=== PATIENT | female | born 1970 | race Caucasian/White ===

== ENCOUNTER → 2017-08-27 17:47 | Outpatient (CLI) | payer BC, SELFPAY | PROVIDERS: Visit Provider Urology | DX: R31.9 Hematuria, unspecified (principal) | CPT/HCPCS: 87077; 87086; 87088; 87186 ==

== ENCOUNTER 2017-09-18 09:30 | Day surgery (SDC) | payer BC, SELFPAY ==
--- NOTE | 2017-09-18 09:45 | RAD_ITS ---
STUDY: X-RAY - ABDOMEN/PELVIS REASON FOR EXAM: Female, 47 years old. Left-sided kidney stones TECHNIQUE: Single AP view of the abdomen / pelvis. COMPARISON: December 29, 2013 FINDINGS: There again appear to be a left renal calculi with a few calculi measuring up to 5 mm. There is an unremarkable bowel gas pattern. There is no demonstrated free abdominal air. The visualized liver, spleen and kidneys are grossly normal in size and morphology. Normal soft tissue structures. There are diffuse degenerative changes of the visualized lumbar spine. RAD/Abdomen Single View IMPRESSION: There again appear to be a left renal calculi with a few calculi measuring up to 5 mm. Electronically Signed: Anette Pena MD at 13:37 EDT , Service support ,
[2017-09-18 10:07] VITALS: BP 120/81; PULSE 89; RESP 16; TEMP 36.4; O2SAT 100; BMI 31.5
[2017-09-18 10:26] LABS: Bedside Glucose 97 mg/dL (70-110)
[2017-09-18] MEDS: Cefazolin 2 GM in 0.9% Normal Saline 100 ML IV (12:06)
--- NOTE | 2017-09-18 12:12 | PCM.DC.URO ---
Discharge Diet: Light diet - advance as tolerated Discharge Activity: Return to Normal Activity, May not drive while taking narcotic pain medications. Call your doctor if your incision/area has: Continuous Slow Oozing, Sudden Increased Bleeding, Increased Pain/ Swelling, Increased Redness, Foul Smelling Discharge, Swelling at the incision site Call your doctor if you observe: Fever of 101 or Higher, Uncontrolled pain Instructions: Shock Wave Lithotripsy Allergies/Adverse Reactions: Allergies amoxicillin Allergy (Verified 09/14/17 08:11) Unknown Sulfa (Sulfonamide Antibiotics) Allergy (Verified 09/14/17 08:11) Hives Medications to take at Discharge Escitalopram Oxalate [Lexapro] 40 mg PO QHS 12/16/13 Atorvastatin Calcium [Lipitor] 10 mg PO QHS 09/14/17 Losartan Potassium [Cozaar] 50 mg PO DAILY 09/14/17 Metformin HCl 1,000 mg PO BID 09/14/17 Pantoprazole Sodium [Protonix] 40 mg PO DAILY 09/14/17 Hydrocodone/Acetaminophen [[place] 5-325 Tablet] 1 ea PO Q4H PRN PRN 5 Days #20 tab 09/18/17 The following prescriptions were given: Hydrocodone/Acetaminophen [[place] 5-325 Tablet] 1 ea PO Q4H PRN PRN 5 Days #20 tab PRN Reason: Pain Primary Care Physician: Tramaine Ch [Primary Care Provider] - Please Follow Up With: Tulio Orozco MD - call if need to change appt. When: ThursdaySeptember 30, 9:30 am, get xray before appt.
--- NOTE | 2017-09-18 12:17 | DCINST_ITS ---
Discharge Diet: Light diet - advance as tolerated Discharge Activity: Return to Normal Activity, May not drive while taking narcotic pain medications. Call your doctor if your incision/area has: Continuous Slow Oozing, Sudden Increased Bleeding, Increased Pain/ Swelling, Increased Redness, Foul Smelling Discharge, Swelling at the incision site Call your doctor if you observe: Fever of 101 or Higher, Uncontrolled pain Instructions: Shock Wave Lithotripsy Allergies/Adverse Reactions: Allergies amoxicillin Allergy (Verified 09/14/17 08:11) Unknown Sulfa (Sulfonamide Antibiotics) Allergy (Verified 09/14/17 08:11) Hives Medications to take at Discharge Escitalopram Oxalate [Lexapro] 40 mg PO QHS 12/16/13 Atorvastatin Calcium [Lipitor] 10 mg PO QHS 09/14/17 Losartan Potassium [Cozaar] 50 mg PO DAILY 09/14/17 Metformin HCl 1,000 mg PO BID 09/14/17 Pantoprazole Sodium [Protonix] 40 mg PO DAILY 09/14/17 Hydrocodone/Acetaminophen [[place] 5-325 Tablet] 1 ea PO Q4H PRN PRN 5 Days #20 tab 09/18/17 The following prescriptions were given: Hydrocodone/Acetaminophen [[place] 5-325 Tablet] 1 ea PO Q4H PRN PRN 5 Days #20 tab PRN Reason: Pain Primary Care Physician: Tramaine Ch [Primary Care Provider] - Please Follow Up With: Tulio Orozco MD - call if need to change appt. When: ThursdaySeptember 30, 9:30 am, get xray before appt.
--- NOTE | 2017-09-18 12:49 | PCM.OPRPT ---
Problem List (1) Calculus of left kidney Status: Acute Report of Operation Date of Procedure: 09/18/17 Pre-Operative Diagnosis: Left renal calculi Post-Operative Diagnosis: Same Surgery/Procedure Performed:: Left extracorporeal shockwave lithotripsy Description of Surgical Findings:: 47-year-old female taken back to the operating room at the smooth induction of general anesthesia she was placed supine on the lithotripter table we then localize the stones at the F2 focal point of the lithotripter machine she had 3 stones to him next to each other and one of them the lower pole. We started with shockwave lithotripsy applied a total of 3000 shockwaves to the stones at a rate of 90 initially up to 120. The stones were effectively treated with shockwave treatment after a few 100 shocks the stones are broken up and we decreased the power and increasing frequency of the shockwave machine and at the end of the treatment cycle the stone the broken up really well decided not to leave a stent patient's anesthetic was reversed plan to see her back in a few weeks with a KUB. Type of Anesthesia:: General Drains: none - Admit VTE Documentation VTE Present on Admission: No VTE Mechan Device Prophylaxis: SCD's VTE Pharm Prophylaxis ordered?: No Reason prophylaxis not ordered:: Treatment Not Indicated
[2017-09-18 12:58] VITALS: BP 120/81; BP 125/79; PULSE 87; RESP 16; TEMP 36.4; O2SAT 95
[2017-09-18 13:00] VITALS: BP 120/81; BP 121/77; PULSE 89; RESP 16; O2SAT 96
[2017-09-18 13:15] VITALS: BP 120/81; BP 121/81; PULSE 79; RESP 16; O2SAT 95
[2017-09-18 13:15] LABS: Bedside Glucose 96 mg/dL (70-110)
[2017-09-18 13:32] VITALS: BP 114/80; BP 120/81; PULSE 72; RESP 16; TEMP 36.5; O2SAT 96
[2017-09-18 14:09] VITALS: BP 120/81
== END 2017-09-18 14:13 | disposition home or self-care (01) ==
LOC: SDC 09:31 → AC 09:33
PROVIDERS: Family Provider Family Medicine; PCP Family Medicine; Visit Provider Urology
PROC: (CPT 50590; principal; 2017-09-18 11:30)
DX: N20.0 Calculus of kidney (principal); N30.00 Acute cystitis without hematuria; R35.0 Frequency of micturition; R35.1 Nocturia; I10 Essential (primary) hypertension; E78.4 Other hyperlipidemia; R73.03 Prediabetes; K21.9 Gastro-esophageal reflux disease without esophagitis; F32.9 Major depressive disorder, single episode, unspecified; F41.9 Anxiety disorder, unspecified; E66.9 Obesity, unspecified; Z68.31 Body mass index [BMI] 31.0-31.9, adult; Z79.84 Long term (current) use of oral hypoglycemic drugs; Z79.899 Other long term (current) drug therapy; F17.200 Nicotine dependence, unspecified, uncomplicated; Z87.442 Personal history of urinary calculi; Z87.440 Personal history of urinary (tract) infections; Z86.32 Personal history of gestational diabetes; Z98.51 Tubal ligation status
CPT/HCPCS: 00873; 50590; 74018; 82962; J7120; J2405

== ENCOUNTER → 2017-09-30 08:48 | Outpatient (CLI) | payer BC, SELFPAY ==
--- NOTE | 2017-09-30 09:00 | RAD_ITS ---
STUDY: X-RAY - ABDOMEN/PELVIS REASON FOR EXAM: Female, 47 years old. History of kidney stone. TECHNIQUE: Single AP view of the abdomen / pelvis. COMPARISON: 09/18/2017. FINDINGS: Again are few calcifications overlying the left kidney faintly visualized this exam. There is an unremarkable bowel gas pattern. The visualized liver, spleen and kidneys are grossly normal in size. There are calcified phleboliths in the pelvis. Stones in the distal ureters are difficult to exclude. Surgical clips are seen in the pelvic region. There are degenerative changes of the visualized lumbar spine. RAD/Abdomen Single View IMPRESSION: Small calcifications overlying the left kidney faintly visualized at this time. Electronically Signed: Tres Chen MD at 2:37 EDT Tel , Service support ,
== END ==
PROVIDERS: Family Provider Family Medicine; PCP Family Medicine; Visit Provider Urology
DX: R94.2 Abnormal results of pulmonary function studies (principal)
CPT/HCPCS: 74018

== ENCOUNTER → 2017-09-30 11:28 | Outpatient (CLI) | payer BC, SELFPAY | PROVIDERS: Family Provider Family Medicine; PCP Family Medicine; Visit Provider Nurse Practitioner Adult Health | DX: R31.9 Hematuria, unspecified (principal); R82.99 Other abnormal findings in urine | CPT/HCPCS: 74018; 87077; 87086; 87088; 87186 ==

== ENCOUNTER → 2019-05-03 15:35 | Outpatient (CLI) | payer OTHER, SELFPAY ==
--- NOTE | 2019-05-03 15:39 | RAD_ITS ---
STUDY: X-RAY - ABDOMEN/PELVIS REASON FOR EXAM: Female, 48 years old. History of kidney stones. TECHNIQUE: Two AP supine views of the abdomen and pelvis. COMPARISON: Prior study of 09/30/2017 FINDINGS: The lung bases are not in the field of view of the study. There is an unremarkable bowel gas pattern. There is no demonstrated free abdominal air. There are 2 small calcifications overlying the left renal silhouette in the 2 to 3 mm range, similar to the previous study. Bilateral tubal ligation clips are seen in the pelvis. There are mild arthritic changes of the left and right hips. RAD/Abdomen Single View IMPRESSION: Several small calcifications again noted overlying the lower pole of left kidney consistent with nephrolithiasis, similar to the previous study. Bilateral tubal ligation clips are noted. There are mild degenerative changes of the left and right hips. Electronically Signed: Prince Killian MD at 23:01 EST , Service support ,
== END ==
PROVIDERS: Family Provider Family Medicine; PCP Family Medicine; Referring Provider Nurse Practitioner Adult Health; Visit Provider Nurse Practitioner Adult Health
DX: N20.0 Calculus of kidney (principal); N39.0 Urinary tract infection, site not specified
CPT/HCPCS: 74018; 87077; 87086; 87088; 87186

== ENCOUNTER → 2019-05-16 16:37 | Outpatient (CLI) | payer OTHER, SELFPAY | PROVIDERS: Family Provider Family Medicine; PCP Family Medicine; Referring Provider Urology; Visit Provider Urology | DX: R31.9 Hematuria, unspecified (principal) | CPT/HCPCS: 87077; 87086; 87088; 87186 ==

== ENCOUNTER 2019-06-18 14:01 | Emergency (ER) | payer OTHER, SELFPAY ==
[2019-06-18 14:04] VITALS: BP 118/81; PULSE 99; RESP 17; TEMP 36.9; O2SAT 99; BMI 31.6
--- NOTE | 2019-06-18 14:40 | CT_ITS ---
STUDY: CT ABDOMEN AND PELVIS WITHOUT CONTRAST REASON FOR EXAM: Female, 49 years old. Left flank pain for 2 days and hematuria. RADIATION DOSAGE (If Supplied By Facility): CTDIvol = ( 13.94 ) mGy, DLP = ( 706.91 ) mGycm TECHNIQUE: Transaxial images were obtained from the dome of the diaphragm to the symphysis pubis without oral contrast, and without intravenous contrast. Sagittal and coronal images were reconstructed. Individualized dose optimization techniques were used for this CT. COMPARISON: None. FINDINGS: The visualized portions of lung bases demonstrate hypoventilatory changes. The visualized portions of the heart are within normal limits. There is hepatomegaly. There is mild diffuse fatty infiltration of the liver. No focal lesion is seen. There is non-visualization of the gallbladder, which may be secondary to either contraction or a prior cholecystectomy. Normal spleen. Normal pancreas. Normal bilateral adrenal glands. There is a 2 mm nonobstructing stone in the right kidney. There is no evidence of right hydronephrosis. There are multiple small stones in the left kidney, the largest measures about 3 mm in its mid pole. There is mild left hydronephrosis there is no evidence of ureteral stone. Multiple calcifications are seen in pelvic lesion consistent with phleboliths. There are vascular calcifications. Normal visualized stomach. There are nonspecific fluid-filled small bowel loops. There is no evidence of small bowel obstruction. There is fecal retention. The appendix is visualized and appears normal. There is mild atherosclerotic calcification of the abdominal aorta, without a demonstrated aneurysm. Normal inferior vena cava. Normal retroperitoneum. Normal urinary bladder. There are surgical clips in the pelvis consistent with a history of previous tubal ligation. Normal abdominal wall. The osseous structures demonstrate Schmorl''s nodes at multiple levels in the lower thoracic and upper lumbar spine. CT/Abdomen/Pelvis without Cont IMPRESSION: 1. Mild left hydronephrosis. No definite ureteral stone is seen. 2. Bilateral nonobstructing renal stones more on the left side. 3. Hepatomegaly. 4. Nonvisualization of the gallbladder. 5. No evidence of acute appendicitis. Electronically Signed: Tres Chen MD at 15:33 EST Tel , Service support ,
[2019-06-18 14:54] LABS: Bacteria 0 SEEN /hpf (None Seen); Mucous, Urine 0 SEEN /hpf (<or=2+)
[2019-06-18 14:57] VITALS: BP 124/89; PULSE 82; RESP 16; O2SAT 98
[2019-06-18] MEDS: 0.9% Normal Saline 1,000 ML 1000 ML IV (14:58)
[2019-06-18 15:17] LABS: Color, Urine Amber (Yellow); Glucose, Dipstick Normal (Normal); Ketone-Dipstick 5 mg/dl (Negative); Leukocyte Esterase-Dipstick 500 /ul (Negative); Nitrite-Dipstick Positive (Negative); Occult Blood-Urine 250 /ul (Negative); Protein-Dipstick 100 mg/dl (Negative); Urine Bilirubin Dipstick Negative (Negative); Urine Clarity Cloudy (Clear); Urine Urobilinogen Normal (Normal); Urine pH 6.5 (5.0 - 8.0)
[2019-06-18] MEDS: Ceftriaxone 1 GM/50 ML BAG IV (15:18)
[2019-06-18 15:22] LABS: Absolute Lymphocyte Count 1.88 X10^3/uL (0.83-4.51); Absolute Neutrophil Count 4.9 X10^3/uL (2.0-7.7); Basophil# 0.05 X10^3/uL; Basophil% 0.6 % (0-1); Eosinophil# 0.23 X10^3/uL; Eosinophils% 2.9 % (0-5); Hematocrit 41.8 % (37-47); Hemoglobin 13.7 g/dL (12.0-15.0); Lymphocyte # 1.88 X10^3/ul (4.0); Lymphocyte % 23.7 % (19-41); Mean Corp Hgb Conc 32.8 g/dL (32-36); Mean Corpuscular Hgb 30.9 pg (27.0-32.0); Mean Corpuscular Volume 94.4 fL (81-99); Mean Platelet Vol. 9.9 fl (6.2-12.0); Monocyte# 0.89 X10^3/uL; Monocyte% 11.2 % (0-10); NRBC Flagged by Analyzer 0 % (0-5); Neutrophil # 4.86 X10^3/uL (2.7-7.7); Neutrophil % 61.2 % (47-70); Platelet Count 275 K/mm3 (150-450); RBC Distribution Width CV 13.4 % (11.6-14.6); RBC Distribution Width SD 46.5 fl (35.1-43.9); Red Blood Count 4.43 M/mm3 (4.2-5.4); White Blood Count 7.9 K/mm3 (4.4-11.0)
[2019-06-18 15:28] LABS: ALB/GLOB Ratio 1.3 RATIO (0.9-2.4); AST(SGOT) 22 U/L (15-37); Alanine Aminotransfer ALT/SGPT 37 U/L (13-56); Albumin, Serum 3.9 g/dL (3.2-5.0); Alkaline Phosphatase 74 U/L (45-117); Anion Gap 6 (5-15); BUN 11 mg/dL (7-18); BUN/Creat Ratio 15.3 RATIO (10-20); Calcium,Total 8.3 mg/dL (8.5-10.1); Chloride 109 mmol/L (98-107); Creatinine, Serum 0.72 mg/dL (0.55-1.02); EST Glomerular Filtration Rate 91 mL/min (>60); Est Glom Filt Rate - Afr Amer 110 mL/min (>60); Estimated Creatinine Clearance 86.54 ml/min; Glucose 103 mg/dL (74-106); Potassium 3.8 mmol/L (3.5-5.1); Protein, Total 6.9 g/dL (6.4-8.2); Sodium Level 141 mmol/L (136-145)
[2019-06-18 15:29] LABS: Red Blood Cells-Urine 10-25 SEEN /hpf (0-5); Squamous Epithelial Cells - UA 0-5 SEEN /hpf (5-10); White Blood Cells 10-25 SEEN /hpf (0-5)
[2019-06-18 15:42] LABS: Lactic Acid 2.1 mmol/L (0.4-1.9)
--- NOTE | 2019-06-18 15:43 | ED.RN ---
lactic 2.[address] coelho aware
--- NOTE | 2019-06-18 16:49 | ED.DCSUM_ITS ---
- ER Visit Summary Date of Service: 06/18/19 Chief Complaint: Flank pain History of Present Illness: The patient is a [address] Orozco, the [facility], and Dr. Ch. She reports that last month she had a urine culture that showed she had a infection. She was placed on Cipro. States that she did not have any symptoms preceding this and seemed to be doing fine. However, she reports that following this her urine has been brown intermittently since that time. She was placed on Macrobid a few weeks ago. She states that this did not improve. She saw the [facility] on June 06 and had a urine culture obtained which showed Klebsiella. Today they called in cefadroxil and she is taken 1 dose. Patient reports that she has left flank pain that began today. Is a cramping pain that was 9 at 10 worsened 4-10 currently. Is worsened by movement. Is relieved by Aleve. She denies any associated nausea, vomiting, diarrhea, dysuria, frequency, or other complaints. She does have a history of kidney stones, but she reports that this is not similar to that. Physical Examination: Vitals: Stable. Afebrile. General: Well-nourished and well-developed. Head: Normocephalic atraumatic. Neck: Supple, no lymphadenopathy. No JVD. Nontender. Cardiovascular: Regular rate and rhythm. No murmurs. Respiratory: No respiratory distress. Clear to auscultation bilaterally. Abdominal: Soft, nontender, nondistended, normal bowel sounds. No guarding, rebound, or peritoneal signs. Back: Mild tenderness palpation just inferior to the left costovertebral angle. Extremities: Nontender, no edema. Skin: Normal color, no rash. Neurologic: Alert and oriented ?3. Cranial nerves II through XII are intact. Normal strength and sensation. Psych: Normal affect. Test Results: CBC shows monocytes of 11. Chem-7 shows a chloride of 109, calc ium 8.3. LFTs are normal. UA does show an infection with nitrites, 10-25 white and red blood cells. Lactic acid is 2.1. Clinical Impression(s) from Imaging Studies Abdomen/Pelvis CT 06/18/19 14:40 IMPRESSION: 1. Mild left hydronephrosis. No definite ureteral stone is seen. 2. Bilateral nonobstructing renal stones more on the left side. 3. Hepatomegaly. 4. Nonvisualization of the gallbladder. 5. No evidence of acute appendicitis. Electronically Signed: Tres Chen MD at 15:33 EST Tel , Service support , Emergency Department Course and Treatment: Patient had an IV placed. She was given a dose of Rocephin IV. She refused pain or nausea medications. I did review her the computer. Her urine cultures of showed Klebsiella that is resistant to Macrobid and ampicillin. Treatment Plan: Patient was instructed to take the cefadroxil as prescribed. Follow-up with her primary care physician in 5 days for a repeat urinalysis. If she continues to have blood in her urine she understands that she needs to see Dr. Orozco for further evaluation. Return to the emergency department for any worsening symptoms. Disposition: To home in improved and stable condition. Impression: 1. UTI. 2. Left flank pain. This note was generated with [employer] dictation software. It may contain incorrect words, spelling, and punctuation that were not noted in review of the chart prior to signing ED Disposition - Plan for ED Patient: Instructions: Understanding Urinary Tract Infections (UTIs) Referrals: Tramaine Ch MD [Primary Care Provider] - 5-7 Days
[2019-06-18 16:54] VITALS: BP 120/89; PULSE 84; RESP 16; O2SAT 100
[2019-06-18 19:06] LABS: Reflex Lactate? Y
== END 2019-06-18 16:55 | disposition home or self-care (01) ==
PROVIDERS: Emergency Provider Emergency Medicine; Family Provider Family Medicine; PCP Family Medicine
DX: N39.0 Urinary tract infection, site not specified (principal); N13.2 Hydronephrosis with renal and ureteral calculous obstruction; R16.0 Hepatomegaly, not elsewhere classified; K21.9 Gastro-esophageal reflux disease without esophagitis; E11.9 Type 2 diabetes mellitus without complications; I10 Essential (primary) hypertension; E78.00 Pure hypercholesterolemia, unspecified; F32.9 Major depressive disorder, single episode, unspecified; Z87.442 Personal history of urinary calculi; Z79.84 Long term (current) use of oral hypoglycemic drugs; Z79.899 Other long term (current) drug therapy; F17.200 Nicotine dependence, unspecified, uncomplicated
CPT/HCPCS: 74176; 80053; 81001; 83605; 85025; 96365; 99285; J7030; A4216

== ENCOUNTER → 2024-10-18 | Outpatient (CLI) | payer BC, SELFPAY ==
--- NOTE | 2024-10-18 10:47 | RAD_ITS ---
EXAM: XR Abdomen, 1 View CLINICAL INDICATION: KUB- KIDNEY STONES TECHNIQUE: Frontal supine view of the abdomen/pelvis. COMPARISON: No relevant prior studies available. FINDINGS: GASTROINTESTINAL TRACT: See below. ORGANS: Multiple nodular calculi projects over the left renal region measuring up to 8 mm. This could be a renal calculus or in the colon. BONES/JOINTS: Unremarkable. No acute fracture. RAD/Abdomen Single View IMPRESSION: Multiple nodular calculi projects over the left renal region measuring up to 8 mm. This could be a renal calculus or in the colon. Reading [facility]
== END | disposition home or self-care (01) ==
LOC: MTRAD 10:46
PROVIDERS: PCP Family Medicine; Referring Provider Urology; Visit Provider Urology
DX: N20.0 Calculus of kidney (principal)
CPT/HCPCS: 74018

== ENCOUNTER 2025-05-05 18:30 | Outpatient (CLI) | payer BC, SELFPAY ==
--- NOTE | 2025-05-05 18:36 | CT_ITS ---
PROCEDURE: CT/Abdomen/Pelvis without Cont
== END 2025-05-05 23:59 | disposition home or self-care (01) ==
PROVIDERS: PCP Family Medicine; Referring Provider Urology; Visit Provider Urology
DX: N39.0 Urinary tract infection, site not specified (principal); Z87.442 Personal history of urinary calculi
CPT/HCPCS: 74176

== ENCOUNTER 2025-06-15 05:58 | Day surgery (SDC) | payer BC, SELFPAY ==
[2025-06-08 10:52] LABS: Hematocrit 43.8 % (37-47); Hemoglobin 14.3 g/dL (12.0-15.0); Mean Corp Hgb Conc 32.6 g/dL (32-36); Mean Corpuscular Volume 92.2 fL (81-99); Mean Platelet Vol. 10.4 fl (6.2-12.0); Platelet Count 360 K/mm3 (150-450); RBC Distribution Width CV 14.0 % (11.6-14.6); RBC Distribution Width SD 47.7 fl (35.1-43.9); Red Blood Count 4.75 M/mm3 (4.2-5.4); White Blood Count 9.0 K/mm3 (4.4-11.0)
[2025-06-08 11:21] LABS: Anion Gap 15 (5-15); BUN 12 mg/dL (4-19); BUN/Creat Ratio 15.3 RATIO (10-20); Calcium,Total 9.8 mg/dL (7.6-11.0); Carbon Dioxide 23.0 mmol/L (21.0-32.0); Chloride 101 mmol/L (98-108); Glucose 183 mg/dL (70-99); Potassium 4.3 mmol/L (3.3-5.1)
[2025-06-15] VITALS (9 sets, daily range): BP systolic 134–148; BP diastolic 88–93; PULSE 72–89; RESP 16; TEMP 36.2–37.6; O2SAT 92–98; BMI 31.1
--- OUTSIDE RECORDS SUMMARY | 2025-06-15 06:02 | XMS RPT_ITS | CCD ---
Author Organization [facility] Care Team Providers Care Commercial Roofer Name Role Phone Tatyana Doll Unavailable Unavailable Tatyana Doll Unavailable Unavailable Delarosa II, Lo Unavailable Unavailable Tatyana Doll Unavailable Unavailable Angelica White Unavailable Unavailable Tatyana Doll Unavailable Unavailable Unavailable Tatyana Doll Unavailable Sruthi Rangel Unavailable Lo Delarosa Unavailable Lisa Oscar Meek Unavailable Unavailable Unavailable Unavailable Sruthi Shelley Primary Care Provider Trudy Santana Unavailable Unavailable Dima, Dr. Tatyana Marquez Primary Care Unav ailable Delarosa II, Dr. Lo Sahni Attending Unavai lable Delarosa II, Dr. Lo Sahni Attending Unavai lable Doll, Dr. Tatyana Marquez Primary Care Unav ailable Dima, Dr. Tatyana Maruqez Primary Care Unav ailable Doll, Dr. Tatyana Marquez Referring Unav ailable Christopher, Dr. Angelica Davis Admitting Unavai lable Christopher, Dr. Angelica Davis Attending Unavai lable Doll, Dr. Tatyana Marquez Attending Unav ailable Doll, Dr. Tatyana Marquez Primary Care Unav ailable Doll, Dr. Tatyana Marquez Attending Unav ailable Doll, Dr. Tatyana Marquez Primary Care Unav ailable Dima, Dr. Tatyana Marquez Primary Care Unav ailable Hardik, Ms. Yates Attending Unavail able Delarosa II, Dr. Lo Sahni Attending Unavai lable Delarosa II, Dr. Lo Sahni Referring Unavai labreyna Doll, Dr. Tatyana Marquez Primary Care Unav ailable Doll, Dr. Tatyana Marquez Attending Unav ailable Doll, Dr. Tatyana Marquez Referring Unav ailable Doll, Dr. Tatyana Marquez Primary Care Unav ailTatyana Gutierrez MD Primary Care Provider Sruthi Shelley MD Primary Care Provider Tatyana Doll MD Unavailable Tatyana Doll MD Primary Care Provider Lo Delarosa MD Unavailable TATYANA DOLL Primary Care Unavailable TATYANA DOLL Primary Care Unavailable Tatyana Doll MD Primary Care Provider FAZAL MALIK JR. Attending Unavailable TATYANA DOLL Primary Care Unavaila ble Sruthi Shelley MD Primary Care Provider [phone] Tatyana Doll MD Unavailable [phone] Tatyana Doll MD Primary Care Provider [phone] Lo Delarosa MD Unavailable SHERRELL RICKS Attending Unavailable SHERRELL RICKS Referring Unavailable STENCEL, SRUTHI D Primary Care Unavailable SHERRELL RICKS Referring Unavailable STENCEL, SRUTHI Mahesh Primary Care Unavailable SHERRELL RICKS Attending Unavailable STENCEL, SRUTHI D Primary Care Unavailable HASHERRELL CUELLAR Referring Unavailable STENCEL, SRUTHI D Primary Care Unavailable HASHERRELL CUELLAR Referring Unavailable STENCEL, SRUTHI Aragon Primary Care Unavailable Tatyana Doll MD Unavailable ANGELICA WHITE Attending Unavailable ANGELICA WHITE Referring Unavailable TATYANA DOLL Primary Care Unavailable TATYANA DOLL Attending Unavailable TATYANA DOLL Referring Unavailable TATYANA DOLL Primary Care Unavailable TATYANA DOLL Attending Unavailable TATYANA DOLL Referring Unavailable TATYANA DOLL Primary Care Unavailable TATYANA DOLL Attending Unavailable TATYANA DOLL Primary Care Unavailable Tramaine Doll Primary Care Unavailable Tramaine Doll Referring Unavailable Nithya Saucedo Attending Unavailable Tramaine Doll Primary Care Unavailable Nithya Saucedo Attending Unavailable Nithya Saucedo Referring Unavailable Nithya Saucedo Attending Unavailable Nithya Saucedo Referring Unavailable Tramaine Doll Primary Care Unavailable Dima BOUDREAUX, Dr. Redd Primary Care Physician Dima BOUDREAUX, Dr. Redd Referring Provider [phone] Sheryl BOUDREAUX, Dr. Barriga Attending Physician Sheryl BOUDREAUX, Dr. Barriga Referring Provider Allergies Allergy Classification Reported Allergen(s) Allergy Type Date of Onset Reaction(s) Facility Penicillins (antibiotic) (1 source) Amoxicillin; Translations: [Amoxicillin TABS] Drug Allergy [facility] Work Phone: Sulfonamides (antibiotic) (1 source) Sulfonamides (Antibiotic); Translations: [Sulfa Drugs] Drug Allergy [facility] Work Phone: (20 sources) Amoxicillin; Translations: [Amoxicillin TABS] Drug Allergy 4 [facility], [facility]: (20 sources) Sulfonamides (Antibiotic); Translations: [Sulfa Drugs] drug allergy Hives/Urticaria , Hives [facility] Work Phone: (20 sources) Sulfonamides (Antibiotic); Translations: [SULFA (SULFONAMIDE ANTIBIOTICS)] Drug Allergy 6 [facility] (6 sources) Amoxicillin; Translations: [AMOXICILLIN] Drug Allergy 4 [facility] Rep[facility] (1 source) Sulfonamides (Antibiotic) Drug allergy (disorder) 9 [facility] Repository (1 source) Sulfonamides (Antibiotic) Allergy to substance 9 [facility] Medications Current Medications Medication Drug Class(es) Dates Sig (Normalized) Sig (Original) acetaminophen 325 mg / HYDROcodone bitartrate 5 mg oral tablet (2 sources) Opioid Agonist Start: 10-06-2023 End: 02-12-2024 take 1 tablet by mouth every six hours for pain HYDROcodone-acetami nophen (Holden) 5-325 mg tablet Indications: Kidney stone Take 1 tablet by mouth every 6 hours if needed for severe pain (7 - 10). 20 tablet 10/06/2023 02/12/2024 Discontinued (Therapy completed) ALPRAZolam 0.5 mg oral tablet (20 sources) Benzodiazepine Start: 07-08-2019 End: 02-17-2023 take 1 tablet by mouth every four hours ALPRAZolam (Xanax) 0.5 mg tablet Indications: Recurrent major depressive disorder, in partial remission Take 1 tablet (0.5 mg) by mouth every 4 hours for 7 days. 30 tablet 02/10/2023 Active Start: 04-08-2017 take 1 tablet by cristobal th once daily as needed for anxiety ALPRAZolam (XANAX) 0.5 mg tablet TAKE ONE TABLET BY MOUTH DAILY NEEDED FOR ANXIETY 5 04/08/2017 Active Comment on above: TAKE ONE TABLET BY M OUTH DAILY NEEDED FOR ANXIETY atorvastatin 10 mg oral tablet (20 sources) HMG-CoA Reductase Inhibitor Start: 05-15-20 17 End: 08-17-19 26 take 1 tablet by mouth at bedtime Comment on above: Take 10 mg by mouth once daily. blood-glucose meter, drum-type(ACCU-CHEK COMPACT PLUS CARE KIT) (15 sources) Start: 10-20-19 09 blood-glucose meter, drum-type(ACCU-CHEK COMPACT PLUS CARE KIT) use as directed 1 0 10/19/2008 Active Comment on above: use as directed ciprofloxacin 500 mg oral tablet (20 sources) Quinolone Antimicrobial Start: 08-05-19 24 End: 08-13-19 24 take 1 tablet by mouth twice daily ciprofloxacin (Cipro) 500 mg tablet Indications: Recurrent UTI Take 1 tablet (500 mg) by mouth 2 times a day for 5 days. 10 tablet 0 08/05/2023 08/13/2023 Discontinued (Therapy completed) Start: 08-01-2022 take 1 tablet by cristobal th once daily Ciprofloxacin HCl - 500 MG Oral Tablet TAKE 1 TABLET EVERY 12 HOURS DAILY. Quantity: 10 Refills: 0 Ordered: 01-Aug-2022 Tatyana Doll MD Start : 01-Aug-2022 Active Start: 07-08-2021 take 1 tablet by cristobal th twice daily Ciprofloxacin HCl - 250 MG Oral Tablet Take 1 tablet twice daily Quantity: 6 Refills: 0 Ordered: 08-Jul-2021 Lo Delarosa II, MD Start : 08-Jul-2021 Active Start: 04-24-2021 End: 04-30-2021 take 1 tablet by mouth every twelve hours Cipro 500 mg oral tablet ; 1 tab(s) orally every 12 hours Quantity: 14 Refills: 0 Ordered: 24-Apr-2021 Sruthi Rangel Start: 24-Apr-2021 End: 30-Apr-2021 Generic Substitution Allowed Comments: Avoid prolonged or excessive exposure to direct and/or artificial sunlight while taking this medication.Check with your doctor before becoming .Do not take dairy products, antacids, or iron preparations within one hour of this medication.Finish all this medication unless otherwise directed by prescriber.Medication should be taken with plenty of water. Start: 08-13-2020 End: 02-10-2023 take 1 tablet by mouth twice daily ciprofloxacin (Cipro) 500 mg tablet Take 1 tablet (500 mg) by mouth 2 times a day. 0 08/13/2020 02/10/2023 Discontinued (Med List Cleanup) Start: 09-05-2019 take 1 tablet by cristobal th twice daily Ciprofloxacin HCl - 250 MG Oral Tablet Take 1 tablet twice daily Quantity: 6 Refills: 0 Lo Delarosa II, MD Start : 05-Sep-2019 Active Comment on above: Avoid prolonged or e xcessive exposure to direct and/or artificial sunlight while taking this medication.Check with your doctor before becoming .Do not take dairy products, antacids, or iron preparations within one hour of this medication.Finish all this medication unless otherwise directed by prescriber.Medication should be taken with plenty of water. doxycycline hyclate 100 mg oral tablet (1 source) Tetracycline-class Drug Start: End: take 1 tablet by mouth twice daily doxycycline hyclate (VIBRA-TABS) 100 MG tablet Take 1 (one) tablet (100 mg total) by mouth 2 (two) times a day for 10 days . 20 tablet 07/06/2024 07/16/2024 Active escitalopram 20 mg oral tablet (20 sources) Serotonin Reuptake Inhibitor Start: 024 End: 026 take 1 tablet by mouth once daily escitalopram (Lexapro) 20 mg tablet Indications: Depression, unspecified depression type Take 1 tablet (20 mg) by mouth once daily. 90 tablet 3 08/17/2024 08/17/2025 Active Start: 07-08-2019 End: 10-31-2023 take 1 tablet by mouth once daily escitalopram (Lexapro) 10 mg tablet Indications: Depression, unspecified depression type Take 1 tablet (10 mg) by mouth once daily. 90 tablet 3 10/31/2022 08/13/2023 Discontinued (Reorder) Start: 12-16-2013 take 4 tablets by mo [facility] at bedtime Comment on above: Take 10 mg by mouth once daily. levoFLOXacin 500 mg oral tablet (1 source) Quinolone Antimicrobial Start: 04-20-20 End: 04-25-20 take 1 tablet by mouth once daily Levofloxacin 500 mg tablet Discontinued 500 mg PO daily 5 5 0 April 19, 2025 11:00pm April 23, 2025 11:00pm April 24, 2025 11:10pm losartan potassium 100 mg oral tablet (20 sources) Angiotensin 2 Receptor Henry Start: 07-08-19 End: 08-17-19 take 1 tablet by mouth once daily losartan (Cozaar) 100 mg tablet Indications: Benign hypertension Take 1 tablet (100 mg) by mouth once daily. 90 tablet 3 08/17/2024 08/17/2025 Active Start: 09-14-2017 take 1 tablet by cristobal once daily losartan (COZAAR) 50 mg tablet Take 50 mg by mouth once daily. 3 05/16/2018 Active Comment on above: Take 50 mg by mouth once daily. 24 hr metFORMIN hydrochloride 750 mg extended release oral tablet (20 sources) Biguanide Start: 08-31-2023 End: 08-17-2025 take 1 tablet by mouth twice daily metFORMIN XR (Glucophage-XR) 750 mg 24 hr tablet Indications: Type 2 diabetes mellitus without complication, without long-term current use of insulin (Multi) Take 1 tablet (750 mg) by mouth 2 times a day. 180 tablet 3 08/17/2024 08/17/2025 Active Start: 05-23-2019 take 1 tablet by cristobal twice daily metFORMIN XR (Glucophage-XR) 750 mg 24 hr tablet Take 1 tablet (750 mg) by mouth 2 times a day. 0 05/23/2019 Active Start: 05-24-2018 take 1 tablet by cristobal th once daily metFORMIN ER (GLUCOPHAGE XR) 750 mg 24 hr tablet Take 1,500 mg by mouth once daily. 3 05/24/2018 Active Start: 05-24-2018 take 2 tablets by mo [place] once daily metFORMIN (GLUCOPHAGE-XR) 750 MG 24 hr tablet Take 2 (two) tablets (1,500 mg total) by mouth daily . 05/24/2018 Active Start: 09-14-2017 take 1 tablet by cristobal twice daily take 1 tablet by cristobal once daily metFORMIN 750 mg oral tablet, extended release ; 1 tab(s) orally once a day Quantity: 0 Refills: 0 Ordered: 13-Dec-2019 Marta Carballo Generic Substitution Allowed Comment on above: Take 1,500 mg by cristobal once daily. pantoprazole 40 mg delayed release oral tablet (20 sources) Proton Pump Inhibitor Start: 05-15-2017 End: 08-17-2025 take 1 tablet by mouth once daily Comment on above: Take 40 mg by mouth once daily. Completed/Discontinued Medications Medication Drug Class(es) Dates Sig (Normalized) Sig (Original) calcium chloride 0.0014 meq/ml / potassium chloride 0.004 meq/ml / sodium chloride 0.103 meq/ml / sodium lactate 0.028 meq/ml injectable solution (3 sources) Start: 01-23-2025 End: 01-24-2025 take 50 mL intravenously every hour 50 mL/hr, intravenous, Continuous, Starting on Thu01/23/25 at 1145, For 1 day, Preprocedure Start: 10-06-2023 lactated Ringe r's infusion 1 ml fentaNYL 0.05 mg/ml injection (6 sources) Opioid Agonist Start: 01-23-2025 End: 01-23-2025 intravenous, As needed, Starting on Thu01/23/25 at 1222, Intraprocedure glucagon (rdna) 1 mg injection (2 sources) Antihypoglycemic Agent Start: 01-23-2025 End: 01-23-2025 intravenous, As needed, Starting on Thu01/23/25 at 1219, Intraprocedure 2 ml midazolam 5 mg/ml injection (9 sources) Benzodiazepine Start: 01-23-2025 End: 01-23-2025 intravenous, Administer over 5 Minutes, As needed, Starting on Thu01/23/25 at 1222, Intraprocedure Start: 10-06-2023 End: 10-06-2023 midazolam (Versed) injection 2 mg 2 ml ondansetron 2 mg/ml injection (1 source) Serotonin-3 Receptor Antagonist Start: 10-06-2023 End: 10-06-2023 ondansetron (Zofran) injection 4 mg Start: 10-06-2023 End: 10-06-2023 ondansetron (Zofran) injecti on 4 mg Problems Active Problems Problem Classification Problem Date Documented Date Episodic/Chronic Allergic reactions (2 sources) Allergy status to penicillin; Translations: [Allergy status to sulfonamides status] Onset: 10-18-2022 Episodic Anxiety disorders (15 sources) Anxiety disorder; Translations: [Anxiety disorder, unspecified] Onset: 02-06-2012 02-06-2012 Chronic Calculus of urinary tract (20 sources) History of calculus of kidney; Translations: [Calcium renal calculus ] Onset: 02-06-2012 02-06-2012 Episodic Diabetes mellitus without complication (20 sources) Type 2 diabetes mellitus; Translations: [Diabetes mellitus] Onset: 10-18-2022 02-10-2023 Chronic Diabetes or abnormal glucose tolerance complicating ; childbirth; or the puerperium (20 sources) Personal history of gestational diabetes; Translations: [History of gestational diabetes mellitus] Episodic Disorders of lipid metabolism (20 sources) Hyperlipidemia; Translations: [Other and unspecified hyperlipidemia] Onset: 10-30-2022 02-10-2023 Chronic Esophageal disorders (20 sources) Gastroesophageal reflux disease; Translations: [Esophageal reflux] Onset: 10-18-2022 02-10-2023 Chronic Essential hypertension (20 sources) Benign hypertension; Translations: [Benign essential hypertension] Onset: 04-05-2014 04-05-2014 Chronic Genitourinary symptoms and ill-defined conditions (1 source) Mixed urinary incontinence; Translations: [Mixed incontinence] 04-19-2025 Chronic Genitourinary symptoms and ill-defined conditions (20 sources) Nocturia; Translations: [Nocturia] Onset: 10-30-2022 Resolved: 02-12-2024 04-24-2021 Episodic Comment on above: BLOOD IN URINE HEMATURIA Headache; including migraine (2 sources) Headache; Translations: [Headache] 10-18-2022 Episodic Headache; including migraine (1 source) Headache; including migraine; Translations: [Headache, unspecified] Onset: 10-18-2022 Mood disorders (20 sources) Depressive disorder; Translations: [Depressive disorder, not elsewhere classified] Onset: 10-30-2022 02-10-2023 Chronic Mood disorders (3 sources) Mood disorders; Translations: [Depression, unspecified] Onset: 10-18-2022 Nonmalignant breast conditions (1 source) Breast finding ; Translations: [Dense breast tissue] 08-03-2024 Episodic Nonspecific chest pain (5 sources) Chest pain; Translations: [Chest pain, unspecified] Onset: 11-10-2022 Episodic Nutritional deficiencies (11 sources) Cobalamin deficiency; Translations: [Deficiency of other specified B group vitamins] Onset: 08-05-2023 02-10-2023 Episodic Other aftercare (1 source) parts counterman (current) use of oral hypoglycemic drugs; Translations: [parts counterman (current) use of oral hypoglycemic drugs] Onset: 10-18-2022 Episodic Other aftercare (1 source) Other mcc (current) drug therapy; Translations: [Other mcc (current) drug therapy] Onset: 10-18-2022 Episodic Other and unspecified benign neoplasm (20 sources) History of polyp of colon; Translations: [Personal history of colonic polyps] Onset: 12-16-2021 Episodic Other connective tissue disease (1 source) Foot pain Onset: 07-06-2024 Episodic Other nervous system disorders (2 sources) Paresthesia of skin; Translations: [Paresthesia of skin] Onset: 10-18-2022 Episodic Other nutritional; endocrine; and metabolic disorders (20 sources) Body mass index 30+ - obesity; Translations: [Obesity, unspecified] Onset: 10-30-2022 10-30-2022 Chronic Other screening for suspected conditions (not mental disorders or infectious disease) (8 sources) Endometrium thickened; Translations: [Abnormal findings on diagnostic imaging of other specified body structures] Onset: 08-21-2024 08-21-2024 Chronic Other screening for suspected conditions (not mental disorders or infectious disease) (20 sources) Cancer cervix - screening done; Translations: [Patient encounter status] Onset: 12-16-2021 Episodic Other skin disorders (2 sources) Disorder of skin of upper limb; Translations: [Disorder of the skin and subcutaneous tissue, unspecified] 12-01-2024 Episodic Other skin disorders (2 sources) Disorder of the skin and subcutaneous tissue, unspecified; Translations: [Disorder of the skin and subcutaneous tissue, unspecified] Onset: 12-01-2024 Episodic Residual codes; unclassified (20 sources) Past history of procedure; Translations: [Other specified personal history presenting hazards to health] Episodic Comment on above: [facility] 2016; Residual codes; unclassified (7 sources) History of hematuria; Translations: [Personal history of other specified urinary system disorders] Episodic Residual codes; unclassified (2 sources) Early satiety; Translations: [Early satiety] 08-03-2024 Episodic Skin and subcutaneous tissue infections (1 source) Cellulitis of right foot; Translations: [Cellulitis of right lower limb] 07-06-2024 Episodic Spondylosis; intervertebral disc disorders; other back problems (4 sources) Dorsalgia, unspecified; Translations: [Backache] Onset: 04-19-2025 04-19-2025 Episodic Substance-related disorders (20 sources) Smoker; Translations: [Tobacco use disorder] Onset: 10-30-2022 10-30-2022 Chronic Thyroid disorders (20 sources) Multinodular goiter; Translations: [Nontoxic multinodular goiter] Onset: 02-06-2012 02-06-2012 Chronic Unclassified (5 sources) Patient encounter status; Translations: [Colon cancer screening] 01-23-2025 Unclassified (1 source) 1 YR FU DM HTN 07-19-2020 Comment on above: 1 YR FU DM HTN Unclassified (1 source) CT RESULTS 04-23-2021 Comment on above: CT RESULTS Unclassified (2 sources) TINGLING IN ARM 10-18-2022 Comment on above: TINGLING IN ARM Unclassified (1 source) Contact with and (suspected) exposure to COVID-19; Translations: [Contact with and (suspected) exposure to COVID-19] Onset: 10-18-2022 Unclassified (1 source) Dense breast tissue; Translations: [Dense breast tissue] Onset: 08-03-2024 Unclassified (1 source) Personal history of colon polyps, unspecified; Translations: [Personal history of colon polyps, unspecified] Onset: 01-23-2025 Urinary tract infections (20 sources) Recurrent urinary tract infection; Translations: [Acute urinary tract infection] Onset: 10-30-2022 Resolved: 10-30-2022 10-30-2022 Episodic Past or Other Problems Problem Classification Problem Date Documented Da te Episodic/Chronic Abdominal pain (20 sources) Flank pain; Translations: [Abdominal pain, other specified site] Onset: 10-30-2022 04-24-2021 Episodic Nausea and vomiting (8 sources) Postoperative nausea and vomiting; Translations: [Nausea with vomiting, unspecified] Onset: 10-06-2023 Resolved: 02-12-2024 10-06-2023 Episodic Other and unspecified benign neoplasm (2 sources) Personal history of colonic polyps; Translations: [Personal history of colonic polyps] Onset: 12-16-2021 Episodic Other and unspecified benign neoplasm (1 source) Polyp of colon; Translations: [Polyp of colon] Onset: 12-16-2021 Episodic Other gastrointestinal disorders (20 sources) Occult blood in stools; Translations: [Nonspecific abnormal findings in stool contents] Onset: 10-30-2022 Resolved: 08-13-2023 10-30-2022 Episodic Other nervous system disorders (18 sources) Tingling of skin; Translations: [Disturbance of skin sensation] Onset: 10-30-2022 Resolved: 08-13-2023 10-18-2022 Episodic Ovarian cyst (17 sources) Cyst of left ovary; Translations: [Unspecified ovarian cyst, left side] Onset: 08-21-2024 08-21-2024 Episodic Residual codes; unclassified (20 sources) Insomnia; Translations: [Insomnia, unspecified] Onset: 10-30-2022 Resolved: 08-13-2023 10-30-2022 Episodic Residual codes; unclassified (1 source) Procedure and treatment not carried out for other reasons; Translations: [Procedure and treatment not carried out for other reasons] Onset: 12-16-2021 Episodic Residual codes; unclassified (1 source) Early satiety; Translations: [Early satiety] Onset: 08-18-2024 Episodic Unclassified (5 sources) Onset: 08-17-2024 08-17-2024 Unclassified (1 source) Personal history of colon polyps, unspecified; Translations: [Personal history of colon polyps, unspecified] Onset: 01-23-2025 NEGATED: Highlighted row has not occurred!Residual codes; unclassified (7 sources) Disease Episodic Results Test Name Value Interpretation Reference Range Facility Abdomen/Pelvis without Conto n 05-05-2025 Abdomen/Pelvis without Cont [facility] Imaging Services [address] [place] [address] Abdomen/Pelvis without Cont MR#: [id number] Acct: [id number] Name: BETSY EDWARDS Rep #: [id number] : [id number] F [id number] From: Olegario hudson MD PCP: Dr. Tramaine Doll MD Status: REG CLI Study: Abdomen/Pelvis without Cont Date of Exam: 01/20 Exam# [id number] Ordering Dr: Nithya Saucedo MD PROCEDURE: ABDOMEN/PELVIS WITHOUT CONT 05/05/2025 REASON FOR EXAM: BACK PAIN, HEMATURIA, HISTORY STONES TECHNIQUE: Procedure Code: CTABDPEL Modality: CT Procedure: ABDOMEN/PELVIS WITHOUT CONT Noncontrast technique limits evaluation of the abdominal and pelvic viscera. Coronal and Sagittal reconstruction series were provided. One or more dose reduction techniques were used (e.g., Automated exposure control, adjustment of the mA and/or kV according to patient size, use of iterative reconstruction technique). RADIATION DOSE SUMMARY: CTDlvol: 14.7 mGy DLP: 752.68 mGycm COMPARISON: June 18, 2019. FINDINGS: Lung bases: The lung bases are clear. Liver: Hepatomegaly. Fatty infiltration of the liver. Gallbladder: Small layering gallstones are seen along the dependent portion of the gallbladder lumen. Spleen: Normal size. Pancreas: Normal size. No surrounding inflammation. Adrenals: Unremarkable Kidneys: There are 2, adjacent nonobstructive left intrarenal calculi in the lower pole of the left kidney. The larger measures 7 mm. The right kidney is unremarkable. Minimal fullness of the left renal pelvis. No hannah hydronephrosis is seen. Bladder: Unremarkable Reproductive Organs: Normal uterine size and contour. Ovaries are unremarkable. There is evidence of bilateral tubal ligation clips. Calcified pelvic phleboliths. Bowel: Scattered sigmoid diverticula. Appendix: Unremarkable Lymph nodes: No suspicious lymph node enlargement. Vasculature: Mild diffuse atherosclerotic calcifications are noted. Peritoneum / Retroperitoneum: Unremarkable Bones: Degenerative changes of the spine. CT/Abdomen/Pelvis without Cont IMPRESSION: Nonobstructive left intrarenal calculi. No ureteral obstruction is seen at this time. Small layering gallstones. Hepatomegaly and fatty infiltration of the liver. Reading Location: [place] [id number] CC: Dr. Tramaine Doll MD; Dr. Nithya Saucedo MD Wagon Winder: Signed Normal [facility] - Chemistry and C hemistry - challengeOrdered By: Nithya Saucedo on 04-19-2025 Bilirubin Ql (U) Negative [facility] Glucose Ql (U) Negative [facility] Ketones Ql (U) Negative [facility] pH (U) 6 [pH] [facility] Specific gravity (U) [Rel density] 1.010 [facility] - Hematology and Cell countsOrdered By: Nithya Saucedo on 04-19-2025 Hemoglobin Ql (U) Moderate [facility] Comment on above: 200 Celso/uL Laboratory - Specimen inform ationOrdered By: Nithya Saucedo on 04-19-2025 Color (U) [place] [facility] - UrinalysisOrder ed By: Nithya Saucedo on 04-19-2025 Nitrite Ql (U) Positive [facility] Protein Ql (U) Negative [facility] MR/BMS.BUSon 04-19-2025 MR/BMS.BUS [facility] [address], [address] [place] [address] OFFICE VISIT Date of Service: 04/19/25 MR#: [id number] Acct: [id number] Name: BETSY EDWARDS Rep #: [id number] : 1970 Provider: Dr. Nithya Senior i, MD Age/Sex: 54/F Location: [facility] Status: Signed Intake Vital Signs 06/18/19 14:04 04/19/25 12:05 Height 5 ft 6 in 5 ft 6 in Weight: 185 lb BMI 29.8 BP 130/78 H Temp 98 F Intake Visit Reasons: Poss. UTI dark blood in urine Chief Complaint: poss. kidney stone/possible uti Jewel Sawyer Required: No Is patient in pain?: No Allergies amoxicillin Allergy (Verified 06/18/19 14:58) Unknown Sulfa (Sulfonamide Antibiotics) Allergy (Verified 06/18/19 14:58) Hives Medications ???Medication ???Instructions ???Recorded ???Confirmed ???Type escitalopram oxalate 10 mg tablet 40 mg PO QHS 12/16/13 04/19/25 Hi story atorvastatin 10 mg tablet 10 mg PO QHS 09/14/17 04/19/25 His tory losartan 50 mg tablet (Cozaar) 50 mg PO DAILY 09/14/17 04/19/25 H istory metformin 1,000 mg tablet 1,000 mg PO BID 09/14/17 04/19/25 History pantoprazole 40 mg tablet,delayed 40 mg PO DAILY 09/14/17 04/19/25 History release levofloxacin 500 mg tablet 500 mg PO QDAY 5 days #5 tabs 03/30 09/20 Rx Have you fallen in the past year?: No PFSH Medical History (Updated 04/19/25 @ 12:[address] Nithya Saucedo MD) Depression GERD (gastroesophageal reflux disease) Insomnia Type 2 diabetes mellitus Mixed hyperlipidemia Recurrent UTI (urinary tract infection) Surgical History (Updated 04/19/25 @ 12:32 by Bea Renee) History of extracorporeal shockwave lithotripsy (ESWL) History of tubal ligation H/O lithotripsy H/O esophagogastroduodenoscopy History of colonoscopy Family History (Updated 04/19/25 @ 12:35 by Bea Renee) Father Diabetes Alcoholism Pancreatic cancer Liver cancer FH: prostate cancer Mother Diabetes Mitral valve anterior leaflet prolapse Sister Infertility Social History (Updated 04/19/25 @ 12:37 by Bea Renee) adopted: No household members: spouse leisure activities: exercise Smoking Status: Current every day smoker alcohol intake: never substance use type: does not use seatbelt use: always do you feel safe at home: Yes HPI HPI Urology Chief Complaint: poss. kidney stone/possible uti Details: BETSY EDWARDS, is a 54 F. She is here for a possible acute urinary tract infection. Symptoms of an infection started about 2 days ago. Her symptoms include hematuria, urgency, frequency, and left flank pain. There is enough pain she feels like it is a stone. It is only on the left side. There is no fever, chills, nausea, or vomiting. There is urgency, frequency and cloudy urine with blood. No fever, chills, nausea or vomiting. There is a horrible odor in the urine. ROS Const Constitutional: No chills, fatigue, fever(s), headache(s), night sweats, weakness, weight change, abnormal sleep pattern or change in appetite Eyes Eyes: No change in vision ENT ENT: No headache(s) or dry mouth Resp Respiratory: No cough, chest congestion, shortness of breath or wheezing Cardio Cardiology: Positive for other (No chest pain.); No shortness of breath, irregular heart rhythm or lightheadedness Gastro GI: No abdominal pain, change in bowel habits, constipation, diarrhea or vomiting Musc Musculoskeletal: Positive for back pain; No abnormal gait Skin Skin: No yellowing of the eye, lesions, itchy eyes, rash or skin ulcer Neuro Neurology: No abnormal gait, confusion, dizziness, weakness, headache(s) or memory loss Psych Psychiatric: No abnormal sleep pattern, No change in appetite, No confusion and No memory loss Endo Endocrine: No fatigue, increased thirst/drinking or weight change Aller/Imm Allergy/Immunologic: No itchy eyes or wheezing Ze/Lymp Hematologic/Lymphatic: No easy bleeding, easy bruising or enlarged lymph nodes Exam Const General: cooperative, healthy appearing, comfortable and no acute distress [facility] Head: normocephalic and atraumatic Ears: hearing grossly normal bilaterally and external ears normal Nose: external nose normal Eyes General: appearance normal, both eyes and all related structures Neck Neck: normal visual inspection and trachea midline Chest Chest palpation inspection: normal inspection of the chest Resp Effort Inspection: normal respiratory effort, able to speak in complete sentences and symmetric chest movement Cardio Rate: regular rate GI Inspection: normal to inspection Palpation: soft and nontender General: CVA tenderness (mild) on the left Skin General: no rashes or lesions noted Neuro General: patient alert, patient awake, patient oriented x3 and CN's II-XI intact bilaterally Extrem General: normal t (more content not included)... Normal [facility] No Panel InformationOrdered By: Nithya Saucedo on 04-19-2025 Urine Leukocytes Positive [facility] COMPREHENSIVE METABOLIC PANE L W/ANION GAPon 02-08-2025 Albumin [Mass/Vol] 4.5 g/dL Normal 3.6-5.1 [facility] Comment on above: Performed By: #### 1 6802, 87915, 8293 #### [facility] of [address], [address] [place] [address] [employer] Saw Operator: Donal Sanderson MD ALP [Catalytic activity/Vol] 55 U/L Normal 37-153 [facility] Comment on above: Performed By: #### 1 6802, 30344, 8293 #### [facility] [place] [address] [employer] Operator: Donal Sanderson MD ALT [Catalytic activity/Vol] 18 U/L Normal 6-29 [facility] Comment on above: Performed By: #### 1 680, 44976, 8293 #### [facility] of [place] [address] [employer] Operator: Donal Sanderson MD AST [Catalytic activity/Vol] 15 U/L Normal 10-35 [facility] Comment on above: Performed By: #### 1 680, 81118, 8293 #### [facility] of [place] [address] [employer] Operator: Donal Sanderson MD Bilirubin [Mass/Vol] 0.6 mg/dL Normal 0.2-1.2 [facility] Comment on above: Performed By: #### 1 6802, 44125, 8293 #### [facility] of [place] [address] [employer] Operator: Donal Sanderson MD Calcium [Mass/Vol] 9.5 mg/dL Normal 8.6-10.4 [facility] Comment on above: Performed By: #### 1 6802, 41495, 8293 #### [facility] [address], [address] [place] [address] [employer] Operator: Donal Sanderson MD Chloride [Moles/Vol] 105 mmol/L Normal 98-110 [facility] Comment on above: Performed By: #### 1 6802, 88558, 8293 #### [facility] [place] [address] [employer] Operator: Donal Sanderson MD CO2 [Moles/Vol] 24 mmol/L Normal 20-32 [facility] Comment on above: Performed By: #### 1 6801, 75500, 8293 #### [facility] [place] [address] [employer] Operator: Donal Sanderson MD Creatinine [Mass/Vol] 0.82 mg/dL Normal 0.50-1.03 [facility] Comment on above: Performed By: #### 1 6801, 96745, 8293 #### [facility] [place] [address] [employer] Operator: Donal Sanderson MD ELECTROLYTE BALANCE 12 mmol/L (calc) Normal 7-17 [facility] Comment on above: Performed By: #### 1 6801, 59097, 8293 #### [facility] [place] [address] [employer] Operator: Donal Sanderson MD GFR/1.73 sq M.predicted among non-blacks MDRD (S/P/Bld) [Vol rate/Area] 84 mL/min/{1.73_m2} Normal > OR = 60 [facility] Comment on above: Performed By: #### 1 6801, 20341, 8293 #### [facility] [place] [address] [employer] Saw Operator: Donal Sanderson MD Glucose [Mass/Vol] 113 mg/dL High 65-99 [facility] Comment on above: Result Comment: Fasting reference interval For someone without known diabetes, a glucose value between 100 and 125 mg/dL is consistent with prediabetes and should be confirmed with a follow-up test. Performed By: #### 1 6801, 64223, 8293 #### [facility] [place] [address] [employer] Operator: Donal Sanderson MD Potassium [Moles/Vol] 4.7 mmol/L Normal 3.5-5.3 [facility] Comment on above: Performed By: #### 1 6801, 23082, 8293 #### [facility] [place] [address] [employer] Cut [employer] Saw Operator: Donal Sanderson MD Protein [Mass/Vol] 7.0 g/dL Normal 6.1-8.1 [facility] Comment on above: Performed By: #### 1 6801, 55208, 8293 #### [facility] [place] [address] [employer] Saw Operator: Donal Sanderson MD Sodium [Moles/Vol] 141 mmol/L Normal 135-146 [facility] Comment on above: Performed By: #### 1 6801, 80564, 8293 #### [facility] [place] [address] [employer] Saw Operator: Donal Sanderson MD Urea nitrogen [Mass/Vol] 12 mg/dL Normal 7-25 [facility] Comment on above: Performed By: #### 1 6801, 93364, 8293 #### [facility] [place] [address] [employer] Operator: Donal Sanderson MD DIRECT LDLon 02-08-2025 Cholesterol in LDL [Mass/Vol] 123 mg/dL High <100 [facility] Comment on above: Order Comment: FASTI NG:YES FASTING: YES Result Comment: Eleazar camacho elevated Triglycerides values (>1200 mg/dL) interfere with the dLDL assay. Desirable range <100 mg/dL for primary prevention; <70 mg/dL for patients with CHD or diabetic patients with > or = 2 CHD risk factors. Performed By: #### 1 680, 06819, 8293 #### [facility] [address], [address] [place] [address] Metal Cut [employer] Saw Operator: Donal Sanderson MD HEMOGLOBIN A1c WITH [facility] eAG (mmol/L) 8.5 mmol/L Normal [facility] Comment on above: Performed By: #### 1 6802, 75790, 8293 #### [facility] [address], [address] [place] [address] [employer] Cut [employer] Saw Operator: Donal Sanderson MD HbA1c (Bld) [Mass fraction] 7.0 % High <5.7 [facility] Comment on above: Result Comment: For someone without known diabetes, a hemoglobin A1c value of 6.5% or greater indicates that they may have diabetes and this should be confirmed with a follow-up test. For someone with known diabetes, a value <7% indicates that their diabetes is well controlled and a value greater than or equal to 7% indicates suboptimal control. A1c targets should be individualized based on duration of diabetes, age, comorbid conditions, and other considerations. Currently, no consensus exists regarding use of hemoglobin A1c for diagnosis of diabetes for children. Performed By: #### 1 6802, 36203, 8293 #### [facility] [address], [address] [place] [address] [employer] Cut [employer] Saw Operator: Donal Sanderson MD Magnesium [Mass/Vol] 154 mg/dL Normal [facility] Comment on above: Performed By: #### 1 6802, 57177, 8293 #### [facility] [place] [address] [employer] Cut [employer] Saw Operator: Donal Sanderson MD LIPID PANEL, [facility] 01-27 Cholesterol [Mass/Vol] 173 mg/dL Normal <200 [facility] Comment on above: Order Comment: FASTI NG:YES FASTING: YES Performed By: #### 7 600 #### [facility] [place] [address] [employer] Cut [employer] Saw Operator: Donal Sanderson MD Cholesterol in HDL [Mass/Vol] 50 mg/dL Normal > OR = 50 [facility] Comment on above: Order Comment: FASTI NG:YES FASTING: YES Performed By: #### 7 600 #### [facility] [address], [address] [place] [address] [employer] Cut [employer] Saw Operator: Donal Sanderson MD Cholesterol in LDL [Mass/Vol] 99 mg/dL Normal [facility] Comment on above: Order Comment: FASTI NG:YES FASTING: YES Result Comment: Refe rence range: <100 Desirable range <100 mg/dL for primary prevention; <70 mg/dL for patients with CHD or diabetic patients with > or = 2 CHD risk factors. LDL-C is now calculated using the Jolie calculation, which is a validated novel method providing better accuracy than the Friedewald equation in the estimation of LDL-C. Simone SS et al. DEVORAH. 2013;310(19): 9793-8733 (http://education.[employer]/faq/AAY290) Performed By: #### 7 600 #### [facility] [address], [address] [place] [address] [employer] Cut Off Saw Operator: Donal Sanderson MD Cholesterol.total/C holesterol in HDL [Mass ratio] 3.5 {ratio} Normal <5.0 [facility] Comment on above: Order Comment: FASTI NG:YES FASTING: YES Performed By: #### 7 600 #### [facility] [address], [address] [place] [address] [employer] Cut [employer] Saw Operator: Donal Sanderson MD NON HDL CHOLESTEROL 123 mg/dL (calc) Normal <130 [facility] Comment on above: Order Comment: FASTI NG:YES FASTING: YES Result Comment: For patients with diabetes plus 1 major ASCVD risk factor, treating to a non-HDL-C goal of <100 mg/dL (LDL-C of <70 mg/dL) is considered a therapeutic option. Performed By: #### 7 600 #### [facility] [address], [address] [place] [address] [employer] Operator: Donal Sanderson MD Triglyceride [Mass/Vol] 147 mg/dL Normal <150 [facility] Comment on above: Order Comment: FASTI NG:YES FASTING: YES Performed By: #### 7 600 #### [facility] [address] [place] [address] [employer] Saw Operator: Donal Sanderson MD Surgical pathology studyOrde red By: Yaw Mckeon on 01-30-2025 Laboratory comment Joo (Report) d1wftOKoXEWus3qxPEIiwXQcXeN wMzNcZnRuYmpcdWMxIHtccnRmMV tlb9ElG6ShCvEcVWpikwHzRIXnU wzviilxIEOrFYL4fzFcOYYjYMgm OTQdZLxuZx3yoEAwqCsjPdFlGVH tl9lwxqWZMUguFUCSIUg3v8lvWD XoTjI0wKUgZDbzE2jfcuLjaVStU 8Npd5NvRWm1iR40TKHlyA9aiZDe SNahwdGgJwA8DWpqHPFzRzX0BRO ppCImRXMyA4kdMJJlXRalTHBnXL ivoFUdKFE9sWzqt4C1dFPcwJKyy VvoLpNaBzAxEiVGn9OiVAe8tMja G4KbAPJfSmZ7hIByEUTxNDakXVN sYRDhefY4kW70AQpizyA2jRKim3 Rwl87xf843jX7xgHAbNUI6DFMsY NFimOEiFNPrPPH1VEBbbNKgN2fa FtOhkKIdI2VjHxRbeIMyH7PsEbZ olPCbV4KiRcCcfRRbXMGcwEK1CV wfv501IFA3DnSeCF9fL6Akk5B7i P4ftONfAGIjkCLpZnEaFELipt2i dHKyGYmla8NtZBA4nrI4sGVxbMU mYUEtNV97Ywrwu6MlGmppPFF1UA LfucWby0Ihf4paUxOqgcYbB8rkQ 2MfEORcMHByLDSkVjCnacDjf6Ir p0FnnAKdyUw4z1yoZUDgDPMiaHd vr4gvUXD9VDXzF4C9tXUzp1htHZ tgSGUibKU7nlQ1HWdeJBJixcB6j zA7HJbpYNFyoNT3ssJ2YUekUSCf OpZ0vrW5FArdGRAqKUB1MfItIGA gk1GxooanOsLzz9RsdNStYZfmU7 2dc144HYWptzUwY3bhoVCoelnec QQghocwLOurclT3WIGnFOMoEPsy XGYxXGZzMjBcbGFuZzEwMzNcaGl bdTpsUEgtUtGrWNLvBVmmM2wwEd TvUqSmKGTRoJI9sIApa1rippQ5l RErTM7fXEDhqQMovrCvq9A3OOZ1 aBXheZ3odKWkWJZblCCaweGrey5 4hXOryPF1CDBrQBZjqSWfvG4pXU KtWVPAwW8ykRNKzgYsupQuFFGwi Kavxm7KzZGzsa3szYVuW7VlhTes aWVzIHRoYXQgdGhleSBoYXZlIHJ wjjscd3ItHPOwmWKzJ3JwYD1vBO Bhcn19 [facility] Work Phone: Pathology report Cancer Narrative Surgical Pathology Case: [id number] Authorizing Provider: Angelica White MD Collected: 01/23/2025 1257 Ordering Location: [facility] Received: 01/23/2025 1644 Center OR Pathologist: Yaw Mckeon MD Specimens: A) - COLON - DESCENDING POLYP, descending colon polyp 90cm B) - COLON - SIGMOID POLYP, sigmoid colon polyp 70cm C) - RECTUM POLYPECTOMY, recto-sigmoid colon polyp 25cm D) - RECTUM POLYPECTOMY, rectum polyp x2 15cm [facility] Work Phone: Pathology report final diagnosis Narrative d5nszGOsWMGpfXFnSMIvCptcpqI pOTNlhTIzI2IwgoioSRcxDG0zMA 0sgUrwwOHnqVKaXSKbInDqy8nbt 927uMNwv8opAFDXgvlxmBt3jQpy H53sp3W2XapbC9lqZDKvDZnuMJY oGLwhcFToZDd0VNLdkRXgpdVlSk NsDAFuoUHphQN4UHYcGP7wdhgjT VtzDDnnRVJhnkG4GHKsgVQmK7Dl LMEpVT6nayncADL3HBbhLDMcIKO 8FnLdUJOof0Muvvw2ObImaIe3o1 tiEZKgBYPcrRuyc0kfCBF5AGFyz BBnG7rifR4vGVMaGX1pcspwf0zz DAjjWLakNCJevHJ2pdM6MRVujVU jP0QlxN9xPTLsXRPnjeSgtWuehQ 3bTfxgudXuKWBqPNNKYR7OIS1yV WWAW8IMXBkOIwPKK6pISNrmJnCp HPjvMQMEUzUWOSDvTQSFKk4PDI5 qbQEpGZSoebNSAqLHH2mNMmFrHQ CPY17YTLCcSRANGJFHEEAASXjCX iKZDVWtWPPbTmPUTJrFEmkwKQ7X RTmUMlXhO5NhN21SE44GCoZDHFC XF1VlE3iDLADCO80LEACYQVRXSf MGOJDIEWvFRZGLXMKIJ0ZCJO0UI VQPKfgvYPHgfREzABUoENGCR0IO JAHKI6kMAYERLK9QMIlzP52ZY37 UOyDMVSCMB8PzF9wWCSOJUlIEJB bMWPMPU2EXQAEVWPKQY3sAM8kGQ EZJTkRJTkdTLlxwYXJccGFyIEQu TRAIV2VJQDYEP4hTSGVZTU4BPZq lEX5SRGdRYwIVSkNWW1nMYqrASN 0LA69MGECPSXGOGPNLYDMOUsQVU RRUO2gXD9BNTnHtX4RdSUDNZXMF X5NdUPCZYIOUWdDuE2MoAZQrDQb wYXJ9 [facility] Work Phone: Pathology report gross observation Narrative h4syvGPkSDFulSIDCHJaHOBxTZ6 gvEbsaCf6jFcwBMXibeX8dUZtNO aqj1afWKY2p3dtwgSILjdbEXUmW XnsUOOownurTcX9UZewXASjpkaz VWe9JBwlPKSrgIB3NRAqwTOuT6G xPAIeWB4gddh0YPL9SYyiZBDuCg F7WEWrHYx7JYFjahJ4FflkELf8O JYwPWJzqBSzr2J6SBzrb8pel2Od M6Sle6UgBBh5sL9Lg1wpAhuuU4c cztVqvJAkJaZ8nWHePBGsrNUeT6 71LDeso8SyqYTiJHm9JOgaOLZhV 6ZgT3EjDXxwHlLuCAkdLRRpGPXp RGrpAMDcW1OVHJFsAaNrRDF5KSt sOEl2IEm1NJNQKNP8VQAsVQm5HS u8DPu8IFqawmrjSPh6CHGvQPdpy HHrGX7cwRpoPurinJmqe6HzvYIv XHNnIFxcaWQgNTEwMDIgXFxkYiB ACrZjKlLnLAQ6OfAxEYUdRYj9YA viO3RROWHlOBUkTNM9SYInMtR2I Cc7MNNXZv7iEXvmZGrvKCl1KTE2 HSSiGLXaXN9yKQdjxGCiVWbfw0E oGsLeKMJiUUmhtrB9SABlxtKqPQ qesJawvU8fjVJfNmBkSYXgQ11rs 9KOy2GsLH2ESQe3maQbogASGrtv xZDufFfpDaeteuUtUFV5TRCnN7Z nijPuCTqsBCZcgl4vuOlkWUGuYQ SbeNlhXXD8gWZgJQVxSIRxKCAoQ P93J2PmpyVpHXXgheJtnA9ecSt3 YWwgbnVtYmVyIGFuZCAiMSwgZGV oU6LvRAsnKbRbn8duqdfgxJ4tiI XnPVKySVCgE97cHHGcqlZrmRAfr EnxcUDfXyKpI44ktgSyXD6qURSl oyjvv51lbIM7tQCvvMGyPAooxtR iYZMdpubolO1hIR42ZEhaAS94SD fzAF10WIVdQjBFvSIyn8XmQ8rvP A4hsCQqy4TiqWz6eHTdQSygWNNd vM2cuP5gnQvsGJUqr9PbbHRgqm3 omNRnZK1TSDMdEcOnDPEvF6kiFW IcGL3QNBKOY6BABg8TZUJvoZYKL MU1BD1rVZzsZZGoS2IqJ1PluqI4 ESFtomOCGlniJgvxkXgay8YteRJ cXHNnIFxcaWQgNTEwMDIgXFxkYi PORrWhFsLnVYE4QhImBUEuPJu7D IseZ1HZGYNoLJXkJKJ8AMMiSrJ3 HUj7CSFVMm5tUJdnVThgPDquHGQ 5WVPbXDSfIE6bDZythUJrXMhwc9 VdZtHtAYKlCUompiO3JDQxupEzQ JnseNxajR2xfRZyOkLcMJDhG40r x4ZTx0DrKL3JOUx9cnKzodkwUiA oZHfbaPnrIONwXHN5CT5DBWr0pw WpFYEnEDGaFcKrQejnIiOeRWj4P SIyoD7bGj8vtOWjvH8bUPvhNlBe bGVkIHdpdGggdGhlIHBhdGllbnQ qtyPzJJ8yEGZkGLHqr7TsmNJawX HcbH9oMIUvWC3wEARuKMVlrPhsd 3xkBXVjsS6yTSWcw1f6oSMvbRO2 TWHtnHWkRBMzYVLtbFp1zMJxFBZ thgUsuVFlwHElo7QfuBSkFCZym1 O3WXPrn7N4WSVmJ8zpGVxxlJnoM jU6rxMgVfdzwVLxPaIssXLiGkAy O27rUEGsCUEpqMNioI3oiePhliG qnASkcRZ1JIKikF9dyK25nlWspf NeuwBaY5Jfa3W3dKTcQBRbvgXOI cexXWWyUXb4fpFtapotOMAgEUDu xQKYk3TrAFVNYikIOE3BEYvHQxi qtYbhKfEkbGTgXpT9HBTkcQReLL A0BJ5ueIvmLVFfORk9QWytEBTkN 4XiX2UmVXqsQaVmYRxwSFVvCAAj DWmaNFDuK3ZHCCWoMjLoLPU0IPw fVAv0CHf4HR1ACtMiQNPoRZmzXM GmLgNxJIk4CDuaEF0GSBN5KEZ8D jAxNzEgNTQxMTUgXFxuaCBcXHQg NtZjDYMfFGQdYOqkbMEtQQ4bkVm uNOXkHF3JOOZdMFjxBForllycFV EixDKBFCQ3XJ1cMUGYYstecBYuO PBur9DfUaByYMQvH9qsSsFuKNGP VpzxwOBzkHkdZzgdymSrJSS2LAL aJ8WnjtHvZTfrBTOmjy0krUypDR XzEWOfnNpqQNH6wRQpXXUtNNQjW DMeON03W1KgcyPnXDFueiAmoP2r bFq7XFsodhYnMaRaHQXjIBBkFgj lxgMllYAxKJDmF80bqOExH63ge3 2pQPXijCihIZI9SDB3IZLgAtpoa JScBIBhudHfcPTckDEdQtW2GQ9t PGXhWoTrdLlmh5TtOY7rAZR1vmr uZyAwLjQgeCAwLjMgeCAwLjIgY2 7aBVJHlUNtf0QcF0oiUA5dkCAls 9SvmWd2nJJcHLtcUKOdfM7erW7y p57vLATzu4ImwBCxPvygAKVdVGh jnZGdUQktfQGiURWue9NcMMidjH weSDRnUkCkDHkAXCRmXh3CDWhrY DBnN62rt1BDr6Tmk8wduYklu9Jz zQAuDW5ipJCnLS8Ee0mdBKFkgPP bIGG9SExgu6ppAJyaRMD6GZQwLh JtUAXjJN9OCvDoMJXkEWN1LYN9F qI2DVq5TFEVHlOjAiFvTsN1OFmt GHHlZPq5IXl2GIkQFqRsRgLfTTA dACukQMS2YGP3TWabkeojIDq5XN NdYKacmqLmITlxDpbpZUywL41fb ITcXDRBMovgbROdztawSL0pFWse cGljTmVzdERvYzEgDQpcbHRycGF mNFZcNDR6OMPeeGDKs7XeDmAwHG cnrGAaU7ieLiRtBbQnQTEHXlKCV VKweWOmSXPezqQcr7IiPXaxijth kZSdXVkxPZNbu9f3jJA6tXKuhAS 7kLNsyKbrWK2kgCEpZF6tQWzhx6 OvqMWgBH71vNAhbzGfnpAvWhRdC YZiA0Z4rPGuh0f6cQZbbXBtDZIu pADcSREfBYNxMGDgIHsbWQ92dyT fJtL8AJ1eJPOnXfClrNivw8BdPO BbN4XgD5M5vJ3fEIGdKQMqGeE0X ZLgDbH7DRJpUvZvbP6wHGqxESGy IGJcaXBeYGkcTPG7Hr0swXGjGCN qovW7u9HoSJfqZV0cAOQyZJDkBV X5NW8gxAJkPR4KTZOyviFtqFUac GStPKDpLtZdBHTyL3bwIFDvDP7O GHRZC6YQAh0GILFykKFIQPR4OK9 rIGqdJPXaR2JfA5WjijR1u1fukU xnt5HuqYRzAA5cpQBfKI0SBYWsw mOsTTxatWlktL3omYYmAaUnGGi3 [facility] Work Phone: Pathology report relevant history Narrative f5ifdWGvDUUcdZWhWMGjIltsgoU fMLDfqFQsB2VzbkinCOubIF4wLA 0snRtpwWKajPGmYSHdCuGim6kzc 045uLFxx8paXFQVbdrnsNh9mIxr T02qm9N4JkrbM58huPHsARK8XMK mIHRkkUCmSLSlYRC1EGBuaWVcC3 ruYXGaXV5pdfveIWxgLSohMREyb EK8ZTUdoRAdG8PuZSYqQNznBONr olr7IoQlEv5vlLYqoHmuCOruODG xGTJxSAirSTQvHxZaDuw7MiUkHP UgHEHBoQUxYeZce1egniqvCNZrh HlwcyBbSUNELTEwLUNNXSBaMTIu PMGsRVFDY3NeWU9hPu6tCUTecN4 uIGNhbmNlciBbSUNELTEwLUNNXV xwYXJ9 [facility] Work Phone: [facility] Work Phone: COLONOSCOPYon 01-23-2025 Colonoscopy Table formatting fro m the original result was not included. Impression 5 polyps were removed with hot snare Normal. Findings One sessile and benign-appearing polyp measuring 5-9 mm in the descending colon 90 cm from the anal verge; no bleeding was observed; performed hot snare with complete en bloc removal and retrieved specimen One sessile and benign-appearing polyp measuring 5-9 mm in the sigmoid colon; no bleeding was observed; performed hot snare with complete en bloc removal and retrieved specimen One sessile polyp measuring 5-9 mm in the rectosigmoid; performed hot snare with complete en bloc removal and retrieved specimen Two sessile and benign-appearing polyps measuring smaller than 5 mm in the rectum; performed hot snare with complete en bloc removal and retrieved specimen All observed locations appeared normal. Recommendation Await pathology results Repeat colonoscopy in 3 years, due: 01/23/2028 Indication Hx of colonic polyps Screen for colon cancer Post-Op Diagnosis None Staff Staff Role Angelica White MD Proceduralist Medications fentaNYL PF (Sublimaze) injection 100 mcg midazolam PF (Versed) injection 10 mg glucagon (Glucagen) injection 1 mg (Totals for administrations occurring from 1213 to 1309 on 01/23/25) Preprocedure A history and physical has been performed, and patient medication allergies have been reviewed. The patient's tolerance of previous anesthesia has been reviewed. The risks and benefits of the procedure and the sedation options and risks were discussed with the patient. All questions were answered and informed consent obtained. Details of the Procedure The patient underwent moderate sedation, which was administered by the procedural nurse. The patient's blood pressure, ECG, ETCO2, heart rate, level of consciousness, oxygen and respirations were monitored throughout the procedure. A digital rectal exam was not performed. A perianal exam was performed. The scope was introduced through the anus and advanced to the cecum. The quality of bowel preparation was evaluated using the [place] Bowel Preparation Scale with scores of: right colon = 3, transverse colon = 3, left colon = 3. The total BBPS score was 9. Bowel prep was adequate. The patient's estimated blood loss was minimal. The procedure was moderately difficult due to loops in the digestive tract and tortuosity. In response to procedure difficulty, counter pressure was applied and the patient was repositioned. The patient tolerated the procedure well. There were no apparent adverse events. Events Procedure Events Event Event Time ENDO SCOPE IN TIME 01/23/2025 12:24 PM ENDO CECUM REACHED 01/23/2025 12:47 PM ENDO SCOPE OUT TIME 01/23/2025 1:05 PM Specimens ID Type Source Tests Collected by Time 1 : descending colon polyp 90cm Tissue COLON - DESCENDING POLYP SURGICAL PATHOLOGY EXAM Betsy Perez RN 01/23/2025 1257 2 : sigmoid colon polyp 70cm Tissue COLON - SIGMOID POLYP SURGICAL PATHOLOGY EXAM Betsy Perez RN 01/23/2025 1257 3 : recto-sigmoid colon polyp 25cm Tissue RECTUM POLYPECTOMY SURGICAL PATHOLOGY EXAM Betsy Perez RN 01/23/2025 1259 4 : rectum polyp x2 15cm Tissue RECTUM POLYPECTOMY SURGICAL PATHOLOGY EXAM Betsy Perez RN 01/23/2025 1301 Procedure Location [facility] [place] [address] [place] [id number] Referring Provider Angelica White MD Procedure Provider Angelica White MD [facility] Comment on above: Order Comment: 5 Colonoscopy studyon 01-24-20 Table formatting fro m the original result was not included. Impression 5 polyps were removed with hot snare Normal. Findings One sessile and benign-appearing polyp measuring 5-9 mm in the descending colon 90 cm from the anal verge; no bleeding was observed; performed hot snare with complete en bloc removal and retrieved specimen One sessile and benign-appearing polyp measuring 5-9 mm in the sigmoid colon; no bleeding was observed; performed hot snare with complete en bloc removal and retrieved specimen One sessile polyp measuring 5-9 mm in the rectosigmoid; performed hot snare with complete en bloc removal and retrieved specimen Two sessile and benign-appearing polyps measuring smaller than 5 mm in the rectum; performed hot snare with complete en bloc removal and retrieved specimen All observed locations appeared normal. Recommendation Await pathology results Repeat colonoscopy in 3 years, due: 01/23/2028 Indication Hx of colonic polyps Screen for colon cancer Post-Op Diagnosis None Staff Staff Role Angelica White MD Proceduralist Medications fentaNYL PF (Sublimaze) injection 100 mcg midazolam PF (Versed) injection 10 mg glucagon (Glucagen) injection 1 mg (Totals for administrations occurring from 1213 to 1309 on 01/23/25) Preprocedure A history and physical has been performed, and patient medication allergies have been reviewed. The patient's tolerance of previous anesthesia has been reviewed. The risks and benefits of the procedure and the sedation options and risks were discussed with the patient. All questions were answered and informed consent obtained. Details of the Procedure The patient underwent moderate sedation, which was administered by the procedural nurse. The patient's blood pressure, ECG, ETCO2, heart rate, level of consciousness, oxygen and respirations were monitored throughout the procedure. A digital rectal exam was not performed. A perianal exam was performed. The scope was introduced through the anus and advanced to the cecum. The quality of bowel preparation was evaluated using the Garrison Bowel Preparation Scale with scores of: right colon = 3, transverse colon = 3, left colon = 3. The total BBPS score was 9. Bowel prep was adequate. The patient's estimated blood loss was minimal. The procedure was moderately difficult due to loops in the digestive tract and tortuosity. In response to procedure difficulty, counter pressure was applied and the patient was repositioned. The patient tolerated the procedure well. There were no apparent adverse events. Events Procedure Events Event Event Time ENDO SCOPE IN TIME 01/23/2025 12:24 PM ENDO CECUM REACHED 01/23/2025 12:47 PM ENDO SCOPE OUT TIME 01/23/2025 1:05 PM Specimens ID Type Source Tests Collected by Time 1 : descending colon polyp 90cm Tissue COLON - DESCENDING POLYP SURGICAL PATHOLOGY EXAM Betsy Perez RN 01/23/2025 1257 2 : sigmoid colon polyp 70cm Tissue COLON - SIGMOID POLYP SURGICAL PATHOLOGY EXAM Betsy Perez RN 01/23/2025 1257 3 : recto-sigmoid colon polyp 25cm Tissue RECTUM POLYPECTOMY SURGICAL PATHOLOGY EXAM Betsy Perez RN 01/23/2025 1259 4 : rectum polyp x2 15cm Tissue RECTUM POLYPECTOMY SURGICAL PATHOLOGY EXAM Betsy Perez RN 01/23/2025 1301 Procedure Location [facility] OR [address] [place] [id number] Referring Provider Angelica White MD Procedure Provider Angelica White MD IMAGING [facility] Work Phone: Radiology Study observation (narrative) [facility] Work Phone: Glucose Test strip manual (B ld) [Mass/Vol]on 01-23-2025 Glucose [Mass/Vol] 135 mg/dL High 74 - 99 mg/dL [facility] Interpretation and review of laboratory results Abnormal [facility] Glucose [Mass/Vol] 135 mg/dL High 74-99 [facility] Comment on above: Performed By: #### 2 [id number] #### BUTCHER LORRI ([id number]) [facility] ([facility]) [address] [place] [address] Surgical pathology studyon 0 01-23-2025 Surgical pathology study Pathology report.total SEE COMMENT Surgical Pathology Case: [id number] Authorizing Provider: Angelica White MD Collected: 01/23/2025 1257 Ordering Location: [facility] Received: 01/23/2025 1644 Center OR Pathologist: Yaw Mckeon MD Specimens: A) - COLON - DESCENDING POLYP, descending colon polyp 90cm B) - COLON - SIGMOID POLYP, sigmoid colon polyp 70cm C) - RECTUM POLYPECTOMY, recto-sigmoid colon polyp 25cm D) - RECTUM POLYPECTOMY, rectum polyp x2 15cm Path report.final diagnosis SEE COMMENT A. COLON - DESCENDING POLYP: TUBULAR ADENOMA. B. COLON - SIGMOID, SPECIMEN LABELED POLYP: PORTIONS OF COLONIC MUCOSA WITH NONSPECIFIC REACTIVE CHANGES NOTED. C. RECTUM POLYPECTOMY: COLONIC MUCOSA WITH NO SIGNIFICANT PATHOLOGIC FINDINGS. D. RECTUM POLYPECTOMY: PORTION OF COLONIC MUCOSA WITH FEATURES SUGGESTIVE OF PROLAPSE EFFECT. at 1725 EDT Laboratory comment By the signature on this report, the individual or group listed as making the Final Interpretation/Diagnosis certifies that they have reviewed this case. Path report.relevant Hx Z86.0100 - Hx of colonic polyps [ICD-10-CM] Z12.11 - Screen for colon cancer [ICD-10-CM] Path report.gross observation SEE COMMENT A: Received in formalin, labelled with the patient's name and hospital number and 1, descending colon, polyp at 90 cm, are multiple fragments of small, soft tissue aggregating to 0.9 x 0.8 x 0.4 cm. The specimen is submitted in toto in two cassettes. LDT/BMG B: Received in formalin, labelled with the patient's name and hospital number and 2, sigmoid colon, polyp at 70 cm, are multiple fragments of small, soft tissue aggregating to 0.7 x 0.5 x 0.3 cm. The specimen is submitted in toto in one cassette. LDT/BMG C: Received in formalin, labelled with the patient's name and hospital number and 3, rectum-sigmoid colon, polyp at 25 cm, is a fragment of small, soft tissue measuring 0.4 x 0.3 x 0.2 cm. The specimen is submitted in toto in one cassette. LDT/BMG D: Received in formalin, labelled with the patient's name and hospital number and 4, rectum polyp at 15 cm, are 2 fragments of small, soft tissue aggregating to 0.7 x 0.3 x 0.3 cm. The specimen is submitted in toto in one cassette. LDT/BMG [facility] US [place] 11-29-2024 Indication follow up ovarian cyst, thickened endometrium Impression The uterus is anteverted and measures 68 mm x 33 mm x 53 mm. The endometrial thickness is 6.9 mm. The right ovary measures 17 mm x 19 mm x 16 mm. The left ovary measures 32 mm x 22 mm x 15 mm and contains two cysts. 1. Size 8 mm x 10 mm x 10 mm. Unilocular simple cyst with thickened wall O-RADS 2 2. Size 5 mm x 7 mm x 8 mm. Unilocular simple cyst with thickened wall. Previously this cyst had some debris inside of it. O-RADS 2 There is no free fluid visualized. Recommendations O-RADS 2 ovarian lesion, non-simple cyst, almost certainly benign. No follow up imaging is needed. Recommend SiS. Consider endometrial sampling. History ORTHOPEDIC CODER History Postmenopausal: Postmenopausal Menopause 44 yrs Menstrual History Contraception: menopausal. HRT: No Method Transvaginal, 3D ultrasound examination, Color Doppler examination. View: Adequate visualization Uterus Uterus: Visualized Uterus position: anteverted Description of uterine malformations: none Myometrium: heterogeneous Endometrium: thickened Cervix details: normal Uterus length 68 mm Uterus width 53 mm Uterus height 33 mm Uterus Vol 61.6 cm Endometrial thickness, total 6.9 mm Fibroids: No fibroids identified Polyps: No polyps identified Right Ovary Rt ovary: Visualized Rt ovary morphology: postmenopausal atrophic Rt ovary D1 17 mm Rt ovary D2 19 mm Rt ovary D3 16 mm Rt ovary Vol 2.6 cm Rt ovarian cyst(s): No cysts identified Left Ovary Lt ovary: Visualized Lt ovary D1 32 mm Lt ovary D2 22 mm Lt ovary D3 15 mm Lt ovary Vol 5.5 cm Lt ovarian cyst(s): Cysts identified Lt ovarian cyst D1 8 mm Lt ovarian cyst D2 10 mm Lt ovarian cyst D3 10 mm Lt ovarian cyst mean 9.3 mm Lt ovarian cyst vol 0.419 cm Lt ovarian cyst findings: Unilocular simple cyst with thickened wall Lt ovarian cyst D1 5 mm Lt ovarian cyst D2 7 mm Lt ovarian cyst D3 8 mm Lt ovarian cyst mean 6.7 mm Lt ovarian cyst vol 0.147 cm Lt ovarian cyst findings: Unilocular simple cyst with thickened wall Cul de Sac Visualized. no free fluid visualized Performed By: Jemma De RDMS Read By: Дмитрий Guy M.D. MATERNAL MEDICINE [facility] Radiology Study observation (narrative) [facility] Abdomen Single Viewon 2024 Abdomen Single View [facility] Imaging Services [address] [place], [place] [id number] Abdomen Single View MR#: [id number] Acct: [id number] Name: BETSY EDWARDS Rep #: [id number] : 1970 F 54 From: Star Lobo MD PCP: Dr. Tramaine Doll MD Status: REG CLI Study: Abdomen Single View Date of Exam: 10/18/24 Exam# [id number] Ordering Dr: Nithya Saucedo MD EXAM: XR Abdomen, 1 View CLINICAL INDICATION: KUB- KIDNEY STONES TECHNIQUE: Frontal supine view of the abdomen/pelvis. COMPARISON: No relevant prior studies available. FINDINGS: GASTROINTESTINAL TRACT: See below. ORGANS: Multiple nodular calculi projects over the left renal region measuring up to 8 mm. This could be a renal calculus or in the colon. BONES/JOINTS: Unremarkable. No acute fracture. RAD/Abdomen Single View IMPRESSION: Multiple nodular calculi projects over the left renal region measuring up to 8 mm. This could be a renal calculus or in the colon. Reading Location: [facility]- CC: Dr. Tramaine Doll MD; Dr. Nithya Saucedo MD Wagon Winder: Signed Normal [facility] CNOVon 08-31-2024 CNOV Office Visit (OBGYWM ) BETSY EDWARDS ([id number]) 1970 F Date Time Provider Department 08/31/24 10:45 AM SHERRELL RICKS During your visit today, we recorded the following information about you: Blood pressure Weight 120/72 87.5 kg Sherrell Ricks, [place].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 08/31/2024 11:05 AM Signed Betsy Edwards is a 54 year old female who presents for follow up to discuss pelvic ultrasound. HPI: Betsy reported early fullness at her annual on 08/03/24. Pelvic ultrasound was ordered. Ultrasound on 08/18/24 showed: The uterus is anteverted and measures 76 mm x 36 mm x 55 mm. The avascular endometrium is inhomogeneous and thickened measuring 7 mm. Endometrial pathology cannot be excluded. The right ovary measures 17 mm x 16 mm x 23 mm. The left ovary measures 15 mm x 24 mm x 30 mm and contains two ovarian cysts. 1. There is a 9 mm x 11 mm x 11 mm unilocular simple cyst with thickened wall. O-RADS 2 2. There is a 6 mm x 7 mm x 8 mm unilocular non-simple cyst (internal debris and/or incomplete septation) with smooth inner wall. O-RADS 2 There is no free fluid visualized. Repeat ultrasound in 2 months to ensure non simple cyst resolves has been ordered. 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 Specialist History Comments: Sexual Activity: Yes; Male Contraception: Tubal Ligation, None PAST MEDICAL HISTORY Diagnosis Date Calculus of kidney Diabetes, gestational HTN (hypertension) Hyperlipidemia Infertility, female Ovarian cyst Uterine polyp PAST SURGICAL HISTORY Procedure Laterality Date COLONOSCOPY SCREENING 2021 [facility], polyp - 3 yr interval KIDNEY STONE SURGERY HX LIG/TRNSXJ FLP TUBE ABDL/VAG APPR UNI/BI Tubal ligation FAMILY HISTORY Problem Relation Age of Onset other (covid related lung illness) Mother Cancer Father prostate Breast Cancer Sister unknown hx - 40's Social History Tobacco Use Smoking status: Every Day Current packs/day: 0.50 Average packs/day: 0.5 packs/day for 10.0 years (5.0 ttl pk-yrs) Types: Cigarettes Passive exposure: Never Smokeless tobacco: Never Tobacco comments: trying to quit Vaping Use Vaping status: Never Used Substance Use Topics Alcohol use: No Drug use: No Current Outpatient Medications Medication Sig losartan (COZAAR) 50 mg tablet Take 50 mg by mouth once daily. metFORMIN ER (GLUCOPHAGE XR) 750 mg 24 hr tablet Take 1,500 mg by mouth once daily. atorvastatin (LIPITOR) 10 mg tablet Take 10 mg by mouth once daily. pantoprazole DR (PROTONIX) 40 mg tablet Take 40 mg by mouth once daily. ALPRAZolam (XANAX) 0.5 mg tablet TAKE ONE TABLET BY MOUTH DAILY NEEDED FOR ANXIETY escitalopram oxalate (LEXAPRO) 10 mg tablet Take 10 mg by mouth once daily. blood-glucose meter, drum-type(ACCU-CHEK COMPACT PLUS CARE KIT) use as directed No current facility-administered medications for this visit. Allergies As of Date: 08/31/2024 Allergen Noted Reaction AMOXICILLIN 04/05/2014 Hives SULFA (SULFONAMIDE ANTIBIOTICS) 09/17/2005 Hives Fully Assessed 08/03/2024 REVIEW OF SYSTEMS Expanded ROS: ORTHOPEDIC CODER: + ovarian cyst, thickened endometrial lining Allergies and current medication updated:Yes SENSITIVE EXAM: Sensitive exam not performed. EXAM: BP 120/72 Wt 193 lb (87.5kg) LMP 05/04/2015 GENERAL: pleasant, female in no apparent distress HEENT: Normocephalic, atraumatic, mucus membranes moist, and no lesions CHEST: Normal inspiratory effort NEURO: alert and oriented x3,exam grossly non-focal EXTREMITIES: normal ASSESSMENT AND PLAN: 1. Ovarian cyst, left - ICD9: 620.2, ICD10: N83.202 (primary diagnosis) - Repeat ultrasound in 3-4 months to ensure resolution, likely benign 2. Thickened endometrium - ICD9: 793.5, ICD10: R93.89 - No bleeding - Discussed lining is thickened and that endometrial malignancy cannot be ruled out - I recommend an endometrial biopsy. Explained rationale. At this time, Anel declines and would like to re evaluate with the ultrasound in 3-4 months. If lining remains the same or is thickened, will likely accept biopsy. Understands potential risks. Knows to notify provider with bleeding occurs or other new symptoms Sherrell Ricks APRN.LINDA I spent a total of 20 minutes on the date of the service which included preparing to see the patient, [id number] patient care, completing clinical documentation, obtaining and/or reviewing separately obtained history, and counseling and educating the patient/family/caregiver. Allergies As of Date: 08/31/2024 Noted Allergy Reaction AMOXICILLIN 04/05/2014 4 - Hives SULFA (SULFONAMIDE ANTIBIOTICS) 09/17/2005 4 - Hives Date Reviewed: 08/31/2024 Reviewed by: (more content not included)... Normal [facility] US Pelvison 08-21-2024 Indication early satiety, hx of ovarian cysts Impression The uterus is anteverted and measures 76 mm x 36 mm x 55 mm. The avascular endometrium is inhomogeneous and thickened measuring 7 mm. Endometrial pathology cannot be excluded. The right ovary measures 17 mm x 16 mm x 23 mm. The left ovary measures 15 mm x 24 mm x 30 mm and contains two ovarian cysts. 1. There is a 9 mm x 11 mm x 11 mm unilocular simple cyst with thickened wall. O-RADS 2 2. There is a 6 mm x 7 mm x 8 mm unilocular non-simple cyst (internal debris and/or incomplete septation) with smooth inner wall. O-RADS 2 There is no free fluid visualized. Recommendations Consider SIS for further evaluation of endometrial cavity if clinically indicated. Consider endometrial sampling. O-RADS 2 ovarian lesion, non-simple cyst, almost certainly benign. Follow up ultrasound is recommended in 6 months. History ORTHOPEDIC CODER History Postmenopausal: Postmenopausal Menopause 44 yrs Menstrual History HRT: No Method Transabdominal, transvaginal, 3D ultrasound examination, Color Doppler examination. View: Adequate visualization Uterus Uterus: Visualized Uterus position: anteverted Description of uterine malformations: none Myometrium: heterogeneous Endometrium: thickened, inhomogeneous Cervix details: cystic lesions identified suggesting superficial Nabothian cysts Uterus length 76 mm Uterus width 55 mm Uterus height 36 mm Uterus Vol 79.4 cm Endometrial thickness, total 7.0 mm Fibroids: No fibroids identified Polyps: No polyps identified Right Ovary Rt ovary: Visualized Rt ovary morphology: postmenopausal atrophic Rt ovary D1 17 mm Rt ovary D2 16 mm Rt ovary D3 23 mm Rt ovary Vol 3.2 cm Rt ovarian cyst(s): No cysts identified Left Ovary Lt ovary: Visualized Lt ovary D1 15 mm Lt ovary D2 24 mm Lt ovary D3 30 mm Lt ovary Vol 5.6 cm Lt ovarian cyst(s): Cysts identified Lt ovarian cyst D1 9 mm Lt ovarian cyst D2 11 mm Lt ovarian cyst D3 11 mm Lt ovarian cyst mean 10.3 mm Lt ovarian cyst vol 0.570 cm Lt ovarian cyst findings: Unilocular simple cyst with thickened wall Lt ovarian cyst D1 6 mm Lt ovarian cyst D2 7 mm Lt ovarian cyst D3 8 mm Lt ovarian cyst mean 7.0 mm Lt ovarian cyst vol 0.176 cm Lt ovarian cyst findings: Unilocular non-simple cyst (internal debris and/or incomplete septation) with smooth inner wall Cul de Sac Visualized. no free fluid visualized Performed By: Jemma De RDMS Read By: Дмитрий Guy M.D. MATERNAL MEDICINE [facility] US [place]vison 08-18-2024 Radiology Study observation (narrative) [facility] ALBUMIN, RANDOM URINE W/CREA TININEon 08-11-2024 ALBUMIN, URINE 5.5 mg/dL Normal See Note: [facility] Comment on above: Result Comment: Refe rence Range: Reference Range Not established Performed By: #### 1 6802, 80177, 899, 7600, 6517 #### [facility] [address], [address] [place], [place] [id number] Metal Cut Off Saw Operator: Donal Sanderson MD ALBUMIN/CREATININE RATIO, RANDOM URINE 35 mg/g creat High <30 [facility] Comment on above: Result Comment: The ADA defines abnormalities in albumin excretion as follows: Albuminuria Category Result (mg/g creatinine) Normal to Mildly increased <30 Moderately increased 30-299 Severely increased > OR = 300 The ADA recommends that at least two of three specimens collected within a 3-6 month period be abnormal before considering a patient to be within a diagnostic category. Performed By: #### 1 6802, 81143, 899, 7600, 6517 #### [facility] [address], [address] [place] [id number] Metal Cut Off Saw Operator: Donal Sanderson MD Creatinine (U) [Mass/Vol] 155 mg/dL Normal 20-275 [facility] Comment on above: Performed By: #### 1 6952, 86679, 899, 7600, 6517 #### [facility] [place] [address] [employer] Cut Off Saw Operator: Donal Sanderson MD COMPREHENSIVE METABOLIC PANE L W/ANION GAPon 08-11-2024 Albumin [Mass/Vol] 4.4 g/dL Normal 3.6-5.1 [facility] Comment on above: Performed By: #### 1 6802, 55883, 899, 7600, 6517 #### [facility] of [address], [address] [place] [address] Metal Cut Off Saw Operator: Donal Sanderson MD ALP [Catalytic activity/Vol] 60 U/L Normal 37-153 [facility] Comment on above: Performed By: #### 1 6802, 25427, 899, 7600, 6517 #### [facility] [place] [address] Metal Cut Off Saw Operator: Donal Sanderson MD ALT [Catalytic activity/Vol] 23 U/L Normal 6-29 [facility] Comment on above: Performed By: #### 1 6802, 54356, 899, 7600, 6517 #### [facility] [place] [address] Metal Cut Off Saw Operator: Donal Sanderson MD AST [Catalytic activity/Vol] 19 U/L Normal 10-35 [facility] Comment on above: Performed By: #### 1 6802, 38034, 899, 7600, 6517 #### [facility] [place] [address] Metal Cut Off Saw Operator: Donal Sanderson MD Bilirubin [Mass/Vol] 0.5 mg/dL Normal 0.2-1.2 [facility] Comment on above: Performed By: #### 1 6802, 36405, 899, 7600, 6517 #### [facility] of [address], [address] [place] [address] Metal Cut Off Saw Operator: Donal Sanderson MD Calcium [Mass/Vol] 9.3 mg/dL Normal 8.6-10.4 [facility] Comment on above: Performed By: #### 1 6802, 71657, 899, 7600, 6517 #### [facility] [place] [address] Metal Cut Off Saw Operator: Donal Sanderson MD Chloride [Moles/Vol] 104 mmol/L Normal 98-110 [facility] Comment on above: Performed By: #### 1 6802, 75763, 899, 7600, 6517 #### [facility] [place] [address] Metal Cut Off Saw Operator: Donal Sanderson MD CO2 [Moles/Vol] 24 mmol/L Normal 20-32 [facility] Comment on above: Performed By: #### 1 6802, 90120, 899, 7600, 6517 #### [facility] [place] [address] Metal Cut Off Saw Operator: Donal Sanderson MD Creatinine [Mass/Vol] 0.68 mg/dL Normal 0.50-1.03 [facility] Comment on above: Performed By: #### 1 6802, 59133, 899, 7600, 6517 #### [facility] [place] [address] Metal Cut Off Saw Operator: Donal Sanderson MD ELECTROLYTE BALANCE 13 mmol/L (calc) Normal 7-17 [facility] Comment on above: Performed By: #### 1 6802, 68344, 899, 7600, 6517 #### [facility] [place] [address] [employer] Off Saw Operator: Donal Sanderson MD GFR/1.73 sq M.predicted among non-blacks MDRD (S/P/Bld) [Vol rate/Area] 102 mL/min/{1.73_m2} Normal > OR = 60 [facility] Comment on above: Performed By: #### 1 6802, 25167, 899, 7600, 6517 #### [facility] of [place] [address] [place] [address] Metal Cut Off Saw Operator: Donal Sanderson MD Glucose [Mass/Vol] 106 mg/dL High 65-99 [facility] Comment on above: Result Comment: Fasting reference interval For someone without known diabetes, a glucose value between 100 and 125 mg/dL is consistent with prediabetes and should be confirmed with a follow-up test. Performed By: #### 1 6802, 81115, 899, 7600, 6517 #### [facility] [place] [address] Metal Cut Off Saw Operator: Donal Sanderson MD Potassium [Moles/Vol] 4.4 mmol/L Normal 3.5-5.3 [facility] Comment on above: Performed By: #### 1 6802, 02977, 899, 7600, 6517 #### [facility] [place] [address] Metal Cut Off Saw Operator: Donal Sanderson MD Protein [Mass/Vol] 7.1 g/dL Normal 6.1-8.1 [facility] Comment on above: Performed By: #### 1 6802, 64093, 899, 7600, 6517 #### [facility] [place] [address] Metal Cut Off Saw Operator: Donal Sanderson MD Sodium [Moles/Vol] 141 mmol/L Normal 135-146 [facility] Comment on above: Performed By: #### 1 6802, 23581, 899, 7600, 6517 #### [facility] [place] [address] Metal Cut Off Saw Operator: Donal Sanderson MD Urea nitrogen [Mass/Vol] 11 mg/dL Normal 7-25 [facility] Comment on above: Performed By: #### 1 6802, 20511, 899, 7600, 6517 #### [facility] [place] [address] Metal Cut Off Saw Operator: Donal Sanderson MD HEMOGLOBIN A1c WITH eAGon eAG (mmol/L) 8.1 mmol/L Normal [facility] Comment on above: Performed By: #### 1 6802, 45906, 899, 7600, 6517 #### [facility] [place] [address] Metal Cut Off Saw Operator: Donal Sanderson MD HEMOGLOBIN A1c 6.7 % of total Hgb High <5.7 [facility] Comment on above: Result Comment: For someone without known diabetes, a hemoglobin A1c value of 6.5% or greater indicates that they may have diabetes and this should be confirmed with a follow-up test. For someone with known diabetes, a value <7% indicates that their diabetes is well controlled and a value greater than or equal to 7% indicates suboptimal control. A1c targets should be individualized based on duration of diabetes, age, comorbid conditions, and other considerations. Currently, no consensus exists regarding use of hemoglobin A1c for diagnosis of diabetes for children. Performed By: #### 1 6802, 29265, 899, 7600, 6517 #### [facility] [place] [address] Metal Cut Off Saw Operator: Donal Sanderson MD Magnesium [Mass/Vol] 146 mg/dL Normal [facility] Comment on above: Performed By: #### 1 6802, 47998, 899, 7600, 6517 #### [facility] [place] [address] Metal Cut Off Saw Operator: Donal Sanderson MD LIPID PANEL, [facility] 07-30 Cholesterol [Mass/Vol] 159 mg/dL Normal <200 [facility] Comment on above: Order Comment: FASTI NG:YES FASTING: YES Performed By: #### 1 6802, 16594, 899, 7600, 6517 #### [facility] [place] [address] Metal Cut Off Saw Operator: Donal Sanderson MD Cholesterol in HDL [Mass/Vol] 49 mg/dL Low > OR = 50 [facility] Comment on above: Order Comment: FASTI NG:YES FASTING: YES Performed By: #### 1 6802, 89890, 899, 7600, 6517 #### [facility] [address], [address] [place] [address] Metal Cut Off Saw Operator: Donal Sanderson MD Cholesterol in LDL [Mass/Vol] 84 mg/dL Normal [facility] Comment on above: Order Comment: FASTI NG:YES FASTING: YES Result Comment: Refe rence range: <100 Desirable range <100 mg/dL for primary prevention; <70 mg/dL for patients with CHD or diabetic patients with > or = 2 CHD risk factors. LDL-C is now calculated using the Jolie calculation, which is a validated novel method providing better accuracy than the Friedewald equation in the estimation of LDL-C. Simone SS et al. DEVORAH. 2013;310(19): 1106-8333 (http://education.[employer]/faq/SNL044) Performed By: #### 1 6802, 14905, 899, 7600, 6517 #### [facility] [address], [address] [place] [address] Metal Cut Off Saw Operator: Donal Sanderson MD Cholesterol.total/C holesterol in HDL [Mass ratio] 3.2 {ratio} Normal <5.0 [facility] Comment on above: Order Comment: FASTI NG:YES FASTING: YES Performed By: #### 1 6802, 37960, 899, 7600, 6517 #### [facility] [address], [address] [place] [address] Metal Cut Off Saw Operator: Donal Sanderson MD NON HDL CHOLESTEROL 110 mg/dL (calc) Normal <130 [facility] Comment on above: Order Comment: FASTI NG:YES FASTING: YES Result Comment: For patients with diabetes plus 1 major ASCVD risk factor, treating to a non-HDL-C goal of <100 mg/dL (LDL-C of <70 mg/dL) is considered a therapeutic option. Performed By: #### 1 6802, 65724, 899, 7600, 6517 #### [facility] [address], [address] [place] [address] Metal Cut Off Saw Operator: Donla Sanderson MD Triglyceride [Mass/Vol] 161 mg/dL High <150 [facility] Comment on above: Order Comment: FASTI NG:YES FASTING: YES Performed By: #### 1 6802, 28601, 899, 7600, 6517 #### [facility] [address], [address] [place] [address] Metal Cut Off Saw Operator: Donal Sanderson MD TSHon 08-11-2024 TSH Qn 2.36 m[IU]/L Normal 0.40-4.50 [facility] Comment on above: Performed By: #### 1 6802, 82403, 899, 7600, 6517 #### [facility] [address], [address] [place] [address] Metal Cut Off Saw Operator: Donal Sanderson MD CNOVon 08-03-2024 CNOV Office Visit (OBGYWM ) RAMILABETSY REDDY ([id number]) 1970 F Date Time Provider Department 08/03/24 8:15 AM SHERRELL RICKS During your visit today, we recorded the following information about you: Blood pressure Weight Height 120/68 86.6 kg 1.68 m Sherrell Ricks APRN.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 08/03/2024 8:26 AM Signed Tack Cutter offered: Patient declines. Meyer is a 54 year old who presents for an annual gynecologic exam without complaints. She has noticed some early fullness. recovering from shoulder infection. Postmenopausal: Yes HRT use: No. 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 Comments: Sexual Activity: Yes; Male Contraception: Tubal Ligation, None PAST MEDICAL HISTORY Diagnosis Date Calculus of kidney Diabetes, gestational HTN (hypertension) Hyperlipidemia Infertility, female Ovarian cyst Uterine polyp PAST SURGICAL HISTORY Procedure Laterality Date COLONOSCOPY SCREENING 2021 [facility], polyp - 3 yr interval KIDNEY STONE SURGERY HX LIG/TRNSXJ FLP TUBE ABDL/VAG APPR UNI/BI Tubal ligation FAMILY HISTORY Problem Relation Age of Onset other (covid related lung illness) Mother Cancer Father prostate Breast Cancer Sister unknown hx - 40's SOCIAL HISTORY Social History Tobacco Use Smoking status: Every Day Current packs/day: 0.50 Average packs/day: 0.5 packs/day for 10.0 years (5.0 ttl pk-yrs) Types: Cigarettes Passive exposure: Never Smokeless tobacco: Never Tobacco comments: trying to quit Vaping Use Vaping status: Never Used Substance Use Topics Alcohol use: No Drug use: No REVIEW OF SYSTEMS Abdomen: No abdominal pain, nausea, vomiting, diarrhea, or constipation. No bloating, early satiety, indigestion, or increased flatulence. Bladder: No dysuria, gross hematuria, urinary frequency, urinary urgency, or incontinence Breast: No breast lumps, nipple d/c, overlying skin changes, redness or skin retraction Allergies and current medication updated:Yes SENSITIVE EXAM: The sensitive examination was discussed with the Patient or Patient's Authorized Bologna Lacer. As applicable, any other physician, advance practice provider, medical student, or other health professional student that will be observing or involved in the sensitive examination for educational or training purposes was discussed with the Patient or Authorized Bologna Lacer. The Patient or Authorized Bologna Lacer has agreed to proceed with the sensitive examination. (Sensitive examination includes inspection and/or palpation of the breasts, pelvis, prostate and anorectal regions). EXAM: BP 120/68 Ht 5' 6.142 (1.68m) Wt 191 lb (86.6kg) LMP 05/04/2015 BMI 30.70 kg/(m2). GENERAL: pleasant, female in no apparent distress HEENT: Normocephalic, atraumatic, mucus membranes moist, and no lesions NECK: Supple, full range of motion, no adenopathy, and thyroid normal DERMATOLOGY: Normal, without lesions, non-icteric, and non-hirsute BREAST: soft, non-tender, symmetric, no dominant mass, normal nipple-areolar complex, no lymphadenopathy, and no nipple discharge CHEST: Normal inspiratory effort ABDOMEN: soft, non-tender, and no masses PELVIC: external genitalia normal, normal Bartholin's glands, urethra, Arnold Line's glands, no vulvar lesions, no cervical lesions, atrophic, good vaginal support, physiologic discharge present, normal appearing perineal body and perianal region BIMANUAL: uterus normal size, shape and consistency, no adnexal masses, and non-tender RECTOVAGINAL: deferred. NEURO: alert and oriented x3,exam grossly non-focal EXTREMITIES: normal ASSESSMENT/PLAN: 1) Health maintenance: Pap/HPV up to date 2021. Deferred until 2026. Mammogram ordered Nutrition, exercise and routine health maintenance exams reviewed. Smoking cessation: Patient encouraged to avoid smoking. Colon cancer screening: plans to discuss with PCP this summer TSH/lipids/glucose: followed by PCP BMD: followed by PCP 2) Follow up one year or sooner as needed Early satiety - ICD9: 780.94, ICD10: R68.81 - PELVIC US WHI LYLE Myrick Emily, APRN.CNP 08/03/2024 8:25 AM Addendum Lubricants and moisturizers list The rztf-jka-pasqddb vaginal moisturizer and lubricant products can be confusing to sort through, especially since there are no FDA requirements (more content not included)... Normal [facility] LUIZ SCREENING W TOMOon 08-03 LUIZ SCREENING W CITLALI * * *Final Report* * * DATE OF EXAM: Aug 03 2024 8:04AM [facility] 0582 - LUIZ SCREENING W CITLALI / PROCEDURE REASON: multiple diagnoses * * * * Physician Interpretation * * * * RESULT: [place] [address] [place] [id number] #[id number] - LUIZ SCREENING W CITLALI HISTORY: 54 year-old patient seen for screening and is asymptomatic in both breasts. Patient states no personal history of breast cancer. Patient states no personal history of other cancers. COMPARISON STUDIES: The present examination has been compared to prior imaging studies dated 07/15/2021 (mammogram), 07/17/2022 (mammogram), 08/20/2022 (mammogram) and 07/31/2023 (mammogram). MAMMOGRAM TECHNIQUE: The study was acquired using full field digital technology and interpreted from soft copy. Digital Breast Tomosynthesis (DBT) images were obtained and used to assist in the interpretation of this examination. Computer-aided detection was utilized by the radiologist in the interpretation of this examination. MAMMOGRAM FINDINGS: There are scattered areas of fibroglandular density. No suspicious masses, calcifications or other abnormalities are seen in either breast. There are no significant interval changes. IMPRESSION: There is no mammographic evidence of malignancy in either breast. Routine screening mammogram is recommended. Annual mammogram will be due in 1 year. BI-RADS Category 1: Negative RISK: Based on the Tyrer-Cuzick (TC) risk assessment model, this patient has a 3.6% lifetime risk of developing breast cancer, meaning they are at average risk for developing breast cancer. However, this is only an estimate based on available history provided on the patient's questionnaire. We encourage all patients to talk with their providers about these results, further recommendations for managing breast health, and appropriate supplemental screening options if the patient has dense breast tissue. Interpreting Radiologist: January Valentin M.D. Resident/Fellow: Param Pruitt D.O. Electronically signed on: 08/04/2024 Wagon Winder: BLUE Transcribe Date/Time: Aug 03 2024 7:38A Dictated by: PARAM PRUITT DO This examination was interpreted and the report reviewed and electronically signed by: JANUARY VALENTIN MD on Aug 04 2024 1:18PM EST [id number] Normal [facility] CBC W Auto Differential pane l (Bld)on 02-09-2024 Basophils (Bld) [#/Vol] 0.10 x10*3/uL Normal 0.00-0.10 [facility] Comment on above: Performed By: #### 5 7021-8 #### BUTCHER LORRI ([id number]) [facility] ([facility]) [address] [place] [address] Basophils/100 WBC (Bld) 1.1 % Normal 0.0-2.0 [facility] Comment on above: Performed By: #### 5 7021-8 #### GUADALUPE BLACKMON ([id number]) [facility] ([facility]) [address] [place] [address] 23255 Eosinophils (Bld) [#/Vol] 0.31 x10*3/uL Normal 0.00-0.70 [facility] Comment on above: Performed By: #### 5 7021-8 #### GUADALUPE BLACKMON ([id number]) [facility] ([facility]) [address] [place] [address] 39891 Eosinophils/100 WBC (Bld) 3.5 % Normal 0.0-6.0 [facility] Comment on above: Performed By: #### 5 7021-8 #### GUADALUPE BLACKMON ([id number]) [facility] ([facility]) [address] [place] [address] 95807 Erythrocyte distribution width (RBC) [Ratio] 13.9 % Normal 11.5-14.5 [facility] Comment on above: Performed By: #### 5 7021-8 #### GUADALUPE BLACKMON ([id number]) [facility] ([facility]) [address] [place] [address] 59515 Hematocrit (Bld) [Volume fraction] 42.9 % Normal 36.0-46.0 [facility] Comment on above: Performed By: #### 5 7021-8 #### GUADALUPE BLACKMON ([id number]) [facility] ([facility]) [address] [place] [address] 06819 Hemoglobin (Bld) [Mass/Vol] 14.0 g/dL Normal 12.0-16.0 [facility] Comment on above: Performed By: #### 5 7021-8 #### GUADALUPE BLACKMON ([id number]) [facility] ([facility]) [address] [place] [address] 96379 Immature granulocytes (Bld) [#/Vol] 0.03 x10*3/uL Normal 0.00-0.70 [facility] Comment on above: Performed By: #### 5 7021-8 #### GUADALUPE BLACKMON ([id number]) [facility] ([facility]) [address] [place] [address] 68338 Immature granulocytes/100 WBC (Bld) 0.3 % Normal 0.0-0.9 [facility] Comment on above: Result Comment: Yamilka ture Granulocyte Count (IG) includes promyelocytes, myelocytes and metamyelocytes but does not include bands. Percent differential counts (%) should be interpreted in the context of the absolute cell counts (cells/UL). Performed By: #### 5 7021-8 #### GUADALUPE BLACKMON ([id number]) [facility] ([facility]) [address] [place] [address] 43361 Lymphocytes (Bld) [#/Vol] 2.82 x10*3/uL Normal 1.20-4.80 [facility] Comment on above: Performed By: #### 5 7021-8 #### GUADALUPE BLACKMON ([id number]) [facility] ([facility]) [address] [place] [address] 59822 Lymphocytes/100 WBC (Bld) 32.2 % Normal 13.0-44.0 [facility] Comment on above: Performed By: #### 5 7021-8 #### GUADALUPE BLACKMON ([id number]) [facility] ([facility]) [address] [place] [address] 19604 MCH (RBC) [Entitic mass] 30.8 pg Normal 26.0-34.0 [facility] Comment on above: Performed By: #### 5 7021-8 #### GUADALUPE BLACKMON ([id number]) [facility] ([facility]) [address] [place] [address] 67844 MCHC (RBC) [Mass/Vol] 32.6 g/dL Normal 32.0-36.0 [facility] Comment on above: Performed By: #### 5 7021-8 #### GUADALUPE BLACKMON ([id number]) [facility] ([facility]) [address] [place] [address] 92939 MCV (RBC) [Entitic vol] 94 fL Normal 80-100 [facility] Comment on above: Performed By: #### 5 7021-8 #### GUADALUPE BLACKMON ([id number]) [facility] ([facility]) [address] [place] [address] 96124 Monocytes (Bld) [#/Vol] 0.79 x10*3/uL Normal 0.10-1.00 [facility] Comment on above: Performed By: #### 5 7021-8 #### GUADALUPE BLACKMON ([id number]) [facility] ([facility]) [address] [place] [address] 44407 Monocytes/100 WBC (Bld) 9.0 % Normal 2.0-10.0 [facility] Comment on above: Performed By: #### 5 7021-8 #### GUADALUPE BLACKMON ([id number]) [facility] ([facility]) [address] [place] [address] 55001 Neutrophils (Bld) [#/Vol] 4.71 x10*3/uL Normal 1.20-7.70 [facility] Comment on above: Result Comment: Perc ent differential counts (%) should be interpreted in the context of the absolute cell counts (cells/uL). Performed By: #### 5 7021-8 #### GUADALUPE BLACKMON ([id number]) [facility] ([facility]) [address] [place] [address] 50546 Neutrophils/100 WBC (Bld) 53.9 % Normal 40.0-80.0 [facility] Comment on above: Performed By: #### 5 7021-8 #### GUADALUPE BLACKMON ([id number]) [facility] ([facility]) [address] [place] [address] 43660 Nucleated RBC/100 WBC (Bld) [Ratio] 0.0 /100 WBCs Normal 0.0-0.0 [facility] Comment on above: Performed By: #### 5 7021-8 #### GUADALUPE BLACKMON ([id number]) [facility] ([facility]) [address] [place] [address] 42284 Platelets (Bld) [#/Vol] 355 x10*3/uL Normal 150-450 [facility] Comment on above: Performed By: #### 5 7021-8 #### GUADALUPE BLACKMON ([id number]) [facility] ([facility]) [address] [place] [address] 02808 RBC (Bld) [#/Vol] 4.55 x10*6/uL Normal 4.00-5.20 [facility] Comment on above: Performed By: #### 5 7021-8 #### GUADALUPE BLACKMON ([id number]) [facility] ([facility]) [address] [place], [place] [address] WBC (Bld) [#/Vol] 8.8 x10*3/uL Normal 4.4-11.3 [facility] Comment on above: Performed By: #### 5 7021-8 #### GUADALUPE BLACKMON ([id number]) [facility] ([facility]) [address] [place] [address] Cholesterol in LDL Direct as say [Mass/Vol]on 02-09-2024 Cholesterol in LDL [Mass/Vol] 96 mg/dL Normal 0-129 [facility] Comment on above: Order Comment: [place] levels of LDL cholesterol are recognized as a fry factor in the development of atherosclerosis and CHD. The direct LDL cholesterol test can be used to assess cardiovascular risk and monitor therapy as a follow up toa lipid profile when triglycerides are significantly elevated. Performed By: #### 2 4323-8 #### GUADALUPE BLACKMON ([id number]) [facility] ([facility]) [address] [place] [address] Cobalaminson 02-09-2024 Cobalamin (Vitamin B12) [Mass/Vol] 781 pg/mL Normal 211-911 [facility] Comment on above: Performed By: #### 2 132-9 #### GUADALUPE BLACKMON ([id number]) [facility] ([facility]) [address] [place], [place] [address] Comprehensive metabolic 2000 panelon 02-09-2024 Albumin BCP dye [Mass/Vol] 4.4 g/dL Normal 3.4-5.0 [facility] Comment on above: Performed By: #### 2 4323-8 #### GUADALUPE BLACKMON ([id number]) [facility] ([facility]) [address] [place] [address] ALP [Catalytic activity/Vol] 62 U/L Normal 33-110 [facility] Comment on above: Performed By: #### 2 4323-8 #### GUADALUPE BLACKMON ([id number]) [facility] ([facility]) [address] [place] [address] ALT With P-5'-P [Catalytic activity/Vol] 21 U/L Normal 7-45 [facility] Comment on above: Result Comment: April ents treated with Sulfasalazine may generate falsely decreased results for ALT. Performed By: #### 2 432-8 #### GUADALUPE BLACKMON ([id number]) [facility] ([facility]) [address] [place] [address] 84385 Anion gap [Moles/Vol] 13 mmol/L Normal 10-20 [facility] Comment on above: Performed By: #### 2 4322-8 #### GUADALUPE BLACKMON ([id number]) [facility] ([facility]) [address] [place] [address] AST With P-5'-P [Catalytic activity/Vol] 16 U/L Normal 9-39 [facility] Comment on above: Performed By: #### 2 432-8 #### GUADALUPE BLACKMON ([id number]) [facility] ([facility]) [address] [place] [address] Bilirubin [Mass/Vol] 0.8 mg/dL Normal 0.0-1.2 [facility] Comment on above: Performed By: #### 2 4323-8 #### GUADALUPE BLACKMON ([id number]) [facility] ([facility]) [address] [place] [address] Calcium [Mass/Vol] 9.5 mg/dL Normal 8.6-10.3 [facility] Comment on above: Performed By: #### 2 4323-8 #### GUADALUPE BLACKMON ([id number]) [facility] ([facility]) [address] [place] [address] Chloride [Moles/Vol] 105 mmol/L Normal 98-107 [facility] Comment on above: Performed By: #### 2 4323-8 #### GUADALUPE BLACKMON ([id number]) [facility] ([facility]) [address] [place] [address] 51192 CO2 [Moles/Vol] 26 mmol/L Normal 21-32 [facility] Comment on above: Performed By: #### 2 4323-8 #### GUADALUPE BLACKMON ([id number]) [facility] ([facility]) [address] [place] [address] 96303 Creatinine [Mass/Vol] 0.69 mg/dL Normal 0.50-1.05 [facility] Comment on above: Performed By: #### 2 4323-8 #### GUADALUPE BLACKMON ([id number]) [facility] ([facility]) [address] [place] [address] 32808 GFR/1.73 sq M.predicted MDRD (S/P/Bld) [Vol rate/Area] mL/min/{1.73_m2} Normal >60 [facility] Comment on above: Result Comment: Calc ulations of estimated GFR are performed using the 2020 CKD-EPI Study Refit equation without the race variable for the IDMS-Traceable creatinine methods. https://jasn.asnjournals.org/content/early/ASN.54208625 88 Performed By: #### 2 4323-8 #### GUADALUPE BLACKMON ([id number]) [facility] ([facility]) [address] [place] [address] 06378 Glucose [Mass/Vol] 111 mg/dL High 74-99 [facility] Comment on above: Performed By: #### 2 4323-8 #### GUADALUPE BLACKMON ([id number]) [facility] ([facility]) [address] [place] [address] 42752 Potassium [Moles/Vol] 4.4 mmol/L Normal 3.5-5.3 [facility] Comment on above: Performed By: #### 2 4323-8 #### GUADALUPE BLACKMON ([id number]) [facility] ([facility]) [address] [place] [address] 71641 Protein [Mass/Vol] 6.8 g/dL Normal 6.4-8.2 [facility] Comment on above: Performed By: #### 2 4323-8 #### GUADALUPE BLACKMON ([id number]) [facility] ([facility]) [address] [place] [address] Sodium [Moles/Vol] 140 mmol/L Normal 136-145 [facility] Comment on above: Performed By: #### 2 4323-8 #### GUADALUPE BLACKMON ([id number]) [facility] ([facility]) [address] [place] [address] 58604 Urea nitrogen [Mass/Vol] 11 mg/dL Normal 6-23 [facility] Comment on above: Performed By: #### 2 4323-8 #### GUADALUPE BLACKMON ([id number]) [facility] ([facility]) [address] [place] [address] 18168 HbA1c (Bld) [Mass fraction]o n 02-09-2024 Average glucose Estimated from glycated hemoglobin (Bld) [Mass/Vol] 143 mg/dL Normal Not Established [facility] Comment on above: Order Comment: Diagn osis of Tghydgkf-HqglmrXvo-Ohsdoayv: < or = 5.6%Increased risk for developing diabetes: 5.7-6.4%Diagnostic of diabetes: > or = 6.5% Performed By: #### 2 4323-8 #### GUADALUPE BLACKMON ([id number]) [facility] ([facility]) [address] [place] [address] 87713 Hemoglobin A1c/Hemoglobin.to maite 02-09-2024 HbA1c (Bld) [Mass fraction] 6.6 % High see below [facility] Comment on above: Order Comment: Diagn osis of Pdhdnahk-HuvpeaXnn-Ylskbgaa: < or = 5.6%Increased risk for developing diabetes: 5.7-6.4%Diagnostic of diabetes: > or = 6.5% Performed By: #### 2 4323-8 #### GUADALUPE BLACKMON ([id number]) [facility] ([facility]) [address] [place] [address] 11108 Glucose Test strip manual (B ld) [Mass/Vol]on 10-06-2023 Glucose [Mass/Vol] 101 mg/dL High 74 - 99 mg/dL [facility] Interpretation and review of laboratory results Abnormal [facility] XR Abdomen Single viewon 1. Multitude of phleboliths lower pelvis. A distal ureteral calculus can not entirely be excluded. Otherwise, no stones projected along the expected course of the ureters. Left nephrolithiasis unchanged. Previously identified right nephrolithiasis not readily apparent on this plain film examination MACRO: None Signed by: Taylor Malik 09/04/2023 10:14 AM Dictation workstation: [id number] [facility]AL Interpreted By: Taylor Harrison, STUDY: XR ABDOMEN 1 VIEW; 09/03/2023 8:32 am INDICATION: Signs/Symptoms:KIDNEY STONES. COMPARISON: 07/11/2022, CT scan 08/24/2023 ACCESSION NUMBER(S): [id number] ORDERING CLINICIAN: LO DELAROSA FINDINGS: 14 mm oval-shaped stone projected in the lower pole of the left renal silhouette unchanged from prior CT scan. Miniscule punctate calcifications of the right kidney are not readily apparent on this plain film examination. There are multitude of phleboliths in the lower pelvis. A small distal ureteral calcification can not be excluded on this examination. Bowel gas pattern is normal. Copious stool identified within the left splenic flexure. Heterotopic bone formation of both hip joints appearing similar. [facility] Taylor Malik MD - 09/04/2023 Interpreted By: Taylor Malik, STUDY: XR ABDOMEN 1 VIEW; 09/03/2023 8:32 am INDICATION: Signs/Symptoms:KIDNEY STONES. COMPARISON: 07/11/2022, CT scan 08/24/2023 ACCESSION NUMBER(S): [id number] ORDERING CLINICIAN: LO DELAROSA FINDINGS: 14 mm oval-shaped stone projected in the lower pole of the left renal silhouette unchanged from prior CT scan. Miniscule punctate calcifications of the right kidney are not readily apparent on this plain film examination. There are multitude of phleboliths in the lower pelvis. A small distal ureteral calcification can not be excluded on this examination. Bowel gas pattern is normal. Copious stool identified within the left splenic flexure. Heterotopic bone formation of both hip joints appearing similar. IMPRESSION: 1. Multitude of phleboliths lower pelvis. A distal ureteral calculus can not entirely be excluded. Otherwise, no stones projected along the expected course of the ureters. Left nephrolithiasis unchanged. Previously identified right nephrolithiasis not readily apparent on this plain film examination MACRO: None Signed by: Taylor Malik 09/04/2023 10:14 AM Dictation workstation: [id number] [facility] Work Phone: XR Abdomen Single viewOrdere d By: Taylor Malik on 09-04-2023 [facility] Work Phone: POCT UA Automated manually r esultedon 09-03-2023 Appearance (U) Clear Clear [facility] Work Phone: [phone] Glucose Test strip (U) [Mass/Vol] Negative NEGATIVE mg/dl [facility] Work Phone: [phone] Hemoglobin Ql (U) TRACE-Intact [facility]normal NE[facility]: [phone] Interpretation and review of laboratory results Abnormal [facility] Work Phone: [phone] Leukocyte esterase Test strip Ql (U) MODERATE (2+) Abnormal NEGATIVE [facility] Work Phone: [phone] Nitrite Ql (U) Negative NEGATIVE [facility] Work Phone: [phone] pH (U) 6.0 [pH] No Reference Range Established [facility] Work Phone: [phone] POC Bilirubin, Urine Negative NEGATIVE [facility] Work Phone: [phone] POC Color, Urine Yellow Straw, Yellow, Light-Yellow [facility] Work Phone: [phone] POC Ketones, Urine Negative NEGATIVE mg/dl [facility] Work Phone: [phone] POC Protein, Urine Negative NEGATIVE, 30 (1+) mg/dl [facility] Work Phone: [phone] POC Specific [place], Urine 1.025 1.005 - 1.035 [facility] Work Phone: POC Urobilinogen, Urine 0.2 0.2, 1.0 EU/DL [facility] Work Phone: [facility] Work Phone: XR Abdomen Single viewon Radiology Study observation (narrative) [facility] Work Phone: CT Abdomen WO contraston 1. A new 1 cm stone is noted in the lower pole of the left kidney. Previously seen 6 mm stone in the lower pole of the left kidney is no longer visualized. Additional punctate renal stones redemonstrated elsewhere bilaterally. Suggestion of minimal prominence proximal renal collecting systems and calices bilaterally but less pronounced compared to prior. Nonspecific bilateral perinephric stranding. 2. Mild nonspecific urinary bladder wall thickening. 3. Wall thickening versus incomplete distension involving portions of colon, particularly descending as well as sigmoid and distal colon and rectum. Component mild underlying colitis cannot be entirely excluded. Correlation with colonoscopy may be considered as a means of further assessment. Mild nonspecific thickened appearance distal esophagus and also wall thickening versus incomplete distention of the stomach although with prominent ingested contents within the stomach which otherwise limits evaluation. 4. Contracted gallbladder with cholelithiasis. 5. Additional findings as above. I personally reviewed the images/study and I agree with the findings as stated. This study was interpreted at [place], [place]. MACRO: None Signed by: Bruce Gaspar 08/24/2023 6:08 PM Dictation workstation: [id number] [facility] Interpreted By: Bruce Newsome, and Tammy Mendoza STUDY: CT ABDOMEN PELVIS WO IV CONTRAST; 08/24/2023 5:15 pm INDICATION: Signs/Symptoms:renal stone. COMPARISON: CT abdomen pelvis 07/17/2021 ACCESSION NUMBER(S): [id number] ORDERING CLINICIAN: LO DELAROSA TECHNIQUE: Contiguous axial images of the abdomen and pelvis were obtained without intravenous contrast. Coronal and sagittal reformatted images were reconstructed from the axial data. FINDINGS: LOWER CHEST:Focal bandlike opacity probably focal scarring/atelectasis noted in the inferior lingular segment. The visualized lung bases are otherwise clear. Note: The absence of intravenous contrast limits evaluation of the solid organs and vasculature. ABDOMEN/PELVIS: ABDOMINAL WALL: Small fat containing periumbilical hernia. LIVER: The liver measures 18.5 cm in CC dimension. No focal lesions identified. Suspected fatty liver. BILE DUCTS: No significant intrahepatic or extrahepatic dilatation. GALLBLADDER: The gallbladder is contracted and contains small stones, similar to CT dated 07/17/2021. No evidence of acute cholecystitis. SPLEEN: Normal in size. Probable small adjacent splenule inferiorly measuring 1 cm unchanged. PANCREAS: No focal lesions identified within the pancreas on this noncontrast enhanced examination. No evidence of main pancreatic ductal dilatation. ADRENALS: No significant abnormality. KIDNEYS, URETERS, BLADDER: Previously seen 6 mm stone in the lower pole of the left kidney on CT dated 07/17/2021 is no longer visualized. A new 1 cm stone is noted within the lower pole of the left kidney. A punctate stone is noted in the superior pole of the right kidney, unchanged from previous. A few additional punctate renal stones bilaterally redemonstrated for example up to 2-3 mm upper pole on the left image 45. Suggestion of minimal fullness proximal renal collecting system/calices bilaterally but less pronounced compared to prior. Nonspecific perinephric stranding bilaterally. Lobulated renal contour bilaterally suboptimally evaluated without IV contrast. No significant hydroureteronephrosis otherwise seen. No evidence of ureteral stones. No evidence of bladder stones. Mild nonspecific urinary bladder wall thickening. REPRODUCTIVE ORGANS: Suboptimally evaluated by CT. The uterus is present. Changes of bilateral tubal ligation. No suspicious adnexal lesions. Small foci of gas within the vagina of uncertain significance. VESSELS: Mild to moderate vascular calcifications. No aneurysm. The IVC is normal in caliber. RETROPERITONEUM/LYMPH NODES: Mildly prominent nonspecific retroperitoneal nodes similar to prior. No definite new suspicious adenopathy by size criteria. BOWEL/MESENTERY/PERITONEUM: Mild nonspecific thickened appearance distal esophagus. Small hiatal hernia. Wall thickening versus incomplete distention of the stomach. Prominent ingested contents within the stomach otherwise limits evaluation. Mildly prominent fluid-filled small bowel loops scattered throughout overall nonspecific. Mild wall thickening versus incomplete distention involving portions of colon, particularly descending as well as sigmoid and distal colon and rectum. Component of mild underlying colitis cannot be excluded. The appendix is normal. No ascites, free air, or fluid collection. MUSCULOSKELETAL: No acute osseous abnormality. Mild degenerative changes of bilateral hip joints noted. Mild multilevel degenerative changes of the lumbar spine with facet hypertrophic changes. Arthritic changes of the SI joints redemonstrated. [facility] Bruce Gaspar DO - 08/24/2023 Interpreted By: Bruce Gaspar and Tavana Shahrzad STUDY: CT ABDOMEN PELVIS WO IV CONTRAST; 08/24/2023 5:15 pm INDICATION: Signs/Symptoms:renal stone. COMPARISON: CT abdomen pelvis 07/17/2021 ACCESSION NUMBER(S): [id number] ORDERING CLINICIAN: LO DELAROSA TECHNIQUE: Contiguous axial images of the abdomen and pelvis were obtained without intravenous contrast. Coronal and sagittal reformatted images were reconstructed from the axial data. FINDINGS: LOWER CHEST:Focal bandlike opacity probably focal scarring/atelectasis noted in the inferior lingular segment. The visualized lung bases are otherwise clear. Note: The absence of intravenous contrast limits evaluation of the solid organs and vasculature. ABDOMEN/PELVIS: ABDOMINAL WALL: Small fat containing periumbilical hernia. LIVER: The liver measures 18.5 cm in CC dimension. No focal lesions identified. Suspected fatty liver. BILE DUCTS: No significant intrahepatic or extrahepatic dilatation. GALLBLADDER: The gallbladder is contracted and contains small stones, similar to CT dated 07/17/2021. No evidence of acute cholecystitis. SPLEEN: Normal in size. Probable small adjacent splenule inferiorly measuring 1 cm unchanged. PANCREAS: No focal lesions identified within the pancreas on this noncontrast enhanced examination. No evidence of main pancreatic ductal dilatation. ADRENALS: No significant abnormality. KIDNEYS, URETERS, BLADDER: Previously seen 6 mm stone in the lower pole of the left kidney on CT dated 07/17/2021 is no longer visualized. A new 1 cm stone is noted within the lower pole of the left kidney. A punctate stone is noted in the superior pole of the right kidney, unchanged from previous. A few additional punctate renal stones bilaterally redemonstrated for example up to 2-3 mm upper pole on the left image 45. Suggestion of minimal fullness proximal renal collecting system/calices bilaterally but less pronounced compared to prior. Nonspecific perinephric stranding bilaterally. Lobulated renal contour bilaterally suboptimally evaluated without IV contrast. No significant hydroureteronephrosis otherwise seen. No evidence of ureteral stones. No evidence of bladder stones. Mild nonspecific urinary bladder wall thickening. REPRODUCTIVE ORGANS: Suboptimally evaluated by CT. The uterus is present. Changes of bilateral tubal ligation. No suspicious adnexal lesions. Small foci of gas within the vagina of uncertain significance. VESSELS: Mild to moderate vascular calcifications. No aneurysm. The IVC is normal in caliber. RETROPERITONEUM/LYMPH NODES: Mildly prominent nonspecific retroperitoneal nodes similar to prior. No definite new suspicious adenopathy by size criteria. BOWEL/MESENTERY/PERITONEUM: Mild nonspecific thickened appearance distal esophagus. Small hiatal hernia. Wall thickening versus incomplete distention of the stomach. Prominent ingested contents within the stomach otherwise limits evaluation. Mildly prominent fluid-filled small bowel loops scattered throughout overall nonspecific. Mild wall thickening versus incomplete distention involving portions of colon, particularly descending as well as sigmoid and distal colon and rectum. Component of mild underlying colitis cannot be excluded. The appendix is normal. No ascites, free air, or fluid collection. MUSCULOSKELETAL: No acute osseous abnormality. Mild degenerative changes of bilateral hip joints noted. Mild multilevel degenerative changes of the lumbar spine with facet hypertrophic changes. Arthritic changes of the SI joints redemonstrated. IMPRESSION: 1. A new 1 cm stone is noted in the lower pole of the left kidney. Previously seen 6 mm stone in the lower pole of the left kidney is no longer visualized. Additional punctate renal stones redemonstrated elsewhere bilaterally. Suggestion of minimal prominence proximal renal collecting systems and calices bilaterally but less pronounced compared to prior. Nonspecific bilateral perinephric stranding. 2. Mild nonspecific urinary bladder wall thickening. 3. Wall thickening versus incomplete distension involving portions of colon, particularly descending as well as sigmoid and distal colon and rectum. Component mild underlying colitis cannot be entirely excluded. Correlation with colonoscopy may be considered as a means of further assessment. Mild nonspecific thickened appearance distal esophagus and also wall thickening versus incomplete distention of the stomach although with prominent ingested contents within the stomach which otherwise limits evaluation. 4. Contracted gallbladder with cholelithiasis. 5. Additional findings as above. I personally reviewed the images/study and I agree with the findings as stated. This study was interp (more content not included)... [facility] Work Phone: Radiology Study observation (narrative) [facility] Work Phone: CT Abdomen WO contrastOrdere d By: Bruce Gaspar on 08-24-2023 [facility] Work Phone: Albumin/Creatinineon 024 Albumin/Creatinine DL <= 20 mg/L (U) [Mass ratio] 59.0 ug/mg Creat High <30.0 [facility] Comment on above: Performed By: #### 1 4959-1 #### MAGUI Gilmore ([id number]) [facility] ([facility]) [address] [place] [address] 60465 Albumin/Creatinine DL <= 20 mg/L (U) [Mass ratio]on 08-05-2023 Albumin DL <= 20 mg/L (U) [Mass/Vol] 65.2 mg/L Normal Not established [facility] Comment on above: Performed By: #### 1 4959-1 #### MAGUI Gilmore ([id number]) [facility] ([facility]) [address] [place] [address] 51432 Creatinine (U) [Mass/Vol] 110.5 mg/dL Normal 20.0-320.0 [facility] Comment on above: Performed By: #### 1 4959-1 #### MAGUI Gilmore ([id number]) [facility] ([facility]) [address] [place] [address] 30317 CBC panel Auto (Bld)on 08-05 Erythrocyte distribution width (RBC) [Ratio] 13.7 % Normal 11.5-14.5 [facility] Comment on above: Performed By: #### 5 8410-2 #### GUADALUPE BLACKMON ([id number]) [facility] ([facility]) [address] [place] [address] 48577 Hematocrit (Bld) [Volume fraction] 42.9 % Normal 36.0-46.0 [facility] Comment on above: Performed By: #### 5 8410-2 #### GUADALUPE BLACKMON ([id number]) [facility] ([facility]) [address] [place] [address] 95366 Hemoglobin (Bld) [Mass/Vol] 14.1 g/dL Normal 12.0-16.0 [facility] Comment on above: Performed By: #### 5 8410-2 #### GUADALUPE BLACKMON ([id number]) [facility] ([facility]) [address] [place] [address] 89729 MCH (RBC) [Entitic mass] 30.7 pg Normal 26.0-34.0 [facility] Comment on above: Performed By: #### 5 8410-2 #### GUADALUPE BLACKMON ([id number]) [facility] ([facility]) [address] [place], [place] [id number] MCHC (RBC) [Mass/Vol] 32.9 g/dL Normal 32.0-36.0 [facility] Comment on above: Performed By: #### 5 8410-2 #### GUADALUPE BLACKMON ([id number]) [facility] ([facility]) [address] [place] [address] MCV (RBC) [Entitic vol] 93 fL Normal 80-100 [facility] Comment on above: Performed By: #### 5 8410-2 #### GUADALUPE BLACKMON ([id number]) [facility] ([facility]) [address] [place] [address] 76576 Nucleated RBC/100 WBC (Bld) [Ratio] 0.0 /100 WBCs Normal 0.0-0.0 [facility] Comment on above: Performed By: #### 5 8410-2 #### GUADALUPE BLACKMON ([id number]) [facility] ([facility]) [address] [place] [address] 54634 Platelets (Bld) [#/Vol] 327 x10*3/uL Normal 150-450 [facility] Comment on above: Performed By: #### 5 8410-2 #### GUADALUPE BLACKMON ([id number]) [facility] ([facility]) [address] [place] [address] 05306 RBC (Bld) [#/Vol] 4.60 x10*6/uL Normal 4.00-5.20 [facility] Comment on above: Performed By: #### 5 8410-2 #### GUADALUPE BLACKMON ([id number]) [facility] ([facility]) [address] [place] [address] WBC (Bld) [#/Vol] 9.2 x10*3/uL Normal 4.4-11.3 [facility] Comment on above: Performed By: #### 5 8410-2 #### GUADALUPE BLACKMON ([id number]) [facility] ([facility]) [address] [place] [address] Cobalaminson 08-05-2023 Cobalamin (Vitamin B12) [Mass/Vol] 809 pg/mL Normal 211-911 [facility] Comment on above: Performed By: #### 2 132-9 #### GUADALUPE BLACKMON ([id number]) [facility] ([facility]) [address] [place] [address] Comprehensive metabolic 2000 panelon 08-05-2023 Albumin BCP dye [Mass/Vol] 4.5 g/dL Normal 3.4-5.0 [facility] Comment on above: Performed By: #### 2 4323-8 #### GUADALUPE BLACKMON ([id number]) [facility] ([facility]) [address] [place] [address] ALP [Catalytic activity/Vol] 66 U/L Normal 33-110 [facility] Comment on above: Performed By: #### 2 4323-8 #### GUADALUPE BLACKMON ([id number]) [facility] ([facility]) [address] [place] [address] 29954 ALT With P-5'-P [Catalytic activity/Vol] 19 U/L Normal 7-45 [facility] Comment on above: Result Comment: April ents treated with Sulfasalazine may generate falsely decreased results for ALT. Performed By: #### 2 4323-8 #### GUADALUPE BLACKMON ([id number]) [facility] ([facility]) [address] [place] [address] 78503 Anion gap [Moles/Vol] 13 mmol/L Normal 10-20 [facility] Comment on above: Performed By: #### 2 4323-8 #### GUADALUPE BLACKMON ([id number]) [facility] ([facility]) [address] [place] [address] 32899 AST With P-5'-P [Catalytic activity/Vol] 16 U/L Normal 9-39 [facility] Comment on above: Performed By: #### 2 4323-8 #### GUADALUPE BLACKMON ([id number]) [facility] ([facility]) [address] [place] [address] Bilirubin [Mass/Vol] 0.8 mg/dL Normal 0.0-1.2 [facility] Comment on above: Performed By: #### 2 4323-8 #### GUADALUPE BLACKMON ([id number]) [facility] ([facility]) [address] [place] [address] 26225 Calcium [Mass/Vol] 9.6 mg/dL Normal 8.6-10.3 [facility] Comment on above: Performed By: #### 2 4323-8 #### GUADALUPE BLACKMON ([id number]) [facility] ([facility]) [address] [place] [address] 78772 Chloride [Moles/Vol] 105 mmol/L Normal 98-107 [facility] Comment on above: Performed By: #### 2 4323-8 #### GUADALUPE BLACKMON ([id number]) [facility] ([facility]) [address] [place] [address] 23905 CO2 [Moles/Vol] 26 mmol/L Normal 21-32 [facility] Comment on above: Performed By: #### 2 4323-8 #### GUADALUPE BLACKMON ([id number]) [facility] ([facility]) [address] [place] [address] 99737 Creatinine [Mass/Vol] 0.70 mg/dL Normal 0.50-1.05 [facility] Comment on above: Performed By: #### 2 4323-8 #### GUADALUPE BLACKMON ([id number]) [facility] ([facility]) [address] [place] [address] 74115 GFR/1.73 sq M.predicted MDRD (S/P/Bld) [Vol rate/Area] mL/min/{1.73_m2} Normal >60 [facility] Comment on above: Result Comment: Calc ulations of estimated GFR are performed using the 2020 CKD-EPI Study Refit equation without the race variable for the IDMS-Traceable creatinine methods. https://jasn.asnjournals.org/content//ASN.32862757 88 Performed By: #### 2 4323-8 #### GUADALUPE BLACKMON ([id number]) [facility] ([facility]) [address] [place] [address] 91325 Glucose [Mass/Vol] 115 mg/dL High 74-99 [facility] Comment on above: Performed By: #### 2 4323-8 #### GUADALUPE BLACKMON ([id number]) [facility] ([facility]) [address] [place] [address] 00702 Potassium [Moles/Vol] 4.3 mmol/L Normal 3.5-5.3 [facility] Comment on above: Performed By: #### 2 4323-8 #### GUADALUPE BLACKMON ([id number]) [facility] ([facility]) [address] [place] [address] 80866 Protein [Mass/Vol] 6.7 g/dL Normal 6.4-8.2 [facility] Comment on above: Performed By: #### 2 4323-8 #### GUADALUPE BLACKMON ([id number]) [facility] ([facility]) [address] [place] [address] 54082 Sodium [Moles/Vol] 140 mmol/L Normal 136-145 [facility] Comment on above: Performed By: #### 2 4323-8 #### GUADALUPE BLACKMON ([id number]) [facility] ([facility]) [address] [place] [address] 64922 Urea nitrogen [Mass/Vol] 12 mg/dL Normal 6-23 [facility] Comment on above: Performed By: #### 2 4323-8 #### GUADALUPE BLACKMON ([id number]) [facility] ([facility]) [address] [place] [address] 61806 HbA1c (Bld) [Mass fraction]o n 08-05-2023 Average glucose Estimated from glycated hemoglobin (Bld) [Mass/Vol] 140 mg/dL Normal Not Established [facility] Comment on above: Order Comment: Diagn osis of Diabetes-Adults Non-Diabetic: < or = 5.6% Increased risk for developing diabetes: 5.7-6.4% Diagnostic of diabetes: > or = 6.5% Monitoring of Diabetes Age (y)....................... Therapeutic Goal (%) Adults: >18.........................<7.0 Pediatrics: 13-18...................<7.5 Pediatrics: 7-12....................<8.0 Pediatrics: 0-6..................... 7.5-8.5 [place] [employer]. Diabetes Care 33(S1), Jun 2009 Performed By: #### 4 548-4 #### BUTCHER LORRI ([id number]) [facility] ([facility]) [address] [place] [address] Hemoglobin A1c/Hemoglobin.to maite 08-05-2023 HbA1c (Bld) [Mass fraction] 6.5 % High see below [facility] Comment on above: Order Comment: Diagn osis of Diabetes-Adults Non-Diabetic: < or = 5.6% Increased risk for developing diabetes: 5.7-6.4% Diagnostic of diabetes: > or = 6.5% Monitoring of Diabetes Age (y)....................... Therapeutic Goal (%) Adults: >18.........................<7.0 Pediatrics: 13-18...................<7.5 Pediatrics: 7-12....................<8.0 Pediatrics: 0-6..................... 7.5-8.5 [employer] [place] [employer]. Diabetes Care 33(S1)Jun 2009 Performed By: #### 4 548-4 #### GUADALUPE BLACKMON ([id number]) [facility] ([facility]) [facility] [place] [address] Lipid 1996 panelon 4 Cholesterol [Mass/Vol] 167 mg/dL Normal 0-199 [facility] Comment on above: Result Comment: Age Desirable Borderline High High 0-19 Y 0 - 169 170 - 199 >/= 200 20-24 Y 0 - 189 190 - 224 >/= 225 >24 Y 0 - 199 200 - 239 >/= 240 All ranges are based on fasting samples. Specific therapeutic targets will vary based on patient-specific cardiac risk. Pediatric guidelines reference:Pediatrics 2011, 128(S5).Adult guidelines reference: NCEP ATPIII Guidelines,DEVORAH 2001, 258:2486-97 Venipuncture immediately after or during the administration of Metamizole may lead to falsely low results. Testing should be performed immediately prior to Metamizole dosing. Performed By: #### 2 4331-1 #### GUADALUPE BLACKMON ([id number]) [facility] ([facility]) [facility] [place] [address] Cholesterol in HDL [Mass/Vol] 49.0 mg/dL Normal [facility] Comment on above: Result Comment: Age Very Low Low Normal High 0-19 Y < 35 < 40 40-45 ---- 20-24 Y ---- < 40 >45 ---- >24 Y ---- < 40 40-60 >60 Performed By: #### 2 4331-1 #### GUADALUPE BLACKMON ([id number]) [facility] ([facility]) [facility] [place] [address] Cholesterol in LDL [Mass/Vol] 89 mg/dL Normal <=99 [facility] Comment on above: Result Comment: Near Borderline AGE Desirable Optimal High High Very High 0-19 Y 0 - 109 --- 110-129 >/= 130 ---- 20-24 Y 0 - 119 --- 120-159 >/= 160 ---- >24 Y 0 - 99 100-129 130-159 160-189 >/=190 Performed By: #### 2 4331-1 #### GUADALUPE BLACKMON ([id number]) [facility] ([facility]) [address] [place] [address] 28787 Cholesterol in VLDL [Mass/Vol] 29 mg/dL Normal 0-40 [facility] Comment on above: Performed By: #### 2 4331-1 #### GUADALUPE BLACKMON ([id number]) [facility] ([facility]) [address] [place] [address] 75097 CHOLESTEROL/HDL RATIO 3.4 Normal [facility] Comment on above: Result Comment: Ref Values Desirable < 3.4 High Risk > 5.0 Performed By: #### 2 4331-1 #### GUADALUPE BLACKMON ([id number]) [facility] ([facility]) [address] [place] [address] 79865 NON HDL CHOLESTEROL 118 mg/dL Normal 0-149 [facility] Comment on above: Result Comment: Age Desirable Borderline High High Very High 0-19 Y 0 - 119 120 - 144 >/= 145 >/= 160 20-24 Y 0 - 149 150 - 189 >/= 190 ---- >24 Y 30 mg/dL above LDL Cholesterol goal Performed By: #### 2 4331-1 #### GUADALUPE BLACKMON ([id number]) [facility] ([facility]) [address] [place] [address] Triglyceride [Mass/Vol] 144 mg/dL Normal 0-149 [facility] Comment on above: Result Comment: Age Desirable Borderline High High Very High 0 D-90 D 19 - 174 ---- ---- ---- 91 D- 9 Y 0 - 74 75 - 99 >/= 100 ---- 10-19 Y 0 - 89 90 - 129 >/= 130 ---- 20-24 Y 0 - 114 115 - 149 >/= 150 ---- >24 Y 0 - 149 150 - 199 200- 499 >/= 500 Venipuncture immediately after or during the administration of Metamizole may lead to falsely low results. Testing should be performed immediately prior to Metamizole dosing. Performed By: #### 2 4331-1 #### GUADALUPE BLACKMON ([id number]) [facility] ([facility]) [address] [place] [address] POCT UA Automated manually r esultedon 08-05-2023 Appearance (U) Clear Clear [facility] Work Phone: Glucose Test strip (U) [Mass/Vol] Negative NEGATIVE mg/dl [facility] Work Phone: Hemoglobin Ql (U) TRACE-Intact [facility]normal [facility]: Interpretation and review of laboratory results Abnormal [facility] Work Phone: Leukocyte esterase Test strip Ql (U) MODERATE (2+) Abnormal NEGATIVE [facility] Work Phone: Nitrite Ql (U) Positive Abnormal NEGATIVE [facility] Work Phone: pH (U) 6.0 [pH] No Reference Range Established [facility] Work Phone: POC Bilirubin, Urine Negative NEGATIVE [facility] Work Phone: POC Color, Urine Yellow Straw, Yellow, Light-Yellow [facility] Work Phone: )[phone] POC Ketones, Urine Negative NEGATIVE mg/dl [facility] Work Phone: POC Protein, Urine Negative NEGATIVE, 30 (1+) mg/dl [facility] Work Phone: )[phone] POC Specific [place], Urine 1.025 1.005 - 1.035 [facility] Work Phone: POC Urobilinogen, Urine 0.2 0.2, 1.0 EU/DL [facility] Work Phone: [phone] [facility] Work Phone: [phone] Thyrotropinon 08-05-2023 TSH Qn 1.93 m[IU]/L Normal 0.44-3.98 [facility] Comment on above: Order Comment: TSH t esting is performed using different testing methodology at [facility] than at other [facility]. Direct result comparisons should only be made within the same method. Performed By: #### 3 016-3 #### BUTCHER LORRI ([id number]) [facility] ([facility]) [address] [place] [address] COMPREHENSIVE PANELon 2022 Albumin [Mass/Vol] 4.2 g/dL Normal 3.4 - 5.0 [facility] Comment on above: Performed By: #### C MP #### [address] [address] ALP [Catalytic activity/Vol] 61 U/L Normal 33 - 110 [facility] Comment on above: Performed By: #### C MP #### [address] [address] ALT [Catalytic activity/Vol] 21 U/L Normal 7 - 45 [facility] Comment on above: Result Comment: April ents treated with Sulfasalazine may generate falsely decreased results for ALT. Performed By: #### C MP #### [address] [address] Anion gap [Moles/Vol] 12 mmol/L Normal 10 - 20 [facility] Comment on above: Performed By: #### C MP #### [address] [address] AST [Catalytic activity/Vol] 16 U/L Normal 9 - 39 [facility] Comment on above: Performed By: #### C MP #### [address] [address] Bilirubin [Mass/Vol] 0.6 mg/dL Normal 0.0 - 1.2 [facility] Comment on above: Performed By: #### C MP #### [address] [address] Calcium [Mass/Vol] 9.4 mg/dL Normal 8.6 - 10.3 [facility] Comment on above: Performed By: #### C MP #### [address] [address] Chloride [Moles/Vol] 106 mmol/L Normal 98 - 107 [facility] Comment on above: Performed By: #### C MP #### [address] [address] Creatinine [Mass/Vol] 0.72 mg/dL Normal 0.50 - 1.05 [facility] Comment on above: Performed By: #### C MP #### [address] [address] eGFR FEMALE >90 Normal >90 [facility] Comment on above: Result Comment: CALC ULATIONS OF ESTIMATED GFR ARE PERFORMED USING THE 2020 CKD-EPI STUDY REFIT EQUATION WITHOUT THE RACE VARIABLE FOR THE IDMS-TRACEABLE CREATININE METHODS. https://jasn.asnjournals.org/content//ASN.56529905 88 Performed By: #### C MP #### [address] [address] Glucose [Mass/Vol] 106 mg/dL High 74 - 99 [facility] Comment on above: Performed By: #### C MP #### [address] [address] HCO3 (Bld) [Moles/Vol] 26 mmol/L Normal 21 - 32 [facility] Comment on above: Performed By: #### C MP #### [address] [address] Potassium [Moles/Vol] 4.2 mmol/L Normal 3.5 - 5.3 [facility] Comment on above: Performed By: #### C MP #### [address] [address] Protein [Mass/Vol] 6.8 g/dL Normal 6.4 - 8.2 [facility] Comment on above: Performed By: #### C MP #### [address] [address] Sodium [Moles/Vol] 140 mmol/L Normal 136 - 145 [facility] Comment on above: Performed By: #### C MP #### [address] [address] Urea nitrogen [Mass/Vol] 12 mg/dL Normal 6 - 23 [facility] Comment on above: Performed By: #### C MP #### [address] [address] HEMOGLOBIN A1Con 01-14-2023 Glucose [Mass/Vol] 146 mg/dL Normal [facility] Comment on above: Performed By: #### H BA1E #### [address] [address] HbA1c (Bld) [Mass fraction] 6.7 % Abnormal [facility] Comment on above: Result Comment: Diag nosis of Diabetes-Adults Non-Diabetic: < or = 5.6% Increased risk for developing diabetes: 5.7-6.4% Diagnostic of diabetes: > or = 6.5% . Monitoring of Diabetes Age (y) Therapeutic Goal (%) Adults: >18 <7.0 Pediatrics: 13-18 <7.5 7-12 <8.0 0- 6 7.5-8.5 [place] [employer]. Diabetes Care 33(S1), Jun 2009. Performed By: #### H BA1E #### [address] [address] LDL, DIRECTon 01-14-2023 Cholesterol in LDL [Mass/Vol] 92 mg/dL Normal 0 - 129 [facility] Comment on above: Result Comment: Elev ated levels of LDL cholesterol are recognized as a fry factor in the development of atherosclerosis and CHD. The direct LDL cholesterol test can be used to assess cardiovascular risk and monitor therapy as a follow up to a lipid profile when triglycerides are significantly elevated. Performed By: #### L DLDI #### [facility] [address] [place] [address] CARDIAC STRESS/REST INJECTIO Non 11-10-2022 CARDIAC STRESS/REST INJECTION Patient Name: BETSY EDWARDS STUDY: CARDIAC STRESS/REST INJECTION; CARDIAC STRESS/REST (MYOCARDIAL PERFUSION/MIBI); PART 2 STRESS OR REST (NO CHARGE); 11/10/2022 10:16 am; 11/10/2022 10:17 am INDICATION: chest pain. COMPARISON: None. ACCESSION NUMBER(S): [id number]; [id number]; [id number] ORDERING CLINICIAN: TATYANA DOLL TECHNIQUE: DIVISION OF NUCLEAR MEDICINE STRESS MYOCARDIAL PERFUSION SCAN, ONE DAY PROTOCOL The patient received an intravenous injection of 10.12 mCi of Tc-99m Myoview and resting emission tomographic (SPECT) images of the myocardium were acquired. The patient then underwent treadmill stress exercising to 92.7 % of MPHR and achieving 7.1 METS. At peak stress an additional injection of 33 mCi of Tc-99m Myoview was administered and stress phase SPECT images of the myocardium were then acquired. This acquisition included ECG-gated images to assess and quantify ventricular function. Low dose CT was acquired for attenuation correction. FINDINGS: Both stress and rest studies demonstrate grossly normal perfusion throughout the left ventricle. The left ventricle is normal in size with an end-diastolic volume of 53 mL. Gated images demonstrate normal LV wall motion with a post-stress LV EF estimated greater than 65%. Attenuation correction CT images demonstrate no gross anatomic abnormalities. IMPRESSION: 1. Negative myocardial perfusion study without evidence of inducible myocardial ischemia or prior infarction. 2. The left ventricle is normal in size. 3. Normal LV wall motion with a post-stress LV EF estimated greater than 65%. I personally reviewed the images/study and I agree with the findings as stated. This study was interpreted at [place], [place]. Electronically signed by: MARNIE WHITLEY MD [facility] Dada Room Nuclear [facility] [address] [place] [address] [phone], Nuclear Treadmill Stress Test Patient Name: BETSY Castrejon Ordering Physician: [id number] Tatyana EDWARDS MD Study Date: 11/10/2022 Reading Physician: [id number] Dempsey MD MRN/PID: [id number] Supervising [id number] Dempsey Physician: Accession/Order#: [id number] Referring Physician: [id number] Doll MD Date of : 1970 PCP: Gender: F Fellow: Admit Date: 11/10/2022 Fellow: Admission Status: Outpatient Collar Stay Fuser Tender: Marla Cooper RRT Height: 168.00 cm Nurse: N/A Weight: 90.00 kg Pension Consultant: N/A BSA: 2.00 m2 Technologist: BMI: 31.89 kg/m2 Additional Staff: Age: 52 years cc report to: Patient Location: [facility] Stress Lab cc report to: [id number] Tatyana Doll MD Study Type: Syngo Nuclear Order Diagnosis/ICD: R07.89-Other chest pain Indication: Chest Pain, Hypertension and HLD Procedure/CPT: Stress Test Interpretation-[id number]; Stress Test Supervision-[id number] Falls Risk: Low: Patient has low risk for sustaining a fall; environmental safety interventions in place. Study Details: Correct procedure and correct patient verified verbally and with ID Band checked. Patient History: Chest pain, hypertension and hyperlipidemia. Allergies: AMOXICILLIN, SULFA. Smoker: Current. Diabetes: Yes, managed with Oral medicine. BMI: Obese >30. Medications: ALPRAZOLAM, ATORVASTATIN CIPROFLOXACIN, ESCITALOPRAM, LOSARTAN, METFORMIN, PANTOPRAZOLE. The patient did not take medications as prescribed. Patient Performance: The patient exercised to stage II on a Chris protocol for 6 minutes and 30 seconds, achieving 7.1 METS. The peak heart rate achieved was 154 bpm, which was 93 % of the age predicted target heart rate of 166 bpm. The resting blood pressure was 128/91 mmHg with a heart rate of 85 bpm. The standing blood pressure was 136/90 mmHg with a heart rate of 92 bpm. The patient developed shortness of breath during the stress exam. The symptoms resolved with rest 4 minutes into recovery. The blood pressure response was hypertensive. The test was terminated due to: dyspnea. Baseline ECG: Resting ECG showed normal sinus rhythm with normal tracing. Stress ECG: Stress ECG showed normal sinus rhythm. Stress Stage Data: + +---+---- --+-------+ HR Sys BP Oates BP + +---+---- --+-------+ Baseline Resting 85 128 91 + +---+---- --+-------+ Baseline Standing 92 136 90 + +---+---- --+-------+ Stage I 139 166 86 + +---+---- --+-------+ Stage II 151 186 85 + +---+---- --+-------+ Recovery ECG: Recovery ECG showed normal sinus rhythm. The heart rate recovery was normal. + +---+------+-- -----+ HR Sys BP Oates BP + +---+------+-- -----+ Recovery I 128 + +---+------+-- -----+ Recovery II 108 156 82 + +---+------+-- -----+ Recovery III 105 + +---+------+-- -----+ Recovery IV 99 145 85 + +---+------+-- -----+ Summary: 1. Baseline ekg shows normal sinus rhythm with non specific ST-T changes. 2. Patient exercised for 6 minutes 30 seconds achieving 7.1 METs. 3. Exercise capacity is below average for age. 4. Heart rate response to exercise is normal; blood pressure response to exercise is normal. 5. With exercise no ST-T segment changes suggestive of ischemia or sustained ventricular arrhythmias are seen. 6. Exercise stress EKG is negative for ischemia. 7. Aquino treadmill score is 6.5 (low risk). 8. Nuclear image results are reported separately. [id number] Rodney Dempsey MD Electronically signed on 11/10/2022 at 10:28:13 AM Final Normal [facility] SEDIMENTATION RATE, ERYTHROC YTEon 10-31-2022 SEDIMENTATION RATE, ERYTHROCYTE 6 mm/h Normal 0 - 30 [facility] Comment on above: Performed By: #### E SRWS #### [address] [address] Lab Specimen Source Normal [facility] Comment on above: Performed By: #### E SRWS #### [address] [address] Performed By: #### V TB12 #### [address] [address] Sedimentation Rate, Erythroc yteon 10-31-2022 ESR (Bld) [Velocity] 6 mm/h 0 - 30 -[facility] [address] Work Phone: Comment on above: SOURCE: VITAMIN B12on 10-31-2022 Cobalamin (Vitamin B12) [Mass/Vol] 207 pg/mL Low 211 - 911 [facility] Comment on above: Performed By: #### V TB12 #### [address] [address] Vitamin B12, Serumon 023 Cobalamin (Vitamin B12) [Mass/Vol] 207 pg/mL below low threshold 211 - 911 -[facility] [address] Work Phone: Comment on above: SOURCE: APTTon 10-18-2022 aPTT Coag (Bld) [Time] 35 s Normal 26 - 39 [facility] Comment on above: Result Comment: THE APTT IS NO LONGER USED FOR MONITORING UNFRACTIONATED HEPARIN THERAPY. FOR MONITORING HEPARIN THERAPY, USE THE HEPARIN ASSAY. Performed By: #### A PTT #### [address] [address] Activated Partial Thrombopla stin Timeon 10-18-2022 aPTT Coag (PPP) [Time] 35 s 26 - 39 [facility] [address] Work Phone: Comment on above: THE APTT IS NO LONGE R USED FOR MONITORING UNFRACTIONATED HEPARIN THERAPY. FOR MONITORING HEPARIN THERAPY, USE THE HEPARIN ASSAY. BASIC METABOLIC PANELon 09-28 Anion gap [Moles/Vol] 12 mmol/L Normal 10 - 20 [facility] Comment on above: Performed By: #### B MP #### [address] [address] Calcium [Mass/Vol] 9.5 mg/dL Normal 8.6 - 10.3 [facility] Comment on above: Performed By: #### B MP #### [address] [address] Chloride [Moles/Vol] 106 mmol/L Normal 98 - 107 [facility] Comment on above: Performed By: #### B MP #### [address] [address] Creatinine [Mass/Vol] 0.70 mg/dL Normal 0.50 - 1.05 [facility] Comment on above: Performed By: #### B MP #### [address] [address] eGFR FEMALE >90 Normal >90 [facility] Comment on above: Result Comment: CALC ULATIONS OF ESTIMATED GFR ARE PERFORMED USING THE 2020 CKD-EPI STUDY REFIT EQUATION WITHOUT THE RACE VARIABLE FOR THE IDMS-TRACEABLE CREATININE METHODS. https://jasn.asnjournals.org/content//ASN.67904857 88 Performed By: #### B MP #### [address] [address] Glucose [Mass/Vol] 100 mg/dL High 74 - 99 [facility] Comment on above: Performed By: #### B MP #### [address] [address] HCO3 (Bld) [Moles/Vol] 26 mmol/L Normal 21 - 32 [facility] Comment on above: Performed By: #### B MP #### [address] [address] Potassium [Moles/Vol] 4.0 mmol/L Normal 3.5 - 5.3 [facility] Comment on above: Performed By: #### B MP #### [address] [address] Sodium [Moles/Vol] 140 mmol/L Normal 136 - 145 [facility] Comment on above: Performed By: #### B MP #### [address] [address] Urea nitrogen [Mass/Vol] 14 mg/dL Normal 6 - 23 [facility] Comment on above: Performed By: #### B MP #### [address] [address] CBC AND DIFFERENTIALon 10-18 % AUTOMATED IMMATURE GRAN 0.6 % Normal 0.0 - 0.9 [facility] Comment on above: Result Comment: [place]ilka ture Granulocyte Count (IG) includes promyelocytes, myelocytes and metamyelocytes but does not include bands. Percent differential counts (%) should be interpreted in the context of the absolute cell counts (cells/L). Performed By: #### G HALLEY #### [address] [address] Basophils (Bld) [#/Vol] 0.08 10*3/uL Normal 0.00 - 0.10 [facility] Comment on above: Performed By: #### G HALLEY #### [address] [address] Basophils/100 WBC (Bld) 0.9 % Normal 0.0 - 2.0 [facility] Comment on above: Performed By: #### G HALLEY #### [address] [address] Eosinophils (Bld) [#/Vol] 0.17 10*3/uL Normal 0.00 - 0.70 [facility] Comment on above: Performed By: #### G HALLEY #### [address] [address] Eosinophils/100 WBC (Bld) 1.9 % Normal 0.0 - 6.0 [facility] Comment on above: Performed By: #### G HALLEY #### [address] [address] Erythrocyte distribution width (RBC) [Ratio] 13.3 % Normal 11.5 - 14.5 [facility] Comment on above: Performed By: #### G HALLEY #### [address] [address] Hematocrit (Bld) [Volume fraction] 40.9 % Normal 36.0 - 46.0 [facility] Comment on above: Performed By: #### Lynette HALLEY #### [address] [address] Hemoglobin (Bld) [Mass/Vol] 13.5 g/dL Normal 12.0 - 16.0 [facility] Comment on above: Performed By: #### Lynette HALLEY #### [address] [address] Lymphocytes (Bld) [#/Vol] 2.22 10*3/uL Normal 1.20 - 4.80 [facility] Comment on above: Performed By: #### Lynette HALLEY #### [address] [address] Lymphocytes/100 WBC (Bld) 24.4 % Normal 13.0 - 44.0 [facility] Comment on above: Performed By: #### Lynette HALLEY #### [address] [address] MCHC (RBC) [Mass/Vol] 33.0 g/dL Normal 32.0 - 36.0 [facility] Comment on above: Performed By: #### Lynette HALLEY #### [address] [address] MCV (RBC) [Entitic vol] 93 fL Normal 80 - 100 [facility] Comment on above: Performed By: #### Lynette HALLEY #### [address] [address] Monocytes (Bld) [#/Vol] 0.82 10*3/uL Normal 0.10 - 1.00 [facility] Comment on above: Performed By: #### G HALLEY #### [address] [address] Monocytes/100 WBC (Bld) 9.0 % Normal 2.0 - 10.0 [facility] Comment on above: Performed By: #### Lynette HALLEY #### [address] [address] Neutrophils (Bld) [#/Vol] 5.74 10*3/uL Normal 1.20 - 7.70 [facility] Comment on above: Result Comment: Perc ent differential counts (%) should be interpreted in the context of the absolute cell counts (cells/L). Performed By: #### G HALLEY #### [address] [address] Neutrophils/100 WBC (Bld) 63.2 % Normal 40.0 - 80.0 [facility] Comment on above: Performed By: #### G HALLEY #### [address] [address] Platelets (Bld) [#/Vol] 324 10*3/uL Normal 150 - 450 [facility] Comment on above: Performed By: #### G HALLEY #### [address] [address] RBC 4.42 x10E12/L Normal 4.00 - 5.20 [facility] Comment on above: Performed By: #### G HALLEY #### [address] [address] WBC (Bld) [#/Vol] 9.1 10*3/uL Normal 4.4 - 11.3 [facility] Comment on above: Performed By: #### G HALLEY #### [address] [address] CHEST 1 VIEWon 10-18-2022 CHEST 1 VIEW Patient Name: BETSY EDWARDS STUDY: CHEST 1 VIEW; ; 10/18/2022 1:36 pm INDICATION: Chest Pain . COMPARISON: 12/11/2013 ACCESSION NUMBER(S): [id number] ORDERING CLINICIAN: TRUDY SANTANA FINDINGS: Portable AP view of the chest obtained in the upright position at 1331 hours. Cardiomediastinal silhouette is normal size. No pulmonary consolidation or pneumothorax. No acute bony abnormality. IMPRESSION: Nothing suspicious for acute cardiopulmonary disease. Electronically signed by: TAYLOR HATCH MD Normal [facility] CORONAVIRUS 2019 BY PCRon Lab Specimen Source Nasal, Nasopharyngeal Normal [facility] Comment on above: Performed By: #### M G #### [place] [address] SARS-CoV-2 (COVID-19) RNA ARTHUR+probe Ql (Unsp spec) Not detected Normal Not Detected [facility] Comment on above: Result Comment: . This test has received FDA Emergency Use Authorization (EUA) and has been verified by [facility]. This test is only authorized for the duration of time that circumstances exist to justify the authorization of the emergency use of in vitro diagnostic tests for the detection of SARS-CoV-2 virus and/or diagnosis of COVID-19 infection under section 564(b)(1) of the Act, 21 U.S.C. 360bbb-3(b)(1), unless the authorization is terminated or revoked sooner. [facility] is certified under CLIA-88 as qualified to perform high complexity testing. Testing is performed in the [facility] laboratory located at [address] [place] [address]. SARS-CoV-2/Flu/RSV Multiplex Test: Fact sheet for providers: https://www.fda.gov/media/025783/download Fact sheet for patients: https://www.fda.gov/media/905719/download Performed By: #### M G #### [place] [address] CT HEAD WO CONTRASTon 2022 CT HEAD WO CONTRAST Patient Name: BETSY EDWARDS STUDY: CT HEAD WO CONTRAST; 10/18/2022 2:08 pm INDICATION: headache . COMPARISON: None ACCESSION NUMBER(S): [id number] ORDERING CLINICIAN: TRUDY SANTANA TECHNIQUE: Examination was performed in the axial plane with sagittal and coronal reconstructions. Bone and soft tissue algorithms were performed. FINDINGS: INTRACRANIAL: The ventricular system is symmetrical and nondilated. No mass or mass effect is identified. There is no hemorrhage or subdural fluid collection. There is no acute infarct. EXTRACRANIAL: Visualized paranasal sinuses and mastoids are clear. IMPRESSION: No acute intracranial pathology. Electronically signed by: AGUSTO SALGADO MD [facility] CT Head without Contraston 0 10-18-2022 CT Head limited WO contrast Normal [facility] [address] Work Phone: Complete Blood Count + Diffe rentialon 10-18-2022 Basophils/100 WBC (Bld) 0.9 % 0.0 - 2.0 [facility] [address] Work Phone: [phone] Erythrocyte distribution width (RBC) [Ratio] 13.3 % See Below [address] Work Phone: [phone] Comment on above: Reference Range: 11. 5 - 14.5 Hematocrit (Bld) [Volume fraction] 40.9 % See Below [address] Work Phone: Comment on above: Reference Range: 36. 0 - 46.0 Hemoglobin (Bld) [Mass/Vol] 13.5 g/dL See Below [address] Work Phone: Comment on above: Reference Range: 12. 0 - 16.0 Lymphocytes/100 WBC (Bld) 24.4 % See Below [address] Work Phone: Comment on above: Reference Range: 13. 0 - 44.0 MCHC (RBC) [Mass/Vol] 33.0 g/dL See Below [address] Work Phone: Comment on above: Reference Range: 32. 0 - 36.0 MCV (RBC) [Entitic vol] 93 fL 80 - 100 [facility] Work Phone: [phone] Monocytes/100 WBC (Bld) 9.0 % 2.0 - 10.0 [facility] [address] Work Phone: [phone] Neutrophils/100 WBC (Bld) 63.2 % See Below [facility] Work Phone: [phone] Comment on above: Reference Range: 40. 0 - 80.0 Platelets (Bld) [#/Vol] 324 10*3/uL 150 - 450 [facility] [address] Work Phone: RBC (Bld) [#/Vol] 4.42 {x10E12/L} See Below [facility] [address] Work Phone: Comment on above: Reference Range: 4.0 0 - 5.20 WBC (Bld) [#/Vol] 9.1 10*3/uL 4.4 - 11.3 [facility] [place] [address] [address] Work Phone: [phone] Complete Blood Count + Differential 0.08 {x10E9/L} See Below [facility] [address] Work Phone: [phone] Comment on above: Reference Range: 0.0 0 - 0.10 Complete Blood Count + Differential 0.17 {x10E9/L} See Below [address] Work Phone: [phone] Comment on above: Reference Range: 0.0 0 - 0.70 Complete Blood Count + Differential 0.82 {x10E9/L} See Below [address] Work Phone: [phone] Comment on above: Reference Range: 0.1 0 - 1.00 Complete Blood Count + Differential 2.22 {x10E9/L} See Below [address] Work Phone: [phone] Comment on above: Reference Range: 1.2 0 - 4.80 Complete Blood Count + Differential 5.74 {x10E9/L} See Below [facility] [address] Work Phone: [phone] Comment on above: Reference Range: 1.2 0 - 7.70 Percent differential counts (%) should be interpreted in the context of the absolute cell counts (cells/L). Complete Blood Count + Differential 1.9 % 0.0 - 6.0 [facility] [address] Work Phone: [phone] Complete Blood Count + Differential 0.6 % 0.0 - 0.9 -[facility]iolog [address] Work Phone: Comment on above: Immature Granulocyte Count (IG) includes promyelocytes, myelocytes and metamyelocytes but does not include bands. Percent differential counts (%) should be interpreted in the context of the absolute cell counts (cells/L). Coronavirus 2019 RNA by PCR, Symptomaticon 10-18-2022 Coronavirus 2019 RNA by PCR, Symptomatic Not detected Normal See Below -Cardiolog y-[address] Work Phone: Comment on above: SOURCE: Nasal, Nasop haryngealReference Range: Not Detected.This test has received [facility] Emergency Use Authorization (EUA) and has been verified by [facility]. This test is only authorized for the duration of time that circumstances exist to justify the authorization of the emergency use of in vitro diagnostic tests for the detection of SARS-CoV-2 virus and/or diagnosis of COVID-19 infection under section 564(b)(1) of the Act, 21 U.S.C. 360bbb-3(b)(1), unless the authorization is terminated or revoked sooner. [facility] is certified under CLIA-88 as qualified to perform high complexity testing. Testing is performed in the [facility] laboratory located at [address] [place] [address].SARS-CoV-2/Flu/RSV Multiplex Test: Fact sheet for providers: https://www.fda.gov/media/126503/downloadFact sheet for patients: https://www.fda.gov/media/233256/download Covid 19 Resultson 3 SARS-CoV-2 (COVID-19) RNA ARTHUR+probe Ql (Unsp spec) NEGATIVE COVID-19 Test Coronaviruses are common world-wide and are the cause of many common colds. SARS-COV2 is a new coronavirus that began circulating worldwide in 2019 so we are calling it COVID-19. It has been estimated that four out of five patients with COVID-19 will recover at home without the need for medical attention. Symptoms of COVID-19 may include cough, fever, shortness of breath, loss of taste or smell and other flu-like symptoms including chills, sore muscles, sore throat, and headache. Severe illness is more common in older people and people with other health problems such as high blood pressure, obesity, and immune system problems. If the test is positive, you have COVID-19. You will be contacted by the ordering physicians office and instructed to remain on home isolation, in accordance with CDC guidelines. You may also be contacted by the [facility] to see if any of your close contacts may have been exposed to the virus and need to quarantine. If the test is negative, you likely do not have COVID-19 at this time, but you still may have a different illness that can spread to other people (like Influenza, or the Flu) and could still be at risk for getting COVID-19. We recommend that you stay away from other people to limit the spread of illness until your symptoms are improving and you are fever-free for 24 hours without the use of fever lowering medications such as acetaminophen or ibuprofen. No test is 100% accurate so if you are still concerned you may have COVID-19, talk to your doctor about the need to continue to stay away from others. Medicines Unless your provider told you not to use the following: Acetaminophen (Tylenol and others) is generally safe. Anti-inflammatory medications, such as Ibuprofen (Advil or Motrin) or Naproxen (Aleve) can also be used. Slao-cox-jipsfsa cough and cold medicines can be used according to the instructions on the package. Some ecqt-vmp-wzpaclm medicines also contain acetaminophen. Make sure you are not taking more than your recommended dose. For those not hospitalized, there is no specific treatment available for this illness. Antibiotics do not treat Coronaviruses. Follow-Up Follow up with your doctor by scheduling a virtual visit or consider follow-up at one of our urgent care fever clinics. If you are having difficulty breathing, or are very weak and having difficulty standing, this is a medical emergency. Call 911 or have someone take you to the nearest emergency room immediately. If possible, wear a facemask. Additional guidance from the CDC for patients who tested POSITIVE for COVID-19 How to isolate: Isolate yourself in a specific room at home and limit your contact with others. Use a separate bathroom from other members of the household, when possible. Leave home only to get essential medical care. Do not go to work, school or public areas. Avoid using public transportation, ride-sharing, or taxis. Restrict contact with pets and other animals. If you must care for your pet or be around animals while you are sick, wash your hands before and after your interaction and wear a facemask. Make sure that shared spaces in the home have good airflow, such as by an air conditioner or an opened window, weather permitting. Personal Hygiene Procedures: Wear a face mask when in the same room as other people or pets. If a face mask interferes with your breathing, others should wear a mask when sharing space with you. Frequent hand-washing: wash your hands with soap and water for at least 20 seconds. If soap and water are not available, use alcohol-based hand die finisher. Avoid touching your eyes, nose, and mouth with unwashed hands. Household Hygiene Procedures: Avoid sharing personal household items such as dishes, glassware, cups, eating utensils, towels or bedding with other people or pets in your home. After use, these items should be washed with soap and hot water. Disinfect all high-touch surfaces every day with antibacterial cleaning solutions such as Lysol wipes, bleach, cleansers, etc. High-touch surfaces include tabletops, doorknobs, bathroom fixtures, toilets, phones, keyboards, tablets and bedside tables. Immediately clean any surfaces that may have blood, poop or body fluids on them, using antibacterial cleaning solutions such as Lysol wipes, bleach, cleansers, etc. If clothing or bedding come into contact with blood, poop or body fluids, they should be washed immediately. Follow the directions on the laundry detergent and clothing labels but hot water is recommended when possible. Stopping home isolation precautions: If possible, consult your doctor before stopping home isolation precautions. According to the CDC, you can discontinue home isolation precautions when you have met both of these criteria: Your fever and respiratory symptoms have been gone for 24 hernan (more content not included)... Normal [facility] Laboratory - Chemistry and C hemistry - challengeon 10-18-2022 Anion gap [Moles/Vol] 12 mmol/L 10 - 20 MP-Cardiolog y-[address] Work Phone: Calcium [Mass/Vol] 9.5 mg/dL 8.6 - 10.3 -Car diolog [address] Work Phone: Chloride [Moles/Vol] 106 mmol/L 98 - 107 -Cardiolog y[address] Work Phone: CO2 [Moles/Vol] 26 mmol/L 21 - 32 -Cardio log [address] Work Phone: Creatinine [Mass/Vol] 0.70 mg/dL See Below [facility] [address] Work Phone: Comment on above: Reference Range: 0.5 0 - 1.05 Glucose [Mass/Vol] 100 mg/dL above high threshold 74 - 99 [facility] [address] Work Phone: Potassium [Moles/Vol] 4.0 mmol/L 3.5 - 5.3 [facility] [address] Work Phone: Sodium [Moles/Vol] 140 mmol/L 136 - 145 -Car diolog [address] Work Phone: Urea nitrogen [Mass/Vol] 14 mg/dL 6 - 23 [facility] [address] Work Phone: Laboratory - Coagulationon 0 10-18-2022 INR Coag (PPP) [Relative time] 1.2 {INR} above high threshold 0.9 - 1.1 [facility] [address] Work Phone: PT Coag (PPP) [Time] 14.1 s above high threshold 9.8 - 13.4 [facility] [address] Work Phone: MAGNESIUMon 10-18-2022 Magnesium [Mass/Vol] 1.88 mg/dL Normal 1.60 - 2.40 [facility] Comment on above: Performed By: #### M G #### [facility] [address] [place] [address] Magnesium, Serumon 3 Magnesium [Mass/Vol] 1.88 mg/dL See Below MP-Cardiolog y-[place] [address] Work Phone: Comment on above: Reference Range: 1.6 0 - 2.40 No Panel Informationon 10-18 >90 >90 MP-Cardiolog y-[place] [address] Work Phone: Comment on above: CALCULATIONS OF ODIN MATED GFR ARE PERFORMED USING THE 2020 CKD-EPI STUDY REFIT EQUATION WITHOUT THE RACE VARIABLE FOR THE IDMS-TRACEABLE CREATININE METHODS.https://jasn.asnjournals.org/content/early//ASN. 2613901049 PT/INRon 10-18-2022 PT Coag (PPP) [Time] 14.1 s High 9.8 - 13.4 [facility] Comment on above: Performed By: #### P TINR #### [address] [address] PT, INR 1.2 High 0.9 - 1.1 [facility] Comment on above: Performed By: #### P TINR #### [address] [address] Provider Note - ED v3on 09-28 Provider Note - ED v3 Provider Note: Chart Review: ED NOTES ED NOTES: ====HPI==== Patient is a 52-year-old female who presents to the emergency department with a chief complaint of a headache that started yesterday evening that has actually resolved. She states that she is concerned as her blood pressure was elevated yesterday. She states that yesterday when her headache started she noticed it on the right side and it progressively worsened. It was not a thunderclap headache or the worst headache of her life. She states that she does get headaches occasionally and this is how they typically present, but it was slightly worse. She states that she also became concerned as she had a warm tingly sensation all throughout her body. She denies the tingling being isolated to one side. She denies any numbness or weakness. She states that she had fallen asleep and woke up this morning and was feeling fine until prior to arrival when she once again got this warm, tingling sensation throughout her body. Once again she denies any numbness or weakness. She denies any chest pain or shortness of breath. No fever or chills. No nausea or vomiting. She states that she contacted her family physician who recommended she be evaluated in the emergency department. PMHX: Diabetes Mellitus, depression, GERD, HTN, history of kidney stone Social HX: Never smoker TOBACCO Denies ETOH Denies DRUGS ====Review of Systems==== 10 point system review is negative except for those specifically mentioned in history of present illness ====Physical Exam==== Constitutional/General: Alert and oriented x3, well appearing, nontoxic, and in NAD. Head: Normocephalic and atraumatic. Eyes: PERRL, EOMI, conjunctive normal, sclera nonicteric, subconjunctival layer is pink. Mouth: Oropharynx clear, handling secretions, no trismus, no asymmetry of the posterior oropharynx or uvular edema Neck: Supple, full ROM, non tender to palpation in the midline, no stridor, no crepitus, no meningeal signs. Trachea at midline. Respiratory: Lungs clear to auscultation bilaterally, no wheezes, rales, or rhonchi, not in respiratory distress. Cardiovascular: Regular rate, regular rhythm, no murmurs, gallops, or rubs, 2+ distal pulses. Chest: normal chest wall movement GI: Abdomen soft, nontender, nondistended, no organomegaly, no palpable masses, no rebound, guarding, or rigidity. Musculoskeletal: Moves all extremities x4, warm and well perfused, no clubbing, cyanosis, or edema, cap refill <3 seconds Integument: Skin warm and dry, no rashes. Neurologic: GCS 15, no focal deficits, symmetric strength 5/5 in the upper and lower extremities bilaterally. Normal finger to nose and heel to quinonez Psychiatric: Normal affect. ====ED Course and Medical Decision Making==== See MDM section for review of findings & plan of care. Portions of this note were dictated by speech recognition. An attempt at proof reading was made to minimize errors. Minor errors in actuarial assistant may be present. Please call if questions.. HISTORY OF PRESENTING ILLNESS BETSY is a 52 year old Female and was seen by me at 22-Apr-2023 12:53 for a chief complaint of headache (Patient to ED reference headache with warm/tingling feeling thru-out her whole body. Patient started with a headache last night at 2300 hours and took ibuprofen and aleve and then she started feeling warm/tingly and it went away but started again this morning.) . Triage Information: Most recent Vital Sign Value Date Temp (F): 97.7 10-18-2022 12:52 Temp (C): 36.5 10-18-2022 12:52 Heart Rate (beats/min): 95 10-18-2022 12:52 Respirations (breaths/min): 17 10-18-2022 12:52 SpO2 (%): 98 10-18-2022 12:52 BP Systolic (mm Hg): 170 10-18-2022 12:52 BP Diastolic (mm Hg): 104 10-18-2022 12:52 PAST MEDICAL HISTORY ALLERGIES/INTOLERANCES: Allergy Allergen: amoxicillin Type: Drug Reaction: Hives/Urticaria Allergen: sulfa drugs Type: Drug Category Reaction: Hives/Urticaria HEALTH HISTORY: Medical History Name:Diabetes mellitus Code:E11.9 Name:Depression Code:F32.9 Name:GERD (gastroesophageal reflux disease) Code:K21.9 Name:Hypertension Code:I10 Name:History of kidney stones Code:Z87.442 Name:History of colonoscopy Code:Z98.890 OUTPATIENT MEDICATIONS: Home Medications Review Status for Reconciliation: N/A Med Status: Patient Currently Takes Medications Drug Name: atorvastatin 10 mg oral tablet Instructions: 1 tab(s) orally once a day Drug Name: losartan 50 mg oral tablet Instructions: 1 tab(s) orally once a day Drug Name: escitalopram 10 mg oral tablet Instructions: 1 tab(s) orally once a day Drug Name: pantoprazole 40 mg oral delayed release tablet Instructions: 1 tab(s) orally once a day Drug Name: metFORMIN 750 mg oral tablet, extended release Instructions: 1 tab(s) orally 2 times a day SIGNIFICANT EVENTS: Past (more content not included)... Normal [facility] Radiologyon 10-18-2022 XR Chest Single view Normal MP-Cardiolog y-[address] Work Phone: Risk Screen - Adult Emergenc yon 10-18-2022 Risk Screen - Adult Emergency Preferred Language: Preferred Language: Preferred Language for Discussing Health Care (patient/designee)Kazakh Patient Preferred Pharmacy: Patient Preferred Pharmacy Statement: I have reviewed and updated the patient's preferred pharmacy selection for today's visit. Advanced Directives: Advance Directive/DNRno Family Violence Adult: Abuse Screen: Are you or have you been threatened or abused physically, emotionally, or sexually by anyoneno Learning Assessment (Patient): Learning Assessment (Patient): Patient is Able to be Assessed for Learningyes Factors Influencing Readiness to Learnacuteness of illness Factors that Impact Ability to Learnnone Devices/Methods Used to Communicatenone Learning Preferencesverbal instruction; written material Cultural Considerationsnone Developmental Considerationsnone Tenriism Considerationsnone Learning Assessment (Other Learner): Learning Assessment (Other Learner): Other learner availableno Pressure Injury/TB/Substance: Pressure Injury: Do you have a coughno Smoking Statusnever smoker Alcohol Usedenies Admission Risk Screen: Significant IndicatorsComplete CAGE: CAGE: Is this an injured patient at a Trauma Center ([facility]/[place]): no Electronic Signatures: Maria Luisa Reyes (TAL) (Signed 18-Oct-2022 14:28) Authored: Preferred Language, Patient Preferred Pharmacy, Advanced Directives, Family Violence Adult, Learning Assessment (Patient), Learning Assessment (Other Learner), Pressure Injury/TB/Substance, Pressure Injury, CAGE Last Updated: 18-Oct-2022 14:28 by Maria Luisa Reyes (TAL) Normal [facility] TROPONIN I, HIGH SENSITIVITY on 10-18-2022 TROPONIN I, HIGH SENSITIVITY 3 ng/L Normal 0 - 13 [facility] Comment on above: Result Comment: . Less than 99th percentile of normal range cutoff- Female and children under 18 years old <14 ng/L; Male <21 ng/L: Negative Repeat testing should be performed if clinically indicated. . Female and children under 18 years old 14-50 ng/L; Male 21-50 ng/L: Consistent with possible cardiac damage and possible increased clinical risk. Serial measurements may help to assess extent of myocardial damage. . >50 ng/L: Consistent with cardiac damage, increased clinical risk and myocardial infarction. Serial measurements may help assess extent of myocardial damage. . NOTE: Children less than 1 year old may have higher baseline troponin levels and results should be interpreted in conjunction with the overall clinical context. . NOTE: Troponin I testing is performed using a different testing methodology at [facility] than at other [facility]. Direct result comparisons should only be made within the same method. Performed By: #### T [facility] #### [address] [address] TROPONIN I, HIGH SENSITIVITY 3 ng/L Normal 0 - 13 [facility] Comment on above: Result Comment: . Less than 99th percentile of normal range cutoff- Female and children under 18 years old <14 ng/L; Male <21 ng/L: Negative Repeat testing should be performed if clinically indicated. . Female and children under 18 years old 14-50 ng/L; Male 21-50 ng/L: Consistent with possible cardiac damage and possible increased clinical risk. Serial measurements may help to assess extent of myocardial damage. . >50 ng/L: Consistent with cardiac damage, increased clinical risk and myocardial infarction. Serial measurements may help assess extent of myocardial damage. . NOTE: Children less than 1 year old may have higher baseline troponin levels and results should be interpreted in conjunction with the overall clinical context. . NOTE: Troponin I testing is performed using a different testing methodology at [facility] than at other [facility]. Direct result comparisons should only be made within the same method. Performed By: #### M G #### [address] [address] Tropinin I.cardiac panel High sensitivity method 3 ng/L 0 - 13 -Cardiolog y-[address] Work Phone: Comment on above: .Less than 99th perc entile of normal range cutoff-Female and children under 18 years old <14 ng/L; Male <21 ng/L: NegativeRepeat testing should be performed if clinically indicated. .Female and children under 18 years old 14-50 ng/L; Male 21-50 ng/L:Consistent with possible cardiac damage and possible increased clinical risk. Serial measurements may help to assess extent of myocardial damage. .>50 ng/L: Consistent with cardiac damage, increased clinical risk andmyocardial infarction. Serial measurements may help assess extent of myocardial damage. . NOTE: Children less than 1 year old may have higher baseline troponin levels and results should be interpreted in conjunction with the overall clinical context. .NOTE: Troponin I testing is performed using a different testing methodology at [facility] than at other [facility]. Direct result comparisons should only be made within the same method. Tropinin I.cardiac panel High sensitivity method 3 ng/L 0 - 13 MP-Cardiolog y-Alicia [address]ay[address] Work Phone: Comment on above: .Less than 99th perc entile of normal range cutoff-Female and children under 18 years old <14 ng/L; Male <21 ng/L: NegativeRepeat testing should be performed if clinically indicated. .Female and children under 18 years old 14-50 ng/L; Male 21-50 ng/L:Consistent with possible cardiac damage and possible increased clinical risk. Serial measurements may help to assess extent of myocardial damage. .>50 ng/L: Consistent with cardiac damage, increased clinical risk andmyocardial infarction. Serial measurements may help assess extent of myocardial damage. . NOTE: Children less than 1 year old may have higher baseline troponin levels and results should be interpreted in conjunction with the overall clinical context. .NOTE: Troponin I testing is performed using a different testing methodology at [facility] than at other [facility]. Direct result comparisons should only be made within the same method. LUIZ Fish CITLALI BILATon 07-31 [facility] THYROIDon 07-31-2022 THYROID Patient Name: BETSY EDWARDS STUDY: US THYROID; 07/31/2022 6:25 pm INDICATION: thyroid nodules E04.9: Thyroid goiter. COMPARISON: 04/17/2017 ACCESSION NUMBER(S): [id number] ORDERING CLINICIAN: TATYANA DOLL TECHNIQUE: Grayscale and color Doppler ultrasound of the thyroid. FINDINGS: Heterogenous hypoechoic thyroid gland. Isoechoic solid nodule lower pole right lobe measuring 6 mm today versus 5 mm previously. Rim calcified solid nodule junction of the left lobe and isthmus measuring 9 mm today versus 9 mm previously. RIGHT LOBE: 5.5 x 1.6 x 1.8 cm LEFT LOBE: 4.9 x 1.6 x 1.3 cm ISTHMUS: 0.3 cm IMPRESSION: Stable appearance of multinodular thyroid gland dating back to March 2017. Electronically signed by: TAYLOR HATCH MD Normal [facility] Cult, Urineon 07-29-2022 Bacteria identified Cx Nom (U) Abnormal -Medical [employer] [facility] Work Phone: IO UA (automated w/o microsc opy)on 07-29-2022 Protein (U) [Mass/Vol] Negative [facility] Work Phone: IO UA (automated w/o microscopy) (+)small - 15 -[employer] [facility] Work Phone: IO UA (automated w/o microscopy) Positive [employer] [facility] Work Phone: IO UA (automated w/o microscopy) Normal (0.2-1.0 mg/dl) [facility] [employer] [facility] Work Phone: IO UA (automated w/o microscopy) 5.5 1 [employer] [facility] Work Phone: IO UA (automated w/o microscopy) 1.025 1 [employer] [facility] Work Phone: IO UA (automated w/o microscopy) Negative [employer] [facility] Work Phone: IO UA (automated w/o microscopy) Cloudy [employer] [facility] Work Phone: IO UA (automated w/o microscopy) Yellow [employer] [facility] Work Phone: Office Visit (Primary Care T xt/Forms)on 07-29-2022 Follow-up visit Diagnoses/Problems Assessed Diabetes mellitus (250.00) (E11.9) Depression (311) (F32.A) Benign hypertension (401.1) (I10) Hyperlipidemia (272.4) (E78.5) GERD (gastroesophageal reflux disease) (530.81) (K21.9) Wellness examination (V70.0) (Z00.00) Thyroid goiter (240.9) (E04.9) Current smoker (305.1) (F17.200) Acute UTI (599.0) (N39.0) Orders Acute UTI Cult, Urine; Status:Active; Requested for:29Jul2022; IO UA (automated w/o microscopy); Status:Active - Perform Order; Requested for:29Jul2022; Benign hypertension Changed: From Losartan Potassium 50 MG Oral Tablet TAKE 1 TABLET DAILY To Losartan Potassium 100 MG Oral Tablet TAKE 1 TABLET DAILY Depression Renew: Escitalopram Oxalate 10 MG Oral Tablet; TAKE 1 TABLET DAILY Diabetes mellitus Renew: metFORMIN HCl ER 750 MG Oral Tablet Extended Release 24 Hour; Take 1 tablet twice daily Comprehensive Metabolic Panel; Status:Active; Requested for:26Jan2023; Hemoglobin A1C; Status:Active; Requested for:26Jan2023; LDL, Direct, Serum; Status:Active; Requested for:26Jan2023; GERD (gastroesophageal reflux disease) Renew: Pantoprazole Sodium 40 MG Oral Tablet Delayed Release; TAKE 1 TABLET DAILY Health Maintenance Renew: ALPRAZolam 0.5 MG Oral Tablet; Take 1 tablet every 4 hours Hyperlipidemia Renew: Atorvastatin Calcium 10 MG Oral Tablet; TAKE 1 TABLET DAILY SocHx: Current smoker Tobacco Use Screening; Status:Complete; Done: 29Jul2022 Thyroid goiter Ultrasound Thyroid; Status:Hold For - Scheduling; Requested for:29Jul2022; Radiologist to Determine Optimal Study : Y What are the patient's signs and symptoms? : thyroid nodules Patient Discussion/Summary Follow-up in 6 months with blood testing prior for diabetes, increase losartan to 100 mg a day Provider Impressions Provider Impressions Free Text Note Form: Patient arrives for annual check on chronic medical problems. Laboratory testing reveals some increase in A1c to 6.9, microalbumin also elevated, blood pressure is marginal, increase losartan to 100 mg once a day, advised again about diet exercise and weight loss, advised about smoking cessation, lipid profile is good, thyroid testing is normal, patient does have a history of thyroid goiter, check ultrasound, was questioning echocardiogram, normal cardiac evaluation today, had stress test in 2017 that was normal. Patient gets Pap smears and mammograms done by director new product in [place], recheck again in 6 months. Patient with recurrent UTIs, check urinalysis today send urine for culture follow-up with urologist. Chief Complaint WELLNESS LABS History of Present Illness No low blood sugars since last OV, seen opthalmology in the past year, and no numbness or tingling in feet, skin normal. No headache, chest pain, shortness of breath, dizziness, lightheadedness, or edema Taking PPI daily without breakthrough symptoms. Reviewed dietary, caffeine, tobacco, alcohol, and NSAID use. No dyspepsia, dysphagia, reflux, melena, or abdominal pain. I have personally reviewed OARRS report electronically for this patient. I have considered the risk of abuse, dependence, addiction, and diversion. I believe that it is clinically appropriate for this patient to be prescribed the controlled substance. Gets MMG and pap with ORTHOPEDIC CODER in [place] still smoking despite trauma counsellor (1/2ppd) limited exercise emotionally doing OK, rare Xanax use Review of Systems Constitutional: NAD, no fevers, chills, sweats or fatigue Rep: no cough or shortness of breath Cardio: no chest pain, edema, or palpitations GI: no nausea, vomiting, diarrhea, constipation, or heartburn : normal urine flow and stream, no nocturia or dysuria MS: no joint pain or significant limits of function Skin: no visible rashes or suspicious lesions Neuro: alert and oriented X4, no numbness, tingling or issues with balance Psych: no anxiety or depression 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.0) (N20.0) Colon cancer screening (V76.51) (Z12.11) Current smoker (305.1) (F17.200) Depression (311) (F32.A) Diabetes mellitus (250.00) (E11.9) Flank pain (789.09) (R10.9) GERD (gastroesophageal reflux disease) (530.81) (K21.9) Hematuria (599.70) (R31.9) History of gross hematuria (V13.09) (Z87.898) Hyperlipidemia (272.4) (E78.5) Insomnia (780.52) (G47.00) Nocturia (788.43) (R35.1) Obesity (BMI 30-39.9) (278.00) (E66.9) Personal history of colonic polyps (V12.72) (Z86.010) Positive fecal occult blood test (792.1) (R19.5) Recurrent UTI (599.0) (N39.0) Screening for diabetes mellitus (V77.1) (Z13.1) Screening for lipid disorders (V77.91) (Z13.220) UTI (urinary tract infection) (599.0) (N39.0) Wellness examination (V70.0) (Z00.00) Past Medical History Problems H/O mammogram (V15.89) (Z92.89) History of gestational diabetes mellitus (GDM) (V12.21) (Z86.32) (more content not included)... Normal [facility] Tobacco Screening.on 023 Adult depression screening assessment No Node Management-Medical [employer] [facility] Work Phone: Fall risk assessment a) No falls within the last year [employer] [facility] Work Phone: Tobacco use status CPHS a) Yes [employer] [facility] Work Phone: Tobacco Screening. Yes [employer] [facility] Work Phone: URINE CULTURE,BACTERIALon URINE CULTURE,BACTERIAL PATIENT: BETSY EDWARDS LOCATION: [facility] [place] BILL#: [id number] : 66 AGE: SEX: F ORDERED BY: TATYANA DOLL SOURCE: URINE COLLECTED: 07/29/22 09:50 ANTIBIOTICS AT [facility].: RECEIVED : 07/30/22 00:42 SITE: Clean Catch/Voided R E S U L T S URINE CULTURE,BACTERIAL FINAL 08/01/22 08:14 ISOLATE1 : Klebsiella pneumoniae >100,000 CFU/ML Organism Kl pneum Antibiotic BP INTRP Ampicillin R Cefazolin S Ciprofloxacin S Nitrofurantoin R Gentamicin S Levofloxacin S Piperc/Tazobact S Trimeth/Sulfa S S=SUSCEPTIBLE I=INTERMEDIATE R=RESISTANT SDD=SUSCEPTIBLE DOSE DEPENDENT NS=NONSUSCEPTIBLE X=REPORTED IN ERROR Normal [facility] Comment on above: Performed By: #### U RINC #### [facility] [address] [place] [address] LUIZ SCREENINGon 07-17-2022 [facility] ALBUMIN, URINE SPOTon 2022 ALBUMIN,URINE 62.3 mg/L Normal Not Established [facility] Comment on above: Performed By: #### A LBSP #### [facility] [address] [place] [address] ALBUMIN/CREAT RATIO 42.7 ug/mg consulting solution manager High 0.0 - 30.0 [facility] Comment on above: Performed By: #### A LBSP #### [facility] [address] [place] [address] CREATININE,URINE 146.0 mg/dL Normal 20.0 - 320.0 [facility] Comment on above: Performed By: #### A LBSP #### [facility] [address] [place] [address] COMPREHENSIVE PANELon 2022 Albumin [Mass/Vol] 4.3 g/dL Normal 3.4 - 5.0 [facility] Comment on above: Performed By: #### C MP #### [facility] [address] [address] ALP [Catalytic activity/Vol] 59 U/L Normal 33 - 110 [facility] Comment on above: Performed By: #### C MP #### [address] [address] ALT [Catalytic activity/Vol] 23 U/L Normal 7 - 45 [facility] Comment on above: Result Comment: April ents treated with Sulfasalazine may generate falsely decreased results for ALT. Performed By: #### C MP #### [address] [address] Anion gap [Moles/Vol] 13 mmol/L Normal 10 - 20 [facility] Comment on above: Performed By: #### C MP #### [address] [address] AST [Catalytic activity/Vol] 18 U/L Normal 9 - 39 [facility] Comment on above: Performed By: #### C MP #### [address] [address] Bilirubin [Mass/Vol] 0.8 mg/dL Normal 0.0 - 1.2 [facility] Comment on above: Performed By: #### C MP #### [address] [address] Calcium [Mass/Vol] 9.4 mg/dL Normal 8.6 - 10.3 [facility] Comment on above: Performed By: #### C MP #### [address] [address] Chloride [Moles/Vol] 103 mmol/L Normal 98 - 107 [facility] Comment on above: Performed By: #### C MP #### [address] [address] Creatinine [Mass/Vol] 0.75 mg/dL Normal 0.50 - 1.05 [facility] Comment on above: Performed By: #### C MP #### [address] [address] eGFR FEMALE >90 Normal >90 [facility] Comment on above: Result Comment: CALC ULATIONS OF ESTIMATED GFR ARE PERFORMED USING THE 2020 CKD-EPI STUDY REFIT EQUATION WITHOUT THE RACE VARIABLE FOR THE IDMS-TRACEABLE CREATININE METHODS. https://jasn.asnjournals.org/content//ASN.91035190 88 Performed By: #### C MP #### [address] [address] Glucose [Mass/Vol] 116 mg/dL High 74 - 99 [facility] Comment on above: Performed By: #### C MP #### [address] [address] HCO3 (Bld) [Moles/Vol] 27 mmol/L Normal 21 - 32 [facility] Comment on above: Performed By: #### C MP #### [address] [address] Potassium [Moles/Vol] 3.9 mmol/L Normal 3.5 - 5.3 [facility] Comment on above: Performed By: #### C MP #### [address] [address] Protein [Mass/Vol] 6.8 g/dL Normal 6.4 - 8.2 [facility] Comment on above: Performed By: #### C MP #### [address] [address] Sodium [Moles/Vol] 139 mmol/L Normal 136 - 145 [facility] Comment on above: Performed By: #### C MP #### [address] [address] Urea nitrogen [Mass/Vol] 14 mg/dL Normal 6 - 23 [facility] Comment on above: Performed By: #### C MP #### [address] [address] HEMOGLOBIN A1Con 07-15-2022 Glucose [Mass/Vol] 151 mg/dL Normal [facility] Comment on above: Performed By: #### H BA1E #### [address] [address] HbA1c (Bld) [Mass fraction] 6.9 % Abnormal [facility] Comment on above: Result Comment: Diag nosis of Diabetes-Adults Non-Diabetic: < or = 5.6% Increased risk for developing diabetes: 5.7-6.4% Diagnostic of diabetes: > or = 6.5% . Monitoring of Diabetes Age (y) Therapeutic Goal (%) Adults: >18 <7.0 Pediatrics: 13-18 <7.5 7-12 <8.0 0- 6 7.5-8.5 [place] [employer]. Diabetes Care 33(S1), Jun 2009. Performed By: #### H BA1E #### [place] [address] [place] [address] Hemoglobin A1Con 07-15-2022 Glucose [Mass/Vol] 151 mg/dL [employer] [facility] Work Phone: HbA1c (Bld) [Mass fraction] 6.9 % Abnormal [facility] Work Phone: [phone] Comment on above: Diagnosis of Diabete s-Adults Non-Diabetic: < or = 5.6% Increased risk for developing diabetes: 5.7-6.4% Diagnostic of diabetes: > or = 6.5%. Monitoring of Diabetes Age (y) Therapeutic Goal (%) Adults: >18 <7.0 Pediatrics: 13-18 <7.5 7-12 <8.0 0- 6 7.5-8.5 [employer] [place] [employer]. Diabetes Care 33(S1), Jun 2009. LIPID PANEL (CORONARY RISK 2 )on 07-15-2022 Cholesterol [Mass/Vol] 152 mg/dL Normal 0 - 199 [facility] Comment on above: Result Comment: . AGE DESIRABLE BORDERLINE HIGH HIGH 0-19 Y 0 - 169 170 - 199 >/= 200 20-24 Y 0 - 189 190 - 224 >/= 225 >24 Y 0 - 199 200 - 239 >/= 240 All ranges are based on fasting samples. Specific therapeutic targets will vary based on patient-specific cardiac risk. . Pediatric guidelines reference:Pediatrics 2011, 128(S5). Adult guidelines reference: NCEP ATPIII Guidelines, DEVORAH 2001, 258:2486-97 . Venipuncture immediately after or during the administration of Metamizole may lead to falsely low results. Testing should be performed immediately prior to Metamizole dosing. Performed By: #### L IPID #### [address] [address] Cholesterol in HDL [Mass/Vol] 48.0 mg/dL Normal [facility] Comment on above: Result Comment: . AGE VERY LOW LOW NORMAL HIGH 0-19 Y < 35 < 40 40-45 ---- 20-24 Y ---- < 40 >45 ---- >24 Y ---- < 40 40-60 >60 . Performed By: #### L IPID #### [address] [address] Cholesterol in LDL [Mass/Vol] 66 mg/dL Normal 0 - 99 [facility] Comment on above: Result Comment: . NEAR BORD AGE DESIRABLE OPTIMAL HIGH HIGH VERY HIGH 0-19 Y 0 - 109 --- 110-129 >/= 130 ---- 20-24 Y 0 - 119 --- 120-159 >/= 160 ---- >24 Y 0 - 99 100-129 130-159 160-189 >/=190 . Performed By: #### L IPID #### [address] [address] Cholesterol in VLDL [Mass/Vol] 38 mg/dL Normal 0 - 40 [facility] Comment on above: Performed By: #### L IPID #### [address] [address] Cholesterol.total/C holesterol in HDL [Mass ratio] 3.2 {ratio} Normal [facility] Comment on above: Result Comment: REF VALUES DESIRABLE < 3.4 HIGH RISK > 5.0 Performed By: #### L IPID #### [address] [address] Triglyceride [Mass/Vol] 191 mg/dL High 0 - 149 [facility] Comment on above: Result Comment: . AGE DESIRABLE BORDERLINE HIGH HIGH VERY HIGH 0 D-90 D 19 - 174 ---- ---- ---- 91 D- 9 Y 0 - 74 75 - 99 >/= 100 ---- 10-19 Y 0 - 89 90 - 129 >/= 130 ---- 20-24 Y 0 - 114 115 - 149 >/= 150 ---- >24 Y 0 - 149 150 - 199 200- 499 >/= 500 . Venipuncture immediately after or during the administration of Metamizole may lead to falsely low results. Testing should be performed immediately prior to Metamizole dosing. Performed By: #### L IPID #### [facility] [address] [place] [address] Laboratory - Chemistry and C hemistry - challengeon 07-15-2022 Albumin BCP dye [Mass/Vol] 4.3 g/dL 3.4 - 5.0 [employer] [facility] Work Phone: [phone] Albumin Ql (U) 62.3 mg/L See Below [employer] [facility] Work Phone: [phone] Comment on above: Reference Range: Not Established Albumin/Creatinine DL <= 20 mg/L (U) [Mass ratio] 42.7 {ug/mg_crt} above high threshold 0.0 - 30.0 [employer] [facility] Work Phone: [phone] ALP [Catalytic activity/Vol] 59 U/L 33 - 110 [employer] [facility] Work Phone: [phone] ALT With P-5'-P [Catalytic activity/Vol] 23 U/L 7 - 45 [employer] [facility] Work Phone: [phone] Comment on above: Patients treated wit h Sulfasalazine may generate falsely decreased results for ALT. Anion gap [Moles/Vol] 13 mmol/L 10 - 20 [employer] [facility] Work Phone: [phone] AST With P-5'-P [Catalytic activity/Vol] 18 U/L 9 - 39 [employer] [facility] Work Phone: [phone] Bilirubin [Mass/Vol] 0.8 mg/dL 0.0 - 1.2 [employer] [facility] Work Phone: [phone] Calcium [Mass/Vol] 9.4 mg/dL 8.6 - 10.3 [facility] [employer] [facility] Work Phone: [phone] Chloride [Moles/Vol] 103 mmol/L 98 - 107 [employer] [facility] Work Phone: CO2 [Moles/Vol] 27 mmol/L 21 - 32 [employer] [facility] Work Phone: Creatinine (U) [Mass/Vol] 146.0 mg/dL See Below [facility] [employer] [facility] Work Phone: Comment on above: Reference Range: 20. 0 - 320.0 Creatinine [Mass/Vol] 0.75 mg/dL See Below [facility] Work Phone: Comment on above: Reference Range: 0.5 0 - 1.05 Glucose [Mass/Vol] 116 mg/dL above high threshold 74 - 99 [facility] Work Phone: Potassium [Moles/Vol] 3.9 mmol/L 3.5 - 5.3 [facility] Work Phone: Protein [Mass/Vol] 6.8 g/dL 6.4 - 8.2 [employer] [facility] [employer] [facility] Work Phone: Sodium [Moles/Vol] 139 mmol/L 136 - 145 [employer] [facility] [employer] [facility] Work Phone: Urea nitrogen [Mass/Vol] 14 mg/dL 6 - 23 [employer] [facility] Work Phone: Lipid Panelon 07-15-2022 Cholesterol [Mass/Vol] 152 mg/dL 0 - 199 [facility] Work Phone: Comment on above: . AGE DESIRABLE BORD J LUIS HIGH HIGH 0-19 Y 0 - 169 170 - 199 >/= 200 20-24 Y 0 - 189 190 - 224 >/= 225 >24 Y 0 - 199 200 - 239 >/= 240 All ranges are based on fasting samples. Specific therapeutic targets will vary based on patient-specific cardiac risk.. Pediatric guidelines reference:Pediatrics 2011, 128(S5). Adult guidelines reference: NCEP ATPIII Guidelines, DEVORAH 2001, 258:2486-97. Venipuncture immediately after or during the administration of Metamizole may lead to falsely low results. Testing should be performed immediately prior to Metamizole dosing. Cholesterol in HDL [Mass/Vol] 48.0 mg/dL [facility] Work Phone: Comment on above: . AGE VERY LOW LOW N ORMAL HIGH 0-19 Y < 35 < 40 40-45 ---- 20- 24 Y ---- < 40 >45 ---- >24 Y ---- < 40 40-60 >60. Cholesterol in LDL [Mass/Vol] 66 mg/dL 0 - 99 [facility] Work Phone: [phone] Comment on above: . NEAR BORD AGE RADHA RABLE OPTIMAL HIGH HIGH VERY HIGH 0-19 Y 0 - 109 --- 110-129 >/= 130 ---- 20-24 Y 0 - 119 --- 120-159 >/= 160 ---- >24 Y 0 - 99 100-129 130-159 160-189 >/=190. Cholesterol.total/C holesterol in HDL [Mass ratio] 3.2 {ratio} [facility] Work Phone: [phone] Comment on above: REF VALUESDESIRABLE < 3.4HIGH RISK > 5.0 Triglyceride [Mass/Vol] 191 mg/dL above high threshold 0 - 149 [facility] Work Phone: Comment on above: . AGE DESIRABLE BORD J LUIS HIGH HIGH VERY HIGH 0 D-90 D 19 - 174 ---- ---- ----91 D- 9 Y 0 - 74 75 - 99 >/= 100 ---- 10-19 Y 0 - 89 90 - 129 >/= 130 ---- 20-24 Y 0 - 114 115 - 149 >/= 150 ---- >24 Y 0 - 149 150 - 199 200- 499 >/= 500. Venipuncture immediately after or during the administration of Metamizole may lead to falsely low results. Testing should be performed immediately prior to Metamizole dosing. Lipid Panel 38 mg/dL 0 - 40 [facility] Work Phone: No Panel Informationon 07-15 >90 >90 [facility] Work Phone: Comment on above: CALCULATIONS OF ODIN MATED GFR ARE PERFORMED USING THE 2020 CKD-EPI STUDY REFIT EQUATION WITHOUT THE RACE VARIABLE FOR THE IDMS-TRACEABLE CREATININE METHODS.https://jasn.asnjournals.org/content/early/ASN. 1645436746 TSHon 07-15-2022 TSH Qn 3.13 m[IU]/L Normal 0.44 - 3.98 [facility] Comment on above: Result Comment: TSH testing is performed using different testing methodology at [facility] than at other [facility]. Direct result comparisons should only be made within the same method. Performed By: #### T SH2 #### [place] [id number] TSH - Thyroid Stimulating Ho rmfrida, Serumon 07-15-2022 TSH Qn 3.13 m[IU]/L See Below [facility] Work Phone: Comment on above: Reference Range: 0.4 4 - 3.98 TSH testing is performed using different testing methodology at [facility] than at other [facility]. Direct result comparisons should only be made within the same method. ABDOMEN AP VIEWon 07-11-2022 ABDOMEN AP VIEW Patient Name: BETSY EDWARDS STUDY: ABDOMEN AP VIEW INDICATION: kidney stones N20.0: Bilateral renal stones. COMPARISON: December 13, 2021 ACCESSION NUMBER(S): [id number] ORDERING CLINICIAN: LO DELAROSA FINDINGS: Previous left-sided renal calculus no longer visualized. Previous tubal ligation. Bowel gas pattern unremarkable. IMPRESSION: No definite renal calculus seen. Electronically signed by: TAYLOR BUENO MD [facility] IO UA (automated w/o microsc opy)on 07-11-2022 Protein (U) [Mass/Vol] Trace MS-Utydgdj-S [facility] Work Phone: IO UA (automated w/o microscopy) (++)moderate - 40 FL-Giqwqjp-T [facility] Work Phone: IO UA (automated w/o microscopy) Positive WT-Vzqkodd-E [facility] Work Phone: IO UA (automated w/o microscopy) Normal (0.2-1.0 mg/dl) -Urolog y-A [employer] Work Phone: IO UA (automated w/o microscopy) 5.5 1 PN-Qvgzlde-V [employer] Work Phone: IO UA (automated w/o microscopy) (+)small - 15 JM-Smxwycy-[employer] Work Phone: IO UA (automated w/o microscopy) 1.020 1 HT-Arnyvoi-G [employer] Work Phone: IO UA (automated w/o microscopy) Negative GO-Dxxruaa-R [facility] Work Phone: IO UA (automated w/o microscopy) Clear NS-Zslwjqs-[employer] Work Phone: IO UA (automated w/o microscopy) Yellow AJ-Glyfrmj-HMar[facility] Work Phone: Office Visit (Urology)on Follow-up visit Diagnoses/Problems Assessed Calcium kidney stone (592.0) (N20.0) Nocturia (788.43) (R35.1) Recurrent UTI (599.0) (N39.0) Current smoker (305.1) (F17.200) Patient Discussion/Summary Past CT reviewed F/U 1 year with renal U/S Treatment options for LUTS reviewed Discussed timed voiding. Discussed fluid and caffeine intake Lifestyle change to help prevent UTIs discussed. Encouraged fluid intake. Cx sent F/U 1 year with renal U/S Chief Complaint 6 mo w/ kub History of Present IllnessPatient is here for 6 month f/u w/kub for hx of kidney stones. No recent sx. Denies flank pain. Denies N/V and F/C. Chronic LUT'S sx are mild and stable. Denies urgency and frequency. Denies dysuria. Denies hematuria. Nocturia x1.No medication for LUT'S. Hx of gross hematuria. No recent sx. Hx of UTI'S. No recent sx Review of Systems Constitutional: No fever, No chills. Eye: Negative. Ear/Nose/Mouth/Throat: Negative. Respiratory: No shortness of breath, No cough. Cardiovascular: No chest pain, No peripheral edema. Gastrointestinal: No nausea, Genitourinary: Negative except as documented in history of present illness. Hematology/Lymphatics: Patient denies being on blood thinners.. Endocrine: Negative. Immunologic: Not immunocompromised. Musculoskeletal: Negative Integumentary: Negative. Neurologic: Alert and oriented X4. Psychiatric: Negative. 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.0) (N20.0) Colon cancer screening (V76.51) (Z12.11) Current smoker (305.1) (F17.200) Depression (311) (F32.A) Diabetes mellitus (250.00) (E11.9) Flank pain (789.09) (R10.9) GERD (gastroesophageal reflux disease) (530.81) (K21.9) Hematuria (599.70) (R31.9) History of gross hematuria (V13.09) (Z87.898) Hyperlipidemia (272.4) (E78.5) Insomnia (780.52) (G47.00) Nocturia (788.43) (R35.1) Obesity (BMI 30-39.9) (278.00) (E66.9) Personal history of colonic polyps (V12.72) (Z86.010) Positive fecal occult blood test (792.1) (R19.5) Recurrent UTI (599.0) (N39.0) Screening for diabetes mellitus (V77.1) (Z13.1) Screening for lipid disorders (V77.91) (Z13.220) UTI (urinary tract infection) (599.0) (N39.0) Wellness examination (V70.0) (Z00.00) Past Medical History Problems H/O mammogram (V15.89) (Z92.89) [facility] 2016 History of gestational diabetes mellitus (GDM) (V12.21) (Z86.32) History of kidney stones (V13.01) (Z87.442) History of Pap test, as part of routine gynecological examination (V76.2) (Z01.419) PER [facility] Surgical History Problems History of Colonoscopy Managed By: Angelica White (General Surgery) repeat 11/13/21 History of Colonoscopy Christopher, multiple polyps, re-check in 3 year History of Esophagogastroduodenoscopy History of Lithotripsy 2018 History of Tubal ligation History of Ureteral stent placement Family History Mother Family history of diabetes mellitus (V18.0) (Z83.3) Father Family history of alcoholism (V17.0) (Z81.1) Family history of diabetes mellitus (V18.0) (Z83.3) Family history of metastatic neoplastic disease (V16.9) (Z80.9) UNKNOWN ORIGIN Family history of pancreatic cancer (V16.0) (Z80.0) Sister Family history of mitral valve disorder (V17.49) (Z82.49) Social History Problems Active advance directive (V49.89) (Z78.9) Current smoker (305.1) (F17.200) Denies alcohol consumption (V49.89) (Z78.9) Does not use caffeine (V49.89) (Z78.9) Feels safe at home No illicit drug use Allergies Medication Amoxicillin TABS Recorded By: Dary López; 06/15/2019 11:43:05 AM Sulfa Drugs Recorded By: Dary López; 06/15/2019 11:43:05 AM Current Meds Medication NameInstruction ALPRAZolam 0.5 MG Oral TabletTake 1 tablet every 4 hours Atorvastatin Calcium 10 MG Oral TabletTAKE 1 TABLET DAILY. Escitalopram Oxalate 10 MG Oral TabletTAKE 1 TABLET DAILY. Losartan Potassium 50 MG Oral TabletTAKE 1 TABLET DAILY. metFORMIN HCl ER 750 MG Oral Tablet Extended Release 24 HourTake 1 tablet twice daily Pantoprazole Sodium 40 MG Oral Tablet Delayed ReleaseTAKE 1 TABLET DAILY. Vitals Vital Signs Recorded: 11Jul2022 07:48AM Heart Rate93 Ccckdpoo860 Mkbegmmvi29 Height5 ft 6 in Ffmfyy939 lb 6 oz BMI Vtlreshjfg27.86 kg/m2 BSA Calculated1.99 Tobacco Usea) Yes Patient encouraged to stop using tobacco productsYes PHQ-2 #1. Over the last 2 weeks have you felt down, depressed or hopeless? (If yes, answer PHQ-9 below)No PHQ-2 #2. Over the last 2 weeks have you felt little interest or pleasure in doing things? (If yes, answer PHQ-9 below)No Falls Screening (Age 18+)a) No falls within the last year Physical Exam A/O x 3 in No apparent distress Constitutional: General appearance normal Respiratory: Respiratory effort is normal Gastrointestinal:Abdomen is not tender Genitourin (more content not included)... Normal [facility] Radiologyon 07-11-2022 XR Abdomen AP Please click on the link to view the study images Normal BR-Qsaedcm-O [employer] Work Phone: XR Abdomen AP Normal Node Management-Urology- A [employer] Phone: Tobacco Screening.on 023 Adult depression screening assessment No JY-Ystinps-R [employer] Phone: Fall risk assessment a) No falls within the last year GO-Iiyrieb-L [employer] Phone: Tobacco use status CPHS a) Yes JN-Yfvmkwp-G [employer] Phone: Tobacco Screening. Yes MP-Uro logy-A [employer] Phone: GLUCOSE-POCTon 12-16-2021 Glucose [Mass/Vol] 142 mg/dL High 74 - 99 [facility] Comment on above: Performed By: #### G HALLEY #### [place] [address] No Panel Informationon 12-16 [email or web address] GI-Tojztsq-G [employer] Work Phone: ABDOMEN AP VIEWon 12-13-2021 ABDOMEN AP VIEW Patient Name: BETSY EDWARDS STUDY: ABDOMEN AP VIEW INDICATION: Kidney stone N20.0: Calcium kidney stone COMPARISON: Abdomen radiograph 07/24/[address] urogram 07/17/2021 ACCESSION NUMBER(S): [id number] ORDERING CLINICIAN: LO DELAROSA FINDINGS: Evaluation for nephroliths is limited due to bowel gas overlying the shadows of the bilateral kidneys. A 7 mm linear calcific density is visualized projecting over the inferior pole of the left kidney which may represent a nephrolith. Small pelvic phleboliths noted. No radiopaque densities projecting over the expected shadows of the right kidney or expected courses of the bilateral ureters. Bowel gas pattern is nonspecific and nonobstructive. Calcific densities are visualized projecting surrounding the bilateral hip joints which may represent calcific tendinosis. IMPRESSION: As above Electronically signed by: MALENA MOORE MD [facility] IO UA (automated w/o microsc opy)on 12-13-2021 Protein (U) [Mass/Vol] Negative OJ-Zoiewkw-A [employer] Work Phone: IO UA (automated w/o microscopy) Trace CH-Zxwkaxh-T [employer] Work Phone: IO UA (automated w/o microscopy) Negative UD-Pfesmtr-J [employer] Work Phone: IO UA (automated w/o microscopy) Normal (0.2-1.0 mg/dl) MP-Urolog y-A [employer] Work Phone: IO UA (automated w/o microscopy) 5.5 1 CW-Ryhijyu-N [employer] Work Phone: IO UA (automated w/o microscopy) (++)moderate - 40 EC-Obrtreu-B [employer] Work Phone: IO UA (automated w/o microscopy) 1.020 1 BB-Obdggru-L [employer] Work Phone: IO UA (automated w/o microscopy) Clear SQ-Cznsobc-N [employer] Work Phone: IO UA (automated w/o microscopy) Yellow OI-Vjqqqol-G [employer] Work Phone: Office Visit (Urology)on Follow-up visit Diagnoses/Problems Assessed Nocturia (788.43) (R35.1) Recurrent UTI (599.0) (N39.0) Bilateral renal stones (592.0) (N20.0) Patient Discussion/Summary KUB reviewed WIll observe Stone prevention discussed. Diet reviewed. Discussed fluid intake Treatment options for LUTS reviewed Discussed timed voiding. Discussed fluid and caffeine intake Lifestyle change to help prevent UTIs discussed. Encouraged fluid intake. F/U 6 months with KUB Chief Complaint 5 mo w/ kub History of Present IllnessPatient is here for 5 month f/u w/kub for hx of kidney stones. No recent sx. Denies flank pain. Denies N/V and F/C. Chronic LUT'S sx are mild and stable. Denies urgency and frequency. Denies dysuria. Denies hematuria. Nocturia x1.No medication for LUT'S. Hx of gross hematuria. No recent sx. Hx of UTI'S. No recent sx Review of Systems Constitutional: No fever, No chills. Eye: Negative. Ear/Nose/Mouth/Throat: Negative. Respiratory: No shortness of breath, No cough. Cardiovascular: No chest pain, No peripheral edema. Gastrointestinal: No nausea, Genitourinary: Negative except as documented in history of present illness. Hematology/Lymphatics: Patient denies being on blood thinners.. Endocrine: Negative. Immunologic: Not immunocompromised. Musculoskeletal: Negative Integumentary: Negative. Neurologic: Alert and oriented X4. Psychiatric: Negative. 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.0) (N20.0) Colon cancer screening (V76.51) (Z12.11) Current smoker (305.1) (F17.200) Depression (311) (F32.A) Diabetes mellitus (250.00) (E11.9) Flank pain (789.09) (R10.9) GERD (gastroesophageal reflux disease) (530.81) (K21.9) Hematuria (599.70) (R31.9) History of gross hematuria (V13.09) (Z87.448) Hyperlipidemia (272.4) (E78.5) Insomnia (780.52) (G47.00) Nocturia (788.43) (R35.1) Obesity (BMI 30-39.9) (278.00) (E66.9) Personal history of colonic polyps (V12.72) (Z86.010) Positive fecal occult blood test (792.1) (R19.5) Recurrent UTI (599.0) (N39.0) Screening for diabetes mellitus (V77.1) (Z13.1) Screening for lipid disorders (V77.91) (Z13.220) UTI (urinary tract infection) (599.0) (N39.0) Wellness examination (V70.0) (Z00.00) Past Medical History Problems H/O mammogram (V15.89) (Z92.89) [facility] History of gestational diabetes mellitus (GDM) (V12.21) (Z86.32) History of kidney stones (V13.01) (Z87.442) History of Pap test, as part of routine gynecological examination (V76.2) (Z01.419) PER GABI DICKEY CNP [facility] Surgical History Problems History of Colonoscopy Thomae, multiple polyps, re-check in 1 year History of Colonoscopy Managed By: Angelica White (General Surgery) repeat 11/13/21 History of Esophagogastroduodenoscopy History of Lithotripsy 2018 History of Tubal ligation History of Ureteral stent placement Family History Mother Family history of diabetes mellitus (V18.0) (Z83.3) Father Family history of alcoholism (V17.0) (Z81.1) Family history of diabetes mellitus (V18.0) (Z83.3) Family history of metastatic neoplastic disease (V16.9) (Z80.9) UNKNOWN ORIGIN Family history of pancreatic cancer (V16.0) (Z80.0) Sister Family history of mitral valve disorder (V17.49) (Z82.49) Social History Problems Active advance directive (V49.89) (Z78.9) Current smoker (305.1) (F17.200) Denies alcohol consumption (V49.89) (Z78.9) Does not use caffeine (V49.89) (Z78.9) Feels safe at home No illicit drug use Allergies Medication Amoxicillin TABS Recorded By: Dary López; 06/15/2019 11:43:05 AM Sulfa Drugs Recorded By: Dary López; 06/15/2019 11:43:05 AM Current Meds Medication NameInstruction ALPRAZolam 0.5 MG Oral TabletTake 1 tablet every 4 hours Atorvastatin Calcium 10 MG Oral TabletTAKE 1 TABLET DAILY. Ciprofloxacin HCl - 250 MG Oral TabletTake 1 tablet twice daily Ciprofloxacin HCl - 500 MG Oral TabletTake 1 tablet twice daily Ciprofloxacin HCl - 500 MG Oral TabletTake 1 tablet twice daily Escitalopram Oxalate 10 MG Oral TabletTAKE 1 TABLET DAILY. Losartan Potassium 50 MG Oral TabletTAKE 1 TABLET DAILY. metFORMIN HCl ER 750 MG Oral Tablet Extended Release 24 HourTake 1 tablet twice daily Pantoprazole Sodium 40 MG Oral Tablet Delayed ReleaseTAKE 1 TABLET DAILY. Vitals Vital Signs Recorded: 13Dec2021 08:06AM Height5 ft 6 in Lvvzum901 lb BMI Ugfeyaxjvo47.31 kg/m2 BSA Calculated1.97 Tobacco Usea) Yes Patient encouraged to stop using tobacco productsYes Fall Screeninga) No falls within the last year Physical Exam A/O x 3 in No apparent distress Constitutional: General appearance normal Respiratory: Respiratory effort is normal Gastrointestinal:Abdomen is not tender Genitourinary: Kidneys: Not palpable Bilaterally Bladder: Not palpable or tender Signatures (more content not included)... Normal [facility] Radiologyon 12-13-2021 XR Abdomen AP Please click on the link to view the study images Normal YO-Bbbaltg-W [facility] Work Phone: XR Abdomen AP Normal MP-Urology- A land Work Phone: Tobacco Cessationon 12-14-19 22 Fall risk assessment a) No falls within the last year KW-Dzhkkdf-M [facility] Work Phone: Tobacco use status CPHS a) Yes IX-Yufrqkm-Z [facility] Work Phone: Tobacco Cessation Yes MP-Urol ogy-A [facility] Work Phone: Radiologyon 07-24-2021 XR Abdomen AP Normal MP-Urology- R [facility] 232 DO Work Phone: XR Abdomen AP Please click on the link to view the study images Normal YT-Mgnzurl-V [facility] Work Phone: Tobacco Screening.on 022 Fall risk assessment a) No falls within the last year IL-Zzrieyk-V [facility] Work Phone: Tobacco use status [facility] a) Yes GJ-Vwfxbkw-R [facility] Work Phone: Tobacco Screening. Yes MP-Uro logy-A [facility] Work Phone: Tobacco Screening.on 022 Fall risk assessment a) No falls within the last year [facility] Work Phone: Tobacco use status CP a) Yes [facility] Work Phone: [phone] Tobacco Screening. Yes [facility] Work Phone: CT Urography with 3D Volume Rendered Imagingon 07-17-2021 CT Urography with 3D Volume Rendered Imaging Normal [facility] Work Phone: [phone] Hemoglobin A1Con 07-15-2021 Glucose [Mass/Vol] 146 mg/dL [facility] Work Phone: [phone] HbA1c (Bld) [Mass fraction] 6.7 % Abnormal [facility] Work Phone: Comment on above: Diagnosis of Diabete s-Adults Non-Diabetic: < or = 5.6% Increased risk for developing diabetes: 5.7-6.4% Diagnostic of diabetes: > or = 6.5%. Monitoring of Diabetes Age (y) Therapeutic Goal (%) Adults: >18 <7.0 Pediatrics: 13-18 <7.5 7-12 <8.0 0- 6 7.5-8.5 [place] [employer]. Diabetes Care 33(S1), Jun 2009. Laboratory - Chemistry and C hemistry - challengeon 07-15-2021 Albumin BCP dye [Mass/Vol] 4.0 g/dL 3.4 - 5.0 [facility] Work Phone: [phone] Albumin Ql (U) 13.2 mg/L See Below [facility] Work Phone: [phone] Comment on above: Reference Range: Not Established Albumin/Creatinine DL <= 20 mg/L (U) [Mass ratio] 7.5 {ug/mg_crt} 0.0 - 30.0 [facility] Work Phone: ALP [Catalytic activity/Vol] 60 U/L 33 - 110 [facility] Work Phone: [phone] ALT With P-5'-P [Catalytic activity/Vol] 18 U/L 7 - 45 [facility] Work Phone: [phone] Comment on above: Patients treated wit h Sulfasalazine may generate falsely decreased results for ALT. Anion gap [Moles/Vol] 11 mmol/L 10 - 20 [facility] Work Phone: AST With P-5'-P [Catalytic activity/Vol] 15 U/L 9 - 39 [facility] Work Phone: Bilirubin [Mass/Vol] 0.5 mg/dL 0.0 - 1.2 [facility] Work Phone: Calcium [Mass/Vol] 9.7 mg/dL 8.6 - 10.3 -[facility] Work Phone: Chloride [Moles/Vol] 107 mmol/L 98 - 107 [facility] Work Phone: CO2 [Moles/Vol] 27 mmol/L 21 - 32 -[facility] Work Phone: Creatinine (U) [Mass/Vol] 175.0 mg/dL See Below [facility] Work Phone: [phone] Comment on above: Reference Range: 20. 0 - 320.0 Creatinine [Mass/Vol] 0.69 mg/dL See Below [facility] Work Phone: Comment on above: Reference Range: 0.5 0 - 1.05 Glucose [Mass/Vol] 118 mg/dL above high threshold 74 - 99 [facility] Work Phone: Potassium [Moles/Vol] 4.3 mmol/L 3.5 - 5.3 [facility] Work Phone: [phone] Protein [Mass/Vol] 6.7 g/dL 6.4 - 8.2 [facility] Work Phone: [phone] Sodium [Moles/Vol] 141 mmol/L 136 - 145 [employer] [facility] [employer] [facility] Work Phone: [phone] Urea nitrogen [Mass/Vol] 16 mg/dL 6 - 23 [employer] [facility] Work Phone: [phone] Lipid Panelon 07-15-2021 Cholesterol [Mass/Vol] 145 mg/dL 0 - 199 [employer] [facility] Work Phone: [phone] Comment on above: . AGE DESIRABLE BORD J LUIS HIGH HIGH 0-19 Y 0 - 169 170 - 199 >/= 200 20-24 Y 0 - 189 190 - 224 >/= 225 >24 Y 0 - 199 200 - 239 >/= 240 All ranges are based on fasting samples. Specific therapeutic targets will vary based on patient-specific cardiac risk.. Pediatric guidelines reference:Pediatrics 2011, 128(S5). Adult guidelines reference: NCEP ATPIII Guidelines, DEVORAH 2001, 258:2486-97. Venipuncture immediately after or during the administration of Metamizole may lead to falsely low results. Testing should be performed immediately prior to Metamizole dosing. Cholesterol in HDL [Mass/Vol] 43.0 mg/dL [employer] [facility] Work Phone: [phone] Comment on above: . AGE VERY LOW LOW N ORMAL HIGH 0-19 Y < 35 < 40 40-45 ---- 20- 24 Y ---- < 40 >45 ---- >24 Y ---- < 40 40-60 >60. Cholesterol in LDL [Mass/Vol] 77 mg/dL 0 - 99 [employer] [facility] Work Phone: [phone] Comment on above: . NEAR BORD AGE RADHA RABLE OPTIMAL HIGH HIGH VERY HIGH 0-19 Y 0 - 109 --- 110-129 >/= 130 ---- 20-24 Y 0 - 119 --- 120-159 >/= 160 ---- >24 Y 0 - 99 100-129 130-159 160-189 >/=190. Cholesterol.total/C holesterol in HDL [Mass ratio] 3.4 {ratio} [facility] Work Phone: Comment on above: REF VALUESDESIRABLE < 3.4HIGH RISK > 5.0 Triglyceride [Mass/Vol] 124 mg/dL 0 - 149 [facility] Work Phone: Comment on above: . AGE DESIRABLE BORD J LUIS HIGH HIGH VERY HIGH 0 D-90 D 19 - 174 ---- ---- ----91 D- 9 Y 0 - 74 75 - 99 >/= 100 ---- 10-19 Y 0 - 89 90 - 129 >/= 130 ---- 20-24 Y 0 - 114 115 - 149 >/= 150 ---- >24 Y 0 - 149 150 - 199 200- 499 >/= 500. Venipuncture immediately after or during the administration of Metamizole may lead to falsely low results. Testing should be performed immediately prior to Metamizole dosing. Lipid Panel 25 mg/dL 0 - 40 [facility] Work Phone: No Panel Informationon 07-15 >90 >90 [facility] Work Phone: Comment on above: CALCULATIONS OF ODIN MATED GFR ARE PERFORMED USING THE 2020 CKD-EPI STUDY REFIT EQUATION WITHOUT THE RACE VARIABLE FOR THE IDMS-TRACEABLE CREATININE METHODS.https://jasn.asnjournals.org/content/early/ASN. 5783634739 TSH - Thyroid Stimulating Ho rmone, Serumon 07-15-2021 TSH Qn 2.01 m[IU]/L See Below [facility] Work Phone: Comment on above: Reference Range: 0.4 4 - 3.98 TSH testing is performed using different testing methodology at [facility] than at other [facility]. Direct result comparisons should only be made within the same method. Cult, Urineon 07-10-2021 Bacteria identified Cx Nom (U) Abnormal IL-Utzbxex-P [facility] Work Phone: Laboratory - Chemistry and C hemistry - challengeon 07-10-2021 Albumin Ql (U) Canceled -Urology -A [facility] Work Phone: Albumin/Creatinine DL <= 20 mg/L (U) [Mass ratio] Canceled TV-Zadmdxu-P [facility] Work Phone: Creatinine (U) [Mass/Vol] Canceled AY-Lsilvqj-F [facility] Work Phone: Tobacco Screening.on 022 Fall risk assessment a) No falls within the last year TV-Niwvuij-P [facility] Work Phone: Tobacco use status CPHS a) Yes PN-Cpdzcch-R [facility] Work Phone: Tobacco Screening. Yes -Uro logy-A [facility] Work Phone: CT Abdomen and Pelvis withou t Contraston 04-24-2021 CT Abdomen and Pelvis WO contrast Normal NO-Pmrkpdp-B [facility] Work Phone: Complete Blood Count + Diffe rentialon 04-24-2021 Basophils/100 WBC (Bld) 0.7 % 0.0 - 2.0 WH-Crjxcjs-W [facility] Work Phone: Erythrocyte distribution width (RBC) [Ratio] 14.1 % See Below QK-Luysrpy-D [facility] Work Phone: Comment on above: Reference Range: 11. 5 - 14.5 Hematocrit (Bld) [Volume fraction] 42.6 % See Below UY-Ijqgzvz-Z [facility] Work Phone: Comment on above: Reference Range: 36. 0 - 46.0 Hemoglobin (Bld) [Mass/Vol] 14.0 g/dL See Below EH-Gblmksq-U [facility] Work Phone: Comment on above: Reference Range: 12. 0 - 16.0 Lymphocytes/100 WBC (Bld) 9.2 % See Below PJ-Anvqnkb-P [facility] Work Phone: Comment on above: Reference Range: 13. 0 - 44.0 MCHC (RBC) [Mass/Vol] 32.9 g/dL See Below CL-Cfcvvqi-AM[facility] Work Phone: Comment on above: Reference Range: 32. 0 - 36.0 MCV (RBC) [Entitic vol] 94 fL 80 - 100 RH-Virchwi-V[facility] Work Phone: Monocytes/100 WBC (Bld) 8.2 % 2.0 - 10.0 VE-Lrotvuu-W[facility] Work Phone: Neutrophils/100 WBC (Bld) 81.2 % See Below OQ-Mmxfajz-[facility] Work Phone: Comment on above: Reference Range: 40. 0 - 80.0 Platelets (Bld) [#/Vol] 304 10*3/uL 150 - 450 WR-Loiqhox-Q [facility] Work Phone: RBC (Bld) [#/Vol] 4.55 {x10E12/L} See Below [employer] Work Phone: [phone] Comment on above: Reference Range: 4.0 0 - 5.20 WBC (Bld) [#/Vol] 15.3 10*3/uL above high threshold 4.4 - 11.3 VI-Cvfplsl-SM[facility] Work Phone: [phone] Complete Blood Count + Differential 0.10 {x10E9/L} See Below FH-Mmwczhk-U[facility] Phone: [phone] Comment on above: Reference Range: 0.0 0 - 0.10 Reference Range: 0.0 0 - 0.70 Complete Blood Count + Differential 1.30 {x10E9/L} above high threshold See Below YV-Wfrzlxa-DM[facility] Work Phone: Comment on above: Reference Range: 0.1 0 - 1.00 Complete Blood Count + Differential 1.40 {x10E9/L} See Below OP-Rkczehj-SO[facility]ality Phone: Comment on above: Reference Range: 1.2 0 - 4.80 Complete Blood Count + Differential 12.40 {x10E9/L} above high threshold See Below JF-Lgtrmsj-B [facility] Work Phone: Comment on above: Reference Range: 1.2 0 - 7.70 Percent differential counts (%) should be interpreted in the context of the absolute cell counts (cells/L). Complete Blood Count + Differential 0.7 % 0.0 - 6.0 DD-Zxjdizt-C [facility] Work Phone: Laboratory - Chemistry and C hemistry - challengeon 04-24-2021 Albumin BCP dye [Mass/Vol] 4.2 g/dL 3.4 - 5.0 TI-Gpvvazc-G [facility] Work Phone: ALP [Catalytic activity/Vol] 59 U/L 33 - 110 CF-Rjiwtjz-I [employer] [employer] Work Phone: ALT With P-5'-P [Catalytic activity/Vol] 19 U/L 7 - 45 JN-Tkwyuls-W [employer] [employer] Work Phone: Comment on above: Patients treated wit h Sulfasalazine may generate falsely decreased results for ALT. Anion gap [Moles/Vol] 13 mmol/L 10 - 20 CP-Fimvtvt-I [employer] [employer] Work Phone: AST With P-5'-P [Catalytic activity/Vol] 15 U/L 9 - 39 ME-Dyhgfkb-O [employer] [employer] Work Phone: Bilirubin [Mass/Vol] 1.1 mg/dL 0.0 - 1.2 GD-Inqyalg-D [facility] Work Phone: Calcium [Mass/Vol] 9.5 mg/dL 8.6 - 10.3 MP-Uro logy-A [facility] Work Phone: Chloride [Moles/Vol] 103 mmol/L 98 - 107 AN-Xhjxkfs-V [employer] [employer] Work Phone: CO2 [Moles/Vol] 27 mmol/L 21 - 32 MP-Urolog y-A [employer] [employer] Work Phone: Creatinine [Mass/Vol] 0.71 mg/dL See Below JM-Zydmvxb-E [employer] [employer] Work Phone: Comment on above: Reference Range: 0.5 0 - 1.05 Glucose [Mass/Vol] 106 mg/dL above high threshold 74 - 99 KY-Tsmicjd-X [facility] Work Phone: [phone] Potassium [Moles/Vol] 4.0 mmol/L 3.5 - 5.3 CP-Fxjuifc-H [facility] [employer] Work Phone: Protein [Mass/Vol] 7.0 g/dL 6.4 - 8.2 -Uro logy-A [employer] [employer] Work Phone: [phone] Sodium [Moles/Vol] 139 mmol/L 136 - 145 MP-Uro logy-A [employer] [employer] Work Phone: [phone] Urea nitrogen [Mass/Vol] 12 mg/dL 6 - 23 IP-Jqskurj-X [facility] [employer] Work Phone: [phone] Lipase, Serumon 04-24-2021 Lipase [Catalytic activity/Vol] 26 U/L 9 - 82 NB-Adzcdbv-H [facility] Work Phone: Comment on above: Venipuncture immedia tely after or during the administration of Metamizole may lead to falsely low results. Testing should be performed immediately prior to Metamizole dosing. R-eeugep-e-benzoquinone imine (metabolite of Acetaminophen) will generate erroneously low results in samples for patients that have taken toxic doses of acetaminophen. No Panel Informationon 04-24 >60 >60 IY-Yjdlzbz-G [facility] Work Phone: Comment on above: CALCULATIONS OF ODIN MATED GFR ARE PERFORMED USING THE MDRD STUDY EQUATION FOR THE IDMS-TRACEABLE CREATININE METHODS. CLIN CHEM 2007;53:766-72 Urinalysison 04-24-2021 Color (U) Red See Below UH-Xibiodp-F [facility] Work Phone: Comment on above: Reference Range: STR AW,YELLOW Glucose Ql (U) Negative NEGATIVE -Urology -A [facility] Work Phone: [phone] Ketones Ql (U) Negative NEGATIVE [facility] Work Phone: [phone] Leukocyte esterase Test strip Ql (U) TRACE Abnormal NEGATIVE IZ-Upkuqhs-Z [facility] Work Phone: pH (U) 6.0 [pH] 5.0 - 8.0 [employer] Work Phone: [phone] Protein (U) [Mass/Vol] 100(2+) Abnormal NEGATIVE QB-Lwxfvba-K [employer] Phone: [phone] RBC (U) [#/Vol] LARGE(3+) Abnormal NEGATIVE [place] [facility] Work Phone: [phone] Specific gravity (U) [Rel density] 1.009 1 See Below UH-Xvepmpn-W [facility] Work Phone: Comment on above: Reference Range: 1.0 05 - 1.035 Urinalysis Negative NEGATIVE KJ-Yhowjng-H [facility] Work Phone: [phone] Urinalysis <2.0 0.0 - 1.9 [employer] Phone: [phone] Urinalysis HAZY CLEAR [employer] Work Phone: [phone] Urinalysis, Microscopicon Urinalysis, Microscopic >100 Abnormal 0-5 [employer] Work Phone: [phone] Urinalysis, Microscopic 5-20 Abnormal 0-5 [employer] Work Phone: [phone] Cult, Urineon 04-23-2021 Bacteria identified Cx Nom (U) Abnormal [employer] Work Phone: [phone] IO UA (automated w/o microsc opy)on 04-23-2021 Protein (U) [Mass/Vol] 100 mg/dL QS-Vbmtfpj-H [facility] Work Phone: [phone] IO UA (automated w/o microscopy) (+)small - 15 OZ-Pdduxfz-A [employer] [employer] Work Phone: [phone] IO UA (automated w/o microscopy) Positive ZL-Jjsmenp-O [employer] Work Phone: [phone] IO UA (automated w/o microscopy) 1 mg/dl KO-Zmtphoq-B [employer] Work Phone: IO UA (automated w/o microscopy) 7.0 1 WL-Iwbzjas-N [facility] Work Phone: IO UA (automated w/o microscopy) (+++)large - 80 LU-Ycbhiab-B [facility] Work Phone: IO UA (automated w/o microscopy) 1.020 1 FY-Gjkcpmg-M [facility] Work Phone: IO UA (automated w/o microscopy) Negative BA-Xmdewvd-H [facility] Work Phone: IO UA (automated w/o microscopy) Clear FA-Psjxnyg-R [facility] Work Phone: IO UA (automated w/o microscopy) Yellow SD-Pqvapui-C [facility] Work Phone: No Panel Informationon 04-23 QG-Qauwoip-I [facility] Work Phone: [phone] Tobacco Screening.on 021 Fall risk assessment a) No falls within the last year VP-Ieqsndw-W [facility] Work Phone: [phone] Tobacco use status CPHS a) Yes RX-Hpegqei-U [facility] Work Phone: [phone] Tobacco Screening. Yes MP-Uro logy-A [facility] Work Phone: [phone] Radiologyon 04-22-2021 XR Abdomen AP Normal MP-Urology- B [facility] Work Phone: Laboratory - Chemistry and C hemistry - challengeon 11-12-2020 Glucose [Mass/Vol] 117 mg/dL above high threshold 74 - 99 -[facility] Work Phone: No Panel Informationon 11-12 -[facility] Work Phone: [email or web address] } [facility] Work Phone: Coronavirus 2019 RNA by PCR, Screening Asymptomticon 11-10-2020 Coronavirus 2019 RNA by PCR, Screening Asymptomtic Not detected Normal See Below MP-[facility] Work Phone: Comment on above: SOURCE: Nasal, Nasop haryngealReference Range: Not Detected.This assay is designed to detect the N, ORF1ab and/or S genes of SARS-CoV-2 via nucleic acid amplification. A Negative (NOT DETECTED) result does not preclude 2019-nCoV infection since the adequacy of sample collection and/or low viral burden may result in presence of viral nucleic acids below the clinical sensitivity of this test method. Negative (NOT DETECTED) result should not be used as the sole basis for treatment or other patient management decisions. Rather negative results should be combined with clinical observations, patient history, and epidemiological information to make patient management decisions.Fact sheet for providers: https://www.fda.gov/media/284184/downloadFact sheet for patients: https://www.fda.gov/media/288296/downloadThis test has received FDA Emergency Use Authorization (EUA) and has been verified by [facility] ([facility]). This test is only authorized for the duration of time that circumstances exist to justify the authorization of the emergency use of in vitro diagnostic tests for the detection of SARS-CoV-2 virus and/or diagnosis of COVID-19 infection under section 564(b)(1) of the Act, 21 U.S.C. 360bbb-3(b)(1), unless the authorization is terminated or revoked sooner. [facility] is certified under CLIA-88 as qualified to perform high complexity testing. Testing is performed in the [facility] laboratories located at [address] [place] [address]. Metabolic Panelon 12-14-2019 Glucose [Mass/Vol] 115 mg/dL above high threshold 74 - 99 [facility] Work Phone: Otheron 12-14-2019 RF Colon Views W contrast MT Please click on the link to view the study images Normal [facility] Work Phone: RF Colon Views W contrast MT Interpreted by: OMA CURRAN12/15/19 09:43MRN: [id number] Name: BETSY EDWARDS STUDY:GI COLON; CONTRAST ENEMA; 12/14/2019 11:13 am INDICATION:positive cologuard test. COMPARISON:None. ORDERING CLINICIAN:ANGELICA WHITE TECHNIQUE:Pre-procedure underground foreman KUB was obtained and evaluated. The rectal tubewas inserted, followed by balloon inflation under fluoroscopy.Rectal barium was then administered under fluoroscopic observation;multiple spot images were obtained. Total fluoroscopic time was 2.7minutes. FINDINGS:Initial underground foreman KUB demonstrates a large amount of air seen throughoutthe colon.. There was free flow of the contrast material from the rectum to thececum. The colon is redundant and tortuous, limiting evaluationsecondary to overlapping segments. Within this limitation, nointrinsic or extrinsic abnormalities are seen in the large bowel. Thececum occupies a normal position in the right lower quadrant.. IMPRESSION:1. No evidence of focal stenosis, concentric mass or large polyp. Electronically signed by: OMA CURRAN 12/15/19 09:43 Normal [facility] Work Phone: [email or web address] } [facility] Work Phone: Otheron 12-12-2019 NOT DETECTED See Below [facility] Work Phone: Comment on above: SOURCE: Nasal, Nasop haryngealReference Range: Not Detected.This assay is designed to detect SARS-CoV-2 based on replication of specific regions of the RNA from the SARS-CoV-2 virus. A Not Detected result does not preclude 2019-nCoV infection since the adequacy of sample collection and/or low viral burden may result in presence of viral nucleic acids below the clinical sensitivity of this test method. Fact sheet for providers: https://www.fda.gov/media/601131/downloadFact sheet for patients: https://www.fda.gov/media/166300/downloadThis test has been validated by the green building design specialist but FDAs independent review of this validation is pending. This test has been verified by [facility] ([facility]). This test is only authorized for the duration of time that circumstances exist to justify the authorization of the emergency use of in vitro diagnostic tests for the detection of SARS-CoV-2 virus and/or diagnosis of COVID-19 infection under section 564(b)(1) of the Act, 21 U.S.C. 360bbb-3(b)(1), unless the authorization is terminated or revoked sooner. [facility] is certified under CLIA-88 as qualified to perform high complexity testing. Testing is performed in the [facility] laboratories located at [address] [place] [address]. Hemoglobin A1Con 07-04-2019 HbA1c (Bld) [Mass fraction] 6.5 % [facility] [facility] Work Phone: Comment on above: Diagnosis of Diabete s-Adults Non-Diabetic: < or = 5.6% Increased risk for developing diabetes: 5.7-6.4% Diagnostic of diabetes: > or = 6.5%. Monitoring of Diabetes Age (y) Therapeutic Goal (%) Adults: >18 <7.0 Pediatrics: 13-18 <7.5 7-12 <8.0 0- 6 7.5-8.5 [place] [employer]. Diabetes Care 33(S1), Jun 2009. HbA1c (Bld) [Mass fraction] 140 {MG/DL} [facility] Work Phone: LDL, Direct, Serumon 020 Cholesterol in LDL [Mass/Vol] 94 mg/dL 0 - 129 -[facility] Work Phone: [phone] Comment on above: Elevated levels of L DL cholesterol are recognized as a fry factor in the development of atherosclerosis and CHD. The direct LDL cholesterol test can be used to assess cardiovascular risk and monitor therapy as a follow up to a lipid profile when triglycerides are significantly elevated. Metabolic Panelon 07-04-2019 ALP [Catalytic activity/Vol] 66 U/L 33 - 110 [facility] Work Phone: Anion gap [Moles/Vol] 14 mmol/L 10 - 20 [facility] Work [facility]: Bilirubin [Mass/Vol] 1.1 mg/dL 0.0 - 1.2 [facility] Work Phone: [phone] Calcium [Mass/Vol] 9.5 mg/dL 8.6 - 10.3 -[employer] [facility] Work Phone: Chloride [Moles/Vol] 103 mmol/L 98 - 107 [facility] Work Phone: CO2 [Moles/Vol] 26 mmol/L 21 - 32 [facility] Work Phone: Creatinine [Mass/Vol] 0.76 mg/dL See Below [facility] Work Phone: [phone] Comment on above: Reference Range: 0.5 0 - 1.05 Glucose [Mass/Vol] 129 mg/dL above high threshold 74 - 99 [facility] Work Phone: [phone] Potassium [Moles/Vol] 4.0 mmol/L 3.5 - 5.3 [facility] Work Phone: [phone] Protein [Mass/Vol] 7.3 g/dL 6.4 - 8.2 -[facility] Work Phone: [phone] Sodium [Moles/Vol] 139 mmol/L 136 - 145 [facility] Work Phone: Urea nitrogen [Mass/Vol] 14 mg/dL 6 - 23 [facility] Work Phone: Otheron 07-04-2019 Albumin BCP dye [Mass/Vol] 4.6 g/dL 3.4 - 5.0 [facility] Work Phone: ALT With P-5'-P [Catalytic activity/Vol] 29 U/L 7 - 45 [facility] Work Phone: Comment on above: Patients treated wit h Sulfasalazine may generate falsely decreased results for ALT. AST With P-5'-P [Catalytic activity/Vol] 21 U/L 9 - 39 [facility] Work Phone: >60 >60 [facility] Work Phone: Comment on above: CALCULATIONS OF ODIN MATED GFR ARE PERFORMED USING THE MDRD STUDY EQUATION FOR THE IDMS-TRACEABLE CREATININE METHODS. CLIN CHEM 2007;53:766-72 Lab Miscellaneouson 11-12-19 19 Status See Ref Lab Report Normal [facility] Comment on above: Performed By: #### [id number] #### AARON Send Outs Subsection [address] [id number] [facility] Test Name LC TEST [id number] Normal [facility] Comment on above: Performed By: #### [id number] #### AARON Send Outs [address] [place] [address] Vital Signs Date Time Vital Sign Value Performing Clinician Facility 04-19-2025 12:05-0400 Body height 167.[address] Tramaine Doll MD Work Phone: [facility] 04-19-2025 12:05-0400 Body mass index (BMI) [Ratio] 29.8 kg/m2 Dr. Tramaine Doll MD Work Phone: [facility] 04-19-2025 12:05-0400 Body temperature 98 [degF] Dr. Tramaine Doll MD Work Phone: [facility] 04-19-2025 12:05-0400 Body weight 83.[address] Tramaine Doll MD Work Phone: [facility] 04-19-2025 12:05-0400 Diastolic blood pressure 78 mm[Hg] Dr. Tramaine Doll MD Work Phone: [facility] 04-19-2025 12:05-0400 Systolic blood pressure 130 mm[Hg] Dr. Tramaine Doll MD Work Phone: [facility] 02-14-2025 16:08-0400 Body height 170.2 cm Tatyana Doll MD Work Phone: [facility] 02-14-2025 16:08-0400 Body mass index (BMI) [Ratio] 30.57 kg/m2 Tatyana Doll MD Work Phone: [facility] 02-14-2025 16:08-0400 Body weight 88.54 kg Tatyana Doll MD Work Phone: [facility] 02-14-2025 16:08-0400 Diastolic blood pressure 80 mm[Hg] Tatyana Doll MD Work Phone: [facility] 02-14-2025 16:08-0400 Heart rate 91 /min Tatyana Doll MD Work Phone: [facility] 02-14-2025 16:08-0400 SaO2% (BldA) [Mass fraction] 96 % Tatyana Doll MD Work Phone: [facility] 02-14-2025 16:08-0400 Systolic blood pressure 110 mm[Hg] Tatyana Doll MD Work Phone: [facility] 01-23-2025 13:53-0400 Diastolic blood pressure 90 mm[Hg] [address] 01-23-2025 13:53-0400 Heart rate 101 /min [address] 01-23-2025 13:53-0400 Respiratory rate 17 /min [address] 01-23-2025 13:53-0400 SaO2% (BldA) [Mass fraction] 94 % [address] 01-23-2025 13:53-0400 Systolic blood pressure 129 mm[Hg] [address] 01-23-2025 13:08-0400 Body temperature 98.2 [degF] [address] 01-23-2025 11:21-0400 Body height [address] 01-23-2025 11:21-0400 Body mass index (BMI) [Ratio] 30.05 kg/m2 [address] 01-23-2025 11:21-0400 Body weight 84.[address] 12-01-2024 15:33-0400 Body height 167.6 cm Tatyana Doll MD Work Phone: [facility] 12-01-2024 15:33-0400 Body mass index (BMI) [Ratio] 31.47 kg/m2 Tatyana Doll MD Work Phone: [facility] 12-01-2024 15:33-0400 Body weight 88.45 kg Tatyana Doll MD Work Phone: [facility] 12-01-2024 15:33-0400 Diastolic blood pressure 70 mm[Hg] Tatyana Doll MD Work Phone: [facility] 12-01-2024 15:33-0400 Heart rate 96 /min Tatyana Doll MD Work Phone: [facility] 12-01-2024 15:33-0400 SaO2% (BldA) [Mass fraction] 96 % Tatyana Doll MD Work Phone: [facility] 12-01-2024 15:33-0400 Systolic blood pressure 120 mm[Hg] Tatyana Doll MD Work Phone: [facility] 08-31-2024 10:35-0500 Body mass index (BMI) [Ratio] 31.02 kg/m2 Sherrell Ricks APRN.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 Work Phone: [facility] 08-31-2024 10:35-0500 Body weight 87.54 kg Sherrell Ricks APRN.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 Work Phone: [facility] 08-31-2024 10:35-0500 Diastolic blood pressure 72 mm[Hg] Sherrell Haury AIR DISPATCHER.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 Work Phone: [facility] 08-31-2024 10:35-0500 Systolic blood pressure 120 mm[Hg] Sherrell Schmittury AIR DISPATCHER.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 Work Phone: [facility] 08-17-2024 08:13-0500 Body height 167.6 cm Tatyana Doll MD Work Phone: [facility] 08-17-2024 08:13-0500 Body mass index (BMI) [Ratio] 30.96 kg/m2 Tatyana Doll MD Work Phone: [facility] 08-17-2024 08:13-0500 Body weight 87 kg Tatyana Doll MD Work Phone: [facility] 08-17-2024 08:13-0500 Diastolic blood pressure 90 mm[Hg] Tatyana Doll MD Work Phone: [facility] 08-17-2024 08:13-0500 Heart rate 99 /min Tatyana Doll MD Work Phone: [facility] 08-17-2024 08:13-0500 SaO2% (BldA) [Mass fraction] 98 % Tatyana Doll MD Work Phone: [facility] 08-17-2024 08:13-0500 Systolic blood pressure 120 mm[Hg] Tatyana Doll MD Work Phone: [facility] 08-03-2024 08:04-0500 Body height 168 cm Sherrell Ricks APRN.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 Work Phone: [facility] 08-03-2024 08:04-0500 Body mass index (BMI) [Ratio] 30.7 kg/m2 Sherrell Ricks APRN.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 Work Phone: [facility] 08-03-2024 08:04-0500 Body weight 86.64 kg Sherrell Ricks AIR DISPATCHER.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 Work Phone: [facility] 08-03-2024 08:04-0500 Diastolic blood pressure 68 mm[Hg] Sherrell Haury AIR DISPATCHER.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 Work Phone: [facility] 08-03-2024 08:04-0500 Systolic blood pressure 120 mm[Hg] Sherrell Haerica AIR DISPATCHER.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 Work Phone: [facility] 07-06-2024 14:48-0500 Body temperature 97.5 [degF] Fazal Duquedonna Huston., DPM Work Phone: [facility] 07-06-2024 14:48-0500 Diastolic blood pressure 91 mm[Hg] Fazal Duquedonna Huston., DPM Work Phone: [facility] 07-06-2024 14:48-0500 Heart rate 74 /min Fazal Lyndon Patel, DPM Work Phone: [facility] 07-06-2024 14:48-0500 Systolic blood pressure 131 mm[Hg] Fazal Duquedonna Huston., DPM Work Phone: [facility] 02-12-2024 08:45-0400 Body height 167.6 cm Tatyana Doll MD Work Phone: [facility] 02-12-2024 08:45-0400 Body mass index (BMI) [Ratio] 31.64 kg/m2 Tatyana Doll MD Work Phone: [facility] 02-12-2024 08:45-0400 Body weight 88.91 kg Tatyana Doll MD Work Phone: [facility] 02-12-2024 08:45-0400 Diastolic blood pressure 90 mm[Hg] Tatyana Doll MD Work Phone: [facility] 02-12-2024 08:45-0400 Heart rate 94 /min Tatyana Doll MD Work Phone: [facility] 02-12-2024 08:45-0400 SaO2% (BldA) [Mass fraction] 98 % Tatyana Doll MD Work Phone: [facility] 02-12-2024 08:45-0400 Systolic blood pressure 140 mm[Hg] Tatyana Doll MD Work Phone: [facility] 10-06-2023 09:05-0400 Diastolic blood pressure 86 mm[Hg] Lo Delarosa MD Work Phone: [facility] 10-06-2023 09:05-0400 Heart rate 80 /min Lo Delarosa MD Work Phone: 7(093)581-255202 [place] [address] 10-06-2023 09:05-0400 Respiratory rate 161 /min Lo Delarosa MD Work Phone: 1(254)358-482102 [place] [address] 10-06-2023 09:05-0400 SaO2% (BldA) [Mass fraction] 96 % Lo Delarosa MD Work Phone: 8(346)230-590402 [place] [address] 10-06-2023 09:05-0400 Systolic blood pressure 131 mm[Hg] Lo Delarosa MD Work Phone: 5(986)935-559502 [place] [address] 10-06-2023 08:35-0400 Body temperature 97.3 [degF] Lo Delarosa MD Work Phone: 0(358)356-881802 [place] [address] 10-06-2023 06:23-0400 Body height 168 cm Lo Delarosa MD Work Phone: 2(606)093-981802 [place] [address] 10-06-2023 06:23-0400 Body mass index (BMI) [Ratio] 30.65 kg/m2 Lo Delarosa MD Work Phone: 4(191)249-355602 [place] [address] 10-06-2023 06:23-0400 Body weight 86.5 kg Lo Delarosa MD Work Phone: 4(096)871-335902 [place] [address] 09-14-2023 07:33-0400 Body mass index (BMI) [Ratio] 30.83 kg/m2 Lo Delarosa MD Work Phone: 9(443)243-234102 [place] [address] 09-14-2023 07:33-0400 Body weight 86.64 kg Lo Delarosa MD Work Phone: 1(937)513-446802 [place] [address] 09-14-2023 07:33-0400 Respiratory rate 16 /min Lo Delarosa MD Work Phone: 9(161)532-872602 [place] [address] 09-03-2023 07:32-0500 Body mass index (BMI) [Ratio] 31.15 kg/m2 Lo Delarosa MD Work Phone: 2(510)208-417502 [place] [address] 09-03-2023 07:32-0500 Body weight 87.54 kg Lo Delarosa MD Work Phone: [facility] 09-03-2023 07:32-0500 Respiratory rate 16 /min Lo Delarosa MD Work Phone: [facility] 08-13-2023 09:28-0500 Body height 167.6 cm Tatyana Doll MD Work Phone: [facility] 08-13-2023 09:28-0500 Body mass index (BMI) [Ratio] 31.28 kg/m2 Tatyana Doll MD Work Phone: [facility] 08-13-2023 09:28-0500 Body weight 87.91 kg Tatyana Doll MD Work Phone: [facility] 08-13-2023 09:28-0500 Diastolic blood pressure 84 mm[Hg] Tatyana Doll MD Work Phone: [facility] 08-13-2023 09:28-0500 Heart rate 98 /min Tatyana Doll MD Work Phone: [facility] 08-13-2023 09:28-0500 SaO2% (BldA) [Mass fraction] 97 % Tatyana Doll MD Work Phone: [facility] 08-13-2023 09:28-0500 Systolic blood pressure 130 mm[Hg] Tatyana Doll MD Work Phone: [facility] 08-05-2023 15:10-0500 Body mass index (BMI) [Ratio] 30.83 kg/m2 Lo Delarosa MD Work Phone: [facility] 08-05-2023 15:10-0500 Body weight 86.64 kg Lo Delarosa MD Work Phone: [facility] 08-05-2023 15:10-0500 Respiratory rate 16 /min Lo Delarosa MD Work Phone: [facility] 02-10-2023 08:47-0400 Body height 167.6 cm Tatyana Doll MD Work Phone: [facility] 02-10-2023 08:47-0400 Body mass index (BMI) [Ratio] 30.63 kg/m2 Tatyana Doll MD Work Phone: [facility] 02-10-2023 08:47-0400 Body weight 86.09 kg Tatyana Doll MD Work Phone: [facility] 02-10-2023 08:47-0400 Diastolic blood pressure 78 mm[Hg] Tatyana Doll MD Work Phone: [facility] 02-10-2023 08:47-0400 Heart rate 108 /min Tatyana Doll MD Work Phone: [facility] 02-10-2023 08:47-0400 SaO2% (BldA) [Mass fraction] 96 % Tatyana Doll MD Work Phone: [facility] 02-10-2023 08:47-0400 Systolic blood pressure 120 mm[Hg] aTtyana Doll MD Work Phone: [facility] 10-18-2022 18:07-0400 Diastolic blood pressure 65 mm[Hg] Tatyana Doll Other Phone: [facility] 10-18-2022 18:07-0400 Heart rate 52 /min Tatyana Doll Other Phone: [facility] 10-18-2022 18:07-0400 Respiratory rate 16 /min Tatyana Doll Other Phone: [facility] 10-18-2022 18:07-0400 SaO2% (BldA) [Mass fraction] 96 % Tatyana Doll Other Phone: [facility] 10-18-2022 18:07-0400 Systolic blood pressure 115 mm[Hg] Tatyana Doll Other Phone: [facility] 10-18-2022 14:52-0400 Body height 167.6 cm Tatyana Doll Other Phone: [facility] 10-18-2022 14:52-0400 Body temperature 97.7 [degF] Tatyana Doll Other Phone: [facility] 10-18-2022 14:52-0400 Body weight 86.4 kg Tatyana Doll Other Phone: [facility] 07-29-2022 09:29-0500 Body height 167.64 cm Tatyana Doll Work Phone: [facility] Work Phone: 07-29-2022 09:29-0500 Body mass index (BMI) [Ratio] 31.82 kg/m2 Tatyana Doll Work Phone: [facility] Work Phone: 07-29-2022 09:29-0500 Body surface area Derived from formula 1.99 m2 Tatyana Doll Work Phone: [facility] [employer] [facility] Work Phone: 07-29-2022 09:29-0500 Body weight 89.42 kg Tatynaa Doll Work Phone: [facility] [facility] Work Phone: 07-29-2022 09:29-0500 Diastolic blood pressure 80 mm[Hg] Tatyana Doll Work Phone: [facility] Work Phone: 07-29-2022 09:29-0500 Heart rate 97 /min Tatyana Doll Work Phone: [facility] [facility] Work Phone: 07-29-2022 09:29-0500 SaO2% (BldA) [Mass fraction] 98 % Tatyana Doll Work Phone: [facility] Work Phone: 07-29-2022 09:29-0500 Systolic blood pressure 130 mm[Hg] Tatyana Doll Work Phone: [facility] Work Phone: 07-17-2022 08:49-0500 Body weight 89.09 kg Leeann Blandon APRN.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 Work Phone: [facility] 07-17-2022 08:49-0500 Diastolic blood pressure 72 mm[Hg] Leeann Blandon APRN.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 Work Phone: [facility] 07-17-2022 08:49-0500 Systolic blood pressure 142 mm[Hg] Leeann Blandon APRN.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 Work Phone: [facility] 07-11-2022 07:48-0500 Body height 167.64 cm Tatyana Doll Work Phone: ZF-Ahpalon-Zwsdqba Work Phone: 07-11-2022 07:48-0500 Body mass index (BMI) [Ratio] 31.86 kg/m2 Tatyana Doll Work Phone: SQ-Ciuhfjl-Ljsqczu Work Phone: 07-11-2022 07:48-0500 Body surface area Derived from formula 1.99 m2 Tatyana Doll Work Phone: SG-Zxlezrb-Lwppaeo Work Phone: 07-11-2022 07:48-0500 Body weight 89.53 kg Tatyana Doll Work Phone: YV-Ddnvoqn-Jqzpwcv Work Phone: 07-11-2022 07:48-0500 Diastolic blood pressure 92 mm[Hg] Tatyana Doll Work Phone: LR-Vokyjhn-Abnvkqu Work Phone: 07-11-2022 07:48-0500 Heart rate 93 /min Tatyana Doll Work Phone: FG-Enbpkmc-Yoiydtg Work Phone: 07-11-2022 07:48-0500 Systolic blood pressure 142 mm[Hg] Tatyana Armentad Work Phone: LH-Bewgegm-Zggtmep Work Phone: 12-13-2021 08:06-0400 Body height 167.64 cm Benjier Mahesh Armentad Work Phone: OD-Dkttexg-Rxqrcso Work Phone: 12-13-2021 08:06-0400 Body mass index (BMI) [Ratio] 31.31 kg/m2 Christnormaer Mahesh Armentad Work Phone: KA-Llvlhmo-Ehgcvuv Work Phone: 12-13-2021 08:06-0400 Body surface area Derived from formula 1.97 m2 Benjier Mahesh Armentad Work Phone: ZI-Buwthlv-Lystvsw Work Phone: 12-13-2021 08:06-0400 Body weight 88 kg Benjier Mahesh Doll Work Phone: RA-Nlqbpvo-Pxrdtnd Work Phone: 07-24-2021 08:27-0500 Body height 167.64 cm Tatyana Doll Work Phone: MQ-Brdnlcw-Djtdgdi Work Phone: 07-24-2021 08:27-0500 Body mass index (BMI) [Ratio] 30.99 kg/m2 Benjier Mahesh Armentad Work Phone: VK-Wlvtiqt-Nnacyjs Work Phone: 07-24-2021 08:27-0500 Body surface area Derived from formula 1.97 m2 Benjier Mahesh Armentad Work Phone: BJ-Cqklsna-Dziwrfj Work Phone: 07-24-2021 08:27-0500 Body weight 87.09 kg Benjier Mahesh Doll Work Phone: ZI-Pngkuwe-Vrhfvjr Work Phone: 07-24-2021 08:27-0500 Diastolic blood pressure 68 mm[Hg] Tatyana Doll Work Phone: TE-Xrprtpf-Fxmheqn Work Phone: 07-24-2021 08:27-0500 Heart rate 88 /min Tatyana Doll Work Phone: NP-Slsgpab-Vqievvd Work Phone: 07-24-2021 08:27-0500 Systolic blood pressure 122 mm[Hg] Tatyana Doll Work Phone: IC-Dwmtwwn-Scpvmny Work Phone: 07-22-2021 08:32-0500 Body height 167.64 cm Tatyana Doll Work Phone: [facility] [employer] [facility] Work Phone: 07-22-2021 08:32-0500 Body mass index (BMI) [Ratio] 30.51 kg/m2 Tatyana Doll Work Phone: [facility] [employer] [facility] Work Phone: 07-22-2021 08:32-0500 Body surface area Derived from formula 1.95 m2 Tatyana Doll Work Phone: [facility] Work Phone: 07-22-2021 08:32-0500 Body temperature 97.1 [degF] Tatyana Doll Work Phone: [facility] Work Phone: 07-22-2021 08:32-0500 Body weight 85.73 kg Tatyana Doll Work Phone: [facility] Work Phone: 07-22-2021 08:32-0500 Diastolic blood pressure 88 mm[Hg] Tatyana Doll Work Phone: [facility] Work Phone: 07-22-2021 08:32-0500 Heart rate 93 /min Tatyana Doll Work Phone: [facility] Work Phone: 07-22-2021 08:32-0500 Systolic blood pressure 126 mm[Hg] Tatyana Doll Work Phone: -[facility] Work Phone: 07-08-2021 15:53-0500 Body height 167.64 cm Tatyana Doll Work Phone: ME-Knslwcd-Xjstyvp Work Phone: 07-08-2021 15:53-0500 Body mass index (BMI) [Ratio] 30.91 kg/m2 Tatyana Doll Work Phone: ZA-Svekdhz-Mueruuz Work Phone: 07-08-2021 15:53-0500 Body surface area Derived from formula 1.96 m2 Tatyana Doll Work Phone: TY-Vcrxjkc-Kyetpgt Work Phone: 07-08-2021 15:53-0500 Body weight 86.86 kg Tatyana Doll Work Phone: BK-Blsnuff-Jmvfxyu Work Phone: 07-08-2021 15:53-0500 Diastolic blood pressure 81 mm[Hg] Tatyana Doll Work Phone: QN-Pvpxwrq-Juzynst Work Phone: 07-08-2021 15:53-0500 Heart rate 73 /min Tatyana Doll Work Phone: BZ-Mintrrt-Tywcnix Work Phone: 07-08-2021 15:53-0500 Systolic blood pressure 139 mm[Hg] Tatyana Doll Work Phone: SL-Vqzfxof-Lmbglrq Work Phone: 04-24-2021 17:00-0400 Diastolic blood pressure 86 mm[Hg] Tatyana Doll Other Phone: [facility] 04-24-2021 17:00-0400 Heart rate 106 /min aTtyana Doll Other Phone: [facility] 04-24-2021 17:00-0400 Respiratory rate 18 /min Tatyana Doll Other Phone: [facility] 04-24-2021 17:00-0400 SaO2% (BldA) [Mass fraction] 96 % Tatyana Doll Other Phone: [facility] 04-24-2021 17:00-0400 Systolic blood pressure 142 mm[Hg] Tatyana Doll Other Phone: [facility] 04-24-2021 14:58-0400 Body temperature 100.04 [degF] Tatyana Doll Other Phone: [facility] 04-24-2021 14:58-0400 Body weight 87 kg Tatyana Doll Other Phone: [facility] 04-23-2021 14:21-0400 Body height 167.64 cm Tatyana Doll Work Phone: FT-Yqhujnf-Xbxefho Work Phone: 04-23-2021 14:21-0400 Body mass index (BMI) [Ratio] 31.15 kg/m2 Tatyana Aragon Doll Work Phone: PE-Zxsxxlj-Jsvcwhp Work Phone: 04-23-2021 14:21-0400 Body surface area Derived from formula 1.97 m2 Tannernormaer Mahesh Doll Work Phone: HR-Gtkkitu-Yioosoh Work Phone: 04-23-2021 14:21-0400 Body weight 87.54 kg Tannernormaer Mahesh Armentad Work Phone: SR-Kubixqw-Xhgvejl Work Phone: 04-23-2021 14:21-0400 Diastolic blood pressure 95 mm[Hg] Tatyana Dlol Work Phone: OW-Nyzbhxj-Lsphfhl Work Phone: 04-23-2021 14:21-0400 Heart rate 87 /min Tatyana Doll Work Phone: VV-Ljxzvcy-Oeeepij Work Phone: 04-23-2021 14:21-0400 Systolic blood pressure 140 mm[Hg] Tatyana Doll Work Phone: QE-Iaipwml-Xhswtur Work Phone: 12-23-2019 12:34-0400 BMI (Body Mass Index) 31.35 kg/m2 Lo Gomesk II [facility] Work Phone: 12-23-2019 12:34-0400 Body Temperature 97.5 [degF] Lo Gomesk II [facility] Work Phone: 12-23-2019 12:34-0400 Body weight 88.11 kg Lo Gomesk II [facility] Work Phone: 12-23-2019 12:34-0400 BP Diastolic 80 mm[Hg] Lo Gomesk II [facility] Work Phone: 12-23-2019 12:34-0400 BP Systolic 122 mm[Hg] Lo Gomesk II [facility] Work Phone: 12-23-2019 12:34-0400 BSA (Body Surface Area) 1.98 m2 Lo Gomesk II [facility] Work Phone: 12-23-2019 12:34-0400 Height 167.64 cm Lo Gomesk II [facility] Work Phone: 12-23-2019 12:34-0400 Pulse (Heart Rate) 84 /min Lo Gomesk II [facility] Work Phone: 07-11-2019 10:16-0500 BMI (Body Mass Index) 31.34 kg/m2 Tatyana Armentad [facility] Work Phone: 07-11-2019 10:16-0500 Body weight 88.08 kg Tatyana Armentad [facility] Work Phone: 07-11-2019 10:16-0500 BP Diastolic 70 mm[Hg] Tatyana Armentad [facility] Work Phone: 07-11-2019 10:16-0500 BP Systolic 120 mm[Hg] Tatyana Dima [facility] Work Phone: 07-11-2019 10:16-0500 BSA (Body Surface Area) 1.98 m2 Tatyana Dima -[facility] Work Phone: 07-11-2019 10:16-0500 Height 167.64 cm Tatyana Armentad -[facility] Work Phone: 07-11-2019 10:16-0500 Pulse (Heart Rate) 92 /min Tatyana Armentad -[facility] Work Phone: 07-11-2019 10:11-0500 BMI (Body Mass Index) 31.36 kg/m2 Tatyana Armentad -[facility] Work Phone: 07-11-2019 10:11-0500 Body weight 88.13 kg Tatyana Armentad -[facility] Work Phone: 07-11-2019 10:11-0500 BP Diastolic 70 mm[Hg] Tatyana Dima -[facility] Work Phone: Comment on above: Location: E07-11-2019 10:11-0500 BP Systolic 120 mm[Hg] Tannerjeff Armentad -[facility] Work Phone: Comment on above: Location: [facility]; 07-11-2019 10:11-0500 BSA (Body Surface Area) 1.98 m2 Tatyana Doll [facility] Work Phone: 07-11-2019 10:11-0500 Height 167.64 cm Tatyana Doll [facility] Work Phone: 07-11-2019 10:11-0500 Pulse (Heart Rate) 92 /min Tatyana Doll [facility] Work Phone: Encounters Encounter Date Encounter Type Care Provider Facility Start: 05-05-2025 ambulatory Nithya Saucedo Facility: [facility] Start: 04-19-2025 End: 04-19-[address] Nithya Saucedo MD -[facility] Work Phone: Start: 04-19-2025 End: 04-19-2025 ambulatory Tramaine Doll Facility[facility] Start: 02-14-2025 End: 02-14-2025 Office outpatient visit 15 minutes Tatyana Doll MD Work Phone: [facility] Comment on above: Benign hypertension; Mixed hyperlipidemia; Type 2 diabetes mellitus without complication, without long-term current use of insulin; Gastroesophageal reflux disease without esophagitis; Recurrent major depressive disorder, in partial remission; B12 deficiency; Hyperlipidemia, unspecified hyperlipidemia type; Depression, unspecified depression type; Gastroesophageal reflux disease, unspecified whether esophagitis present Start: 02-14-2025 End: 02-14-2025 ambulatory [facility] Start: 01-23-2025 End: 01-23-2025 Subsequent hospital visit by physician Angelica White MD Work Phone: [facility] [place] Comment on above: Hx of colonic polyps (Primary Dx); Screen for colon cancer Start: 01-23-2025 End: 01-23-2025 ambulatory ANGELICA WHITE [facility] Start: 12-01-2024 End: 12-01-2024 ambulatory [facility] Start: 12-01-2024 End: 12-01-2024 Office outpatient visit 10 minutes Tatyana Doll MD Work Phone: [facility] Comment on above: Skin lesion of right upper extremity (Primary Dx) Start: 11-30-2024 End: 01-30-2025 Follow-up encounter Sherrell Ricks APRN.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 Work Phone: OB/Gynecology Start: 11-29-2024 End: 11-29-2024 Patient encounter procedure Us Tech 1 [facility] OB/Gynecology Start: 11-29-2024 End: 11-29-2024 ambulatory SHERRELL RICKS Facility:[facility] Start: 10-18-2024 End: 10-18-2024 ambulatory Tramaine Doll Facility:[facility] Start: 08-31-2024 End: 08-31-2024 ambulatory SHERRELL RICKS Facility:[facility] Start: 08-31-2024 End: 08-31-2024 Patient encounter procedure Sherrell Ricks APRN.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 Work Phone: OB/Gynecology Comment on above: Ovarian cyst, left ( Primary Dx); Thickened endometrium Start: 08-22-2024 End: 08-22-2024 Follow-up encounter Sherrell Ricks APRN.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 Work Phone: OB/Gynecology Comment on above: Cyst of left ovary ( Primary Dx) Start: 08-18-2024 End: 08-18-2024 ambulatory [employer] [facility] Work Phone: OB/Gynecology Start: 08-18-2024 End: 08-18-2024 Patient encounter procedure Us Tech 1 [facility] OB/Gynecology Start: 08-17-2024 End: 08-17-2024 Office outpatient visit 25 minutes Tatyana Doll MD Work Phone: [facility] Comment on above: Benign hypertension; Mixed hyperlipidemia; Type 2 diabetes mellitus without complication, without long-term current use of insulin (Multi); Gastroesophageal reflux disease without esophagitis; Recurrent major depressive disorder, in partial remission ([facility]-HCC); B12 deficiency; Hyperlipidemia, unspecified hyperlipidemia type; Depression, unspecified depression type; Gastroesophageal reflux disease, unspecified whether esophagitis present Start: 08-17-2024 End: 08-17-2024 ambulatory [facility] Start: 08-03-2024 End: 08-03-2024 Patient encounter procedure Sherrell Ricks APRN.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 Work Phone: OB/Gynecology Comment on above: Encounter for gyneco logical examination (general) (routine) without abnormal findings (Primary Dx); Encounter for screening mammogram for breast cancer; Early satiety Start: 08-03-2024 End: 08-03-2024 Patient encounter status Sherrell Ricks 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 Work Phone: [facility] Start: 08-03-2024 End: 08-03-2024 ambulatory SHERRELL RICKS Facility:[facility] Start: 08-03-2024 End: 08-03-2024 Subsequent hospital visit by physician Screen Mammo [facility] Comment on above: Encounter for screen ing mammogram for breast cancer [Z12.31] Start: 07-06-2024 End: 07-06-2024 Office outpatient new 30 minutes Fazal Malik DPM Work Phone: [facility] Comment on above: Cellulitis of right foot (Primary Dx) Start: 07-06-2024 End: 07-06-2024 ambulatory FAZAL MALIK JR. [facility] Ambulatory Start: 07-06-2024 End: 07-06-2024 Chart abstracting Fazal Malik DPM Work Phone: [facility] Start: 02-12-2024 End: 02-12-2024 Office outpatient visit 15 minutes Tatyana Doll MD Work Phone: [facility] Comment on above: Type 2 diabetes to itus without complication, without long- term current use of insulin (Multi) (Primary Dx); Benign hypertension; Mixed hyperlipidemia; Gastroesophageal reflux disease without esophagitis; Recurrent major depressive disorder, in partial remission ([facility]-HCC); B12 deficiency; Hyperlipidemia, unspecified hyperlipidemia type; Depression, unspecified depression type; Gastroesophageal reflux disease, unspecified whether esophagitis present Start: 02-09-2024 End: 02-09-2024 ambulatory TATYANA DOLL [facility] Start: 10-06-2023 End: 10-06-2023 Subsequent hospital visit by physician Lo Delarosa MD Work Phone: [facility] [place] Comment on above: Kidney stone (Primar y Dx) Start: 09-14-2023 End: 09-14-2023 Office outpatient visit 25 minutes Lo Delarosa MD Work Phone: [facility] Comment on above: Nocturia; Recurrent UTI; Kidney stones Start: 09-03-2023 End: 09-03-2023 Subsequent hospital visit by physician John Lara10 X-Ray [facility] Comment on above: Kidney stones Start: 09-03-2023 End: 09-03-2023 Office outpatient visit 15 minutes Lo Delarosa MD Work Phone: [facility] Comment on above: Nocturia; Recurrent UTI; Kidney stones Start: 08-24-2023 End: 08-24-2023 Subsequent hospital visit by physician John Ct 1 [facility] Comment on above: Kidney stones Start: 08-13-2023 End: 08-13-2023 Office outpatient visit 25 minutes Tatyana Doll MD Work Phone: [facility] Comment on above: Type 2 diabetes to itus without complication, without long- term current use of insulin (CMS/HCC) (Primary Dx); Benign hypertension; Mixed hyperlipidemia; Gastroesophageal reflux disease without esophagitis; Recurrent major depressive disorder, in partial remission (CMS/HCC); B12 deficiency; Hyperlipidemia, unspecified hyperlipidemia type; Depression, unspecified depression type; Gastroesophageal reflux disease, unspecified whether esophagitis present Start: 08-05-2023 End: 08-05-2023 Office outpatient visit 25 minutes Lo Delarosa MD Work Phone: [facility] Comment on above: Nocturia; Recurrent UTI; Kidney stones Start: 08-05-2023 End: 08-05-2023 ambulatory TATYANA DOLL [facility] Start: 07-31-2023 End: 07-31-2023 Subsequent hospital visit by physician Screen Mammo [facility] Comment on above: Encounter for screen ing mammogram for breast cancer [Z12.31] Start: 07-15-2023 End: 07-15-2023 Subsequent hospital visit by physician John Ultrasound 1 [facility] Comment on above: Calculus of kidney Start: 02-10-2023 End: 02-10-2023 Office outpatient visit 15 minutes Tatyana Doll MD Work Phone: [facility] Comment on above: Benign hypertension (Primary Dx); Mixed hyperlipidemia; Type 2 diabetes mellitus without complication, without long-term current use of insulin (CMS/HCC); Gastroesophageal reflux disease without esophagitis; Recurrent major depressive disorder, in partial remission ([facility]/HCC); B12 deficiency Start: 11-10-[address] Tramaine Doll Facility:[id number] Start: 11-06-2022 AUDIT Tatyana Doll Work Phone: [address] Work Phone: Start: 10-18-2022 End: 10-18-2022 Emergency department patient visit Trudy Santana [facility] Emergency 16 Start: 08-20-2022 End: 08-20-2022 Subsequent hospital visit by physician [facility] Mob 1 Work Phone: Radiology Comment on above: Canceled (CC cx: Equ ipment, Prep, Appropriateness) Start: 07-31-[address] Tramaine Doll Facility:[id number] Start: 07-31-2022 Chart Update Tatyana Doll Work Phone: [facility] Work Phone: Start: 07-30-2022 Telephone encounter Amelia traore MD Work Phone: Mammography Comment on above: Mammogram Result Matt l Back Start: 07-29-2022 Telephone encounter Bushra [facility] fpc AIR DISPATCHER.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 Work Phone: OB/Gynecology Comment on above: Patient Question Start: 07-29-[address] Tramaine Doll Facility:[id number] Start: 07-29-2022 Periodic preventive med est patient 40-64yrs Tatyana Doll Work Phone: [facility] Work Phone: Start: 07-18-2022 Documentation procedure Mammog adrienne Coordinator [facility] Start: 07-18-2022 Letter encounter Mammography Coordinator [facility] Department Start: 07-17-2022 End: 07-17-2022 Patient encounter procedure Leeann Blandon APRN.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 Work Phone: OB/Gynecology Comment on above: Encounter for gyneco logical examination (general) (routine) without abnormal findings (Primary Dx); Encounter for screening mammogram for breast cancer Start: 07-17-2022 End: 07-17-2022 Patient encounter status Leeann Blandon APRN.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 Work Phone: OB/Gynecology Start: 07-17-2022 End: 07-17-2022 Subsequent hospital visit by physician Screen Mammo [facility] Comment on above: Encounter for screen ing mammogram for breast cancer [Z12.31] Start: 07-16-2022 Chart Update Tatyana Doll Work Phone: [facility] Work Phone: Start: 07-15-2022 Chart Update aTtyana Doll Work Phone: [facility] Work Phone: Start: 07-14-2022 Chart Update Tatyana Doll Work Phone: ZF-Ujekheq-Anbbtnq Work Phone: Start: 07-11-[address] Lo Gomesk II Facility:[id number] Start: 07-11-2022 Office outpatient vi sit 15 minutes Tatyana Doll Work Phone: WL-Urulbuv-Rcaxogg Work Phone: Start: 12-16-2021 Chart Update Tatyana Doll Work Phone: DC-Muqruuj-Xquzgfa Work Phone: Start: 12-16-2021 End: 12-16-[address] Tatyana Doll Facility:[id number] Start: 12-13-[address] Tramaine Doll Facility:[id number] Start: 12-13-2021 Office outpatient vi sit 15 minutes Tatyana Doll Work Phone: KZ-Hxqguch-Ahergqu Work Phone: Start: 07-25-2021 Chart Update Tannernormashay Doll Work Phone: VY-Mwqmtxc-Tnzrwebp HC 232 DO Work Phone: Start: 07-24-2021 FUV, Provider: Lo Delarosa II, Status: Pen, Time: 7:45 AM Tatyana Doll Work Phone: [facility] Work Phone: Start: 07-24-2021 Office outpatient vi sit 15 minutes Tatyana Doll Work Phone: VE-Emglxdz-Ixjxvbu Work Phone: Start: 07-22-2021 Office outpatient vi sit 25 minutes Tatyana Doll Work Phone: [facility] Work Phone: Start: 07-16-2021 Chart Update Tannernormashay Doll Work Phone: [facility] Work Phone: Start: 07-13-2021 AUDIT Tatyana Doll Work Phone: MG-Lflrvzl-Nnmvsgc Work Phone: Start: 07-10-2021 AUDIT Tatyana Doll Work Phone: NM-Suxhoww-Avgkajj Work Phone: Start: 07-08-2021 Patient encounter procedure Tatyana Doll Work Phone: PS-Ggxetmq-Dlebiyt Work Phone: Start: 07-03-2021 AUDIT Tatyana Doll Work Phone: [facility] Work Phone: Start: 04-30-2021 Chart Update Tatyana Doll Work Phone: KG-Xgmenyy-Xdvhueudc Work Phone: Start: 04-25-2021 Chart Update Tatyana Doll Work Phone: ZQ-Njlbeai-Hdmlgge Work Phone: Start: 04-24-2021 End: 04-24-2021 Emergency department patient visit Sruthi Rangel [facility] Emergency 12 Start: 04-23-2021 FUV, Provider: Meek Herbert, Status: Pen, Time: 2:00 PM Tatyana Doll Work Phone: XN-Bsawlbv-Xgptijf Work Phone: Start: 04-23-2021 Office outpatient vi sit 15 minutes Tatyana Doll Work Phone: MJ-Ivzgqya-Prthocp Work Phone: Start: 04-22-2021 Chart Update Tatyana Doll Work Phone: KQ-Fnskdmq-Mdixngx Work Phone: Start: 11-19-2020 Chart Update Tatyana Doll Work Phone: -[facility] Work Phone: Start: 12-23-2019 Patient encounter procedure Lo Delarosa II -[facility] Work Phone: Start: 09-05-2019 Patient encounter procedure Lo Gomesk II -[facility] Work Phone: Start: 08-17-2019 Patient encounter procedure Lo Delarosa II -[facility] Work Phone: Start: 07-11-2019 Patient encounter procedure Lo Delarosa II [facility] Work Phone: Cancer cervix - scre ening done Tatyana Doll Work Phone: -[facility] Work Phone: Comment on above: PER GABI DICKEY CNP AT [facility]; Encounter for gynecological examination (general) (routine) without abnormal findings Tatyana Doll Work Phone: TW-Aaflssu-Xmlxtii Work Phone: Comment on above: PER GABI DICKEY CNP AT [facility]; Patient encounter status Caleb johnna Doll Work Phone: [facility] Work Phone: Procedures Date Procedure Procedure Detail Performing Clinician Start: 02-07-2025 Lipid 1995 panel - Serum or Plasma Rober Doll MD Work Phone: Start: 01-23-2025 Colsc flx w/rmvl of tumor polyp lesion snare tq Angelica White MD Work Phone: Start: 01-23-2025 Level iv surg pathology gross&microscopic exam Angelica White MD Work Phone: Start: 01-23-2025 Glucose quantitative blood xcpt reagent strip Angelica White MD Work Phone: Start: 01-23-2025 PULSE OXIMETRY, SPOT Angelica White MD Work Phone: Start: 01-23-2025 Colonoscopy John 02 Start: 11-29-2024 Us pelvic nonobstetric real-time image complete Sherrell Schmitterica AIR DISPATCHER.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 Work Phone: Start: 08-18-2024 Us pelvic nonobstetric real-time image complete Sherrell Schmitterica MELENDEZ.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 Work Phone: Start: 08-10-2024 Lipid 1996 panel - Serum or Plasma Rober Doll MD Work Phone: Start: 08-03-2024 Mammography Tatyana Doll MD Work Phone: Start: 02-09-2024 Lipid 1996 panel - Serum or Plasma Rober Doll MD Work Phone: Start: 10-06-2023 Glucose quantitative blood xcpt reagent strip Lo Delarosa MD Work Phone: Start: 10-06-2023 PULSE OXIMETRY, SPOT Lo Delarosa MD Work Phone: Start: 09-03-2023 Radiologic exam abdomen 1 view Lo blum MD Work Phone: Start: 09-03-2023 Urnls dip stick/tablet rgnt auto w/o microscopy Lo Delarosa MD Work Phone: Start: 08-24-2023 Ct abdomen & pelvis w/o contrast material Lo Delarosa MD Work Phone: Start: 08-05-2023 Urnls dip stick/tablet rgnt auto w/o microscopy Lo Delarosa MD Work Phone: Start: 08-05-2023 ALBUMIN, URINE RANDOM TATYANA DOLL Start: 08-05-2023 CBC panel - Blood by Automated count TATYANA DOLL Start: 08-05-2023 Comprehensive metabolic 2000 panel - Serum or Plasma TATYANA DOLL Start: 08-05-2023 Cyanocobalamin vitamin b-12 TATYANA DOLL Start: 08-05-2023 Hemoglobin A1c/Hemoglobin.total in Blood TATYANA DOLL Start: 08-05-2023 Lipid panel TATYANA DOLL Start: 08-05-2023 Thyrotropin [Units/volume] in Serum or Plasma TATYANA DOLL Start: 08-05-2023 Lipid 1996 panel - Serum or Plasma Lo Delarosa MD Work Phone: Start: 07-31-2023 Mammography Lo Delarosa MD Work Phone: Start: 01-14-2023 Lipid 1996 panel - Serum or Plasma Rober Doll MD Work Phone: Start: 10-18-2022 End: 10-18-2022 EKG impression Onesimo Mayes Start: 08-20-2022 End: 08-20-2022 Mammography Bushra Good AIR DISPATCHER.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 Work Phone: Start: 07-17-2022 End: 07-17-2022 Mammography Leeann Blandon APRN.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 Work Phone: Start: 12-16-2021 End: 12-16-2021 Colonoscopy Tatyana Doll Work Phone: Start: 12-16-2021 Colonoscopy Tatyana Doll Work Phone: Comment on above: Christopher, multiple polyps, re-check in 3 year; Start: 07-17-2021 Microscopic observation [Identifier] in Cervix by Cyto stain Tatyana Doll MD Work Phone: Start: 07-15-2021 Mammography Leeann Blandon APRN.CNP Work Phone: Start: 11-12-2020 Colonoscopy Tatyana Doll Work Phone: Start: 11-12-2020 Colonoscopy Tatyana Doll Work Phone: Comment on above: Thomae, multiple polyps, re-check in 1 y ear; repeat 11/13/21; Start: 12-14-2019 Colonoscopy Lo Delarosa II Start: 07-11-2019 Albumin, Urine Spot Tatyana Doll Start: 07-11-2019 Assay of thyroid stimulating hormone tsh Tatyana Doll Start: 07-11-2019 Comprehensive metabolic 2000 panel Rober Doll Start: 07-11-2019 Hemoglobin glycosylated a1c Tatyana Doll Start: 07-11-2019 Lipid panel Tatyana Doll Start: 07-11-2019 Oncology colorectal screening osmin 10 dna markrs Tatyana Doll Start: 05-19-2019 Comprehensive metabolic 2000 panel Rober Doll Start: 05-19-2019 Hemoglobin glycosylated a1c Tatyana Doll Start: 05-19-2019 Lipoprotein direct measurement ldl cholesterol Tatyana Doll Start: 01-30-2015 Esophagogastroduodenoscopy Tatyana Doll Work Phone: Start: 04-05-2014 Lipid 1996 panel - Serum or Plasma Us 1 Work Phone: Start: 12-11-2013 Insertion of ureteral stent with ureterotomy Tatyana Doll Work Phone: End: 01-30-2015 Esophagogastroduodenoscopy Tatyana storm End: 12-11-2013 Insertion of ureteral stent with ureterotomy Tatyana Doll Ligation of fallopian tube C hristjeff Doll Lithotripsy Tatyana aragon Comment on above: 2018; Plan of Treatment Date Care Activity Detail Author Start: 12-17-2031 Screening for malign ant neoplasm of colon [facility] Start: 08-10-2029 Lipid panel Lipid Screening [facility] Start: 02-08-2029 Lipid panel Lipid Screening [facility] Start: 01-23-2028 Screening for malign ant neoplasm of colon [facility] Start: 01-15-2028 Lipid panel Lipid Screening [facility] Start: 08-10-2027 Diabetes Screening Diabetes Screenin g [facility] Start: 02-08-2027 Diabetes Screening Diabetes Screenin g [facility] Start: 07-17-2026 HPV TESTING HPV TESTING [facility] Start: 07-17-2026 PAP TESTING PAP TESTING [facility] Start: 07-17-2026 Screening for malign ant neoplasm of cervix [facility] Start: 02-23-2026 Glaucoma screening Diabetes: R etinopathy Screening [facility] Start: 02-07-2026 Lipid panel Lipid Panel [facility] Start: 01-14-2026 Diabetes Screening Diabetes Screenin g [facility] Start: 08-31-2025 BP Controlled (<130/80) BP Controlle d (<130/80) [facility] Start: 08-17-2025 End: 11-15-2025 CBC W Auto Differential panel - Blood CBC and Auto Differential Lab Routine B12 deficiency Expected: 08/17/2025 (Approximate), Expires: 11/15/2025 [facility] Work Phone: Comment on above: Expected: 08/17/2025 (Approximate), Expires: 11/15/2025 Start: 08-17-2025 End: 11-15-2025 Cobalamin (Vitamin B12) [Mass/volume] in Serum or Plasma Vitamin B12 Lab Routine B12 deficiency Expected: 08/17/2025 (Approximate), Expires: 11/15/2025 [facility] Work Phone: Comment on above: Expected: 08/17/2025 (Approximate), Expires: 11/15/2025 Start: 08-17-2025 End: 02-14-2026 Comprehensive metabolic 2000 panel - Serum or Plasma Comprehensive Metabolic Panel Lab Routine Benign hypertension Mixed hyperlipidemia Type 2 diabetes mellitus without complication, without long-term current use of insulin Hyperlipidemia, unspecified hyperlipidemia type Expected: 08/17/2025 (Approximate), Expires: 02/14/2026 [facility] Work Phone: Comment on above: Expected: 08/17/2025 (Approximate), Expires: 02/14/2026 Start: 08-17-2025 End: 02-14-2026 Hemoglobin A1c/Hemoglobin.total in Blood Hemoglobin A1C Lab Routine Type 2 diabetes mellitus without complication, without long-term current use of insulin Expected: 08/17/2025 (Approximate), Expires: 02/14/2026 [facility] Work Phone: Comment on above: Expected: 08/17/2025 (Approximate), Expires: 02/14/2026 Start: 08-17-2025 End: 02-14-2026 Microalbumin/Creatinine [Mass Ratio] in Urine Albumin-Creatinine Ratio, Urine Random Lab Routine Benign hypertension Type 2 diabetes mellitus without complication, without long-term current use of insulin Expected: 08/17/2025 (Approximate), Expires: 02/14/2026 [facility] Service Area Work Phone: Comment on above: Expected: 08/17/2025 (Approximate), Expires: 02/14/2026 Start: 08-17-2025 End: 02-14-2026 Thyrotropin [Units/volume] in Serum or Plasma Thyroid Stimulating Hormone Lab Routine Type 2 diabetes mellitus without complication, without long-term current use of insulin Expected: 08/17/2025 (Approximate), Expires: 02/14/2026 [facility] Work Phone: Comment on above: Expected: 08/17/2025 (Approximate), Expires: 02/14/2026 Start: 08-15-2025 End: 08-15-2025 Patient encounter procedure 08/15/2025 9:20 AM EST Office Visit [facility] [address] [phone] Tatyana Doll MD [address] [address] [facility] Start: 08-10-2025 Lipid panel Lipid Panel [facility] Start: 08-10-2025 Urine screening for protein Diabetes: Urine Protein Screening [facility] Start: 08-07-2025 End: 08-07-2025 Patient encounter procedure Mammogram Comment on above: Encounter for screen ing mammogram for breast cancer [Z12.31] ANNUAL Start: 08-04-2025 Yearly Adult Physical Yearly Adult P hysical [facility] Start: 08-03-2025 BP Controlled (<130/80) BP Controlle d (<130/80) [facility] Start: 08-03-2025 Screening for malign ant neoplasm of breast [facility] Start: 05-10-2025 Hemoglobin A1c measurement Diabetes: Hemoglobin A1C [facility] Start: 05-05-2025 CT of abdomen and pelvis without contrast Abdomen/Pelvis without Cont [facility] Start: 05-05-2025 Patient encounter procedure Registered Clinical -Cat Scan [facility] Work Phone: Start: 02-27-2025 COVID-19 Vaccine () COVID-19 Vaccine () [facility] Start: 02-27-2025 Influenza vaccination U [facility] Start: 02-14-2025 End: 02-14-2025 Patient encounter procedure 02/14/2025 4:00 PM EDT Office Visit [place] [address] [phone] Tatyana Doll MD [address] [address] [facility] Start: 02-14-2025 End: 08-17-2025 Cholesterol in LDL [Mass/volume] in Serum or Plasma Cholesterol, LDL Direct Lab Routine Mixed hyperlipidemia Type 2 diabetes mellitus without complication, without long-term current use of insulin (Multi) Hyperlipidemia, unspecified hyperlipidemia type Expected: 02/14/2025 (Approximate), Expires: 08/17/2025 [facility] Service Area Work Phone: Comment on above: Expected: 02/14/2025 (Approximate), Expires: 08/17/2025 Start: 02-14-2025 End: 08-17-2025 Comprehensive metabolic 2000 panel - Serum or Plasma Comprehensive Metabolic Panel Lab Routine Benign hypertension Mixed hyperlipidemia Type 2 diabetes mellitus without complication, without long-term current use of insulin (Multi) Hyperlipidemia, unspecified hyperlipidemia type Expected: 02/14/2025 (Approximate), Expires: 08/17/2025 [facility] Work Phone: Comment on above: Expected: 02/14/2025 (Approximate), Expires: 08/17/2025 Start: 02-14-2025 End: 08-17-2025 Hemoglobin A1c/Hemoglobin.total in Blood Hemoglobin A1C Lab Routine Type 2 diabetes mellitus without complication, without long-term current use of insulin (Multi) Expected: 02/14/2025 (Approximate), Expires: 08/17/2025 [facility] Work Phone: Comment on above: Expected: 02/14/2025 (Approximate), Expires: 08/17/2025 Start: 02-14-2025 End: 02-14-2026 Lipid 1996 panel - Serum or Plasma Lipid Panel Lab Routine Mixed hyperlipidemia Type 2 diabetes mellitus without complication, without long-term current use of insulin Hyperlipidemia, unspecified hyperlipidemia type Expected: 02/14/2025 (Approximate), Expires: 02/14/2026 [facility] Work Phone: Comment on above: Expected: 02/14/2025 (Approximate), Expires: 02/14/2026 Start: 02-08-2025 Lipid panel Lipid Panel [facility] Start: 01-02-2025 End: 01-02-2025 Patient encounter procedure 01/02/2025 12:00 PM EDT Appointment [facility] [address] [place] [phone] Angelica White MD [address] [place] [address] [facility] Start: 11-29-2024 End: 11-29-2024 Manual pelvic examination 11/29/2024 8:00 AM EDT Procedure OB/Gynecology [address] [place], [place] [id number] Remote, Shipping Hel[employer] [address] [place] [address] F/U Pelvic OB/Gynecology Comment on above: F/U Pelvic Start: 11-07-2024 Hemoglobin A1c measurement Diabetes: Hemoglobin A1C [facility] Start: 10-20-2024 End: 08-22-2025 US Pelvis PELVIC US [facility] Anc Imaging Routine Cyst of left ovary Expected: 10/20/2024, Expires: 08/22/2025 [facility] Work Phone: Comment on above: Expected: 10/20/2024 , Expires: 08/22/2025 Start: 10-20-2024 End: 10-20-2024 Manual pelvic examination 10/20/2024 8:00 AM EDT Procedure OB/Gynecology [address] [place] [address] Remote, [employer] [address] [place] [address] F/U Pelvic OB/Gynecology Comment on above: F/U Pelvic Start: 09-28-2024 End: 09-28-2024 Patient encounter procedure 09/28/2024 3:00 PM EDT Office Visit [place] [id number] [phone] Lo Delarosa MD [address] [place] [address] [facility] Start: 08-31-2024 End: 08-31-2024 Patient encounter procedure 08/31/2024 10:45 AM EST Office Visit OB/Gynecology [address] [place] [address] Sherrell Ricks APRN.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 [address] [place] [address] Discuss endometrial lining OB/Gynecology Comment on above: Discuss endometrial lining Start: 08-18-2024 End: 08-18-2024 ambulatory 08/18/2024 8:00 AM EST Procedure OB/Gynecology [address] [place] [address] Remote, [facility] [address] [place] [address] Early satiety [R68.81] OB/Gynecology Comment on above: Early satiety [R68.8 1] Start: 08-17-2024 End: 08-17-2024 Patient encounter procedure 08/17/2024 8:00 AM EST Office Visit [facility] [address] [place] [address] Tatyana Doll MD [address] [place] [address] [facility] Start: 08-14-2024 End: 02-11-2025 Comprehensive metabolic 2000 panel - Serum or Plasma Comprehensive Metabolic Panel Lab Routine Benign hypertension Mixed hyperlipidemia Type 2 diabetes mellitus without complication, without long-term current use of insulin (Multi) Hyperlipidemia, unspecified hyperlipidemia type Expected: 08/14/2024 (Approximate), Expires: 02/11/2025 [facility] Work Phone: Comment on above: Expected: 08/14/2024 (Approximate), Expires: 02/11/2025 Start: 08-14-2024 End: 02-11-2025 Hemoglobin A1c/Hemoglobin.total in Blood Hemoglobin A1C Lab Routine Type 2 diabetes mellitus without complication, without long-term current use of insulin (Multi) Expected: 08/14/2024 (Approximate), Expires: 02/11/2025 [facility] Work Phone: Comment on above: Expected: 08/14/2024 (Approximate), Expires: 02/11/2025 Start: 08-14-2024 End: 02-11-2025 Microalbumin/Creatinine [Mass Ratio] in Urine Albumin-Creatinine Ratio, Urine Random Lab Routine Benign hypertension Type 2 diabetes mellitus without complication, without long-term current use of insulin (Multi) Expected: 08/14/2024 (Approximate), Expires: 02/11/2025 [facility] Service Area Work Phone: Comment on above: Expected: 08/14/2024 (Approximate), Expires: 02/11/2025 Start: 08-14-2024 End: 02-11-2025 Thyrotropin [Units/volume] in Serum or Plasma Thyroid Stimulating Hormone Lab Routine Type 2 diabetes mellitus without complication, without long-term current use of insulin (Multi) Expected: 08/14/2024 (Approximate), Expires: 02/11/2025 [facility] Work Phone: Comment on above: Expected: 08/14/2024 (Approximate), Expires: 02/11/2025 Start: 08-05-2024 Lipid panel Lipid Panel [facility] Start: 08-05-2024 Urine screening for protein Diabetes: Urine Protein Screening [facility] Start: 08-03-2024 End: 08-03-2025 US Pelvis PELVIC US [facility] Anc Imaging Routine Early satiety Expected: 08/03/2024, Expires: 08/03/2025 [facility] Comment on above: Expected: 08/03/2024 , Expires: 08/03/2025 Start: 07-31-2024 BP Controlled (<130/80) BP Controlle d (<130/80) [facility] Start: 07-31-2024 Screening for malign ant neoplasm of breast [facility] Start: 07-20-2024 End: 07-20-2024 Patient encounter procedure 07/20/2024 11:00 AM EST Office Visit [facility] [address] [place] [phone] Fazal Malik Jr., DPM [address] [place] [address] [facility] Start: 07-17-2024 Screening for malign ant neoplasm of cervix [facility] Start: 05-11-2024 Hemoglobin A1c measurement Diabetes: Hemoglobin A1C [facility] Start: 02-28-2024 COVID-19 Vaccine ( season) COVID-19 Vaccine () [facility] Start: 02-28-2024 Influenza vaccination [facility] Start: 02-12-2024 End: 02-11-2025 Lipid 1996 panel - Serum or Plasma Lipid Panel Lab Routine Mixed hyperlipidemia Type 2 diabetes mellitus without complication, without long-term current use of insulin (Multi) Hyperlipidemia, unspecified hyperlipidemia type Expected: 02/12/2024 (Approximate), Expires: 02/11/2025 [facility] Work Phone: Comment on above: Expected: 02/12/2024 (Approximate), Expires: 02/11/2025 Start: 02-12-2024 End: 02-12-2024 Patient encounter procedure 02/12/2024 8:40 AM EDT Office Visit [facility] [address] [place] [phone] Tatyana Doll MD [address] [place], [place] [phone] [facility] Start: 02-11-2024 End: 08-13-2024 CBC W Auto Differential panel - Blood CBC and Auto Differential Lab Routine B12 deficiency Expected: 02/11/2024 (Approximate), Expires: 08/13/2024 [facility] Work Phone: Comment on above: Expected: 02/11/2024 (Approximate), Expires: 08/13/2024 Start: 02-11-2024 End: 08-13-2024 Cholesterol in LDL [Mass/volume] in Serum or Plasma Cholesterol, LDL Direct Lab Routine Mixed hyperlipidemia Type 2 diabetes mellitus without complication, without long-term current use of insulin ([facility]) Expected: 02/11/2024 (Approximate), Expires: 08/13/2024 [facility] Service Area Work Phone: Comment on above: Expected: 02/11/2024 (Approximate), Expires: 08/13/2024 Start: 02-11-2024 End: 08-13-2024 Cobalamin (Vitamin B12) [Mass/volume] in Serum or Plasma Vitamin B12 Lab Routine B12 deficiency Expected: 02/11/2024 (Approximate), Expires: 08/13/2024 [facility] Work Phone: Comment on above: Expected: 02/11/2024 (Approximate), Expires: 08/13/2024 Start: 02-11-2024 End: 08-13-2024 Comprehensive metabolic 2000 panel - Serum or Plasma Comprehensive Metabolic Panel Lab Routine Benign hypertension Mixed hyperlipidemia Type 2 diabetes mellitus without complication, without long-term current use of insulin (CMS/HCC) Expected: 02/11/2024 (Approximate), Expires: 08/13/2024 [facility] Work Phone: Comment on above: Expected: 02/11/2024 (Approximate), Expires: 08/13/2024 Start: 02-11-2024 End: 08-13-2024 Hemoglobin A1c/Hemoglobin.total in Blood Hemoglobin A1C Lab Routine Type 2 diabetes mellitus without complication, without long-term current use of insulin (CMS/HCC) Expected: 02/11/2024 (Approximate), Expires: 08/13/2024 [facility] Work Phone: Comment on above: Expected: 02/11/2024 (Approximate), Expires: 08/13/2024 Start: 01-15-2024 Lipid panel Lipid Panel [facility] Start: 11-03-2023 Hemoglobin A1c measurement Diabetes: Hemoglobin A1C [facility] Start: 09-03-2023 End: 09-02-2024 XR Abdomen Single view [facility] Service Area Work Phone: Comment on above: Expected: 09/03/2023 , Expires: 09/02/2024 Once for 1 Occurrenc es starting 09/03/2023 until 09/03/2023 Start: 09-03-2023 End: 09-03-2023 Patient encounter procedure 09/03/2023 7:45 AM EST Office Visit [facility] [address] [place] [phone] Lo Delarosa MD [address] [place] [address] [facility] Start: 08-24-2023 End: 08-24-2023 Patient encounter procedure 08/24/2023 5:15 PM EST Appointment [place] [phone] [place] [address] [facility] Start: 08-20-2023 Mammography Mammogram Screening [facility] Start: 08-20-2023 Screening for malign ant neoplasm of breast [facility] Start: 08-13-2023 End: 02-11-2024 CBC panel - Blood by Automated count CBC Lab Routine B12 deficiency Expected: 08/13/2023 (Approximate), Expires: 02/11/2024 [facility] Work Phone: Comment on above: Expected: 08/13/2023 (Approximate), Expires: 02/11/2024 Start: 08-13-2023 End: 02-11-2024 Cobalamin (Vitamin B12) [Mass/volume] in Serum or Plasma Vitamin B12 Lab Routine B12 deficiency Expected: 08/13/2023 (Approximate), Expires: 02/11/2024 [facility] Work Phone: Comment on above: Expected: 08/13/2023 (Approximate), Expires: 02/11/2024 Start: 08-13-2023 End: 02-11-2024 Comprehensive metabolic 2000 panel - Serum or Plasma Comprehensive Metabolic Panel Lab Routine Benign hypertension Mixed hyperlipidemia Type 2 diabetes mellitus without complication, without long-term current use of insulin (CMS/HCC) Expected: 08/13/2023 (Approximate), Expires: 02/11/2024 [facility] Work Phone: Comment on above: Expected: 08/13/2023 (Approximate), Expires: 02/11/2024 Start: 08-13-2023 End: 02-11-2024 Hemoglobin A1c/Hemoglobin.total in Blood Hemoglobin A1C Lab Routine Type 2 diabetes mellitus without complication, without long-term current use of insulin (CMS/HCC) Expected: 08/13/2023 (Approximate), Expires: 02/11/2024 [facility] Work Phone: Comment on above: Expected: 08/13/2023 (Approximate), Expires: 02/11/2024 Start: 08-13-2023 End: 02-11-2024 Microalbumin/Creatinine [Mass Ratio] in Urine Albumin , Urine Random Lab Routine Benign hypertension Type 2 diabetes mellitus without complication, without long-term current use of insulin (CMS/HCC) Expected: 08/13/2023 (Approximate), Expires: 02/11/2024 [facility] Area Work Phone: Comment on above: Expected: 08/13/2023 (Approximate), Expires: 02/11/2024 Start: 08-13-2023 End: 02-11-2024 Thyrotropin [Units/volume] in Serum or Plasma Thyroid Stimulating Hormone Lab Routine Type 2 diabetes mellitus without complication, without long-term current use of insulin (CMS/HCC) Expected: 08/13/2023 (Approximate), Expires: 02/11/2024 [facility] Work Phone: Comment on above: Expected: 08/13/2023 (Approximate), Expires: 02/11/2024 Start: 08-13-2023 End: 08-13-2023 Patient encounter procedure [facility] Start: 08-05-2023 End: 08-05-2023 Patient encounter procedure 08/05/2023 3:00 PM EST Office Visit [facility] [address] [phone] Lo Delarosa MD [address] [place] [address] [facility] Start: 08-05-2023 End: 08-05-2024 CT Abdomen WO contrast CT abdomen pelvis wo IV contrast Imaging Routine Kidney stones Expected: 08/05/2023, Expires: 08/05/2024 [facility] Work Phone: Comment on above: Expected: 08/05/2023 , Expires: 08/05/2024 Start: 08-05-2023 End: 08-05-2024 XR Abdomen Single view XR abdomen 1 view Imaging Routine Kidney stones Expected: 08/05/2023, Expires: 08/05/2024 [facility] Service Area Work Phone: Comment on above: Expected: 08/05/2023 , Expires: 08/05/2024 Start: 07-17-2023 Mammography MAMMOGRAM [facility] Start: 07-15-2023 Urine screening for protein Diabetes: Urine Protein Screening [facility] Start: 07-13-2023 Patient encounter procedure Outpatient [facility] [address] [place] [address] Start: 13-Jul-2023 7:45 Delarosa, Lo Intent [facility] Start: 06-29-2023 Depression Assessment Depression Ass essment [facility] Start: 04-16-2023 Hemoglobin A1c measurement Diabetes: Hemoglobin A1C [facility] Start: 02-27-2023 COVID-19 Vaccine () COVID-19 Vaccine () [facility] Start: 02-27-2023 Influenza vaccination Influenza Vacc ine (#1) [facility] Start: 02-10-2023 End: 02-11-2024 Lipid 1996 panel - Serum or Plasma Lipid Panel Lab Routine Mixed hyperlipidemia Type 2 diabetes mellitus without complication, without long-term current use of insulin ([facility]) Expected: 02/10/2023 (Approximate), Expires: 02/11/2024 [facility] Work Phone: Comment on above: Expected: 02/10/2023 (Approximate), Expires: 02/11/2024 Start: 01-26-2023 EPV, Provider: Tatyana Doll, Status: Pen, Time: 8:20 AM EPV, Provider: Tatyana Doll, Status: Pen, Time: 8:20 AM [facility] Work Phone: Start: 12-16-2022 Screening for malign ant neoplasm of colon [facility] Start: 11-10-2022 STRESS NUC, Provider : KETAN STRANGEI STRESS 2,SMCSTRESS2, Status: Pen, Time: 9:00 AM STRESS NUC, Provider: KETAN STRANGEI STRESS 2,SMCSTRESS2, Status: Pen, Time: 9:00 AM [id number] [address] Work Phone: Start: 10-18-2022 End: 10-19-2023 Sodium Chloride 0.9% IV Bolus 1000 mL IntraVenous Once STAT ; DOSE = 1,000 mL OnceInfuse over 1 hour(s) Start: 18-Oct-2022 End: 18-Oct-2023 Ordered: 18-Oct-2022 Trudy Santana [facility] Start: 07-28-2022 Screening for malign ant neoplasm of colon FIT-DNA (Cologuard) [facility] Start: 07-25-2022 Screening for malign ant neoplasm of colon [facility] Start: 07-23-2022 EPV, Provider: Tatyana Doll, Status: Pen, Time: 8:20 AM EPV, Provider: Tatyana Doll, Status: Pen, Time: 8:20 AM [employer] [facility] Work Phone: Start: 07-15-2022 Mammography MAMMOGRAM [facility] Start: 07-11-2022 DIABETES SCREEN DIABETES SCREEN [facility] Start: 07-11-2022 Diabetes Screening Diabetes Screenin g [facility] Start: 06-29-2022 DEPRESSION ASSESSMENT DEPRESSION ASS ESSMENT [facility] Start: 06-13-2022 FUV, Provider: Lo Delarosa II, Status: Pen, Time: 7:30 AM FUV, Provider: Lo Delarosa II, Status: Pen, Time: 7:30 AM [id number] Work Phone: Start: 02-27-2022 Influenza vaccination INFLUENZA (#1) [facility] Start: 12-16-2021 COLON, Provider: Angelica White, Status: Pen, Time: 8:30 AM COLON, Provider: Angelica White, Status: Pen, Time: 8:30 AM [id number] Work Phone: Start: 11-18-2021 FUV, Provider: Lo Delarosa II, Status: Pen, Time: 8:15 AM FUV, Provider: Lo Delarosa II, Status: Pen, Time: 8:15 AM [employer] [facility] Work Phone: Start: 10-16-2021 FUV, Provider: Lo Delarosa II, Status: Pen, Time: 7:30 AM FUV, Provider: Lo Delarosa II, Status: Pen, Time: 7:30 AM [facility] Work Phone: Start: 07-24-2021 FUV, Provider: Lo Delarosa II, Status: Pen, Time: 7:45 AM FUV, Provider: Lo Delarosa II, Status: Pen, Time: 7:45 AM [facility] Work Phone: Start: 07-22-2021 EPV, Provider: Tatyana Doll, Status: Pen, Time: 8:20 AM EPV, Provider: Tatyana Doll, Status: Pen, Time: 8:20 AM [facility] Work Phone: Start: 07-22-2021 Patient encounter procedure [facility] Start: 05-13-2021 CYSTOSCOPY, Provider : [facility]OLOG[facility] PROCEDURE RM,[id number], Status: Pen, Time: 8:00 AM CYSTOSCOPY, Provider: LUTHERAN UROLOGY PROCEDURE RM,[id number], Status: Pen, Time: 8:00 AM [facility] Work Phone: Start: 05-13-2021 Patient encounter procedure [facility] Start: 05-07-2021 Patient encounter procedure [facility] Start: 01-30-2021 FUV, Provider: Lo Delarosa II, Status: Pen, Time: 8:45 AM FUV, Provider: Lo Delarosa II, Status: Pen, Time: 8:45 AM [facility] Work Phone: Start: 11-12-2020 History of colonoscopy History of colonoscopy Date: 12-Nov-2020 [facility] Start: 06-06-2020 History and physical examination, annual for health maintenance Wellness Visit [facility] Start: 01-16-2020 Comprehensive metabo lic 2000 panel -[facility] Work Phone: Start: 01-16-2020 HbA1c (Bld) [Mass fraction] Hemoglobin A1C -[facility] Work Phone: Start: 01-16-2020 Lipid panel Lipid Panel -[facility] Work Phone: Start: 01-16-2020 Oncology colorectal screening osmin 10 dna markrs Cologuard -[facility] Work Phone: Start: 01-16-2020 TSH Qn TSH - Thyroid Stimulating Hormone, Serum MP[facility] Work Phone: Start: 06-02-2019 ANNUAL PCP TEAM PATIENT ACCESS ASSOCIATE ROCHELLE DISEASE VISIT ANNUAL PCP TEAM CHRONIC DISEASE VISIT [facility] Start: 06-02-2019 BP CONTROLLED (<130/80) BP CONTROLLE D (<130/80) [facility] Start: 04-05-2019 Lipid 1996 panel - Serum or Plasma Lipid Screening [facility] Start: 04-05-2019 LIPID SCREEN LIPID SCREEN [facility] Start: 2018 Administration of herpes zoster vaccine Zoster Vaccines (1 of 2) [facility] Start: 2018 Screening for malign ant neoplasm of colon Flexible sigmoidoscopy [facility] Start: 2018 SHINGRIX VACCINE (1 of 2) SHINGRIX VACCINE (1 of 2) [facility] Start: 2018 Zoster Vaccines (1 o f 2) Zoster Vaccines (1 of 2) [facility] Start: 2013 COLOGUARD (FIT-DNA) COLOGUARD (FIT-D NA) [facility] Start: 2013 Colonoscopy COLONOSCOPY [facility] Start: 2013 COLORECTAL CANCER SCREENING COLORECTAL CANCER SCREENING [facility] Start: [address] COLONOGRAPHY [facility] Start: 2013 FECAL OCCULT BLOOD FECAL OCCULT BLOO D [facility] Start: 2013 Screening for malign ant neoplasm of colon [facility] Start: 2013 SIGMOIDOSCOPY SIGMOIDOSCOPY [facility] Start: 1998 Screening for malign ant neoplasm of cervix [facility] Start: 1990 DTaP/Tdap/Td Vaccine s (1 - Tdap) DTaP/Tdap/Td Vaccines (1 - Tdap) [facility] Start: 1989 Screening for malign ant neoplasm of cervix [facility] Start: 1987 Hepatitis B Vaccine (1 of 3 - 19+ 3-dose series) Hepatitis B Vaccine (1 of 3 - 19+ 3-dose series) [facility] Start: 1987 Hepatitis B Vaccines (1 of 3 - 19+ 3-dose series) Hepatitis B Vaccines (1 of 3 - 19+ 3-dose series) [facility] Start: 1987 Pneumococcal vaccination Pneumococcal Vaccine (1 of 2 - PCV) [facility] Start: 1987 Pneumococcal Vaccine : 50+ (1 of 2 - PCV) Pneumococcal Vaccine: 50+ (1 of 2 - PCV) [facility] Start: 1987 Pneumococcal Vaccine : Ped or At-Risk (1 of 2 - PCV) Pneumococcal Vaccine: Ped or At-Risk (1 of 2 - PCV) [facility] Start: 1987 Urine microalbumin profile [facility] Start: 1986 Depression Screening Depression Scre [facility] Start: 1986 HEPATITIS C SCREENING HEPATITIS C [facility] Start: 1986 Hepatitis C screening Hepatitis C [facility] Start: 1986 HIV SCREENING HIV SCREENING [facility] Start: 1986 HIV screening HIV Screening [facility] Start: 1983 HIV screening HIV Screening [facility] Start: 1980 Depression screening using PHQ-9 (Patient Health Questionnaire 9) score Depression Screening/Follow-Up (PHQ-2/9) [facility] Start: 1979 DTaP/Tdap/Td Vaccine s (5 - Tdap) DTaP/Tdap/Td Vaccines (5 - Tdap) [facility] Start: 1979 Urine microalbumin profile DTaP,Tdap,Td Vaccine (5 - Tdap) [facility] Start: 1978 Diabetic foot examination Diabetes: Foot Exam [facility] Start: 1978 Glaucoma screening Diabetes: R etinopathy Screening [facility] Start: 1974 PNEUMOCOCCAL (1 - PCV) PNEUMOCOCCAL (1 - PCV) [facility] Start: 1974 Pneumococcal vaccination [facility] Start: 1974 Pneumococcal Vaccine : Pediatrics (0 to 5 Years) and At-Risk Patients (6 to 64 Years) (1 - PCV) Pneumococcal Vaccine: Pediatrics (0 to 5 Years) and At-Risk Patients (6 to 64 Years) (1 - PCV) [facility] Start: 1974 Pneumococcal Vaccine : Pediatrics (0 to 5 Years) and At-Risk Patients (6 to 64 Years) (1 of 2 - PCV) Pneumococcal Vaccine: Pediatrics (0 to 5 Years) and At-Risk Patients (6 to 64 Years) (1 of 2 - PCV) [facility] Start: 1969 MMR Vaccines (1 of 1 - Standard series) MMR Vaccines (1 of 1 - Standard series) [facility] Start: 1968 COVID-19 VACCINE (#1) COVID-19 VACCI NE (#1) [facility] Start: 1968 HEPATITIS B (1 of 3 - 3-dose series) HEPATITIS B (1 of 3 - 3-dose series) [facility] Start: 1968 Hepatitis B Vaccine (1 of 3 - 3-dose series) Hepatitis B Vaccine (1 of 3 - 3-dose series) [facility] Start: 1968 Hepatitis B Vaccines (1 of 3 - 3-dose series) Hepatitis B Vaccines (1 of 3 - 3-dose series) [facility] Start: 1968 HIV screening HIV Screening [facility] Start: 1968 Screening for malign ant neoplasm of colon [facility] Start: 1968 Tetanus vaccination Tetanus: Every 1 0yrs [facility] Start: 1968 Yearly Adult Physical Yearly Adult P hysical [facility] Comprehensive metabo lic 2000 panel Comprehensive Metabolic Panel [facility] Work Phone: Comment on above: Before 30Jul2019 End: 09-02-2025 DBT Breast - bilateral screening LUIZ SCREENING W CITLALI Radiology Routine Encounter for screening mammogram for breast cancer 1 Occurrences starting 08/03/2024 until 09/02/2025 [facility] Work Phone: Comment on above: 1 Occurrences starti ng 08/03/2024 until 09/02/2025 DBT Breast - bilater al screening LUIZ SCREENING W [facility] Radiology Routine Encounter for screening mammogram for breast cancer Dense breast tissue 08/03/2024 8:04 AM EST [facility] Work Phone: End: 08-28-2023 Diagnostic mammography computer-aided detcj bi LUIZ DIAGNOSTIC BILAT Radiology Routine Abnormal mammogram 1 Occurrences starting 07/29/2022 until 08/28/2023 [facility] Work Phone: Comment on above: 1 Occurrences starti ng 07/29/2022 until 08/28/2023 End: 01-23-2025 Glucose [Mass/volume] in Serum or Plasma POCT Glucose Point of Care Testing - Docked Device Routine Once (Lab) for 1 Occurrences starting 01/23/2025 until 01/23/2025 [facility] Service Area Work Phone: Comment on above: Once (Lab) for 1 Occ urrences starting 01/23/2025 until 01/23/2025 H/O: tubal ligation History of t ubal ligation [facility] HbA1c (Bld) [Mass fraction] Hemoglobin A1C [facility] Work Phone: Comment on above: Before 30Jul2019 End: 08-16-2023 LUIZ SCREENING LUIZ SCREENING Radiology Routine Encounter for screening mammogram for breast cancer 1 Occurrences starting 07/17/2022 until 08/16/2023 [facility] Work Phone: Comment on above: 1 Occurrences starti ng 07/17/2022 until 08/16/2023 LUIZ SCREENING LUIZ SCREENING Ra diology Routine Encounter for screening mammogram for breast cancer 07/31/2023 8:23 AM EST [facility] Work Phone: End: 01-23-2025 Moderate Sedation Moderate Sedation Procedures Routine Once for 1 Occurrences starting 01/23/2025 until 01/23/2025 [facility] Work Phone: Comment on above: Once for 1 Occurrenc es starting 01/23/2025 until 01/23/2025 Past history of procedure [facility] End: 01-23-2025 Pulse oximetry, continuous Pulse oximetry, continuous Respiratory Care Routine Continuous until discontinued starting 01/23/2025 [facility] Work Phone: Comment on above: Continuous until dis continued starting 01/23/2025 Serum LDL cholestero l measurement LDL, Direct, Serum [facility] Work Phone: Comment on above: Before 30Jul2019 Surgical pathology study [facility] Work Phone: Comment on above: Release Upon Orderin g for 1 Occurrences starting 01/23/2025 End: 08-28-2023 Us breast uni real time with image limited [facility] Work Phone: Comment on above: 1 Occurrences starti ng 07/29/2022 until 08/28/2023 End: 07-15-2023 US Kidney - bilateral and Urinary bladder [facility] Service Area Work Phone: Comment on above: Once for 1 Occurrenc es starting 07/15/2023 until 07/15/2023 [facility] Work Phone: [facility] NEGATED: Highlighted row has been ruled out! Planned Goals not documented [facility] Work Phone: Immunizations Immunization Date Immunization Notes Care Provider [facility] 01-27-1974 diphtheria, tetanus toxoids and acellular pertussis vaccine, unspecified formulation Tatyana Doll MD Work Phone: [facility] Work Phone: 01-27-1974 poliovirus vaccine, unspecified formulation Tatyana Doll MD Work Phone: [facility] Work Phone: 11-19-1969 rubella virus vaccine Tanner Doll MD Work Phone: [facility] Work Phone: 04-08-1969 vaccinia (smallpox) vaccine Tatyana Doll MD Work Phone: [facility] Work Phone: 01-25-1969 diphtheria, tetanus toxoids and acellular pertussis vaccine, unspecified formulation Tatyana Doll MD Work Phone: [facility] Work Phone: 01-25-1969 poliovirus vaccine, unspecified formulation Tatyana Doll MD Work Phone: [facility] Work Phone: 01-25-1969 rubella virus vaccine Tanner Doll MD Work Phone: [facility] Work Phone: 1968 diphtheria, tetanus toxoids and acellular pertussis vaccine, unspecified formulation Tatyana Doll MD Work Phone: [facility] Work Phone: 1968 diphtheria, tetanus toxoids and acellular pertussis vaccine, unspecified formulation Tatyana Doll MD Work Phone: [facility] Work Phone: 1968 poliovirus vaccine, unspecified formulation Tatyana Doll MD Work Phone: [facility] Work Phone: Payers Date Payer Category Payer Self-pay 2024 Blue Cross Blue Shield BLUE CARD PPO OOS Member Subscriber Plan / Payer (Effective 2024-Present) Name: Betsy Edwards Relation to Subscriber: Self Name: Betsy Edwards Payer ID: [id number] (NAIC) Type: PPO Address: [facility] [address] [place] [id number] 2024 Blue Cross Blue Shie ld (Indemnity or Managed Care) - Out of State BCBS OUT OF STATE [facility] [id number] 2020 Blue Cross Blue Shie Managed Care [facility] Member Subscriber Plan / Payer (Effective 2020-Present) Name: Betsy Edwards Relation to Subscriber: Self Name: Betsy Edwards Cash Payer ID: [id number] (NAIC) Type: Not on file Address: [address] [place] [id number] 2020 Unknown 2020 Unknown [id number] 2012 Unknown [id number] 1968 Unknown [id number] [id number]. 2.1068 1968 Unknown [id number] 2.840.1.369228.3.579. 2.1068 1968 Unknown [id number] 2.840.1.025566.3.579. 2.1068 1968 Unknown [id number] 2.840.1.938491.3.579. 2.1068 1968 Unknown [id number] 2.840.1.047812.3.579. 2.1068 1968 Unknown [id number] 2.16840.1.454575.3.579. 2.1068 1968 Unknown [id number] 2.16840.1.944801.3.579. 2.356 1968 Unknown [id number] 2.16840.1.337570.3.579. 2.356 1968 Unknown [id number] 2.16.840.1.307949.3.579. 2.1245 1968 Unknown [id number] 2.16.840.1.589922.3.579. 2.1245 1968 Unknown [id number] 2.16.840.1.025514.3.579. 2.903 1968 Unknown [id number] 2.16.840.1.383272.3.579. 2.1243 1968 Unknown [id number] 2.16.840.1.982884.3.579. 2.1244 1968 Unknown [id number] 2.16.840.1.231365.3.579. 2.1244 1968 Unknown [id number] 2.16.840.1.455402.3.579. 2.1244 Private Health Insurance [id number] Private Health Insurance [id number] Unknown [id number] 2.16.840.1.417212.3.579. 2.462 Unknown [id number] 2.16.840.1.467569.3.579. 2.462 Unknown [id number] [id number]. 2.462 Social History Date Type Detail Facility Assertion Unknown if ever smoked [facility] Work Phone: Start: 02-15-2013 End: 08-17-2024 Active advance directive Active advance directive [facility] Work Phone: Tobacco smoking consumption unknown [facility] Start: 02-15-2013 End: 04-19-2025 Tobacco smoking status NHIS Smokes tobacco daily [facility] Start: 01-23-1995 History of tobacco use Cigarette Smoker [facility] Start: 02-15-2013 End: 01-23-2025 Tobacco use and exposure Smokeless tobacco non-user [facility] Start: 07-17-2022 End: 08-31-2024 Alcohol intake Current non-drinker of alcohol (finding) [facility] Start: 1970 Sex Assigned At Not on file [facility] Start: 02-10-2023 End: 07-06-2024 Alcohol intake Ex-drinker (finding) [place] Work Phone: Start: 02-10-2023 End: 08-17-2024 Tobacco use panel [facility] Work Phone: Start: 01-31-2023 End: 12-01-2024 Exposure to SARS-CoV-2 (event) Not sure [facility] Start: 05-23-2022 National Score (1-100), lower number is lower risk 80 [facility] Start: 07-31-2023 Tobacco Comment trying to quit [facility] Start: 08-05-2023 End: 01-23-2025 Alcohol intake Lifetime non-drinker (finding) [facility] Work Phone: History of tobacco use Passive smoker [facility] Work Phone: Start: 1970 [facility] Start: 01-12-2025 Gender identity Identifies as female gender (finding) [facility] Work Phone: Start: 01-12-2025 Sexual orientation Heterosexual (fin ding) [facility] Work Phone: NEGATED: Highlighted row - - [facility] Work Phone: NEGATED: Highlighted rowStart: LIVIERF History of tobacco use Passive smoker [facility] Functional Status Date Assessment Result Facility 02-14-2025 Functional status 110/80 025 4:08 PM EDT Pearl Clements MA 110/80 [facility] Work Phone: 02-14-2025 Vital signs 91 02/14/2025 4: 08 PM EDT Pearl Clements MA [facility] Work Phone: 01-23-2025 Jackson - suicide severity rating scale screener - recent [C-SSRS] [facility] Work Phone: 01-23-2025 [facility] Work Phone: 01-23-2025 Functional status [facility] 06-07-2014 Are you deaf, or do you have serious difficulty hearing No 06/07/2014 3:12 PM Grecia Morales MA No [facility] 06-07-2014 Are you blind, or do you have serious difficulty seeing, even when wearing glasses No 06/07/2014 3:12 PM Grecia Morales MA No [facility] 06-07-2014 Do you have serious difficulty walking or climbing stairs No 06/07/2014 3:12 PM Grecia Morales MA [facility] 06-07-2014 Do you have difficul ty dressing or bathing No 06/07/2014 3:12 PM Grecia Morales MA [facility] 06-07-2014 Because of a physica l, mental, or emotional condition, do you have difficulty doing errands alone such as visiting a physician's office or shopping No 06/07/2014 3:12 PM Grecia Morales MA No [facility] Work Phone: NEGATED: Highlighted row Functional performance Functional status health issues are not documented Disease [facility] Work Phone: Mental Status Date Assessment Result Facility 01-23-2025 Cognitive function finding Negative 01/23/2025 1:53 PM Parisa Valdivia RN Negative [facility] Work Phone: 06-07-2014 Because of a physical, mental, or emotional condition, do you have serious difficulty concentrating, remembering, or making decisions No 06/07/2014 3:12 PM Grecia Morales MA [facility] NEGATED: Highlighted row Cognitive function [Interpretation] Cognitive status health issues are not documented Disease [facility] Work Phone: Clinical Notes 07-22-2020 to 04-19-2025 Assessment & Plan Note - Tatyana Doll MD - 02/14/2025 5:40 PM EDTAssessment & Plan Note - Tatyana Doll MD - 02/14/2025 5:40 PM EDTChristopher Mahesh Doll MD - 02/14/2025 4:00 PM EDT Note Date & Type Note Facility 04-19-2025 Progress note [facility] 02-14-2025 Evaluation + Plan note Associated Problem(s): Depression Emotionally stable with current dose of medication. Rarely ever has to use Xanax. [facility] Work Phone: 02-14-2025 Evaluation + Plan note Associated Problem(s): GERD (gastroesophageal reflux disease) Stable with PPI. [facility] Work Phone: 02-14-2025 Evaluation + Plan note Associated Problem(s): Diabetes mellitus (Multi) A1c testing below 7, tolerating medication, encouraged about diet and exercise, also encouraged quit smoking. [facility] Work Phone: 02-14-2025 Evaluation + Plan note Associated Problem(s): Hyperlipidemia Cholesterol stable tolerating 10 mg atorvastatin. T [facility] Work Phone: 02-14-2025 Evaluation + Plan note Associated Problem(s): Benign hypertension Blood pressures under good control, advised about smoking cessation continue with current medication [facility] Work Phone: 02-14-2025 Miscellaneous Notes Associated Problem(s): Depression Emotionally stable with current dose of medication. Rarely ever has to use Xanax. Associated Problem(s): GERD (gastroesophageal reflux disease) Stable with PPI. Associated Problem(s): Diabetes mellitus (Multi) A1c testing below 7, tolerating medication, encouraged about diet and exercise, also encouraged quit smoking. Associated Problem(s): Hyperlipidemia Cholesterol stable tolerating 10 mg atorvastatin. Associated Problem(s): Benign hypertension Blood pressures under good control, advised about smoking cessation continue with current medication documented in this encounter [facility] Work Phone: 02-14-2025 History of Present illness Narrative Subjective Patient ID: Aenl Edwards is a 54 y.o. female who presents for 6 MO LABS. HPI No headache, chest pain, shortness of breath, dizziness, lightheadedness, or edema No low blood sugars since last OV, seen opthalmology in the past year, and no numbness or tingling in feet, skin normal. Taking PPI daily without breakthrough symptoms. Reviewed dietary, caffeine, tobacco, alcohol, and NSAID use. No dyspepsia, dysphagia, reflux, melena, or abdominal pain. Had scope done in December Seen dermatology for skin on hand Still smoking Emotionally doing OK Seen urology in [place] Review of Systems Constitutional: Negative for activity change, appetite change, fatigue and unexpected weight change. HENT: Negative for ear pain, nosebleeds, rhinorrhea, sneezing and trouble swallowing. Respiratory: Negative for cough, shortness of breath and wheezing. Cardiovascular: Negative for chest pain, palpitations and leg swelling. Gastrointestinal: Negative for abdominal distention, abdominal pain, constipation, diarrhea, nausea and vomiting. Genitourinary: Negative for difficulty urinating. Musculoskeletal: Negative for arthralgias. Skin: Negative for rash. Neurological: Negative for dizziness, light-headedness, numbness and headaches. Hematological: Negative for adenopathy. Psychiatric/Behavioral: Negative for behavioral problems. All other systems reviewed and are negative. Objective BP 110/80 Pulse 91 Ht 1.702 m (5' 7) Wt 88.5 kg (195 lb 3.2 oz) SpO2 96% BMI 30.57 kg/m Physical Exam Vitals and nursing note reviewed. Constitutional: General: She is not in acute distress. Appearance: Normal appearance. She is not toxic-appearing. HENT: Head: Normocephalic and atraumatic. Right Ear: Tympanic membrane, ear canal and external ear normal. Left Ear: Tympanic membrane, ear canal and external ear normal. Nose: Nose normal. Mouth/Throat: Mouth: Mucous membranes are moist. Pharynx: Oropharynx is clear. Eyes: Extraocular Movements: Extraocular movements intact. Conjunctiva/sclera: Conjunctivae normal. Pupils: Pupils are equal, round, and reactive to light. Cardiovascular: Rate and Rhythm: Normal rate and regular rhythm. Pulses: Normal pulses. Heart sounds: Normal heart sounds. Pulmonary: Effort: Pulmonary effort is normal. Breath sounds: Normal breath sounds. Abdominal: General: Abdomen is flat. Bowel sounds are normal. Palpations: Abdomen is soft. Musculoskeletal: Cervical back: Normal range of motion and neck supple. Skin: General: Skin is warm and dry. Capillary Refill: Capillary refill takes less than 2 seconds. Neurological: General: No focal deficit present. Mental Status: She is alert and oriented to person, place, and time. Mental status is at baseline. Psychiatric: Mood and Affect: Mood normal. Behavior: Behavior normal. Assessment/Plan Problem List Items Addressed This Visit ICD-10-CM Benign hypertension I10 Blood pressures under good control, advised about smoking cessation continue with current medication Relevant Orders Follow Up In Primary Care - Established Albumin-Creatinine Ratio, Urine Random Comprehensive Metabolic Panel Depression F32.A Emotionally stable with current dose of medication. Rarely ever has to use Xanax. Relevant Orders Follow Up In Primary Care - Established Follow Up In Primary Care - Established Diabetes mellitus (Multi) E11.9 A1c testing below 7, tolerating medication, encouraged about diet and exercise, also encouraged quit smoking. Relevant Orders Follow Up In Primary Care - Established Albumin-Creatinine Ratio, Urine Random Comprehensive Metabolic Panel Hemoglobin A1C Thyroid Stimulating Hormone Lipid Panel GERD (gastroesophageal reflux disease) K21.9 Stable with PPI. Relevant Orders Follow Up In Primary Care - Established Follow Up In Primary Care - Established Hyperlipidemia E78.5 Cholesterol stable tolerating 10 mg atorvastatin. Relevant Orders Follow Up In Primary Care - Established Comprehensive Metabolic Panel Lipid Panel Follow Up In Primary Care - Established Comprehensive Metabolic Panel Lipid Panel Other Visit Diagnoses Codes B12 deficiency E53.8 Relevant Orders Follow Up In Primary Care - Established CBC and Auto Differential Vitamin B12 : Breast cancer screening both up-to-date. Patient has had a Pap smear in the past few years documented in this encounter [facility] Work Phone: 01-23-2025 Hospital Discharge instructions Parisa Peterson RN - 01/23/2025 1:17 PM EDT Patient Instructions after a Colonoscopy The anesthetics, sedatives or narcotics which were given to you today will be acting in your body for the next 24 hours, so you might feel a little sleepy or groggy. This feeling should slowly wear off. Carefully read and follow the instructions. You received sedation today: - Do not drive or operate any machinery or power tools of any kind. - No alcoholic beverages today, not even beer or wine. - Do not make any important decisions or sign any legal documents. - No over the counter medications that contain alcohol or that may cause drowsiness. - Do not make any important decisions or sign any legal documents. - Make sure you have someone with you for first 24 hours. While it is common to experience mild to moderate abdominal distention, gas, or belching after your procedure, if any of these symptoms occur following discharge from the GI Lab or within one week of having your procedure, call the [facility] to be advised whether a visit to your nearest Urgent Care or Emergency Department is indicated. Take this paper with you if you go. - If you develop an allergic reaction to the medications that were given during your procedure such as difficulty breathing, rash, hives, severe nausea, vomiting or lightheadedness. - If you experience chest pain, shortness of breath, severe abdominal pain, fevers and chills. -If you develop signs and symptoms of bleeding such as blood in your spit, if your stools turn black, tarry, or bloody - If you have not urinated within 8 hours following your procedure. - If your IV site becomes painful, red, inflamed, or looks infected. If you received a biopsy/polypectomy/sphincterotom y the following instructions apply below: _X_ Do not use Aspirin containing products, non-steroidal medications or anti-coagulants for one week following your procedure. (Examples of these types of medications are: Advil, Arthrotec, Aleve, Coumadin, Ecotrin, Heparin, Ibuprofen, Indocin, Motrin, Naprosyn, Nuprin, Plavix, Vioxx, and Voltarin, or their generic forms. This list is not all-inclusive. Check with your physician or pharmacist before resuming medications.) _X_ Eat a soft diet today. Avoid foods that are poorly digested for the next 24 hours. These foods would include: nuts, beans, lettuce, red meats, and fried foods. Start with liquids and advance your diet as tolerated, gradually work up to eating solids. _X_ Do not have a Barium Study or Enema for one week. Your physician recommends the additional following instructions: -You have a contact number available for emergencies. The signs and symptoms of potential delayed complications were discussed with you. You may return to normal activities tomorrow. -Resume your previous diet. -Continue your present medications. -We are waiting for your pathology results. -Your physician has recommended a repeat colonoscopy (date to be determined after pending pathology results are reviewed) for surveillance based on pathology results. -The findings and recommendations have been discussed with you. -The findings and recommendations were discussed with your family. - Please see Medication Reconciliation Form for new medication/medications prescribed. If you experience any problems or have any questions following discharge from the GI Lab, please call: Dr. White's office The following attachments cannot be sent through Care Everywhere.Moderate Sedation in Adults Discharge Instructions (Kazakh)documented in this encounter [facility] Work Phone: 01-23-2025 Hospital Discharge instructions Parisa Peterson RN - 01/23/2025 1:17 PM EDT Patient Instructions after a Colonoscopy The anesthetics, sedatives or narcotics which were given to you today will be acting in your body for the next 24 hours, so you might feel a little sleepy or groggy. This feeling should slowly wear off. Carefully read and follow the instructions. You received sedation today: - Do not drive or operate any machinery or power tools of any kind. - No alcoholic beverages today, not even beer or wine. - Do not make any important decisions or sign any legal documents. - No over the counter medications that contain alcohol or that may cause drowsiness. - Do not make any important decisions or sign any legal documents. - Make sure you have someone with you for first 24 hours. While it is common to experience mild to moderate abdominal distention, gas, or belching after your procedure, if any of these symptoms occur following discharge from the GI Lab or within one week of having your procedure, call the [facility] to be advised whether a visit to your nearest Urgent Care or Emergency Department is indicated. Take this paper with you if you go. - If you develop an allergic reaction to the medications that were given during your procedure such as difficulty breathing, rash, hives, severe nausea, vomiting or lightheadedness. - If you experience chest pain, shortness of breath, severe abdominal pain, fevers and chills. -If you develop signs and symptoms of bleeding such as blood in your spit, if your stools turn black, tarry, or bloody - If you have not urinated within 8 hours following your procedure. - If your IV site becomes painful, red, inflamed, or looks infected. If you received a biopsy/polypectomy/sphincterotom y the following instructions apply below: _X_ Do not use Aspirin containing products, non-steroidal medications or anti-coagulants for one week following your procedure. (Examples of these types of medications are: Advil, Arthrotec, Aleve, Coumadin, Ecotrin, Heparin, Ibuprofen, Indocin, Motrin, Naprosyn, Nuprin, Plavix, Vioxx, and Voltarin, or their generic forms. This list is not all-inclusive. Check with your physician or pharmacist before resuming medications.) _X_ Eat a soft diet today. Avoid foods that are poorly digested for the next 24 hours. These foods would include: nuts, beans, lettuce, red meats, and fried foods. Start with liquids and advance your diet as tolerated, gradually work up to eating solids. _X_ Do not have a Barium Study or Enema for one week. Your physician recommends the additional following instructions: -You have a contact number available for emergencies. The signs and symptoms of potential delayed complications were discussed with you. You may return to normal activities tomorrow. -Resume your previous diet. -Continue your present medications. -We are waiting for your pathology results. -Your physician has recommended a repeat colonoscopy (date to be determined after pending pathology results are reviewed) for surveillance based on pathology results. -The findings and recommendations have been discussed with you. -The findings and recommendations were discussed with your family. - Please see Medication Reconciliation Form for new medication/medications prescribed. If you experience any problems or have any questions following discharge from the GI Lab, please call: Dr. White's office The following attachments cannot be sent through Care Everywhere.Moderate Sedation in Adults Discharge Instructions (Kazakh)documented in this encounter [facility] Work Phone: 01-23-2025 History and physical note History Of Present Illness Betsy Tam is a 54 y.o. female presenting with history of colon polyps for follow-up colonoscopy for surveillance. She is having no issues. We did not get the hallway through last time we did it.. Past Medical History Medical History[1] Surgical History Surgical History[2] Social History She reports that she has been smoking cigarettes. She started smoking about 30 years ago. She has a 15 pack-year smoking history. She has been exposed to tobacco smoke. She has never used smokeless tobacco. She reports that she does not drink alcohol and does not use drugs. Family History Family History[3] Allergies Amoxicillin and Sulfa (sulfonamide antibiotics) Review of Systems Constitutional: Negative for fever. HENT: Negative for trouble swallowing. Eyes: Negative for visual disturbance. Respiratory: Negative for shortness of breath. Cardiovascular: Negative for chest pain. Gastrointestinal: Negative for abdominal pain and vomiting. Genitourinary: Negative for dysuria. Neurological: Negative for weakness and numbness. Physical Exam Constitutional: General: She is not in acute distress. Appearance: She is not toxic-appearing. Eyes: General: No scleral icterus. Extraocular Movements: Extraocular movements intact. Pupils: Pupils are equal, round, and reactive to light. Cardiovascular: Rate and Rhythm: Normal rate. Pulmonary: Effort: Pulmonary effort is normal. No respiratory distress. Abdominal: Palpations: Abdomen is soft. Tenderness: There is no abdominal tenderness. Musculoskeletal: General: No swelling. Neurological: General: No focal deficit present. Mental Status: She is alert and oriented to person, place, and time. Psychiatric: Mood and Affect: Mood normal. Assessment & Plan Hx of colonic polyps Screen for colon cancer Personal history of colon polyps for screening colonoscopy. She is seen with her daughter. Consent is obtained. We discussed the indication for colonoscopy as well as the differential diagnosis including anything from no findings all the way up to a colon cancer. We reviewed the prep as well as the risks and potential complications including but not limited to bleeding, infection, reaction to the anesthetic, stroke NE and/or . We discussed the risk of perforation or need for completion barium studies. All questions were answered and she asked us to proceed. Angelica White MD [1] Past Medical History: Diagnosis Date Acute UTI 10/30/2022 Anxiety Colon polyp Depression Diabetes mellitus (Multi) Encounter for gynecological examination (general) (routine) without abnormal findings Pap test, as part of routine gynecological examination GERD (gastroesophageal reflux disease) Hypertension Kidney stone Personal history of gestational diabetes History of gestational diabetes mellitus (GDM) Personal history of other medical treatment H/O mammogram Personal history of urinary calculi History of kidney stones PONV (postoperative nausea and vomiting) 2020 Type 2 diabetes mellitus Urinary tract infection [2] Past Surgical History: Procedure Laterality Date COLONOSCOPY 12/16/2021 3 year CYSTOSCOPY KIDNEY STONE SURGERY 09/2023 OTHER SURGICAL HISTORY 06/23/2019 Lithotripsy OTHER SURGICAL HISTORY 06/23/2019 Tubal ligation OTHER SURGICAL HISTORY 06/23/2019 Ureteral stent placement OTHER SURGICAL HISTORY 06/23/2019 Esophagogastroduodenoscopy OTHER SURGICAL HISTORY 12/18/2021 Colonoscopy OTHER SURGICAL HISTORY 11/13/2020 Colonoscopy TUBAL LIGATION [3] Family History Problem Relation Name Age of Onset Diabetes type II Mother Alcohol abuse Father Dylan Diabetes type II Father Dylan Cancer Father Dylan Pancreatic cancer Father Dylan Prostate cancer Father Dylan Other (MITRAL VALVE DISORDER) Sister [facility] Work Phone: 01-23-2025 History and physical note History Of Present Illness Betsy Tam is a 54 y.o. female presenting with history of colon polyps for follow-up colonoscopy for surveillance. She is having no issues. We did not get the hallway through last time we did it.. Past Medical History Medical History[1] Surgical History Surgical History[2] Social History She reports that she has been smoking cigarettes. She started smoking about 30 years ago. She has a 15 pack-year smoking history. She has been exposed to tobacco smoke. She has never used smokeless tobacco. She reports that she does not drink alcohol and does not use drugs. Family History Family History[3] Allergies Amoxicillin and Sulfa (sulfonamide antibiotics) Review of Systems Constitutional: Negative for fever. HENT: Negative for trouble swallowing. Eyes: Negative for visual disturbance. Respiratory: Negative for shortness of breath. Cardiovascular: Negative for chest pain. Gastrointestinal: Negative for abdominal pain and vomiting. Genitourinary: Negative for dysuria. Neurological: Negative for weakness and numbness. Physical Exam Constitutional: General: She is not in acute distress. Appearance: She is not toxic-appearing. Eyes: General: No scleral icterus. Extraocular Movements: Extraocular movements intact. Pupils: Pupils are equal, round, and reactive to light. Cardiovascular: Rate and Rhythm: Normal rate. Pulmonary: Effort: Pulmonary effort is normal. No respiratory distress. Abdominal: Palpations: Abdomen is soft. Tenderness: There is no abdominal tenderness. Musculoskeletal: General: No swelling. Neurological: General: No focal deficit present. Mental Status: She is alert and oriented to person, place, and time. Psychiatric: Mood and Affect: Mood normal. Assessment & Plan Hx of colonic polyps Screen for colon cancer Personal history of colon polyps for screening colonoscopy. She is seen with her daughter. Consent is obtained. We discussed the indication for colonoscopy as well as the differential diagnosis including anything from no findings all the way up to a colon cancer. We reviewed the prep as well as the risks and potential complications including but not limited to bleeding, infection, reaction to the anesthetic, stroke NE and/or . We discussed the risk of perforation or need for completion barium studies. All questions were answered and she asked us to proceed. Angelica White MD [1] Past Medical History: Diagnosis Date Acute UTI 10/30/2022 Anxiety Colon polyp Depression Diabetes mellitus (Multi) Encounter for gynecological examination (general) (routine) without abnormal findings Pap test, as part of routine gynecological examination GERD (gastroesophageal reflux disease) Hypertension Kidney stone Personal history of gestational diabetes History of gestational diabetes mellitus (GDM) Personal history of other medical treatment H/O mammogram Personal history of urinary calculi History of kidney stones PONV (postoperative nausea and vomiting) 2019 Type 2 diabetes mellitus Urinary tract infection [2] Past Surgical History: Procedure Laterality Date COLONOSCOPY 12/16/2021 3 year CYSTOSCOPY KIDNEY STONE SURGERY 09/2023 OTHER SURGICAL HISTORY 06/23/2019 Lithotripsy OTHER SURGICAL HISTORY 06/23/2019 Tubal ligation OTHER SURGICAL HISTORY 06/23/2019 Ureteral stent placement OTHER SURGICAL HISTORY 06/23/2019 Esophagogastroduodenoscopy OTHER SURGICAL HISTORY 12/18/2021 Colonoscopy OTHER SURGICAL HISTORY 11/13/2020 Colonoscopy TUBAL LIGATION [3] Family History Problem Relation Name Age of Onset Diabetes type II Mother Alcohol abuse Father Dylan Diabetes type II Father Dylan Cancer Father Dylan Pancreatic cancer Father Dylan Prostate cancer Father Dylan Other (MITRAL VALVE DISORDER) Sister documented in this encounter [facility] Work Phone: 01-23-2025 History and physical note History Of Present Illness Patient had a colonoscopy on 01/23/2025. H&P was done and this is somehow an additional note. Angelica White MD [facility] Work Phone: 01-23-2025 History and physical note History Of Present Illness Patient had a colonoscopy on 01/23/2025. H&P was done and this is somehow an additional note. Angelica White MD History Of Present Illness Betsy Tam is a 54 y.o. female presenting with history of colon polyps for follow-up colonoscopy for surveillance. She is having no issues. We did not get the hallway through last time we did it.. Past Medical History Medical History[1] Surgical History Surgical History[2] Social History She reports that she has been smoking cigarettes. She started smoking about 30 years ago. She has a 15 pack-year smoking history. She has been exposed to tobacco smoke. She has never used smokeless tobacco. She reports that she does not drink alcohol and does not use drugs. Family History Family History[3] Allergies Amoxicillin and Sulfa (sulfonamide antibiotics) Review of Systems Constitutional: Negative for fever. HENT: Negative for trouble swallowing. Eyes: Negative for visual disturbance. Respiratory: Negative for shortness of breath. Cardiovascular: Negative for chest pain. Gastrointestinal: Negative for abdominal pain and vomiting. Genitourinary: Negative for dysuria. Neurological: Negative for weakness and numbness. Physical Exam Constitutional: General: She is not in acute distress. Appearance: She is not toxic-appearing. Eyes: General: No scleral icterus. Extraocular Movements: Extraocular movements intact. Pupils: Pupils are equal, round, and reactive to light. Cardiovascular: Rate and Rhythm: Normal rate. Pulmonary: Effort: Pulmonary effort is normal. No respiratory distress. Abdominal: Palpations: Abdomen is soft. Tenderness: There is no abdominal tenderness. Musculoskeletal: General: No swelling. Neurological: General: No focal deficit present. Mental Status: She is alert and oriented to person, place, and time. Psychiatric: Mood and Affect: Mood normal. Assessment & Plan Hx of colonic polyps Screen for colon cancer Personal history of colon polyps for screening colonoscopy. She is seen with her daughter. Consent is obtained. We discussed the indication for colonoscopy as well as the differential diagnosis including anything from no findings all the way up to a colon cancer. We reviewed the prep as well as the risks and potential complications including but not limited to bleeding, infection, reaction to the anesthetic, stroke NE and/or . We discussed the risk of perforation or need for completion barium studies. All questions were answered and she asked us to proceed. Angelica White MD [1] Past Medical History: Diagnosis Date Acute UTI 10/30/2022 Anxiety Colon polyp Depression Diabetes mellitus (Multi) Encounter for gynecological examination (general) (routine) without abnormal findings Pap test, as part of routine gynecological examination GERD (gastroesophageal reflux disease) Hypertension Kidney stone Personal history of gestational diabetes History of gestational diabetes mellitus (GDM) Personal history of other medical treatment H/O mammogram Personal history of urinary calculi History of kidney stones PONV (postoperative nausea and vomiting) 2019 Type 2 diabetes mellitus Urinary tract infection [2] Past Surgical History: Procedure Laterality Date COLONOSCOPY 12/16/2021 3 year CYSTOSCOPY KIDNEY STONE SURGERY 09/2023 OTHER SURGICAL HISTORY 06/23/2019 Lithotripsy OTHER SURGICAL HISTORY 06/23/2019 Tubal ligation OTHER SURGICAL HISTORY 06/23/2019 Ureteral stent placement OTHER SURGICAL HISTORY 06/23/2019 Esophagogastroduodenoscopy OTHER SURGICAL HISTORY 12/18/2021 Colonoscopy OTHER SURGICAL HISTORY 11/13/2020 Colonoscopy TUBAL LIGATION [3] Family History Problem Relation Name Age of Onset Diabetes type II Mother Alcohol abuse Father Dylan Diabetes type II Father Dylan Cancer Father Dylan Pancreatic cancer Father Dylan Prostate cancer Father Dylan Other (MITRAL VALVE DISORDER) Sister documented in this encounter [facility] Work Phone: 12-01-2024 History of Present illness Narrative Subjective Patient ID: Anel Edwards is a 54 y.o. female who presents for RT Hand Lesion. HPI Review of Systems Skin: Positive for rash. Objective BP 120/70 Pulse 96 Ht 1.676 m (5' 6) Wt 88.5 kg (195 lb) SpO2 96% BMI 31.47 kg/m Physical Exam Vitals and nursing note reviewed. Constitutional: Appearance: Normal appearance. Skin: Comments: Raised papular/pustular type lesions on the right hand, could be a basal cell carcinoma or a pyogenic granuloma. Neurological: Mental Status: She is alert. Assessment/Plan Problem List Items Addressed This Visit None Visit Diagnoses Codes Skin lesion of right upper extremity - Primary L98.9 Refer to dermatology per patient's request Relevant Orders Referral to Dermatology documented in this encounter [facility] Work Phone: 11-29-2024 Note HNO ID: [id number] Author: ДМИТРИЙ GUY MD Service: ? Author Type: Physician Type: Progress Notes Filed: 11/29/2024 22:52 Note Text: The patient presents for requested ultrasound. Full report available in the Imaging tab in [employer]. Дмитрий Guy MD [facility] 11-29-2024 History of Present illness Narrative The patient presents for requested ultrasound. Full report available in the Imaging tab in [employer]. Дмитрий Guy MD documented in this encounter [facility] 08-31-2024 Note HNO ID: [id number] Author: SHERRELL RICKS APRN.LINDA Service: ? Author Type: Nurse Practitioner Type: Progress Notes Filed: 08/31/2024 11:05 Note Text: Betsy Edwards is a 54 year old female who presents for follow up to discuss pelvic ultrasound. HPI: Betsy reported early fullness at her annual on 08/03/24. Pelvic ultrasound was ordered. Ultrasound on 08/18/24 showed: The uterus is anteverted and measures 76 mm x 36 mm x 55 mm. The avascular endometrium is inhomogeneous and thickened measuring 7 mm. Endometrial pathology cannot be excluded. The right ovary measures 17 mm x 16 mm x 23 mm. The left ovary measures 15 mm x 24 mm x 30 mm and contains two ovarian cysts. 1. There is a 9 mm x 11 mm x 11 mm unilocular simple cyst with thickened wall. O-RADS 2 2. There is a 6 mm x 7 mm x 8 mm unilocular non-simple cyst (internal debris and/or incomplete septation) with smooth inner wall. O-RADS 2 There is no free fluid visualized. Repeat ultrasound in 2 months to ensure non simple cyst resolves has been ordered. 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 Specialist History Comments: Sexual Activity: Yes; Male Contraception: Tubal Ligation, None PAST MEDICAL HISTORY Diagnosis Date Calculus of kidney Diabetes, gestational HTN (hypertension) Hyperlipidemia Infertility, female Ovarian cyst Uterine polyp PAST SURGICAL HISTORY Procedure Laterality Date COLONOSCOPY SCREENING 2021 [facility], polyp - 3 yr interval KIDNEY STONE SURGERY HX LIG/TRNSXJ FLP TUBE ABDL/VAG APPR UNI/BI Tubal ligation FAMILY HISTORY Problem Relation Age of Onset other (covid related lung illness) Mother Cancer Father prostate Breast Cancer Sister unknown hx - 40's Social History Tobacco Use Smoking status: Every Day Current packs/day: 0.50 Average packs/day: 0.5 packs/day for 10.0 years (5.0 ttl pk-yrs) Types: Cigarettes Passive exposure: Never Smokeless tobacco: Never Tobacco comments: trying to quit Vaping Use Vaping status: Never Used Substance Use Topics Alcohol use: No Drug use: No Current Outpatient Medications Medication Sig losartan (COZAAR) 50 mg tablet Take 50 mg by mouth once daily. metFORMIN ER (GLUCOPHAGE XR) 750 mg 24 hr tablet Take 1,500 mg by mouth once daily. atorvastatin (LIPITOR) 10 mg tablet Take 10 mg by mouth once daily. pantoprazole DR (PROTONIX) 40 mg tablet Take 40 mg by mouth once daily. ALPRAZolam (XANAX) 0.5 mg tablet TAKE ONE TABLET BY MOUTH DAILY NEEDED FOR ANXIETY escitalopram oxalate (LEXAPRO) 10 mg tablet Take 10 mg by mouth once daily. blood-glucose meter, drum-type(ACCU-CHEK COMPACT PLUS CARE KIT) use as directed No current facility-administered medications for this visit. Allergies As of Date: 08/31/2024 Allergen Noted Reaction AMOXICILLIN 04/05/2014 Hives SULFA (SULFONAMIDE ANTIBIOTICS) 09/17/2005 Hives Fully Assessed 08/03/2024 REVIEW OF SYSTEMS Expanded ROS: ORTHOPEDIC CODER: + ovarian cyst, thickened endometrial lining Allergies and current medication updated:Yes SENSITIVE EXAM: Sensitive exam not performed. EXAM: BP 120/72 Wt 193 lb (87.5kg) LMP 05/04/2015 GENERAL: pleasant, female in no apparent distress HEENT: Normocephalic, atraumatic, mucus membranes moist, and no lesions CHEST: Normal inspiratory effort NEURO: alert and oriented x3,exam grossly non-focal EXTREMITIES: normal ASSESSMENT AND PLAN: 1. Ovarian cyst, left - ICD9: 620.2, ICD10: N83.202 (primary diagnosis) - Repeat ultrasound in 3-4 months to ensure resolution, likely benign 2. Thickened endometrium - ICD9: 793.5, ICD10: R93.89 - No bleeding - Discussed lining is thickened and that endometrial malignancy cannot be ruled out - I recommend an endometrial biopsy. Explained rationale. At this time, Anel declines and would like to re evaluate with the ultrasound in 3-4 months. If lining remains the same or is thickened, will likely accept biopsy. Understands potential risks. Knows to notify provider with bleeding occurs or other new symptoms Sherrell Ricks APRN.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 I spent a total of 20 minutes on the date of the service which included preparing to see the patient, [id number] patient care, completing clinical documentation, obtaining and/or reviewing separately obtained history, and counseling and educating the patient/family/caregiver. [facility] 08-31-2024 History of Present illness Narrative Betsy Edwards is a 54 year old female who presents for follow up to discuss pelvic ultrasound. HPI: Betsy reported early fullness at her annual on 08/03/24. Pelvic ultrasound was ordered. Ultrasound on 08/18/24 showed: The uterus is anteverted and measures 76 mm x 36 mm x 55 mm. The avascular endometrium is inhomogeneous and thickened measuring 7 mm. Endometrial pathology cannot be excluded. The right ovary measures 17 mm x 16 mm x 23 mm. The left ovary measures 15 mm x 24 mm x 30 mm and contains two ovarian cysts. 1. There is a 9 mm x 11 mm x 11 mm unilocular simple cyst with thickened wall. O-RADS 2 2. There is a 6 mm x 7 mm x 8 mm unilocular non-simple cyst (internal debris and/or incomplete septation) with smooth inner wall. O-RADS 2 There is no free fluid visualized. Repeat ultrasound in 2 months to ensure non simple cyst resolves has been ordered. 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 Specialist History Comments: Sexual Activity: Yes; Male Contraception: Tubal Ligation, None PAST MEDICAL HISTORY Diagnosis Date Calculus of kidney Diabetes, gestational HTN (hypertension) Hyperlipidemia Infertility, female Ovarian cyst Uterine polyp PAST SURGICAL HISTORY Procedure Laterality Date COLONOSCOPY SCREENING 2021 [facility], polyp - 3 yr interval KIDNEY STONE SURGERY HX LIG/TRNSXJ FLP TUBE ABDL/VAG APPR UNI/BI Tubal ligation FAMILY HISTORY Problem Relation Age of Onset other (covid related lung illness) Mother Cancer Father prostate Breast Cancer Sister unknown hx - 40's Social History Tobacco Use Smoking status: Every Day Current packs/day: 0.50 Average packs/day: 0.5 packs/day for 10.0 years (5.0 ttl pk-yrs) Types: Cigarettes Passive exposure: Never Smokeless tobacco: Never Tobacco comments: trying to quit Vaping Use Vaping status: Never Used Substance Use Topics Alcohol use: No Drug use: No Current Outpatient Medications Medication Sig losartan (COZAAR) 50 mg tablet Take 50 mg by mouth once daily. metFORMIN ER (GLUCOPHAGE XR) 750 mg 24 hr tablet Take 1,500 mg by mouth once daily. atorvastatin (LIPITOR) 10 mg tablet Take 10 mg by mouth once daily. pantoprazole DR (PROTONIX) 40 mg tablet Take 40 mg by mouth once daily. ALPRAZolam (XANAX) 0.5 mg tablet TAKE ONE TABLET BY MOUTH DAILY NEEDED FOR ANXIETY escitalopram oxalate (LEXAPRO) 10 mg tablet Take 10 mg by mouth once daily. blood-glucose meter, drum-type(ACCU-CHEK COMPACT PLUS CARE KIT) use as directed No current facility-administered medications for this visit. Allergies As of Date: 08/31/2024 Allergen Noted Reaction AMOXICILLIN 04/05/2014 Hives SULFA (SULFONAMIDE ANTIBIOTICS) 09/17/2005 Hives Fully Assessed 08/03/2024 REVIEW OF SYSTEMS Expanded ROS: ORTHOPEDIC CODER: + ovarian cyst, thickened endometrial lining Allergies and current medication updated:Yes SENSITIVE EXAM: Sensitive exam not performed. EXAM: BP 120/72 Wt 193 lb (87.5kg) LMP 05/04/2015 GENERAL: pleasant, female in no apparent distress HEENT: Normocephalic, atraumatic, mucus membranes moist, and no lesions CHEST: Normal inspiratory effort NEURO: alert and oriented x3,exam grossly non-focal EXTREMITIES: normal ASSESSMENT AND PLAN: 1. Ovarian cyst, left - ICD9: 620.2, ICD10: N83.202 (primary diagnosis) - Repeat ultrasound in 3-4 months to ensure resolution, likely benign 2. Thickened endometrium - ICD9: 793.5, ICD10: R93.89 - No bleeding - Discussed lining is thickened and that endometrial malignancy cannot be ruled out - I recommend an endometrial biopsy. Explained rationale. At this time, Anel declines and would like to re evaluate with the ultrasound in 3-4 months. If lining remains the same or is thickened, will likely accept biopsy. Understands potential risks. Knows to notify provider with bleeding occurs or other new symptoms Sherrell Ricks APRN.LINDA I spent a total of 20 minutes on the date of the service which included preparing to see the patient, [id number] patient care, completing clinical documentation, obtaining and/or reviewing separately obtained history, and counseling and educating the patient/family/caregiver. documented in this encounter [facility] 08-22-2024 Telephone encounter Note Patient notified of results, verbalizes understanding of instructions. In office follow up scheduled per request. 2 month follow up ultrasound scheduled. Vi Easton RN [facility] 08-22-2024 Miscellaneous Notes Patient notified of results, verbalizes understanding of instructions. In office follow up scheduled per request. 2 month follow up ultrasound scheduled. Vi Easton RN Please call patient -- I've reviewed her ultrasound. 2 small cysts to left ovary, most likely benign. One of them is a non simple cyst, so I recommend repeat ultrasound in 2 months to ensure resolution. Her uterine lining is thickened for a postmenopausal woman. I recommend an appointment in person or virtually to discuss expectant management vs endometrial biopsy Sherrell Ricks APRN.LINDA documented in this encounter [facility] 08-22-2024 Telephone encounter Note Please call patient -- I've reviewed her ultrasound. 2 small cysts to left ovary, most likely benign. One of them is a non simple cyst, so I recommend repeat ultrasound in 2 months to ensure resolution. Her uterine lining is thickened for a postmenopausal woman. I recommend an appointment in person or virtually to discuss expectant management vs endometrial biopsy Sherrell Ricks APRN.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 [facility] 08-20-2024 Note HNO ID: [id number] Author: ДМИТРИЙ GUY MD Service: ? Author Type: Physician Type: Progress Notes Filed: 08/21/2024 00:03 Note Text: The patient presents for requested ultrasound. Full report available in the Imaging tab in Syn[employer]. Дмитрий Guy MD [facility] 08-20-2024 History of Present illness Narrative The patient presents for requested ultrasound. Full report available in the Imaging tab in [employer]. Дмитрий Guy MD documented in this encounter [facility] 08-17-2024 Evaluation + Plan note Associated Problem(s): Depression Emotionally stable with current dose of medication. Rarely ever has to use Xanax. [facility] Work Phone: 08-17-2024 Evaluation + Plan note Associated Problem(s): GERD (gastroesophageal reflux disease) Stable with PPI. [facility] Work Phone: 08-17-2024 Evaluation + Plan note Associated Problem(s): Diabetes mellitus (Multi) A1c testing below 7, tolerating medication, encouraged about diet and exercise, also encouraged quit smoking. [facility] Work Phone: 08-17-2024 Evaluation + Plan note Associated Problem(s): Hyperlipidemia Cholesterol stable tolerating 10 mg atorvastatin. [facility] Work Phone: 08-17-2024 Evaluation + Plan note Associated Problem(s): Benign hypertension Blood pressures under good control, advised about smoking cessation continue with current medication [facility] Work Phone: 08-17-2024 Miscellaneous Notes Associated Problem(s): Depression Emotionally stable with current dose of medication. Rarely ever has to use Xanax. Associated Problem(s): GERD (gastroesophageal reflux disease) Stable with PPI. Associated Problem(s): Diabetes mellitus (Multi) A1c testing below 7, tolerating medication, encouraged about diet and exercise, also encouraged quit smoking. Associated Problem(s): Hyperlipidemia Cholesterol stable tolerating 10 mg atorvastatin. Associated Problem(s): Benign hypertension Blood pressures under good control, advised about smoking cessation continue with current medication documented in this encounter [facility] Work Phone: 08-17-2024 History of Present illness Narrative Subjective Patient ID: Anel Edwards is a 54 y.o. female who presents for 6 MO LABS. HPI No headache, chest pain, shortness of breath, dizziness, lightheadedness, or edema No low blood sugars since last OV, seen opthalmology in the past year, and no numbness or tingling in feet, skin normal. Taking PPI daily without breakthrough symptoms. Reviewed dietary, caffeine, tobacco, alcohol, and NSAID use. No dyspepsia, dysphagia, reflux, melena, or abdominal pain. 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 HENT: Negative for ear pain, nosebleeds, rhinorrhea, sneezing and trouble swallowing. Respiratory: Negative for cough, shortness of breath and wheezing. Cardiovascular: Negative for chest pain, palpitations and leg swelling. Gastrointestinal: Negative for abdominal distention, abdominal pain, constipation, diarrhea, nausea and vomiting. Genitourinary: Negative for difficulty urinating. Musculoskeletal: Negative for arthralgias. Skin: Negative for rash. Neurological: Negative for dizziness, light-headedness, numbness and headaches. Hematological: Negative for adenopathy. Psychiatric/Behavioral: Negative for behavioral problems. All other systems reviewed and are negative. Objective BP 120/90 Pulse 99 Ht 1.676 m (5' 6) Wt 87 kg (191 lb 12.8 oz) SpO2 98% BMI 30.96 kg/m Physical Exam Vitals and nursing note reviewed. Constitutional: General: She is not in acute distress. Appearance: Normal appearance. She is not toxic-appearing. HENT: Head: Normocephalic and atraumatic. Right Ear: Tympanic membrane, ear canal and external ear normal. Left Ear: Tympanic membrane, ear canal and external ear normal. Nose: Nose normal. Mouth/Throat: Mouth: Mucous membranes are moist. Pharynx: Oropharynx is clear. Eyes: Extraocular Movements: Extraocular movements intact. Conjunctiva/sclera: Conjunctivae normal. Pupils: Pupils are equal, round, and reactive to light. Cardiovascular: Rate and Rhythm: Normal rate and regular rhythm. Pulses: Normal pulses. Heart sounds: Normal heart sounds. Pulmonary: Effort: Pulmonary effort is normal. Breath sounds: Normal breath sounds. Abdominal: General: Abdomen is flat. Bowel sounds are normal. Palpations: Abdomen is soft. Musculoskeletal: Cervical back: Normal range of motion and neck supple. Skin: General: Skin is warm and dry. Capillary Refill: Capillary refill takes less than 2 seconds. Neurological: General: No focal deficit present. Mental Status: She is alert and oriented to person, place, and time. Mental status is at baseline. Psychiatric: Mood and Affect: Mood normal. Behavior: Behavior normal. Assessment/Plan Problem List Items Addressed This Visit ICD-10-CM Benign hypertension I10 Blood pressures under good control, advised about smoking cessation continue with current medication Relevant Medications losartan (Cozaar) 100 mg tablet Other Relevant Orders Follow Up In Primary Care - Established Comprehensive Metabolic Panel Depression F32.A Emotionally stable with current dose of medication. Rarely ever has to use Xanax. Relevant Medications escitalopram (Lexapro) 20 mg tablet Other Relevant Orders Follow Up In Primary Care - Established Follow Up In Primary Care - Established Diabetes mellitus (Multi) E11.9 A1c testing below 7, tolerating medication, encouraged about diet and exercise, also encouraged quit smoking. Relevant Medications metFORMIN XR (Glucophage-XR) 750 mg 24 hr tablet Other Relevant Orders Follow Up In Primary Care - Established Cholesterol, LDL Direct Comprehensive Metabolic Panel Hemoglobin A1C GERD (gastroesophageal reflux disease) K21.9 Stable with PPI. Relevant Medications pantoprazole (ProtoNix) 40 mg EC tablet Other Relevant Orders Follow Up In Primary Care - Established Follow Up In Primary Care - Established Hyperlipidemia E78.5 Cholesterol stable tolerating 10 mg atorvastatin. Relevant Medications atorvastatin (Lipitor) 10 mg tablet Other Relevant Orders Follow Up In Primary Care - Established Cholesterol, LDL Direct Comprehensive Metabolic Panel Follow Up In Primary Care - Established Cholesterol, LDL Direct Comprehensive Metabolic Panel Other Visit Diagnoses Codes B12 deficiency E53.8 Relevant Orders Follow Up In Primary Care - Established documented in this encounter [facility] Work Phone: 08-03-2024 Instructions Sherrell Ricks, [place].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 - 08/03/2024 8:25 AM EST Lubricants and moisturizers list The [id number]-[id number] vaginal moisturizer and lubricant products can be confusing to sort through, especially since there are no FDA requirements for how they can be marketed or labeled. In general there are 3 categories of products: Vaginal lubricants should be used at the time of intercourse to decrease friction. Long acting vaginal moisturizers are used at least twice weekly to increase vaginal (internal) lubrication and elasticity. Vulvar moisturizers are for external use for vulvar comfort and do not impact vaginal lubrication or elasticity. Vaseline petroleum products and oils (baby oil, coconut, olive oil,) can make condoms break, so should not be used with condoms. In many women, these can cause infections. However, if you have sore spots on the vulva (outer lips), then petroleum jelly can sometimes be helpful. All of the products listed below are over the counter. Many can be bought in any drugstore or online. Also, many [employer] stores do carry high-quality lubricant products. VAGINAL LUBRICANTS: (For use during sexual activity) Lubricants should be applied to the outside and opening of the vagina at the time of sexual activity. The lubricant can also be applied to the penis or a device. Silicone based lubricants should not be used on silicone vibrators or toys. Both silicone and water based lubricants are condom compatible. If you use a water based lubricant, it is also important to choose a lubricant with low osmolality since lubricants with high osmolality increase the chance of irritation and infection. Osmolality information can be hard to find. All of the following lubricants have a low osmolality, are pH balanced, and are preservative free. WATER BASED LUBRICANTS Good Clean Love (made of organic ingredients) Pulse H2Oh! Sylk Natural System Mónica PreSeed (Does not impact sperm motility and can be used if trying to conceive, also good for those with multiple sensitivities, though may not work as well) SILICONE BASED LUBRICANTS Uber lube Replens Silky Smooth Pulse Aloe-ahh Wet [place] MÓNICA Premium Personal Lubricant PINK Silicone Lubricant SLIQUID Organics silk Pulse is a hands free personal lubricant warming dispenser and is sold with water or silicone based lubricant pods that some women prefer for travel. LONG ACTING VAGINAL MOISTURIZERS: (For regular use inside vagina to maintain moisture) Long acting vaginal moisturizers should be used at least twice weekly on a regular basis. Many women find they need to use a moisturizer 3-5 times/week. In addition, it is important to not only apply the moisturizer inside the vagina, but also to apply to the vestibule (the external area surrounding the opening of the vagina). Women who are not sexually active often find that the regular use of a long acting vaginal moisturizer makes them feel more comfortable. Pipefitter beware: many lubricants are labeled as moisturizers to make them more appealing to consumers (even though they don t function as a true moisturizer). Replens Long Acting Vaginal Moisturizer (Available in all drugstores) HyaloGyn Vaginal Hydrating Gel (hybrid moisturizer, but can function as lubricant too) Revaree (hyaluronic acid) VULVAR MOISTURIZERS: (For external use) Replens Moisture Restore Comfort Gel is to be used externally for dry vulvar skin. Aquaphor can also be applied externally for comfort. [place] Aloe Francitas: Many people are allergic to aloe, so keep this in mind with products like this that have aloe in it. Medicine Mama s V magic: Not much medical studies on this, but many patients swear by it, has oil, beeswax and honey in it- best used externally only. [facility] s Smoking Cessation Program The [facility] Smoking Cessation Program is a comprehensive, multifaceted program that can be tailored to your individual needs. We offer a variety of services designed to help you throughout the process, including office visits, distance health visits (virtual or telephone), and the eCoach program or pharmacy consultations. To schedule, call [phone] Appointments: An office visit: This is a one-on-one approach where you go to an office and meet with the provider to discuss your options for quitting. Distance health visits: This type of visit can be completed via virtual visit or telephone visit. Virtual visits require a smartphone, tablet or computer with access to a webcam, microphone and Internet connection. You will need to sign up for [employer] prior to your virtual visit. Telephone visits can be completed via audio only if patient does not have access to the above Pharmacotherapy Nicotine replacement therapy (patches, gum, lozenges, inhalers or nasal spray) Bupropion (Wellbutrin) Chantix Integrative and Lifestyle Medicine Services: Acupuncture Holistic Psychotherapy Meditation Yoga And more The eCoach program Expert tips tailored to you Behavioral replacements Recognizing individual triggers On your schedule Pharmacy consultation You can meet with a pharmacist (either online or in person) to discuss smoking cessation medications, including: Nicotine replacement therapy: gum, patches, lozenges, inhalers or nasal spray Bupropion SR Varenicline (Chantix ) The [place] [employer] (ACS) has a section devoted to quitting tobacco with information on where to get help, interactive tools, the relationship of tobacco and cancer, how to keep your kids smoke-free, smoke-free communities and the ACS s annual [place] Smokeout. Visit this link for more info: https://www.cancer.org/cancer/ri sk-prevention/tobacco/guide-quit ting-smoking.html The [place] [employer] Association has tools, tips, support and fact sheets to help you stop smoking or to help a loved one quit. There s also more information about [place] From Smoking , the program we use in our smoking classes at [facility]. Visit this link for more info: https://www.lung.org/quit-smokin g/uuzu-cdvthtc-ygyq-smoking The National Cancer Haiku s site, Smokefree.gov, has an abundance of free and accurate resources to encourage smokers to stop: Smokefree apps for your smartphone offer individualized guidance once you input your information You can sign up for the SmokefreeBranded OnlineT text messaging program, which sends you daily text messages with encouragement, tips and advice to help making quitting easier Create a personalized Quit Plan by choosing a quit date and answering seven questions Take a quiz on your withdrawal symptoms See how you can prepare to quit 5-859-UNHA-NOW is the national portal to a network of state quitlines. Quitlines offer evidence-based support--like counseling, referrals to local programs, and free medication--to people who want to quit tobacco. documented in this encounter [facility] 08-03-2024 Note HNO ID: [id number] Author: SHERRELL RICKS APRN.CNP Service: ? Author Type: Nurse Practitioner Type: Progress Notes Filed: 08/03/2024 08:26 Note Text: Tack Cutter offered: Patient declinesNicholas Meyer is a 54 year old who presents for an annual gynecologic exam without complaints. She has noticed some early fullness. recovering from shoulder infection. Postmenopausal: Yes HRT use: No. 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 Comments: Sexual Activity: Yes; Male Contraception: Tubal Ligation, None PAST MEDICAL HISTORY Diagnosis Date Calculus of kidney Diabetes, gestational HTN (hypertension) Hyperlipidemia Infertility, female Ovarian cyst Uterine polyp PAST SURGICAL HISTORY Procedure Laterality Date COLONOSCOPY SCREENING 2021 [facility], polyp - 3 yr interval KIDNEY STONE SURGERY HX LIG/TRNSXJ FLP TUBE ABDL/VAG APPR UNI/BI Tubal ligation FAMILY HISTORY Problem Relation Age of Onset other (covid related lung illness) Mother Cancer Father prostate Breast Cancer Sister unknown hx - 40's SOCIAL HISTORY Social History Tobacco Use Smoking status: Every Day Current packs/day: 0.50 Average packs/day: 0.5 packs/day for 10.0 years (5.0 ttl pk-yrs) Types: Cigarettes Passive exposure: Never Smokeless tobacco: Never Tobacco comments: trying to quit Vaping Use Vaping status: Never Used Substance Use Topics Alcohol use: No Drug use: No REVIEW OF SYSTEMS Abdomen: No abdominal pain, nausea, vomiting, diarrhea, or constipation. No bloating, early satiety, indigestion, or increased flatulence. Bladder: No dysuria, gross hematuria, urinary frequency, urinary urgency, or incontinence Breast: No breast lumps, nipple d/c, overlying skin changes, redness or skin retraction Allergies and current medication updated:Yes SENSITIVE EXAM: The sensitive examination was discussed with the Patient or Patient's Authorized [place]olog[place] Lacer. As applicable, any other physician, advance practice provider, medical student, or other health professional student that will be observing or involved in the sensitive examination for educational or training purposes was discussed with the Patient or Authorized Bologna Lacer. The Patient or Authorized Bologna Lacer has agreed to proceed with the sensitive examination. (Sensitive examination includes inspection and/or palpation of the breasts, pelvis, prostate and anorectal regions). EXAM: BP 120/68 Ht 5' 6.142 (1.68m) Wt 191 lb (86.6kg) LMP 05/04/2015 BMI 30.70 kg/(m2). GENERAL: pleasant, female in no apparent distress HEENT: Normocephalic, atraumatic, mucus membranes moist, and no lesions NECK: Supple, full range of motion, no adenopathy, and thyroid normal DERMATOLOGY: Normal, without lesions, non-icteric, and non-hirsute BREAST: soft, non-tender, symmetric, no dominant mass, normal nipple-areolar complex, no lymphadenopathy, and no nipple discharge CHEST: Normal inspiratory effort ABDOMEN: soft, non-tender, and no masses PELVIC: external genitalia normal, normal Bartholin's glands, urethra, Arnold Line's glands, no vulvar lesions, no cervical lesions, atrophic, good vaginal support, physiologic discharge present, normal appearing perineal body and perianal region BIMANUAL: uterus normal size, shape and consistency, no adnexal masses, and non-tender RECTOVAGINAL: deferred. NEURO: alert and oriented x3,exam grossly non-focal EXTREMITIES: normal ASSESSMENT/PLAN: 1) Health maintenance: Pap/HPV up to date 2021. Deferred until 2026. Mammogram ordered Nutrition, exercise and routine health maintenance exams reviewed. Smoking cessation: Patient encouraged to avoid smoking. Colon cancer screening: plans to discuss with PCP this summer TSH/lipids/glucose: followed by PCP BMD: followed by PCP 2) Follow up one year or sooner as needed Early satiety - ICD9: 780.94, ICD10: R68.81 - PELVIC US WHI Sherrell Ricks APRN.LINDA [facility] 08-03-2024 History of Present illness Narrative Tack Cutter offered: Patient declines. Betsy is a 54 year old who presents for an annual gynecologic exam without complaints. She has noticed some early fullness. recovering from shoulder infection. Postmenopausal: Yes HRT use: No. 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 Comments: Sexual Activity: Yes; Male Contraception: Tubal Ligation, None PAST MEDICAL HISTORY Diagnosis Date Calculus of kidney Diabetes, gestational HTN (hypertension) Hyperlipidemia Infertility, female Ovarian cyst Uterine polyp PAST SURGICAL HISTORY Procedure Laterality Date COLONOSCOPY SCREENING 2021 [facility], polyp - 3 yr interval KIDNEY STONE SURGERY HX LIG/TRNSXJ FLP TUBE ABDL/VAG APPR UNI/BI Tubal ligation FAMILY HISTORY Problem Relation Age of Onset other (covid related lung illness) Mother Cancer Father prostate Breast Cancer Sister unknown hx - 40's SOCIAL HISTORY Social History Tobacco Use Smoking status: Every Day Current packs/day: 0.50 Average packs/day: 0.5 packs/day for 10.0 years (5.0 ttl pk-yrs) Types: Cigarettes Passive exposure: Never Smokeless tobacco: Never Tobacco comments: trying to quit Vaping Use Vaping status: Never Used Substance Use Topics Alcohol use: No Drug use: No REVIEW OF SYSTEMS Abdomen: No abdominal pain, nausea, vomiting, diarrhea, or constipation. No bloating, early satiety, indigestion, or increased flatulence. Bladder: No dysuria, gross hematuria, urinary frequency, urinary urgency, or incontinence Breast: No breast lumps, nipple d/c, overlying skin changes, redness or skin retraction Allergies and current medication updated:Yes SENSITIVE EXAM: The sensitive examination was discussed with the Patient or Patient's Authorized Bologna Lacer. As applicable, any other physician, advance practice provider, medical student, or other health professional student that will be observing or involved in the sensitive examination for educational or training purposes was discussed with the Patient or Authorized Bologna Lacer. The Patient or Authorized Bologna Lacer has agreed to proceed with the sensitive examination. (Sensitive examination includes inspection and/or palpation of the breasts, pelvis, prostate and anorectal regions). EXAM: BP 120/68 Ht 5' 6.142 (1.68m) Wt 191 lb (86.6kg) LMP 05/04/2015 BMI 30.70 kg/(m^2). GENERAL: pleasant, female in no apparent distress HEENT: Normocephalic, atraumatic, mucus membranes moist, and no lesions NECK: Supple, full range of motion, no adenopathy, and thyroid normal DERMATOLOGY: Normal, without lesions, non-icteric, and non-hirsute BREAST: soft, non-tender, symmetric, no dominant mass, normal nipple-areolar complex, no lymphadenopathy, and no nipple discharge CHEST: Normal inspiratory effort ABDOMEN: soft, non-tender, and no masses PELVIC: external genitalia normal, normal Bartholin's glands, urethra, Arnold Line's glands, no vulvar lesions, no cervical lesions, atrophic, good vaginal support, physiologic discharge present, normal appearing perineal body and perianal region BIMANUAL: uterus normal size, shape and consistency, no adnexal masses, and non-tender RECTOVAGINAL: deferred. NEURO: alert and oriented x3,exam grossly non-focal EXTREMITIES: normal ASSESSMENT/PLAN: 1) Health maintenance: Pap/HPV up to date 2021. Deferred until 2026. Mammogram ordered Nutrition, exercise and routine health maintenance exams reviewed. Smoking cessation: Patient encouraged to avoid smoking. Colon cancer screening: plans to discuss with PCP this summer TSH/lipids/glucose: followed by PCP BMD: followed by PCP 2) Follow up one year or sooner as needed Early satiety - ICD9: 780.94, ICD10: R68.81 - PELVIC US WHI Sherrell Ricks APRN.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 documented in this encounter [facility] 08-03-2024 History of Present illness Narrative Radiology Service Progress Note PATIENT NAME: Betsy Edwards DATE OF SERVICE: August 03, 2024 TIME: 7:35 AM PATIENT IDENTITY VERIFICATION COMPLETED USING TWO (2) IDENTIFIERS: Name and Date of confirmed by patient verbally. FALL SCREENING: Has the patient had 2 falls in the last year or 1 fall with injury or currently using an Ambulatory Assistive Device (Walker, Cane, Wheelchair, Crutches, etc.)? No PATIENT GENDER DATA: Assigned female at . status: : No status: NO. PATIENT RELEVANT IMPLANT DATA REVIEWED: Not Applicable PATIENT PRESENTS WITH AN IMPLANTABLE OR ATTACHED WATER CARTER: No RADIOLOGY DEPARTMENT: Mammography PERIPHERAL IV DATA: Not applicable SIGNED BY: Carol Butler August 03, 2024 7:35 AM documented in this encounter [facility] 08-03-2024 Note HNO ID: [id number] Author: PATRIA HURLEY Mammo Tech Service: ? Author Type: Collar Stay Fuser Tender Type: Progress Notes Filed: 08/03/2024 07:36 Note Text: Radiology Service Progress Note PATIENT NAME: Betsy Edwards DATE OF SERVICE: August 03, 2024 TIME: 7:35 AM PATIENT IDENTITY VERIFICATION COMPLETED USING TWO (2) IDENTIFIERS: Name and Date of confirmed by patient verbally. FALL SCREENING: Has the patient had 2 falls in the last year or 1 fall with injury or currently using an Ambulatory Assistive Device (Walker, Cane, Wheelchair, Crutches, etc.)? No PATIENT GENDER DATA: Assigned female at . status: : No status: NO. PATIENT RELEVANT IMPLANT DATA REVIEWED: Not Applicable PATIENT PRESENTS WITH AN IMPLANTABLE OR ATTACHED WATER CARTER: No RADIOLOGY DEPARTMENT: Mammography PERIPHERAL IV DATA: Not applicable SIGNED BY: Carol Butler August 03, 2024 7:35 AM [facility] 07-06-2024 Note HPI Chief Complaint Patient presents with Foot Pain Pt has concerns of infected big toe on right foot that started x2 days ago. Patient is a pleasant 54-year-old female who comes in today for toe infection. She states that her great toes been looking red for a few days. States it feels poor but does not feel like an ingrown nail. Past Medical History: Diagnosis Date Anxiety Calculus of kidney Diabetes, gestational Hyperlipidemia Hypertension Multiple thyroid nodules Personal history of kidney stones Past Surgical History: Procedure Laterality Date COLONOSCOPY N/A KIDNEY STONE SURGERY N/A TUBAL LIGATION N/A Social History Socioeconomic History Marital status: Tobacco Use Smoking status: Every Day Current packs/day: 0.50 Types: Cigarettes Smokeless tobacco: Never Substance and Sexual Activity Alcohol use: Not Currently Review of Systems Physical Exam Patient is AOx3. Linear and appropriate humor and thought process. Vascular: DP PT pulses are easily palpable. CFT is fair minimal edema to the toe. Derm: Does have erythema dorsally to the nail matrix and full but not ingrown. No streaking no fluctuance no crepitation Neuro: Normal. Musculoskeletal: Present pain to the portions erythematous however overall pain. Impression/Plan Problem List Items Addressed This Visit None Patient is a pleasant 54-year-old female with cellulitis right great toe. Start oral doxycycline 100 mg twice daily for 10 days 20 tabs 0 refills. History of bacteremia and amoxicillin allergy. Can apply Neosporin to the toe daily for comfort. Follow-up in 2 weeks. AUTHENTICATED BY FAZAL MALIK JR., ON 07/06/2024 15:08:39 [facility] 07-06-2024 History of Present illness Narrative HPI Chief Complaint Patient presents with Foot Pain Pt has concerns of infected big toe on right foot that started x2 days ago. Patient is a pleasant 54-year-old female who comes in today for toe infection. She states that her great toes been looking red for a few days. States it feels poor but does not feel like an ingrown nail. Past Medical History: Diagnosis Date Anxiety Calculus of kidney Diabetes, gestational Hyperlipidemia Hypertension Multiple thyroid nodules Personal history of kidney stones Past Surgical History: Procedure Laterality Date COLONOSCOPY N/A KIDNEY STONE SURGERY N/A TUBAL LIGATION N/A Social History Socioeconomic History Marital status: Tobacco Use Smoking status: Every Day Current packs/day: 0.50 Types: Cigarettes Smokeless tobacco: Never Substance and Sexual Activity Alcohol use: Not Currently Review of Systems Physical Exam Patient is AOx3. Linear and appropriate humor and thought process. Vascular: DP PT pulses are easily palpable. CFT is fair minimal edema to the toe. Derm: Does have erythema dorsally to the nail matrix and full but not ingrown. No streaking no fluctuance no crepitation Neuro: Normal. Musculoskeletal: Present pain to the portions erythematous however overall pain. Impression/Plan Problem List Items Addressed This Visit None Patient is a pleasant 54-year-old female with cellulitis right great toe. Start oral doxycycline 100 mg twice daily for 10 days 20 tabs 0 refills. History of bacteremia and amoxicillin allergy. Can apply Neosporin to the toe daily for comfort. Follow-up in 2 weeks. documented in this encounter [facility] 07-06-2024 Instructions Fazal Malik Jr., DPM - 07/06/2024 2:59 PM EST Antibiotic pills for 2 days documented in this encounter [facility] 07-06-2024 History of Present illness Narrative Abstracted from [facility] documented in this encounter [facility] 02-12-2024 Evaluation + Plan note Associated Problem(s): Depression Stable with current medication. [facility] Work Phone: 02-12-2024 Evaluation + Plan note Associated Problem(s): GERD (gastroesophageal reflux disease) Stable with PPI. [facility] Work Phone: 02-12-2024 Evaluation + Plan note Associated Problem(s): Diabetes mellitus (Multi) Again counseled about smoking cessation A1c testing below 7, continue with current medication advised about diet and exercise. [facility] Work Phone: 02-12-2024 Miscellaneous Notes Associated Problem(s): Depression Stable with current medication. Associated Problem(s): GERD (gastroesophageal reflux disease) Stable with PPI. Associated Problem(s): Diabetes mellitus (Multi) Again counseled about smoking cessation A1c testing below 7, continue with current medication advised about diet and exercise. Associated Problem(s): Hyperlipidemia Cholesterol stable tolerating 10 mg atorvastatin. Associated Problem(s): Benign hypertension Blood pressures under good control, advised about smoking cessation continue with current medication documented in this encounter [facility] Work Phone: 02-12-2024 Evaluation + Plan note Associated Problem(s): Hyperlipidemia Cholesterol stable tolerating 10 mg atorvastatin. [facility] Work Phone: 02-12-2024 Evaluation + Plan note Associated Problem(s): Benign hypertension Blood pressures under good control, advised about smoking cessation continue with current medication [facility] Work Phone: 02-12-2024 History of Present illness Narrative Subjective Patient ID: Anel Edwards is a 53 y.o. female who presents for 6 MO LABS. HPI No headache, chest pain, shortness of breath, dizziness, lightheadedness, or edema No low blood sugars since last OV, seen opthalmology in the past year, and no numbness or tingling in feet, skin normal. Had lithotripsy done in September, no more issues Taking PPI daily without breakthrough symptoms. Reviewed dietary, caffeine, tobacco, alcohol, and NSAID use. No dyspepsia, dysphagia, reflux, melena, or abdominal pain. Emotionally doing OK, occ panic, rare Xanax use Taking oral B12, no more LH/dizzy Still smoking despite trauma counsellor, 1/2 ppd Review of Systems Constitutional: Negative for activity change, appetite change, fatigue and unexpected weight change. HENT: Negative for ear pain, nosebleeds, rhinorrhea, sneezing and trouble swallowing. Respiratory: Negative for cough, shortness of breath and wheezing. Cardiovascular: Negative for chest pain, palpitations and leg swelling. Gastrointestinal: Negative for abdominal distention, abdominal pain, constipation, diarrhea, nausea and vomiting. Genitourinary: Negative for difficulty urinating. Musculoskeletal: Negative for arthralgias. Skin: Negative for rash. Neurological: Negative for dizziness, light-headedness, numbness and headaches. Hematological: Negative for adenopathy. Psychiatric/Behavioral: Negative for behavioral problems. All other systems reviewed and are negative. Objective BP 140/90 Pulse 94 Ht 1.676 m (5' 6) Wt 88.9 kg (196 lb) SpO2 98% BMI 31.64 kg/m Physical Exam Vitals and nursing note reviewed. Constitutional: General: She is not in acute distress. Appearance: Normal appearance. She is not toxic-appearing. HENT: Head: Normocephalic and atraumatic. Right Ear: Tympanic membrane, ear canal and external ear normal. Left Ear: Tympanic membrane, ear canal and external ear normal. Nose: Nose normal. Mouth/Throat: Mouth: Mucous membranes are moist. Pharynx: Oropharynx is clear. Eyes: Extraocular Movements: Extraocular movements intact. Conjunctiva/sclera: Conjunctivae normal. Pupils: Pupils are equal, round, and reactive to light. Cardiovascular: Rate and Rhythm: Normal rate and regular rhythm. Pulses: Normal pulses. Heart sounds: Normal heart sounds. Pulmonary: Effort: Pulmonary effort is normal. Breath sounds: Normal breath sounds. Abdominal: General: Abdomen is flat. Bowel sounds are normal. Palpations: Abdomen is soft. Musculoskeletal: Cervical back: Normal range of motion and neck supple. Skin: General: Skin is warm and dry. Capillary Refill: Capillary refill takes less than 2 seconds. Neurological: General: No focal deficit present. Mental Status: She is alert and oriented to person, place, and time. Mental status is at baseline. Psychiatric: Mood and Affect: Mood normal. Behavior: Behavior normal. Assessment/Plan Problem List Items Addressed This Visit ICD-10-CM Benign hypertension I10 Blood pressures under good control, advised about smoking cessation continue with current medication Relevant Orders Follow Up In Primary Care - Established Albumin-Creatinine Ratio, Urine Random Comprehensive Metabolic Panel Depression F32.A Stable with current medication. Relevant Orders Follow Up In Primary Care - Established Follow Up In Primary Care - Established Diabetes mellitus (Multi) - Primary E11.9 Again counseled about smoking cessation A1c testing below 7, continue with current medication advised about diet and exercise. Relevant Orders Follow Up In Primary Care - Established Albumin-Creatinine Ratio, Urine Random Comprehensive Metabolic Panel Hemoglobin A1C Thyroid Stimulating Hormone Lipid Panel GERD (gastroesophageal reflux disease) K21.9 Stable with PPI. Relevant Orders Follow Up In Primary Care - Established Follow Up In Primary Care - Established Hyperlipidemia E78.5 Cholesterol stable tolerating 10 mg atorvastatin. Relevant Orders Follow Up In Primary Care - Established Comprehensive Metabolic Panel Lipid Panel Follow Up In Primary Care - Established Comprehensive Metabolic Panel Lipid Panel Other Visit Diagnoses Codes B12 deficiency E53.8 Relevant Orders Follow Up In Primary Care - Established documented in this encounter [facility] Work Phone: 10-06-2023 Note Formatting of this n ote is different from the original. Lithotripsy Extracorporeal Shock Wave (L) Operative Note Date: 10/06/2023 OR Location: [facility] OR Name: Betsy Tam, : 1970, Age: 53 y.o., , Sex: female Diagnosis Pre-op Diagnosis * Kidney stone [N20.0] Post-op Diagnosis * Kidney stone [N20.0] Procedures Lithotripsy Extracorporeal Shock Wave 07324 - [place] LITHOTRIPSY XTRCORP SHOCK WAVE Surgeons * Lo Delarosa - Primary Resident/Fellow/Other Karate Black Belt: Surgeon(s) and Role: Procedure Summary Anesthesia: General ASA: II Anesthesia Staff: Anesthesiologist: Mike Luque MD Estimated Blood Loss: 0mL Intra-op Medications: Administrations occurring from 0730 to 0800 on 10/06/23: * No intraprocedure medications in log * Anesthesia Record Intraprocedure I/O Totals None Specimen: No specimens collected Staff: Rig Supervisor: Haylie Ferraro RN Indications: Anel Edwards is an 53 y.o. female who is having surgery for Kidney stone [N20.0]. The patient was seen in the preoperative area. The risks, benefits, complications, treatment options, non-operative alternatives, expected recovery and outcomes were discussed with the patient. The possibilities of reaction to medication, pulmonary aspiration, injury to surrounding structures, bleeding, recurrent infection, the need for additional procedures, failure to diagnose a condition, and creating a complication requiring transfusion or operation were discussed with the patient. The patient concurred with the proposed plan, giving informed consent. The site of surgery was properly noted/marked if necessary per policy. The patient has been actively warmed in preoperative area. Surgeon: Lo Delarosa MD Anesthetic: General. Pre-Op Diagnosis: Left Renal stone. Post-Op Diagnosis: Same. Operation: Left extracorporeal shock wave lithotripsy. ESTIMATED BLOOD LOSS: Minimal. COMPLICATIONS: None. INDICATIONS AND CONSENT: Patient presents for Tx of known stone... After the risks, benefits, alternatives, and indications for the procedure were explained to the patient, consented. PROCEDURE: The patient was brought to the operating room and placed on the table in supine position. After adequate anesthesia was obtained, fluoroscopy was used to visualize the stone. A total of 2500 shocks were delivered. The patient tolerated the procedure well. There were no complications. Follow up 4 months with KUB Attending Attestation: I was present and scrubbed for the entire procedure. Lo Delarosa [facility] Work Phone: 10-06-2023 Miscellaneous Notes Lithotripsy Extracorporeal Shock Wave (L) Operative Note Date: 10/06/2023 OR Location: [facility] OR Name: Betsy Tam, : 1970, Age: 53 y.o., , Sex: female Diagnosis Pre-op Diagnosis * Kidney stone [N20.0] Post-op Diagnosis * Kidney stone [N20.0] Procedures Lithotripsy Extracorporeal Shock Wave 03859 - [place] LITHOTRIPSY XTRCORP SHOCK WAVE Surgeons * Lo Delarosa - Primary Resident/Fellow/Other Karate Black Belt: Surgeon(s) and Role: Procedure Summary Anesthesia: General ASA: II Anesthesia Staff: Anesthesiologist: Mike Luque MD Estimated Blood Loss: 0mL Intra-op Medications: Administrations occurring from 0730 to 0800 on 10/06/23: * No intraprocedure medications in log * Anesthesia Record Intraprocedure I/O Totals None Specimen: No specimens collected Staff: Rig Supervisor: Haylie Ferraro RN Indications: Anel Edwards is an 53 y.o. female who is having surgery for Kidney stone [N20.0]. The patient was seen in the preoperative area. The risks, benefits, complications, treatment options, non-operative alternatives, expected recovery and outcomes were discussed with the patient. The possibilities of reaction to medication, pulmonary aspiration, injury to surrounding structures, bleeding, recurrent infection, the need for additional procedures, failure to diagnose a condition, and creating a complication requiring transfusion or operation were discussed with the patient. The patient concurred with the proposed plan, giving informed consent. The site of surgery was properly noted/marked if necessary per policy. The patient has been actively warmed in preoperative area. Surgeon: Lo Delarosa MD Anesthetic: General. Pre-Op Diagnosis: Left Renal stone. Post-Op Diagnosis: Same. Operation: Left extracorporeal shock wave lithotripsy. ESTIMATED BLOOD LOSS: Minimal. COMPLICATIONS: None. INDICATIONS AND CONSENT: Patient presents for Tx of known stone... After the risks, benefits, alternatives, and indications for the procedure were explained to the patient, consented. PROCEDURE: The patient was brought to the operating room and placed on the table in supine position. After adequate anesthesia was obtained, fluoroscopy was used to visualize the stone. A total of 2500 shocks were delivered. The patient tolerated the procedure well. There were no complications. Follow up 4 months with KUB Attending Attestation: I was present and scrubbed for the entire procedure. Lo Delarosa documented in this encounter [facility] Work Phone: 10-06-2023 Attending History and physical note H&P reviewed. The patient was examined and there are no changes to the H&P. Source Note - Lo Delarosa MD - 09/14/2023 7:45 AM EDT Subjective Patient ID: Anel Edwards is a 53 y.o. female. HPI Patient is here for KUB results. Hx of kidney stones. Recent CT showed a new 1cm stone in the lower pole of left kidney. LUT'S sx are mild and stable. Denies urgency and frequency. Denies dysuria. Denies hematuria. Nocturia x1.No medication for LUT'S. Hx of gross hematuria. No recent sx. Hx of UTI'S. No recent sx Review of Systems Constitutional: Negative for chills and fever. HENT: Negative. Eyes: Negative. Respiratory: Negative for cough and shortness of breath. Cardiovascular: Negative for chest pain and leg swelling. Gastrointestinal: Negative for nausea. Endocrine: Negative. Genitourinary: Negative for difficulty urinating. Negative except for documented in HPI Allergic/Immunologic: Negative. Neurological: Alert & oriented X 3 Hematological: Denies blood thinners Psychiatric/Behavioral: Negative. Objective Physical Exam Vitals and nursing note reviewed. Pulmonary: Effort: Pulmonary effort is normal. Breath sounds: Normal breath sounds. Abdominal: Palpations: Abdomen is soft. Tenderness: There is no abdominal tenderness. Genitourinary: Comments: Kidneys non palpable bilaterally Bladder non palpable or tender Neurological: Mental Status: She is alert. Assessment/Plan Diagnoses and all orders for this visit: Nocturia Recurrent UTI Kidney stones CT and KUB reviewed Pros/cons of L ESWL discussed Stone prevention discussed. Diet reviewed. Discussed fluid intake Treatment options for LUTS reviewed Discussed timed voiding. Discussed fluid and caffeine intake Lifestyle change to help prevent UTIs discussed. Encouraged fluid intake. F/u LEFT ESWL [facility] Work Phone: 10-06-2023 History and physical note H&P reviewed. The patient was examined and there are no changes to the H&P. Source Note - Lo Delarosa MD - 09/14/2023 7:45 AM EDT Subjective Patient ID: Anel Edwards is a 53 y.o. female. HPI Patient is here for KUB results. Hx of kidney stones. Recent CT showed a new 1cm stone in the lower pole of left kidney. LUT'S sx are mild and stable. Denies urgency and frequency. Denies dysuria. Denies hematuria. Nocturia x1.No medication for LUT'S. Hx of gross hematuria. No recent sx. Hx of UTI'S. No recent sx Review of Systems Constitutional: Negative for chills and fever. HENT: Negative. Eyes: Negative. Respiratory: Negative for cough and shortness of breath. Cardiovascular: Negative for chest pain and leg swelling. Gastrointestinal: Negative for nausea. Endocrine: Negative. Genitourinary: Negative for difficulty urinating. Negative except for documented in HPI Allergic/Immunologic: Negative. Neurological: Alert & oriented X 3 Hematological: Denies blood thinners Psychiatric/Behavioral: Negative. Objective Physical Exam Vitals and nursing note reviewed. Pulmonary: Effort: Pulmonary effort is normal. Breath sounds: Normal breath sounds. Abdominal: Palpations: Abdomen is soft. Tenderness: There is no abdominal tenderness. Genitourinary: Comments: Kidneys non palpable bilaterally Bladder non palpable or tender Neurological: Mental Status: She is alert. Assessment/Plan Diagnoses and all orders for this visit: Nocturia Recurrent UTI Kidney stones CT and KUB reviewed Pros/cons of L ESWL discussed Stone prevention discussed. Diet reviewed. Discussed fluid intake Treatment options for LUTS reviewed Discussed timed voiding. Discussed fluid and caffeine intake Lifestyle change to help prevent UTIs discussed. Encouraged fluid intake. F/u LEFT ESWL documented in this encounter [facility] Work Phone: 09-14-2023 History of Present illness Narrative Subjective Patient ID: Anel Edwards is a 53 y.o. female. HPI Patient is here for KUB results. Hx of kidney stones. Recent CT showed a new 1cm stone in the lower pole of left kidney. LUT'S sx are mild and stable. Denies urgency and frequency. Denies dysuria. Denies hematuria. Nocturia x1.No medication for LUT'S. Hx of gross hematuria. No recent sx. Hx of UTI'S. No recent sx Review of Systems Constitutional: Negative for chills and fever. HENT: Negative. Eyes: Negative. Respiratory: Negative for cough and shortness of breath. Cardiovascular: Negative for chest pain and leg swelling. Gastrointestinal: Negative for nausea. Endocrine: Negative. Genitourinary: Negative for difficulty urinating. Negative except for documented in HPI Allergic/Immunologic: Negative. Neurological: Alert & oriented X 3 Hematological: Denies blood thinners Psychiatric/Behavioral: Negative. Objective Physical Exam Vitals and nursing note reviewed. Pulmonary: Effort: Pulmonary effort is normal. Breath sounds: Normal breath sounds. Abdominal: Palpations: Abdomen is soft. Tenderness: There is no abdominal tenderness. Genitourinary: Comments: Kidneys non palpable bilaterally Bladder non palpable or tender Neurological: Mental Status: She is alert. Assessment/Plan Diagnoses and all orders for this visit: Nocturia Recurrent UTI Kidney stones CT and KUB reviewed Pros/cons of L ESWL discussed Stone prevention discussed. Diet reviewed. Discussed fluid intake Treatment options for LUTS reviewed Discussed timed voiding. Discussed fluid and caffeine intake Lifestyle change to help prevent UTIs discussed. Encouraged fluid intake. F/u LEFT ESWL documented in this encounter [facility] Work Phone: 09-03-2023 History of Present illness Narrative Subjective Patient ID: Anel Edwards is a 53 y.o. female. HPI Patient is here for CT results. . Hx of kidney stones. Recent CT showed a new 1cm stone in the lower pole of left kidney. LUT'S sx are mild and stable. Denies urgency and frequency. Denies dysuria. Denies hematuria. Nocturia x1.No medication for LUT'S. Hx of gross hematuria. No recent sx. Hx of UTI'S. No recent sx Review of Systems Constitutional: Negative for chills and fever. HENT: Negative. Eyes: Negative. Respiratory: Negative for cough and shortness of breath. Cardiovascular: Negative for chest pain and leg swelling. Gastrointestinal: Negative for nausea. Endocrine: Negative. Genitourinary: Negative for difficulty urinating. Negative except for documented in HPI Allergic/Immunologic: Negative. Neurological: Alert & oriented X 3 Hematological: Denies blood thinners Psychiatric/Behavioral: Negative. Objective Physical Exam Vitals and nursing note reviewed. Pulmonary: Effort: Pulmonary effort is normal. Breath sounds: Normal breath sounds. Abdominal: Palpations: Abdomen is soft. Tenderness: There is no abdominal tenderness. Genitourinary: Comments: Kidneys non palpable bilaterally Bladder non palpable or tender Neurological: Mental Status: She is alert. Assessment/Plan Diagnoses and all orders for this visit: Nocturia - POCT UA Automated manually resulted Recurrent UTI Kidney stones Treatment options for LUTS reviewed Discussed timed voiding. Discussed fluid and caffeine intake Lifestyle change to help prevent UTIs discussed. Encouraged fluid intake. CT reviewed KUB ordered Stone prevention discussed. Diet reviewed. Discussed fluid intake F/u 1 week virtual documented in this encounter [facility] Work Phone: 08-13-2023 Evaluation + Plan note Associated Problem(s): Depression Is having some intermittent panic attacks, try increasing Lexapro up to 20 mg a day. If continues to have palpitations consider checking Holter monitor. [facility] Work Phone: 08-13-2023 Miscellaneous Notes Associated Problem(s): Depression Is having some intermittent panic attacks, try increasing Lexapro up to 20 mg a day. If continues to have palpitations consider checking Holter monitor. Associated Problem(s): GERD (gastroesophageal reflux disease) Stable with PPI. Associated Problem(s): Diabetes mellitus ([facility]) A1c testing 6.5, continue with current medication, encouraged about diet and exercise, also advised and counseled about smoking cessation. Associated Problem(s): Hyperlipidemia LDL cholesterol below 100, tolerating low-dose atorvastatin, no change. Associated Problem(s): Benign hypertension Blood pressure stable renal function stable no change. documented in this encounter [facility] Work Phone: 08-13-2023 Evaluation + Plan note Associated Problem(s): GERD (gastroesophageal reflux disease) Stable with PPI. [facility] Work Phone: 08-13-2023 Evaluation + Plan note Associated Problem(s): Diabetes mellitus (CMS/HCC) A1c testing 6.5, continue with current medication, encouraged about diet and exercise, also advised and counseled about smoking cessation. [facility] Work Phone: 08-13-2023 Evaluation + Plan note Associated Problem(s): Hyperlipidemia LDL cholesterol below 100, tolerating low-dose atorvastatin, no change. [facility] Work Phone: 08-13-2023 Evaluation + Plan note Associated Problem(s): Benign hypertension Blood pressure stable renal function stable no change. [facility] Work Phone: 08-13-2023 History of Present illness Narrative Subjective Patient ID: Anel Edwards is a 53 y.o. female who presents for 6 MO LABS. HPI No headache, chest pain, shortness of breath, dizziness, lightheadedness, or edema Taking PPI daily without breakthrough symptoms. Reviewed dietary, caffeine, tobacco, alcohol, and NSAID use. No dyspepsia, dysphagia, reflux, melena, or abdominal pain. No low blood sugars since last OV, seen opthalmology in the past year, and no numbness or tingling in feet, skin normal. Seen urology last week and has seen ORTHOPEDIC CODER in the past month To have CT done per urologist for a large stone Anxiety doing OK, had some issue with heart racing/skin tingling, some anxiety at times Had a few times in a month, occ LH at times Still smoking 1/2 ppd despite trauma counsellor Review of Systems Constitutional: Negative for activity change, appetite change, fatigue and unexpected weight change. HENT: Negative for ear pain, nosebleeds, rhinorrhea, sneezing and trouble swallowing. Respiratory: Negative for cough, shortness of breath and wheezing. Cardiovascular: Negative for chest pain, palpitations and leg swelling. Gastrointestinal: Negative for abdominal distention, abdominal pain, constipation, diarrhea, nausea and vomiting. Genitourinary: Negative for difficulty urinating. Musculoskeletal: Negative for arthralgias. Skin: Negative for rash. Neurological: Negative for dizziness, light-headedness, numbness and headaches. Hematological: Negative for adenopathy. Psychiatric/Behavioral: Negative for behavioral problems. All other systems reviewed and are negative. Objective BP 130/84 Pulse 98 Ht 1.676 m (5' 6) Wt 87.9 kg (193 lb 12.8 oz) SpO2 97% BMI 31.28 kg/m Physical Exam Vitals and nursing note reviewed. Constitutional: General: She is not in acute distress. Appearance: Normal appearance. She is not toxic-appearing. HENT: Head: Normocephalic and atraumatic. Right Ear: Tympanic membrane, ear canal and external ear normal. Left Ear: Tympanic membrane, ear canal and external ear normal. Nose: Nose normal. Mouth/Throat: Mouth: Mucous membranes are moist. Pharynx: Oropharynx is clear. Eyes: Extraocular Movements: Extraocular movements intact. Conjunctiva/sclera: Conjunctivae normal. Pupils: Pupils are equal, round, and reactive to light. Cardiovascular: Rate and Rhythm: Normal rate and regular rhythm. Pulses: Normal pulses. Heart sounds: Normal heart sounds. Pulmonary: Effort: Pulmonary effort is normal. Breath sounds: Normal breath sounds. Abdominal: General: Abdomen is flat. Bowel sounds are normal. Palpations: Abdomen is soft. Musculoskeletal: Cervical back: Normal range of motion and neck supple. Skin: General: Skin is warm and dry. Capillary Refill: Capillary refill takes less than 2 seconds. Neurological: General: No focal deficit present. Mental Status: She is alert and oriented to person, place, and time. Mental status is at baseline. Psychiatric: Mood and Affect: Mood normal. Behavior: Behavior normal. Assessment/Plan Problem List Items Addressed This Visit ICD-10-CM Benign hypertension I10 Blood pressure stable renal function stable no change. Relevant Medications losartan (Cozaar) 100 mg tablet Other Relevant Orders Follow Up In Primary Care - Established Comprehensive Metabolic Panel Depression F32.A Is having some intermittent panic attacks, try increasing Lexapro up to 20 mg a day. If continues to have palpitations consider checking Holter monitor. Relevant Medications escitalopram (Lexapro) 20 mg tablet Other Relevant Orders Follow Up In Primary Care - Established Follow Up In Primary Care - Established Diabetes mellitus ([facility]) - Primary E11.9 A1c testing 6.5, continue with current medication, encouraged about diet and exercise, also advised and counseled about smoking cessation. Relevant Orders Follow Up In Primary Care - Established Cholesterol, LDL Direct Comprehensive Metabolic Panel Hemoglobin A1C GERD (gastroesophageal reflux disease) K21.9 Stable with PPI. Relevant Medications pantoprazole (ProtoNix) 40 mg EC tablet Other Relevant Orders Follow Up In Primary Care - Established Follow Up In Primary Care - Established Hyperlipidemia E78.5 LDL cholesterol below 100, tolerating low-dose atorvastatin, no change. Relevant Medications atorvastatin (Lipitor) 10 mg tablet Other Relevant Orders Follow Up In Primary Care - Established Cholesterol, LDL Direct Comprehensive Metabolic Panel Follow Up In Primary Care - Established Other Visit Diagnoses Codes B12 deficiency E53.8 Relevant Orders Follow Up In Primary Care - Established CBC and Auto Differential Vitamin B12 documented in this encounter [facility] Work Phone: 08-13-2023 Instructions Tatyana Doll MD - 08/13/2023 9:20 AM EST Work ion stopping smoking, if flushing gets worse, call. documented in this encounter [facility] Work Phone: 08-05-2023 History of Present illness Narrative Subjective Patient ID: Anel Edwards is a 53 y.o. female. HPI Patient is here for yearly follow up with Renal US for hx of kidney stones. No recent sx. Denies flank pain. Denies N/V and F/C. Recent US showed mild bilateral hydro and nonobstructive left sided stones. Chronic LUT'S sx are mild and stable. Denies urgency and frequency. Denies dysuria. Denies hematuria. Nocturia x1.No medication for LUT'S. Hx of gross hematuria. No recent sx. Hx of UTI'S. No recent sx Review of Systems Constitutional: Negative for chills and fever. HENT: Negative. Eyes: Negative. Respiratory: Negative for cough and shortness of breath. Cardiovascular: Negative for chest pain and leg swelling. Gastrointestinal: Negative for nausea. Endocrine: Negative. Genitourinary: Negative for difficulty urinating. Negative except for documented in HPI Allergic/Immunologic: Negative. Neurological: Alert & oriented X 3 Hematological: Denies blood thinners Psychiatric/Behavioral: Negative. Objective Physical Exam Vitals and nursing note reviewed. Pulmonary: Effort: Pulmonary effort is normal. Breath sounds: Normal breath sounds. Abdominal: Palpations: Abdomen is soft. Tenderness: There is no abdominal tenderness. Genitourinary: Comments: Kidneys non palpable bilaterally Bladder non palpable or tender Neurological: Mental Status: She is alert. Assessment/Plan Diagnoses and all orders for this visit: Nocturia Recurrent UTI Kidney stones Treatment options for LUTS reviewed Discussed timed voiding. Discussed fluid and caffeine intake Lifestyle change to help prevent UTIs discussed. Encouraged fluid intake. Cipro Rx given for today's UA U/S reviewed CT stone study ordered Past Cysto notes reviewed F/u after CT with repeat UA and KUB documented in this encounter [facility] Work Phone: 07-31-2023 History of Present illness Narrative Radiology Service Progress Note PATIENT NAME: Betsy Edwards DATE OF SERVICE: July 31, 2023 TIME: 7:09 AM PATIENT IDENTITY VERIFICATION COMPLETED USING TWO (2) IDENTIFIERS: Name and Date of confirmed by patient verbally. FALL SCREENING: Has the patient had 2 falls in the last year or 1 fall with injury or currently using an Ambulatory Assistive Device (Walker, Cane, Wheelchair, Crutches, etc.)? No PATIENT GENDER DATA: Female. status: : No status: NO. PATIENT RELEVANT IMPLANT DATA REVIEWED: Not Applicable PATIENT PRESENTS WITH AN IMPLANTABLE OR ATTACHED WATER CARTER: No RADIOLOGY DEPARTMENT: Mammography PERIPHERAL IV DATA: Not applicable SIGNED BY: RT Yudi(R) July 31, 2023 7:09 AM documented in this encounter [facility] 02-10-2023 Evaluation + Plan note Associated Problem(s): Depression Controlled with current medication, was given another prescription for alprazolam, state prescribing database was reviewed prior to prescribing, patient was advised about office policy regarding controlled medicines, further prescriptions will require a controlled medicine agreement. [facility] Work Phone: 02-10-2023 Miscellaneous Notes Associated Problem(s): Depression Controlled with current medication, was given another prescription for alprazolam, state prescribing database was reviewed prior to prescribing, patient was advised about office policy regarding controlled medicines, further prescriptions will require a controlled medicine agreement. Associated Problem(s): GERD (gastroesophageal reflux disease) Controlled with PPI. Associated Problem(s): Diabetes mellitus ([facility]) A1c testing below 7, encouraged about diet and exercise and smoking cessation, continue with current medication. Associated Problem(s): Hyperlipidemia Tolerating low-dose statin therapy, encouraged to quit smoking. Associated Problem(s): Benign hypertension Blood pressure, renal function, and microalbumin are all normal. Continue with losartan. documented in this encounter [facility] Work Phone: 02-10-2023 Evaluation + Plan note Associated Problem(s): GERD (gastroesophageal reflux disease) Controlled with PPI. [facility] Work Phone: 02-10-2023 Evaluation + Plan note Associated Problem(s): Diabetes mellitus (CMS/HCC) A1c testing below 7, encouraged about diet and exercise and smoking cessation, continue with current medication. [facility] Work Phone: 02-10-2023 Evaluation + Plan note Associated Problem(s): Hyperlipidemia Tolerating low-dose statin therapy, encouraged to quit smoking. [facility] Work Phone: 02-10-2023 Evaluation + Plan note Associated Problem(s): Benign hypertension Blood pressure, renal function, and microalbumin are all normal. Continue with losartan. [facility] Work Phone: 02-10-2023 History of Present illness Narrative Subjective Patient ID: Anel Edwards is a 52 y.o. female who presents for 6 MO Labs. HPI No headache, chest pain, shortness of breath, dizziness, lightheadedness, or edema No low blood sugars since last OV, seen opthalmology in the past year, and no numbness or tingling in feet, skin normal. Taking PPI daily without breakthrough symptoms. Reviewed dietary, caffeine, tobacco, alcohol, and NSAID use. No dyspepsia, dysphagia, reflux, melena, or abdominal pain. Taking oral B12, no more CP Anxious about wedding coming up HBP usually less than 140/90 Review of Systems Constitutional: Negative for activity change, appetite change, fatigue and unexpected weight change. HENT: Negative for ear pain, nosebleeds, rhinorrhea, sneezing and trouble swallowing. Respiratory: Negative for cough, shortness of breath and wheezing. Cardiovascular: Negative for chest pain, palpitations and leg swelling. Gastrointestinal: Negative for abdominal distention, abdominal pain, constipation, diarrhea, nausea and vomiting. Genitourinary: Negative for difficulty urinating. Musculoskeletal: Negative for arthralgias. Skin: Negative for rash. Neurological: Negative for dizziness, light-headedness, numbness and headaches. Hematological: Negative for adenopathy. Psychiatric/Behavioral: Negative for behavioral problems. All other systems reviewed and are negative. Objective BP 120/78 Pulse 108 Ht 1.676 m (5' 6) Wt 86.1 kg (189 lb 12.8 oz) SpO2 96% BMI 30.63 kg/m Physical Exam Vitals and nursing note reviewed. Constitutional: Appearance: Normal appearance. HENT: Head: Normocephalic and atraumatic. Right Ear: Tympanic membrane, ear canal and external ear normal. Left Ear: Tympanic membrane, ear canal and external ear normal. Nose: Nose normal. Mouth/Throat: Mouth: Mucous membranes are moist. Pharynx: Oropharynx is clear. Cardiovascular: Rate and Rhythm: Normal rate and regular rhythm. Pulses: Normal pulses. Heart sounds: Normal heart sounds. Pulmonary: Effort: Pulmonary effort is normal. Breath sounds: Normal breath sounds. Musculoskeletal: Cervical back: Normal range of motion and neck supple. Neurological: Mental Status: She is alert. Psychiatric: Mood and Affect: Mood normal. Behavior: Behavior normal. Assessment/Plan Problem List Items Addressed This Visit Benign hypertension - Primary Blood pressure, renal function, and microalbumin are all normal. Continue with losartan. Relevant Orders Follow Up In Primary Care - Established Albumin , Urine Random Comprehensive Metabolic Panel Depression Controlled with current medication, was given another prescription for alprazolam, state prescribing database was reviewed prior to prescribing, patient was advised about office policy regarding controlled medicines, further prescriptions will require a controlled medicine agreement. Relevant Medications ALPRAZolam (Xanax) 0.5 mg tablet Other Relevant Orders Follow Up In Primary Care - Established Diabetes mellitus ([facility]) A1c testing below 7, encouraged about diet and exercise and smoking cessation, continue with current medication. Relevant Orders Follow Up In Primary Care - Established Albumin , Urine Random Comprehensive Metabolic Panel Hemoglobin A1C Thyroid Stimulating Hormone Lipid Panel GERD (gastroesophageal reflux disease) Controlled with PPI. Relevant Orders Follow Up In Primary Care - Established Hyperlipidemia Tolerating low-dose statin therapy, encouraged to quit smoking. Relevant Orders Follow Up In Primary Care - Established Comprehensive Metabolic Panel Lipid Panel Other Visit Diagnoses B12 deficiency Relevant Orders Follow Up In Primary Care - Established CBC Vitamin B12 documented in this encounter [facility] Work Phone: 08-20-2022 History of Present illness Narrative Radiology Service Progress Note PATIENT NAME: Betsy Edwards DATE OF SERVICE: August 20, 2022 TIME: 9:30 AM PATIENT IDENTITY VERIFICATION COMPLETED USING TWO (2) IDENTIFIERS: Name and Date of confirmed by patient verbally. FALL SCREENING: Has the patient had 2 falls in the last year or 1 fall with injury or currently using an Ambulatory Assistive Device (Walker, Cane, Wheelchair, Crutches, etc.)? No PATIENT GENDER DATA: Female. status: : No status: NO. PATIENT RELEVANT IMPLANT DATA REVIEWED: Not Applicable RADIOLOGY DEPARTMENT: Mammography PERIPHERAL IV DATA: Not applicable SIGNED BY: RT Julianne(R) August 20, 2022 9:30 AM documented in this encounter [facility] 07-29-2022 Miscellaneous Notes Orders filed and mychart msg sent. Bushra Good APRN.CNP Pt calling and stated that she got her mammogram results on mychart and she needs to have bilateral dx films. See pended order below in AG absence. Pt stated to respond back per mychart and she will call to schedule dx. Pt has number to call. Betsy Chan LPN documented in this encounter [facility] 07-18-2022 Miscellaneous Notes July 21, 2022 PID: [id number] Betsy David Deepika [address] [place] [address] Dear Ramilarolando, Your recent breast imaging exam on 07/17/2022 showed a possible finding that requires additional imaging studies for a complete evaluation. Most such findings are probably benign (not cancer). If you have a healthcare provider who ordered/prescribed your screening mammogram: Please call [phone] or [phone] to schedule an appointment for your additional imaging (if you have not already done so). If you DO NOT have a healthcare provider (ie you did not have an order/prescription for your screening mammogram): Please call to schedule an appointment for your additional imaging (if you have not already done so). You must have an order/prescription from your physician when calling to schedule your appointment. If your order/prescription is not electronic, you must bring the hard copy with you on the day of your exam to avoid delays. Your imaging studies and reports are kept on file at [facility] as part of your permanent medical record, and are available for your continuing care. Thank you for allowing us to help in meeting your health care needs. Sincerely, Dr. Anders Interpreting Radiologist [facility] (Additional imaging) documented in this encounter [facility] 07-17-2022 Instructions Leeann Blandon APRN.CNP - 07/17/2022 9:04 AM EST Calcium 1200 mg daily - 600 mg twice a day if taking supplement and Vit D 800-1000 IU daily documented in this encounter [facility] 07-17-2022 History of Present illness Narrative Radiology Service Progress Note PATIENT NAME: Betsy Edwards DATE OF SERVICE: July 17, 2022 TIME: 8:25 AM PATIENT IDENTITY VERIFICATION COMPLETED USING TWO (2) IDENTIFIERS: Name and Date of confirmed by patient verbally. FALL SCREENING: Has the patient had 2 falls in the last year or 1 fall with injury or currently using an Ambulatory Assistive Device (Walker, Cane, Wheelchair, Crutches, etc.)? No PATIENT GENDER DATA: Female. status: : No status: NO. PATIENT RELEVANT IMPLANT DATA REVIEWED: Not Applicable RADIOLOGY DEPARTMENT: Mammography PERIPHERAL IV DATA: Not applicable SIGNED BY: RT Julianne(R) July 17, 2022 8:25 AM documented in this encounter [facility] 07-17-2022 History of Present illness Narrative Betsy is a 52 year old who presents for an annual gynecologic exam without complaints. 2 of her children are nurses - HISTORY PROFESSOR cardiology and peds. Postmenopausal: Yes since age 38's HRT use: No. Last Pap: 07/17/2021 normal HPV: 07/17/2021 negative History of abnormal pap: No Last mammogram: today, pending History of abnormal mammogram: No Sexually active: Yes Patient concerns for STD exposure: No. Time with current partner: 36 years Pain with intercourse: No Postcoital bleeding: No Hot flashes: No Night sweats: No Vaginal dryness: No Documentation from previous visit of 07/17/2021 was copied and pasted, documentation has been reviewed and edited as necessary for today's visit. 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 LMP: 05/04/2015, Postmenopausal Age at Menarche: Age at First : Age at Menopause: Operations And Maintenance Specialist History Comments: Sexual Activity: Yes; Male Contraception: Tubal Ligation PAST MEDICAL HISTORY Diagnosis Date Calculus of kidney Diabetes, gestational HTN (hypertension) Hyperlipidemia PAST SURGICAL HISTORY Procedure Laterality Date KIDNEY STONE SURGERY HX LIG/TRNSXJ FLP TUBE ABDL/VAG APPR UNI/BI Tubal ligation FAMILY HISTORY Problem Relation Age of Onset other (covid related lung illness) Mother Cancer Father prostate Breast Cancer Sister unknown hx - 40's SOCIAL HISTORY Social History Tobacco Use Smoking status: Every Day Packs/day: 0.50 Years: 10.00 Pack years: 5.00 Types: Cigarettes Smokeless tobacco: Never Tobacco comments: trying to quit Vaping Use Vaping Use: Never used Substance Use Topics Alcohol use: No Drug use: No REVIEW OF SYSTEMS Abdomen: No abdominal pain, nausea, vomiting, diarrhea, or constipation. No bloating, early satiety, indigestion, or increased flatulence. Bladder: No dysuria, gross hematuria, urinary frequency, urinary urgency, or incontinence Breast: No breast lumps, nipple d/c, overlying skin changes, redness or skin retraction Allergies and current medication updated:Yes EXAM: BP 142/72 Wt 196 lb 6.4 oz (89.1kg) LMP 05/04/2015 taking antihypertensive and has appt with PCP next week. GENERAL: pleasant, female in no apparent distress HEENT: Normocephalic, atraumatic, mucus membranes moist, and no lesions NECK: Supple, full range of motion, no adenopathy, and thyroid normal DERMATOLOGY: Normal, without lesions, non-icteric, and non-hirsute BREAST: soft, non-tender, symmetric, no dominant mass, normal nipple-areolar complex, no lymphadenopathy, and no nipple discharge CHEST: Normal inspiratory effort ABDOMEN: soft, non-tender, and no masses PELVIC: external genitalia normal, normal Bartholin's glands, urethra, Arnold Line's glands, no vulvar lesions, no cervical lesions, physiologic discharge present, normal appearing perineal body and perianal region BIMANUAL: uterus normal size, shape and consistency, no adnexal masses, and non-tender RECTOVAGINAL: deferred. NEURO: alert and oriented x3,exam grossly non-focal EXTREMITIES: normal ASSESSMENT/PLAN: 1) Health maintenance: Pap/HPV up to date. Mammogram ordered Mammogram up to date Nutrition, exercise and routine health maintenance exams reviewed. Calcium/Vitamin D supplementation information provided. Smoking cessation: Benefits of smoking cessation reviewed. Patient encouraged to avoid smoking. Colon cancer screening: up to date with screening 2) Follow up one year or sooner as needed Leeann Blandon APRN.LINDA documented in this encounter [facility] 07-29-2021 History of Present illness Narrative No low blood sugars since last OV, seen opthalmology in the past year, and no numbness or tingling in feet, skin normal.No headache, chest pain, shortness of breath, dizziness, lightheadedness, or edemaTaking PPI daily without breakthrough symptoms. Reviewed dietary, caffeine, tobacco, alcohol, and NSAID use. No dyspepsia, dysphagia, reflux, melena, or abdominal pain.I have personally reviewed [facility] report electronically for this patient. I have considered the risk of abuse, dependence, addiction, and diversion. I believe that it is clinically appropriate for this patient to be prescribed the controlled substance.[facility] counsellor (pd)limited exerciseemotionally doing OK, rare Xanax use [facility] [employer] [facility] Work Phone: 07-17-2021 History of Present illness Narrative Patient is here for KUB and CT results for hx of kidney stones...CT on 07/17/21 showed no stone or stone fragment in either ureter or urinary bladder, no hydro on either side, no renal mass... Was having gross hematuria in March that lasted a week and it all cleared now.. CT on 04/24/21 showed left sided perinephric stranding that may relate to recently passed stone or Infection. Also showed nonobstructing stone measuring up to 7mm in the left kidney..Cysto 07/08/21 showed urine bloody, from left ureteral opening was definite... Normal Cytology on 03/2021. She did have positive cx on 04/23/21. Normal cysto on 08/2019...Chronic LUT'S sx are mild and stable. Denies urgency and frequency. Denies dysuria. Denies hematuria. Nocturia x1. No medication for LUT's [id number] Work Phone: 04-21-2021 History of Present illness Narrative Patient is here for hematuria. She states this started this week. . She has hx of kidney stones. Denies flank pain. Denies N/V and F/C. Recent KUB showed no stones. Chronic LUT'S sx are mild and stable. Denies urgency and frequency. Denies dysuria. Nocturia x1..No medication for LUT'S.We had a very long and extensive discussion with the patient regarding gross hematuria. I explained to her the pathophysiology, differential diagnosis, risk factor, associated conditions, and management. We discussed the need to do a microhematuria work-up to rule out any underlying malignancies in the form of masses, tumor, polyps that might be causing her gross hematuria. We discussed at length the risk, benefit, potential complication, adverse events of cystoscopy, CT urogram, and urine cytology. Patient verbalized understanding would like to proceed. [id number] Work Phone: 07-22-2020 History of Present illness Narrative No low blood sugars since last OV, seen opthalmology in the past year, and no numbness or tingling in feet, skin normal.No headache, chest pain, shortness of breath, dizziness, lightheadedness, or edemaI have personally reviewed OARRS report electronically for this patient. I have considered the risk of abuse, dependence, addiction, and diversion. I believe that it is clinically appropriate for this patient to be prescribed the controlled substance.Had COVID in the past month, no issuesHad colonoscopy in October, had multiple polypshad MMG and [facility] despite trauma counsellor 1/2 ppdbeen working with urology for hematuriaTaking PPI daily without breakthrough symptoms. Reviewed dietary, caffeine, tobacco, alcohol, and NSAID use. No dyspepsia, dysphagia, reflux, melena, or abdominal pain.uses Xanax prn (rare, last Rx a year ago [facility] Work Phone: Evaluation note Diagnosis Encounter for gynecological examination (general) (routine) without abnormal findings- Primary Encounter for screening [facility] Abnormal [facility]ogram- Primary Abnormal mammogram, unspecified [facility] Diagnosis Benign hypertension- Primary Essential hypertension, benign Mixed hyperlipidemia Type 2 diabetes mellitus without complication, without long-term current use of insulin (CMS/HCC) Gastroesophageal reflux disease without esophagitis Esophageal reflux Recurrent major depressive disorder, in partial remission ([facility]) B12 deficiency documented in this encounter [facility] Work Phone: [phone] note* Diagnosis Abnormal mammogram Abnormal mammogram, unspecified documented in this encounter [facility] note* Diagnosis Abnormal mammogram Abnormal mammogram, unspecified documented in this encounter [facility] note* Diagnosis Encounter for screening mammogram for breast cancer documented in this encounter [facility] note* Diagnosis Calculus of kidney documented in this encounter [facility] Work Phone: [phone] note* Diagnosis Encounter for screening mammogram for breast cancer documented in this encounter [facility] note* Diagnosis Nocturia Recurrent UTI Urinary tract infection, site not specified Kidney stones Calculus of kidney documented in this encounter [facility] Work Phone: [phone] note* Diagnosis Type 2 diabetes mellitus without complication, without long-term current use of insulin ([facility])- Primary Benign hypertension Essential hypertension, benign Mixed hyperlipidemia Gastroesophageal reflux disease without esophagitis Esophageal reflux Recurrent major depressive disorder, in partial remission ([facility]) B12 deficiency Hyperlipidemia, unspecified hyperlipidemia type Depression, unspecified depression type Gastroesophageal reflux disease, unspecified whether esophagitis present documented in this encounter [facility] Work Phone: [phone] note* Diagnosis Kidney stones Calculus of kidney documented in this encounter [facility] Work Phone: [phone] note* Diagnosis Nocturia Recurrent UTI Urinary tract infection, site not specified Kidney stones Calculus of kidney documented in this encounter [facility] Work Phone: [phone] note* Diagnosis Kidney stones Calculus of kidney documented in this encounter [facility] Work Phone: [phone] note* Diagnosis Nocturia Recurrent UTI Urinary tract infection, site not specified Kidney stones Calculus of kidney documented in this encounter [facility] Work Phone: [phone] note* Diagnosis Kidney stone- Primary Calculus of kidney Kidney stone Calculus of kidney PONV (postoperative nausea and vomiting) Nausea with vomiting documented in this encounter [facility] Work Phone: [phone] note* Diagnosis Type 2 diabetes mellitus without complication, without long-term current use of insulin (Multi)- Primary Gastroesophageal reflux disease, unspecified whether esophagitis present Benign hypertension Essential hypertension, benign Depression, unspecified depression type Hyperlipidemia, unspecified hyperlipidemia type Chest pain, unspecified type Acute nonintractable headache, unspecified headache type Benign hypertension- Primary Essential hypertension, benign Mixed hyperlipidemia Type 2 diabetes mellitus without complication, without long-term current use of insulin (Multi) Gastroesophageal reflux disease without esophagitis Esophageal reflux Recurrent major depressive disorder, in partial remission ([facility]) B12 deficiency Type 2 diabetes mellitus without complication, without long-term current use of insulin (Multi)- Primary Benign hypertension Essential hypertension, benign Mixed hyperlipidemia Gastroesophageal reflux disease without esophagitis Esophageal reflux Recurrent major depressive disorder, in partial remission ([facility]) B12 deficiency Hyperlipidemia, unspecified hyperlipidemia type Depression, unspecified depression type Gastroesophageal reflux disease, unspecified whether esophagitis present Type 2 diabetes mellitus without complication, without long-term current use of insulin (Multi)- Primary Benign hypertension Essential hypertension, benign Mixed hyperlipidemia Gastroesophageal reflux disease without esophagitis Esophageal reflux Recurrent major depressive disorder, in partial remission ([facility]) B12 deficiency Hyperlipidemia, unspecified hyperlipidemia type Depression, unspecified depression type Gastroesophageal reflux disease, unspecified whether esophagitis present documented in this encounter [facility] Work Phone: Evaluation note* Diagnosis Cellulitis of right foot- Primary documented in this encounter [facility] note* Diagnosis Encounter for gynecological examination (general) (routine) without abnormal findings- Primary Encounter for screening mammogram for breast cancer Early satiety documented in this encounter [facility] note* Diagnosis Encounter for screening mammogram for breast cancer Dense breast tissue documented in this encounter [facility] note* Diagnosis Type 2 diabetes mellitus without complication, without long-term current use of insulin (Multi)- Primary Gastroesophageal reflux disease, unspecified whether esophagitis present Benign hypertension Essential hypertension, benign Depression, unspecified depression type Hyperlipidemia, unspecified hyperlipidemia type Chest pain, unspecified type Acute nonintractable headache, unspecified headache type Benign hypertension- Primary Essential hypertension, benign Mixed hyperlipidemia Type 2 diabetes mellitus without complication, without long-term current use of insulin (Multi) Gastroesophageal reflux disease without esophagitis Esophageal reflux Recurrent major depressive disorder, in partial remission ([facility]) B12 deficiency Type 2 diabetes mellitus without complication, without long-term current use of insulin (Multi)- Primary Benign hypertension Essential hypertension, benign Mixed hyperlipidemia Gastroesophageal reflux disease without esophagitis Esophageal reflux Recurrent major depressive disorder, in partial remission ([facility]) B12 deficiency Hyperlipidemia, unspecified hyperlipidemia type Depression, unspecified depression type Gastroesophageal reflux disease, unspecified whether esophagitis present Type 2 diabetes mellitus without complication, without long-term current use of insulin (Multi)- Primary Benign hypertension Essential hypertension, benign Mixed hyperlipidemia Gastroesophageal reflux disease without esophagitis Esophageal reflux Recurrent major depressive disorder, in partial remission ([facility]) B12 deficiency Hyperlipidemia, unspecified hyperlipidemia type Depression, unspecified depression type Gastroesophageal reflux disease, unspecified whether esophagitis present Benign hypertension Essential hypertension, benign Mixed hyperlipidemia Type 2 diabetes mellitus without complication, without long-term current use of insulin (Multi) Gastroesophageal reflux disease without esophagitis Esophageal reflux Recurrent major depressive disorder, in partial remission ([facility]) B12 deficiency Hyperlipidemia, unspecified hyperlipidemia type Depression, unspecified depression type Gastroesophageal reflux disease, unspecified whether esophagitis present documented in this encounter [facility] Work Phone: Evaluation note* Diagnosis Early satiety- Primary Ovarian cyst, left Other and unspecified ovarian cyst Ovarian cyst, complex Other and unspecified ovarian cyst Thickened endometrium Nonspecific (abnormal) findings on radiological and other examination of genitourinary organs Abnormal ultrasound of endometrium Nonspecific (abnormal) findings on radiological and other examination of genitourinary organs [facility] Diagnosis Cyst of left ovary- Primary Other and unspecified ovarian cyst documented in this encounter [facility] note* Diagnosis Ovarian cyst, left- Primary Other and unspecified ovarian cyst Thickened endometrium Nonspecific (abnormal) findings on radiological and other examination of genitourinary organs documented in this encounter [facility] note* Diagnosis Type 2 diabetes mellitus without complication, without long-term current use of insulin- Primary Gastroesophageal reflux disease, unspecified whether esophagitis present Benign hypertension Essential hypertension, benign Depression, unspecified depression type Hyperlipidemia, unspecified hyperlipidemia type Chest pain, unspecified type Acute nonintractable headache, unspecified headache type Benign hypertension- Primary Essential hypertension, benign Mixed hyperlipidemia Type 2 diabetes mellitus without complication, without long-term current use of insulin Gastroesophageal reflux disease without esophagitis Esophageal reflux Recurrent major depressive disorder, in partial remission B12 deficiency Type 2 diabetes mellitus without complication, without long-term current use of insulin- Primary Benign hypertension Essential hypertension, benign Mixed hyperlipidemia Gastroesophageal reflux disease without esophagitis Esophageal reflux Recurrent major depressive disorder, in partial remission B12 deficiency Hyperlipidemia, unspecified hyperlipidemia type Depression, unspecified depression type Gastroesophageal reflux disease, unspecified whether esophagitis present Type 2 diabetes mellitus without complication, without long-term current use of insulin- Primary Benign hypertension Essential hypertension, benign Mixed hyperlipidemia Gastroesophageal reflux disease without esophagitis Esophageal reflux Recurrent major depressive disorder, in partial remission B12 deficiency Hyperlipidemia, unspecified hyperlipidemia type Depression, unspecified depression type Gastroesophageal reflux disease, unspecified whether esophagitis present Benign hypertension Essential hypertension, benign Mixed hyperlipidemia Type 2 diabetes mellitus without complication, without long-term current use of insulin Gastroesophageal reflux disease without esophagitis Esophageal reflux Recurrent major depressive disorder, in partial remission B12 deficiency Hyperlipidemia, unspecified hyperlipidemia type Depression, unspecified depression type Gastroesophageal reflux disease, unspecified whether esophagitis present Skin lesion of right upper extremity- Primary documented in this encounter [facility] Work Phone: Evaluation note* Diagnosis Cyst of left ovary- Primary Other and unspecified ovarian cyst Abnormal ultrasound of endometrium Nonspecific (abnormal) findings on radiological and other examination of genitourinary organs Thickened endometrium Nonspecific (abnormal) findings on radiological and other examination of genitourinary organs [facility] Type 2 diabetes mellitus without complication, without long-term current use of insulin- Primary Gastroesophageal reflux disease, unspecified whether esophagitis present Benign hypertension Essential hypertension, benign Depression, unspecified depression type Hyperlipidemia, unspecified hyperlipidemia type Chest pain, unspecified type Acute nonintractable headache, unspecified headache type Benign hypertension- Primary Essential hypertension, benign Mixed hyperlipidemia Type 2 diabetes mellitus without complication, without long-term current use of insulin Gastroesophageal reflux disease without esophagitis Esophageal reflux Recurrent major depressive disorder, in partial remission B12 deficiency Type 2 diabetes mellitus without complication, without long-term current use of insulin- Primary Benign hypertension Essential hypertension, benign Mixed hyperlipidemia Gastroesophageal reflux disease without esophagitis Esophageal reflux Recurrent major depressive disorder, in partial remission B12 deficiency Hyperlipidemia, unspecified hyperlipidemia type Depression, unspecified depression type Gastroesophageal reflux disease, unspecified whether esophagitis present Type 2 diabetes mellitus without complication, without long-term current use of insulin- Primary Benign hypertension Essential hypertension, benign Mixed hyperlipidemia Gastroesophageal reflux disease without esophagitis Esophageal reflux Recurrent major depressive disorder, in partial remission B12 deficiency Hyperlipidemia, unspecified hyperlipidemia type Depression, unspecified depression type Gastroesophageal reflux disease, unspecified whether esophagitis present Benign hypertension Essential hypertension, benign Mixed hyperlipidemia Type 2 diabetes mellitus without complication, without long-term current use of insulin Gastroesophageal reflux disease without esophagitis Esophageal reflux Recurrent major depressive disorder, in partial remission B12 deficiency Hyperlipidemia, unspecified hyperlipidemia type Depression, unspecified depression type Gastroesophageal reflux disease, unspecified whether esophagitis present Hx of colonic polyps- Primary Personal history of colonic polyps Screen for colon cancer Special screening for malignant neoplasms, colon documented in this encounter [facility] Work Phone: Evaluation note* Diagnosis Type 2 diabetes mellitus without complication, without long-term current use of insulin- Primary Gastroesophageal reflux disease, unspecified whether esophagitis present Benign hypertension Essential hypertension, benign Depression, unspecified depression type Hyperlipidemia, unspecified hyperlipidemia type Chest pain, unspecified type Acute nonintractable headache, unspecified headache type Benign hypertension- Primary Essential hypertension, benign Mixed hyperlipidemia Type 2 diabetes mellitus without complication, without long-term current use of insulin Gastroesophageal reflux disease without esophagitis Esophageal reflux Recurrent major depressive disorder, in partial remission B12 deficiency Type 2 diabetes mellitus without complication, without long-term current use of insulin- Primary Benign hypertension Essential hypertension, benign Mixed hyperlipidemia Gastroesophageal reflux disease without esophagitis Esophageal reflux Recurrent major depressive disorder, in partial remission B12 deficiency Hyperlipidemia, unspecified hyperlipidemia type Depression, unspecified depression type Gastroesophageal reflux disease, unspecified whether esophagitis present Type 2 diabetes mellitus without complication, without long-term current use of insulin- Primary Benign hypertension Essential hypertension, benign Mixed hyperlipidemia Gastroesophageal reflux disease without esophagitis Esophageal reflux Recurrent major depressive disorder, in partial remission B12 deficiency Hyperlipidemia, unspecified hyperlipidemia type Depression, unspecified depression type Gastroesophageal reflux disease, unspecified whether esophagitis present Benign hypertension Essential hypertension, benign Mixed hyperlipidemia Type 2 diabetes mellitus without complication, without long-term current use of insulin Gastroesophageal reflux disease without esophagitis Esophageal reflux Recurrent major depressive disorder, in partial remission B12 deficiency Hyperlipidemia, unspecified hyperlipidemia type Depression, unspecified depression type Gastroesophageal reflux disease, unspecified whether esophagitis present Benign hypertension Essential hypertension, benign Mixed hyperlipidemia Type 2 diabetes mellitus without complication, without long-term current use of insulin Gastroesophageal reflux disease without esophagitis Esophageal reflux Recurrent major depressive disorder, in partial remission B12 deficiency Hyperlipidemia, unspecified hyperlipidemia type Depression, unspecified depression type Gastroesophageal reflux disease, unspecified whether esophagitis present documented in this encounter [facility] Work Phone: Evaluation note* Diagnosis Type 2 diabetes mellitus without complication, without long-term current use of insulin (Multi)- Primary Gastroesophageal reflux disease, unspecified whether esophagitis present Benign hypertension Essential hypertension, benign Depression, unspecified depression type Hyperlipidemia, unspecified hyperlipidemia type Chest pain, unspecified type Acute nonintractable headache, unspecified headache type Benign hypertension- Primary Essential hypertension, benign Mixed hyperlipidemia Type 2 diabetes mellitus without complication, without long-term current use of insulin (Multi) Gastroesophageal reflux disease without esophagitis Esophageal reflux Recurrent major depressive disorder, in partial remission B12 deficiency Type 2 diabetes mellitus without complication, without long-term current use of insulin (Multi)- Primary Benign hypertension Essential hypertension, benign Mixed hyperlipidemia Gastroesophageal reflux disease without esophagitis Esophageal reflux Recurrent major depressive disorder, in partial remission B12 deficiency Hyperlipidemia, unspecified hyperlipidemia type Depression, unspecified depression type Gastroesophageal reflux disease, unspecified whether esophagitis present Type 2 diabetes mellitus without complication, without long-term current use of insulin (Multi)- Primary Benign hypertension Essential hypertension, benign Mixed hyperlipidemia Gastroesophageal reflux disease without esophagitis Esophageal reflux Recurrent major depressive disorder, in partial remission B12 deficiency Hyperlipidemia, unspecified hyperlipidemia type Depression, unspecified depression type Gastroesophageal reflux disease, unspecified whether esophagitis present Benign hypertension Essential hypertension, benign Mixed hyperlipidemia Type 2 diabetes mellitus without complication, without long-term current use of insulin (Multi) Gastroesophageal reflux disease without esophagitis Esophageal reflux Recurrent major depressive disorder, in partial remission B12 deficiency Hyperlipidemia, unspecified hyperlipidemia type Depression, unspecified depression type Gastroesophageal reflux disease, unspecified whether esophagitis present Hx of colonic polyps- Primary Personal history of colonic polyps Screen for colon cancer Special screening for malignant neoplasms, colon Benign hypertension Essential hypertension, benign Mixed hyperlipidemia Type 2 diabetes mellitus without complication, without long-term current use of insulin (Multi) Gastroesophageal reflux disease without esophagitis Esophageal reflux Recurrent major depressive disorder, in partial remission B12 deficiency Hyperlipidemia, unspecified hyperlipidemia type Depression, unspecified depression type Gastroesophageal reflux disease, unspecified whether esophagitis present documented in this encounter [facility] Work Phone: Evaluation note* Diagnosis Onset Date Resolution Status Admit Date Back pain acute April 19, 2025 11:56am Gross hematuria acute March 302024 11:56am History of kidney stones acute April 19, 2025 11:56am Recurrent UTI (urinary tract infection) acute April 19 11:56am [facility] Work Phone: History of Present illness NarrativePatient is here for 5 month f/u w/kub for hx of kidney stones. No recent sx. Denies flank pain. Denies N/V and F/C. Chronic LUT'S sx are mild and stable. Denies urgency and frequency. Denies dysuria.Denies hematuria. Nocturia x1.No medication for LUT'S. Hx of gross hematuria. No recent sx. Hx of UTI'S. No recent sx [id number] Work Phone: History of Present illness NarrativePatient is here for 6 month f/u w/kub for hx of kidney stones. No recent sx. Denies flank pain. Denies N/V and F/C. Chronic LUT'S sx are mild and stable. Denies urgency and frequency. Denies dysuria.Denies hematuria. Nocturia x1.No medication for LUT'S. Hx of gross hematuria. No recent sx. Hx of UTI'S. No recent sx [id number] Work Phone: Progress note Author Nithya Saucedo [facility] Note Date/Time April 19, 2025 1 :50pm [facility] [address], [address] [place] [address] OFFICE VISIT Date of Service: 04/19/25 MR#: [id number] Acct: [id number] Name: EBTSY EDWARDS Rep #: [id number] : 1970 Provider: Dr. Lai Saucedo MD Age/Sex: 54/F Location: [email or web address] Status: Signed Intake Vital Signs 06/18/19 14:04 04/19/25 12:05 Height 5 ft 6 in 5 ft 6 in Weight: 185 lb BMI 29.8 BP 130/78 H Temp 98 F Intake Visit Reasons: Poss. UTI dark blood in urine Chief Complaint: poss. kidney stone/possible uti Jewel Sawyer Required: No Is patient in pain?: No Allergies amoxicillin Allergy (Verified 06/18/19 14:58) Unknown Sulfa (Sulfonamide Antibiotics) Allergy (Verified 06/18/19 14:58) Hives Medications ?Medication ?Instructions ?Recorded ?Confirmed ?Type escitalopram oxalate 10 mg tablet 40 mg PO QHS 4 04/19/25 History atorvastatin 10 mg tablet 10 mg PO QHS 09/14/17 History losartan 50 mg tablet (Cozaar) 50 mg PO DAILY 09/14/17 04/19/25 History metformin 1,000 mg tablet 1,000 mg PO BID 09/14/17 History pantoprazole 40 mg tablet,delayed 40 mg PO DAILY 09/1404/19/25 History release levofloxacin 500 mg tablet 500 mg PO QDAY 5 days #5 ta bs 04/20/25 Rx Have you fallen in the past year?: No PFSH Medical History (Updated 04/19/25 @ 12:[address] Nithya Saucedo MD) Depression GERD (gastroesophageal reflux disease) Insomnia Type 2 diabetes mellitus Mixed hyperlipidemia Recurrent UTI (urinary tract infection) Surgical History (Updated 04/19/25 @ 12:32 by Bea Renee) History of extracorporeal shockwave lithotripsy (ESWL) History of tubal ligation H/O lithotripsy H/O esophagogastroduodenoscopy History of colonoscopy Family History (Updated 04/19/25 @ 12:35 by Bea Renee) Father Diabetes Alcoholism Pancreatic cancer Liver cancer FH: prostate cancer Mother Diabetes Mitral valve anterior leaflet prolapse Sister Infertility Social History (Updated 04/19/25 @ 12:37 by Bea Renee) adopted: No household members: spouse leisure activities: exercise Smoking Status: Current every day smoker alcohol intake: never substance use type: does not use seatbelt use: always do you feel safe at home: Yes HPI HPI Urology Chief Complaint: poss. kidney stone/possible uti Details: BETSY EDWARDS, is a 54 F. She is here for a possible acute urinary tract infection. Symptoms of an infection started about 2 days ago. Her symptoms include hematuria, urgency, frequency, and left flank pain. There is enough pain she feels like it is a stone. It is only on the left side. There is no fever, chills, nausea, or vomiting. There is urgency, frequency and cloudy urine with blood. No fever, chills, nausea or vomiting. There is a horrible odor in the urine. ROS Const Constitutional: No chills, fatigue, fever(s), headache(s), night sweats, weakness, weight change, abnormal sleep pattern or change in appetite Eyes Eyes: No change in vision ENT ENT: No headache(s) or dry mouth Resp Respiratory: No cough, chest congestion, shortness of breath or wheezing Cardio Cardiology: Positive for other (No chest pain.); No shortness of breath, irregular heart rhythm or lightheadedness Gastro GI: No abdominal pain, change in bowel habits, constipation, diarrhea or vomiting Musc Musculoskeletal: Positive for back pain; No abnormal gait Skin Skin: No yellowing of the eye, lesions, itchy eyes, rash or skin ulcer Neuro Neurology: No abnormal gait, confusion, dizziness, weakness, headache(s) or memory loss Psych Psychiatric: No abnormal sleep pattern, No change in appetite, No confusion and No memory loss Endo Endocrine: No fatigue, increased thirst/drinking or weight change Aller/Imm Allergy/Immunologic: No itchy eyes or wheezing Ze/Lymp Hematologic/Lymphatic: No easy bleeding, easy bruising or enlarged lymph nodes Exam Const General: cooperative, healthy appearing, comfortable and no acute distress [facility] Head: normocephalic and atraumatic Ears: hearing grossly normal bilaterally and external ears normal Nose: external nose normal Eyes General: appearance normal, both eyes and all related structures Neck Neck: normal visual inspection and trachea midline Chest Chest palpation & inspection: normal inspection of the chest Resp Effort & Inspection: normal respiratory effort, able to speak in complete sentences and symmetric chest movement Cardio Rate: regular rate GI Inspection: normal to inspection Palpation: soft and nontender General: CVA tenderness (mild) on the left Skin General: no rashes or lesions noted Neuro General: patient alert, patient awake, patient oriented x3 and CN's II-XI intactbilaterally Extrem General: normal to inspection Psych Appearance: grossly normal and well kempt Mental Status: mental status grossly normal Results POC Urinalysis w/Micro Office Urine Color [place] Last Edit by Bea Renee on 04/19/25 12:17 Office Urine Clarity Last Edit by Bea Renee on 04/19/25 12:17 Office Urine Glucose Negative Last Edit by Bea Renee on 04/19/25 12:17 Office Urine Ketones Negative Last Edit by Bea Renee on 04/19/25 12:17 Office Urine Bilirubin Negative Last Edit by Bea Renee on 04/19/25 12:17 Office Urine Urobilinogen Last Edit by Bea Renee on 04/19/25 12:17 Off Ur Spec [place] 1.010 Last Edit by Bea Renee on 04/19/25 12:17 Office Urine pH 6 Last Edit by Bea Renee on 04/19/25 12:17 Office Urine Protein Negative Last Edit by Bea Renee on 04/19/25 12:17 Office Urine Blood Moderate Last Edit by Bea Renee on 04/19/25 12:17 200 [place]/uL Bea Renee 04/19/25 12:17 Office Urine Blood Hemolyzed Last Edit by Bea Renee on 04/19/25 12:17 Office Urine Nitrate Positive Last Edit by Bea Renee on 04/19/25 12:17 Off Ur Leukocytes Positive Last Edit by Bea Renee on 04/19/25 12:17 Off Ur WBC Microscopic Last Edit by Bea Renee on 04/19/25 12:17 Off Ur RBC Microscopic Last Edit by Bea Renee on 04/19/25 12:17 Off Ur Bacteria Microscopic Last Edit by Bea Renee on 04/19/25 12:17 Coding Level of Care Code Off vis,est,level 3 Diagnoses Recurrent UTI (urinary tract infection) N39.0 Gross hematuria R31.0 Back pain M54.9 History of kidney stones Z87.442 Assessment and Plan Assessment and Plan (1) Recurrent UTI (urinary tract infection): Status: Acute (2) Gross hematuria: Status: Acute (3) Back pain: Status: Acute (4) History of kidney stones: Status: Acute Orders: Orders POC UA Automated w/Microscopy 04/19/25 N39.0 - Urinary tract infection, site not specified Abdomen/Pelvis without Cont 04/19/25 M54.9 - Dorsalgia, unspecified, N39.0 - Urinary tract infection, site not specified, R31.0 - Gross hematuria, Z87.442 - Personal history of urinary calculi Plan urine culture, antibiotics after results CT flank Clinical Quality Measures Falls Risk Screening/Assistive Devices Have you fallen in the past year?: No 04/20/252116 <Electronically signed by Nithya Saucedo MD> Date _ Nithya Perez Signature: Date (if applicable) CC: ~ [employer] Work Phone: Reason for referral (narrative)* Diagnostic Procedure Only (Routine) - Pending Review Specialty Diagnoses / Procedures Referred By Contac t Referred To Contact [facility] Diagnoses Encounter for screening mammogram for breast cancer Procedures LUIZ SCREENING SCREENING MAMMOGRAPHY BI 2-VIEW BREAST INC Leeann Ng APRN.CNP [address] [place] [address] [facility] [address] [place] [phone] Referral ID Status Reason Start Date Expiration Date Visits Requested Visits Authorized [id number] Pending Review Auto-Generat ed Referral 07/17/2022 08/16/2023 1 1 [facility] for referral (narrative)* Diagnostic Procedure Only (Routine) - Pending Review Specialty Diagnoses / Procedures Referred By Contac t Referred To Contact [facility] Diagnoses Abnormal mammogram Procedures US BREAST LTD LT US BREAST UNI REAL TIME WITH IMAGE LIMITED Bushra Good APRN.CNP [address] [place] [address] [facility] [address] [place] [address] Referral ID Status Reason Start Date Expiration Date Visits Requested Visits Authorized [id number] Pending Review Auto-Generat ed Referral 07/29/2022 08/28/2023 1 1 * Diagnostic Procedure Only (Routine) - Pending Review Specialty Diagnoses / Procedures Referred By Contac t Referred To Contact [facility] Diagnoses Abnormal mammogram Procedures US BREAST LTD RT US BREAST UNI REAL TIME WITH IMAGE LIMITED Bushra Good APRN.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 [address] [place] [address] [facility] Imaging [address] [place] [address] Referral ID Status Reason Start Date Expiration Date Visits Requested Visits Authorized [id number] Pending Review Auto-Generat ed Referral 07/29/2022 08/28/2023 1 1 * Diagnostic Procedure Only (Routine) - Pending Review Specialty Diagnoses / Procedures Referred By Contac t Referred To Contact [facility] Diagnoses Abnormal mammogram Procedures LUIZ DIAGNOSTIC BILAT DIAGNOSTIC MAMMOGRAPHY COMPUTER-AIDED DETCJ BI Bushra Good APRN.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 [address] [place] [address] Br Imaging [address] [place] [phone] Referral ID Status Reason Start Date Expiration Date Visits Requested Visits Authorized [id number] Pending Review Auto-Generat ed Referral 07/29/2022 08/28/[address] [facility] for referral (narrative)* Consultation (Routine) - Authorized Specialty Diagnoses / Procedures Referred By Nisa t Referred To Contact Primary Care Diagnoses Benign hypertension Mixed hyperlipidemia Type 2 diabetes mellitus without complication, without long-term current use of insulin ([facility]/HCC) Gastroesophageal reflux disease without esophagitis Recurrent major depressive disorder, in partial remission ([facility]) B12 deficiency Procedures Follow Up In Primary Care - Established Tatyana Doll MD [address] [place] [address] Referral ID Status Reason Start Date Expiration Date V isits Requested Visits Authorized [id number] Authorized 02/10/2023 08/09/2023 1 1 [facility] Work Phone: Reason for referral (narrative)* Diagnostic Procedure Only (Routine) - Closed Specialty Diagnoses / Procedures Referred By Contac t Referred To Contact [facility] IM[facility] Diagnoses Encounter for screening mammogram for breast cancer Procedures LUIZ SCREENING SCREENING MAMMOGRAPHY BI 2-VIEW BREAST INC Leeann Ng APRN.CNP [address] [place] [address] [facility] Imaging [address] [place] [address] Referral ID Status Reason Start Date Expiration Date V isits Requested Visits Authorized [id number] Closed Auto-Generate d Referral 07/17/2021 08/16/[address] [facility] for referral (narrative)* Consultation (Routine) - Authorized Specialty Diagnoses / Procedures Referred By Contac t Referred To Contact Primary Care Diagnoses Benign hypertension Mixed hyperlipidemia Type 2 diabetes mellitus without complication, without long-term current use of insulin (CMS/HCC) Gastroesophageal reflux disease without esophagitis Recurrent major depressive disorder, in partial remission (CMS/HCC) B12 deficiency Hyperlipidemia, unspecified hyperlipidemia type Depression, unspecified depression type Gastroesophageal reflux disease, unspecified whether esophagitis present Procedures Follow Up In Primary Care - Established Tatyana Doll MD [address] [place] [id number] Referral ID Status Reason Start Date Expiration Date V isits Requested Visits Authorized [id number] Authorized 08/13/2023 08/12/2024 1 1 [facility] Work Phone: Reason for referral (narrative)* Consultation (Routine) - Authorized Specialty Diagnoses / Procedures Referred By Contac t Referred To Contact Primary Care Diagnoses Benign hypertension Mixed hyperlipidemia Type 2 diabetes mellitus without complication, without long-term current use of insulin (Multi) Gastroesophageal reflux disease without esophagitis Recurrent major depressive disorder, in partial remission (CMS-HCC) B12 deficiency Hyperlipidemia, unspecified hyperlipidemia type Depression, unspecified depression type Gastroesophageal reflux disease, unspecified whether esophagitis present Procedures Follow Up In Primary Care - Established Tatyana Doll MD [address] [place] [address] Referral ID Status Reason Start Date Expiration Date V isits Requested Visits Authorized [id number] Authorized 02/12/2024 02/11/2025 1 1 [facility] Work Phone: Reason for referral (narrative)* Diagnostic Procedure Only (Routine) - Open Specialty Diagnoses / Procedures Referred By Contac t Referred To Contact [facility] Diagnoses Early satiety Procedures PELVIC US WHI US PELVIC NONOBSTETRIC REAL-TIME IMAGE COMPLETE Sherrell Ricks APRN.CNP [address] [place] [address] [facility] [address] [place] [phone] Referral ID Status Reason Start Date Expiration Date V isits Requested Visits Authorized [id number] Open Auto-Generate d Referral 08/03/2024 08/03/2025 1 1 * Diagnostic Procedure Only (Routine) - Authorized Specialty Diagnoses / Procedures Referred By Nisa reeves Referred To Contact [facility] Diagnoses Encounter for screening mammogram for breast cancer Procedures LUIZ SCREENING W CITLALI SCREENING DIGITAL BREAST TOMOSYNTHESIS BI SCREENING MAMMOGRAPHY BI 2-VIEW BREAST INC CAD Sherrell Ricks APRN.CNP [address] [place] [address] [facility] [address] [place] [address] Referral ID Status Reason Start Date Expiration Date Visits Requested Visits Authorized [id number] Authorized Auto-Generat ed Referral 08/03/2024 09/02/2025 1 [facility] for [facility] Work [facility]: Reason for visit Narrative* Diagnostic Procedure Only (Routine) - Authorized Specialty Diagnoses / Procedures Referred By Ch[place]ac t Referred To Contact [facility] Diagnoses Abnormal mammogram Procedures US BREAST LTD LT US BREAST UNI REAL TIME WITH IMAGE LIMITED Bushra Good APRN.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 [address] [place] [address] Br Imaging [address] [place] [phone] Referral ID Status Reason Start Date Expiration Date Visits Requested Visits Authorized [id number] Authorized Auto-Generat ed Referral 07/29/2022 08/28/2023 1 1 [facility] for visit Narrative* Diagnostic Procedure Only (Routine) - Closed Specialty Diagnoses / Procedures Referred By Nisa t Referred To Contact [facility] Diagnoses Abnormal mammogram Procedures LUIZ DIAGNOSTIC BILAT DIAGNOSTIC MAMMOGRAPHY COMPUTER-AIDED DETCJ BI Bushra Good APRN.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 [address] [place] [address] [facility] Imaging [address] [place] [address] Referral ID Status Reason Start Date Expiration Date V isits Requested Visits Authorized [id number] Closed Auto-Generate d Referral 07/29/2022 08/28/2023 1 1 [facility] for visit Narrative* Diagnostic Procedure Only (Routine) - Closed Specialty Diagnoses / Procedures Referred By Nisa t Referred To Contact [facility] Diagnoses Encounter for screening mammogram for breast cancer Procedures LUIZ SCREENING SCREENING MAMMOGRAPHY BI 2-VIEW BREAST INC CAD Leeann Bladnon APRN.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 [address] [place] [address] [facility] Imaging [address] [place] [address] Referral ID Status Reason Start Date Expiration Date V isits Requested Visits Authorized [id number] Closed Auto-Generate d Referral 07/17/2021 08/16/2022 1 1 [facility] for visit Narrative* Diagnostic Procedure Only (Routine) - Closed Specialty Diagnoses / Procedures Referred By Nisa t Referred To Contact [facility] Diagnoses Encounter for screening mammogram for breast cancer Procedures LUIZ SCREENING SCREENING MAMMOGRAPHY BI 2-VIEW BREAST INC CAD Leeann Blandon APRN.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 [address] [place] [address] [facility] [address] [place] [address] Referral ID Status Reason Start Date Expiration Date V isits Requested Visits Authorized [id number] Closed Auto-Generate d Referral 07/17/2022 08/16/2023 1 1 [facility] for visit Narrative* Diagnostic Procedure Only (Routine) - Closed Specialty Diagnoses / Procedures Referred By Nisa reeves Referred To Contact [facility] Diagnoses Encounter for screening mammogram for breast cancer Dense breast tissue Procedures LUIZ SCREENING W CITLALI SCREENING DIGITAL BREAST TOMOSYNTHESIS BI SCREENING MAMMOGRAPHY BI 2-VIEW BREAST INC CAD Sherrell Ricks APRN.CNP [address] [place] [address] [facility] [address] [place] [phone] Referral ID Status Reason Start Date Expiration Date V isits Requested Visits Authorized [id number] Closed Auto-Generate d Referral 07/31/2023 08/29/2024 1 1 [facility] for visit Narrative* Diagnostic Procedure Only (Routine) - Closed Specialty Diagnoses / Procedures Referred By Nisa reeves Referred To Contact [facility] Diagnoses Early satiety Procedures PELVIC US [facility] US PELVIC NONOBSTETRIC REAL-TIME IMAGE COMPLETE Sherrell Ricks APRN.CNP [address] [place] [address] Phone: tel: fax: [address] [phone] Referral ID Status Reason Start Date Expiration Date V isits Requested Visits Authorized [id number] Closed Auto-Generate d Referral 08/05/2024 06/28/2025 1 1 [facility] for visit Narrative* Diagnostic Procedure Only (Routine) - Closed Specialty Diagnoses / Procedures Referred By Nisa reeves Referred To Contact [facility] Diagnoses Cyst of left ovary Procedures PELVIC US [facility] US PELVIC NONOBSTETRIC REAL-TIME IMAGE COMPLETE Sherrell Ricks APRN.CNP [address] [place] [address] Phone: tel: fax: [facility] [address] [place] [address] Referral ID Status Reason Start Date Expiration Date V isits Requested Visits Authorized [id number] Closed Auto-Generate d Referral 11/15/2024 06/28/2025 1 1 [facility] for visit Narrative* Auth/Cert (Routine) Specialty Diagnoses / Procedures Referred By Nisa reeves Referred To Contact Diagnoses Personal history of colon polyps, unspecified Encounter for screening for malignant neoplasm of colon Procedures MT COLONOSCOPY FLX DX W/COLLJ SPEC WHEN PFRMD MT COLONOSCOPY W/BIOPSY SINGLE/MULTIPLE MT COLSC FLX W/REMOVAL LESION BY HOT BX FORCEPS MT COLSC FLX W/RMVL OF TUMOR POLYP LESION SNARE TQ [address] [address] Phone: tel: [phone] fax: Referral ID Status Reason Start Date Expiration Date Visits Re quested Visits Authorized [id number] 1 1 [facility] Work Phone: Reason for visit Narrative* Auth/Cert (Routine) Specialty Diagnoses / Procedures Referred By Nisa reeves Referred To Contact Diagnoses Personal history of colon polyps, unspecified Encounter for screening for malignant neoplasm of colon Procedures MT COLONOSCOPY FLX DX W/COLLJ SPEC WHEN PFRMD MT COLONOSCOPY W/BIOPSY SINGLE/MULTIPLE MT COLSC FLX W/REMOVAL LESION BY HOT BX FORCEPS MT COLSC FLX W/RMVL OF TUMOR POLYP LESION SNARE TQ [address] [address] Phone: tel: [phone] fax: Referral ID Status Reason Start Date Expiration Date Visits Re quested Visits Authorized [id number] 1 1 [facility] Work Phone: Summary Purpose Family History Mother Name Dates Details Family history of diabetes m ellitus(V18.0, Z83.3) Status:Active Father Name Dates Details Family history of alcoholism (V17.0, Z81.1) Status:Active Family history of metastatic neoplastic disease(V16.9, Z80.9) Status:Active Family history of pancreatic cancer(V16.0, Z80.0) Status:Active Family history of diabetes m ellitus(V18.0, Z83.3) Status:Active Sister Name Dates Details Family history of mitral arpan ve disorder(V17.49, Z82.49) Status:Active Mother Name Dates Details Family history of diabetes m ellitus(V18.0, Z83.3) Status:Active Father Name Dates Details Family history of alcoholism (V17.0, Z81.1) Status:Active Family history of metastatic neoplastic disease(V16.9, Z80.9) Status:Active Family history of pancreatic cancer(V16.0, Z80.0) Status:Active Family history of diabetes m ellitus(V18.0, Z83.3) Status:Active Sister Name Dates Details Family history of mitral arpan ve disorder(V17.49, Z82.49) Status:Active Mother Name Dates Details Family history of diabetes m ellitus(V18.0, Z83.3) Status:Active Father Name Dates Details Family history of alcoholism (V17.0, Z81.1) Status:Active Family history of metastatic neoplastic disease(V16.9, Z80.9) Status:Active Family history of pancreatic cancer(V16.0, Z80.0) Status:Active Family history of diabetes m ellitus(V18.0, Z83.3) Status:Active Sister Name Dates Details Family history of mitral arpan ve disorder(V17.49, Z82.49) Status:Active Mother Name Dates Details Family history of diabetes m ellitus(V18.0, Z83.3) Status:Active Father Name Dates Details Family history of alcoholism (V17.0, Z81.1) Status:Active Family history of metastatic neoplastic disease(V16.9, Z80.9) Status:Active Family history of pancreatic cancer(V16.0, Z80.0) Status:Active Family history of diabetes m ellitus(V18.0, Z83.3) Status:Active Sister Name Dates Details Family history of mitral arpan ve disorder(V17.49, Z82.49) Status:Active Mother Name Dates Details Family history of diabetes m ellitus(V18.0, Z83.3) Status:Active Father Name Dates Details Family history of alcoholism (V17.0, Z81.1) Status:Active Family history of metastatic neoplastic disease(V16.9, Z80.9) Status:Active Family history of pancreatic cancer(V16.0, Z80.0) Status:Active Family history of diabetes m ellitus(V18.0, Z83.3) Status:Active Sister Name Dates Details Family history of mitral arpan ve disorder(V17.49, Z82.49) Status:Active Unknown Family Member Name Dates Details Family history of diabetes m ellitus: Mother, Father(V18.0, Z83.3) Status:Active Family history of pancreatic cancer: Father(V16.0, Z80.0) Status:Active Family history of metastatic neoplastic disease: Father(V16.9, Z80.9) Comments:UNKNOWN ORIGIN; Status:Active Family history of alcoholism : Father(V17.0, Z81.1) Status:Active Family history of mitral arpan ve disorder: Sister(V17.49, Z82.49) Status:Active Unknown Family Member Name Dates Details Family history of mitral arpan ve disorder: Sister(V17.49, Z82.49) Status:Active Family history of alcoholism : Father(V17.0, Z81.1) Status:Active Family history of metastatic neoplastic disease: Father(V16.9, Z80.9) Comments:UNKNOWN ORIGIN; Status:Active Family history of pancreatic cancer: Father(V16.0, Z80.0) Status:Active Family history of diabetes m ellitus: Mother, Father(V18.0, Z83.3) Status:Active Unknown Family Member Name Dates Details Family history of mitral arpan ve disorder: Sister(V17.49, Z82.49) Status:Active Family history of alcoholism : Father(V17.0, Z81.1) Status:Active Family history of metastatic neoplastic disease: Father(V16.9, Z80.9) Comments:UNKNOWN ORIGIN; Status:Active Family history of pancreatic cancer: Father(V16.0, Z80.0) Status:Active Family history of diabetes m ellitus: Mother, Father(V18.0, Z83.3) Status:Active Unknown Family Member Name Dates Details Family history of mitral arpan ve disorder: Sister(V17.49, Z82.49) Status:Active Family history of alcoholism : Father(V17.0, Z81.1) Status:Active Family history of metastatic neoplastic disease: Father(V16.9, Z80.9) Comments:UNKNOWN ORIGIN; Status:Active Family history of pancreatic cancer: Father(V16.0, Z80.0) Status:Active Family history of diabetes m ellitus: Mother, Father(V18.0, Z83.3) Status:Active Unknown Family Member Name Dates Details Family history of mitral arpan ve disorder: Sister(V17.49, Z82.49) Status:Active Family history of alcoholism : Father(V17.0, Z81.1) Status:Active Family history of metastatic neoplastic disease: Father(V16.9, Z80.9) Comments:UNKNOWN ORIGIN; Status:Active Family history of pancreatic cancer: Father(V16.0, Z80.0) Status:Active Family history of diabetes m ellitus: Mother, Father(V18.0, Z83.3) Status:Active Unknown Family Member Name Dates Details Family history of mitral arpan ve disorder: Sister(V17.49, Z82.49) Status:Active Family history of alcoholism : Father(V17.0, Z81.1) Status:Active Family history of metastatic neoplastic disease: Father(V16.9, Z80.9) Comments:UNKNOWN ORIGIN; Status:Active Family history of pancreatic cancer: Father(V16.0, Z80.0) Status:Active Family history of diabetes m ellitus: Mother, Father(V18.0, Z83.3) Status:Active Unknown Family Member Name Dates Details Family history of mitral arpan ve disorder: Sister(V17.49, Z82.49) Status:Active Family history of alcoholism : Father(V17.0, Z81.1) Status:Active Family history of metastatic neoplastic disease: Father(V16.9, Z80.9) Comments:UNKNOWN ORIGIN; Status:Active Family history of pancreatic cancer: Father(V16.0, Z80.0) Status:Active Family history of diabetes m ellitus: Mother, Father(V18.0, Z83.3) Status:Active Unknown Family Member Name Dates Details Family history of diabetes m ellitus: Mother, Father(V18.0, Z83.3) Status:Active Family history of pancreatic cancer: Father(V16.0, Z80.0) Status:Active Family history of metastatic neoplastic disease: Father(V16.9, Z80.9) Comments:UNKNOWN ORIGIN; Status:Active Family history of alcoholism : Father(V17.0, Z81.1) Status:Active Family history of mitral arpan ve disorder: Sister(V17.49, Z82.49) Status:Active Unknown Family Member Name Dates Details Family history of mitral arpan ve disorder: Sister(V17.49, Z82.49) Status:Active Family history of alcoholism : Father(V17.0, Z81.1) Status:Active Family history of metastatic neoplastic disease: Father(V16.9, Z80.9) Comments:UNKNOWN ORIGIN; Status:Active Family history of pancreatic cancer: Father(V16.0, Z80.0) Status:Active Family history of diabetes m ellitus: Mother, Father(V18.0, Z83.3) Status:Active Unknown Family Member Name Dates Details Family history of mitral arpan ve disorder: Sister(V17.49, Z82.49) Status:Active Family history of alcoholism : Father(V17.0, Z81.1) Status:Active Family history of metastatic neoplastic disease: Father(V16.9, Z80.9) Comments:UNKNOWN ORIGIN; Status:Active Family history of pancreatic cancer: Father(V16.0, Z80.0) Status:Active Family history of diabetes m ellitus: Mother, Father(V18.0, Z83.3) Status:Active Unknown Family Member Name Dates Details Family history of mitral arpan ve disorder: Sister(V17.49, Z82.49) Status:Active Family history of alcoholism : Father(V17.0, Z81.1) Status:Active Family history of metastatic neoplastic disease: Father(V16.9, Z80.9) Comments:UNKNOWN ORIGIN; Status:Active Family history of pancreatic cancer: Father(V16.0, Z80.0) Status:Active Family history of diabetes m ellitus: Mother, Father(V18.0, Z83.3) Status:Active Unknown Family Member Name Dates Details Family history of mitral arpan ve disorder: Sister(V17.49, Z82.49) Status:Active Family history of alcoholism : Father(V17.0, Z81.1) Status:Active Family history of metastatic neoplastic disease: Father(V16.9, Z80.9) Comments:UNKNOWN ORIGIN; Status:Active Family history of pancreatic cancer: Father(V16.0, Z80.0) Status:Active Family history of diabetes m ellitus: Mother, Father(V18.0, Z83.3) Status:Active Unknown Family Member Name Dates Details Family history of diabetes m ellitus: Mother, Father(V18.0, Z83.3) Status:Active Family history of pancreatic cancer: Father(V16.0, Z80.0) Status:Active Family history of metastatic neoplastic disease: Father(V16.9, Z80.9) Comments:UNKNOWN ORIGIN; Status:Active Family history of alcoholism : Father(V17.0, Z81.1) Status:Active Family history of mitral arpan ve disorder: Sister(V17.49, Z82.49) Status:Active Unknown Family Member Name Dates Details Family history of mitral arpan ve disorder: Sister(V17.49, Z82.49) Status:Active Family history of alcoholism : Father(V17.0, Z81.1) Status:Active Family history of metastatic neoplastic disease: Father(V16.9, Z80.9) Comments:UNKNOWN ORIGIN; Status:Active Family history of pancreatic cancer: Father(V16.0, Z80.0) Status:Active Family history of diabetes m ellitus: Mother, Father(V18.0, Z83.3) Status:Active Unknown Family Member Name Dates Details Family history of mitral arpan ve disorder: Sister(V17.49, Z82.49) Status:Active Family history of alcoholism : Father(V17.0, Z81.1) Status:Active Family history of metastatic neoplastic disease: Father(V16.9, Z80.9) Comments:UNKNOWN ORIGIN; Status:Active Family history of pancreatic cancer: Father(V16.0, Z80.0) Status:Active Family history of diabetes m ellitus: Mother, Father(V18.0, Z83.3) Status:Active Unknown Family Member Name Dates Details Family history of mitral arpan ve disorder: Sister(V17.49, Z82.49) Status:Active Family history of alcoholism : Father(V17.0, Z81.1) Status:Active Family history of metastatic neoplastic disease: Father(V16.9, Z80.9) Comments:UNKNOWN ORIGIN; Status:Active Family history of pancreatic cancer: Father(V16.0, Z80.0) Status:Active Family history of diabetes m ellitus: Mother, Father(V18.0, Z83.3) Status:Active Unknown Family Member Name Dates Details Family history of mitral arpan ve disorder: Sister(V17.49, Z82.49) Status:Active Family history of alcoholism : Father(V17.0, Z81.1) Status:Active Family history of metastatic neoplastic disease: Father(V16.9, Z80.9) Comments:UNKNOWN ORIGIN; Status:Active Family history of pancreatic cancer: Father(V16.0, Z80.0) Status:Active Family history of diabetes m ellitus: Mother, Father(V18.0, Z83.3) Status:Active Unknown Family Member Name Dates Details Family history of mitral arpan ve disorder: Sister(V17.49, Z82.49) Status:Active Family history of alcoholism : Father(V17.0, Z81.1) Status:Active Family history of metastatic neoplastic disease: Father(V16.9, Z80.9) Comments:UNKNOWN ORIGIN; Status:Active Family history of pancreatic cancer: Father(V16.0, Z80.0) Status:Active Family history of diabetes m ellitus: Mother, Father(V18.0, Z83.3) Status:Active Unknown Family Member Name Dates Details Family history of mitral arpan ve disorder: Sister(V17.49, Z82.49) Status:Active Family history of alcoholism : Father(V17.0, Z81.1) Status:Active Family history of metastatic neoplastic disease: Father(V16.9, Z80.9) Comments:UNKNOWN ORIGIN; Status:Active Family history of pancreatic cancer: Father(V16.0, Z80.0) Status:Active Family history of diabetes m ellitus: Mother, Father(V18.0, Z83.3) Status:Active Unknown Family Member Name Dates Details Family history of mitral arpan ve disorder: Sister(V17.49, Z82.49) Status:Active Family history of alcoholism : Father(V17.0, Z81.1) Status:Active Family history of metastatic neoplastic disease: Father(V16.9, Z80.9) Comments:UNKNOWN ORIGIN; Status:Active Family history of pancreatic cancer: Father(V16.0, Z80.0) Status:Active Family history of diabetes m ellitus: Mother, Father(V18.0, Z83.3) Status:Active Unknown Family Member Name Dates Details Family history of mitral arpan ve disorder: Sister(V17.49, Z82.49) Status:Active Family history of alcoholism : Father(V17.0, Z81.1) Status:Active Family history of metastatic neoplastic disease: Father(V16.9, Z80.9) Comments:UNKNOWN ORIGIN; Status:Active Family history of pancreatic cancer: Father(V16.0, Z80.0) Status:Active Family history of diabetes m ellitus: Mother, Father(V18.0, Z83.3) Status:Active Relationship Condition Age at Onset Recorded Date/T sidra father Diabetes mellitus Unknown Alcoholism Unknown Malignant neoplasm of pancreas Unknown Malignant neoplasm of liver Unknown Family history of ma lignant neoplasm of prostate Unknown mother Diabetes mellitus Unknown Mitral valve anterior leaflet prolapse Un known sister Infertility Unknown Advance Directives Latest Code Status on File Code Status Date Activated Date Inactivated Comments Full Code 10/06/2023 6:16 AM Question Answer Comments Plan of Care: Code Status Discussion Completed Decision Maker: Patient Date Activated Date Inactivated Comments 10/06/2023 6:16 AM Question Answer Comments Plan of Care: Code Status Discussion Completed Decision Maker: Patient Advance Directive Response Recorded Date/ Time Advance Directives Yes December 16 12:09pm Chief Complaint HEMATURIAHEMATURIA* 1 year f/u DM HTN. * No concerns. Mammo done 06/29/21 [facility]. clinic CT results and KUB5 mo w/ kub6 mo w/ kubWELLNESS LABS Reason for Referral Specialty Diagnoses / Procedures Referred By Nisa reeves Referred To Contact Radiology Diagnoses Calculus of kidney Procedures US renal complete Lo Delarosa MD [address] [place] [address] Referral ID Status Reason Start Date Expiration Date Visits Requested Visits Authorized [id number] Pending Review Perform Procedure 03/12/2023 09/08/2023 1 1 Specialty Diagnoses / Procedures Referred By Nisa reeves Referred To Contact Radiology Diagnoses Kidney stones Procedures CT abdomen pelvis wo IV contrast Lo Delarosa MD [address] [place] [address] Referral ID Status Reason Start Date Expiration Date Visits Requested Visits Authorized [id number] Pending Review Perform Procedure 08/05/2023 08/04/2024 1 1 Specialty Diagnoses / Procedures Referred By Nisa t Referred To Contact Radiology Diagnoses Kidney stones Procedures XR abdomen 1 view Lo Delarosa MD [address] [place] [address] Referral ID Status Reason Start Date Expiration Date Visits Requested Visits Authorized [id number] Authorized Perform Procedure 08/05/2023 08/04/2024 1 1 Referral ID Status Reason Start Date Expiration Date Visits Requested Visits Authorized [id number] Authorized Perform Procedure 08/05/2023 08/04/2024 1 1 Referral ID Status Reason Start Date Expiration Date Visits Requested Visits Authorized [id number] Authorized Perform Procedure 09/03/2023 09/02/2024 1 1 Chief Complaint and Reason for Visit Chief Complaint Admit Date Poss. UTI dark blood in urine April 192024 11:56am Gross hematuria May 05, 2025 6 :30pm Reason for Visit Admit Date Back pain April 19, 2025 1 1:56am Gross hematuria April 19, 2025 1 1:56am History of kidney stones April 19, 025 11:56am Recurrent UTI (urinary tract infection) April 19, 2025 11:56am Additional Source Comments INFORMATION SOURCE (unrecogn ized section and content) DATE CREATED AUTHOR 11/20/2018 [facility] DATE CREATED AUTHOR AUTHOR'S ORGANIZ ATION 07/29/2022 [employer] DATE CREATED AUTHOR AUTHOR'S ORGANIZ ATION 11/12/2022 [facility] DATE CREATED AUTHOR AUTHOR'S ORGANIZ ATION 01/15/2023 [facility] DATE CREATED AUTHOR AUTHOR'S ORGANIZ ATION 02/14/2024 [facility] DATE CREATED AUTHOR AUTHOR'S ORGANIZ ATION 07/12/2024 [facility] DATE CREATED AUTHOR AUTHOR'S ORGANIZ ATION 11/29/2024 [facility] DATE CREATED AUTHOR AUTHOR'S ORGANIZ ATION 02/02/2025 [facility] DATE CREATED AUTHOR AUTHOR'S ORGANIZ ATION 02/09/2025 [facility] DATE CREATED AUTHOR AUTHOR'S ORGANIZ ATION 02/16/2025 [facility] DATE CREATED AUTHOR AUTHOR'S ORGANIZ ATION 05/08/2025 [facility] <item><item> Privacy Markings (unrecogniz ed section and content) Section Author: Anel Radford PROHIBITION ON REDISCLOSURE OF CONFIDENTIAL INFORMATION This notice accompanies a disclosure of information concerning a client made to you with the consent of such client. Section Author: Anel Radford PROHIBITION ON REDISCLOSURE OF CONFIDENTIAL INFORMATION This notice accompanies a disclosure of information concerning a client made to you with the consent of such client. Source Comments (unrecognize d section and content) In the event this informatio n is protected by the Federal Confidentiality of Alcohol and Drug Abuse Patient Records regulations: The Federal rules restrict any use of the information to criminally investigate or prosecute any alcohol or drug abuse patient.[facility] the event this information is protected by the Federal Confidentiality of Alcohol and Drug Abuse Patient Records regulations: The Federal rules restrict any use of the information to criminally investigate or prosecute any alcohol or drug abuse patient.[facility] the event this information is protected by the Federal Confidentiality of Alcohol and Drug Abuse Patient Records regulations: The Federal rules restrict any use of the information to criminally investigate or prosecute any alcohol or drug abuse patient.[facility] the event this information is protected by the Federal Confidentiality of Alcohol and Drug Abuse Patient Records regulations: The Federal rules restrict any use of the information to criminally investigate or prosecute any alcohol or drug abuse patient.[facility] the event this information is protected by the Federal Confidentiality of Alcohol and Drug Abuse Patient Records regulations: The Federal rules restrict any use of the information to criminally investigate or prosecute any alcohol or drug abuse patient.[facility] the event this information is protected by the Federal Confidentiality of Alcohol and Drug Abuse Patient Records regulations: The Federal rules restrict any use of the information to criminally investigate or prosecute any alcohol or drug abuse patient.[facility] the event this information is protected by the Federal Confidentiality of Alcohol and Drug Abuse Patient Records regulations: The Federal rules restrict any use of the information to criminally investigate or prosecute any alcohol or drug abuse patient.[facility] the event this information is protected by the Federal Confidentiality of Alcohol and Drug Abuse Patient Records regulations: The Federal rules restrict any use of the information to criminally investigate or prosecute any alcohol or drug abuse patient.[facility] the event this information is protected by the Federal Confidentiality of Alcohol and Drug Abuse Patient Records regulations: The Federal rules restrict any use of the information to criminally investigate or prosecute any alcohol or drug abuse patient.[facility] the event this information is protected by the Federal Confidentiality of Alcohol and Drug Abuse Patient Records regulations: The Federal rules restrict any use of the information to criminally investigate or prosecute any alcohol or drug abuse patient.[facility] the event this information is protected by the Federal Confidentiality of Alcohol and Drug Abuse Patient Records regulations: The Federal rules restrict any use of the information to criminally investigate or prosecute any alcohol or drug abuse patient.[facility] the event this information is protected by the Federal Confidentiality of Alcohol and Drug Abuse Patient Records regulations: The Federal rules restrict any use of the information to criminally investigate or prosecute any alcohol or drug abuse patient.[facility] Hospital[facility] the event this information is protected by the Federal Confidentiality of Alcohol and Drug Abuse Patient Records regulations: The Federal rules restrict any use of the information to criminally investigate or prosecute any alcohol or drug abuse patient.[facility] the event this information is protected by the Federal Confidentiality of Alcohol and Drug Abuse Patient Records regulations: The Federal rules restrict any use of the information to criminally investigate or prosecute any alcohol or drug abuse patient.[facility] the event this information is protected by the Federal Confidentiality of Alcohol and Drug Abuse Patient Records regulations: The Federal rules restrict any use of the information to criminally investigate or prosecute any alcohol or drug abuse patient.[facility] Reason for Visit (unrecogniz ed section and content) Reason Comments Well Woman Reason Comments Patient Question Reason Comments Mammogram Result Call Back Reason Comments 6 [facility] Specialty Diagnoses / Procedures Referred By Contac t Referred To Contact Radiology Diagnoses Calculus of kidney Procedures US renal complete Lo Delarosa MD [address] [place] [address] Referral ID Status Reason Start Date Expiration Date Visits Requested Visits Authorized [id number] Pending Review Perform Procedure 03/12/2023 09/08/2023 1 1 Reason Comments Yearly w/ RENAL US Reason Comments 6 [facility] LABS Specialty Diagnoses / Procedures Referred By Contac t Referred To Contact Primary Care Diagnoses Benign hypertension Mixed hyperlipidemia Type 2 diabetes mellitus without complication, without long-term current use of insulin ([facility]) Gastroesophageal reflux disease without esophagitis Recurrent major depressive disorder, in partial remission ([facility]) B12 deficiency Procedures Follow Up In Primary Care - Established Tatyana Doll MD [address] [place] [address] Referral ID Status Reason Start Date Expiration Date Visits Re quested Visits Authorized [id number] Closed 02/10/2023 08/09/2023 1 1 Specialty Diagnoses / Procedures Referred By Channingac t Referred To Contact Radiology Diagnoses Kidney stones Procedures CT abdomen pelvis wo IV contrast Lo Delarosa MD [address] [place] [address] Referral ID Status Reason Start Date Expiration Date Visits Requested Visits Authorized [id number] Authorized Perform Procedure 08/05/2023 08/04/2024 [address] results Specialty Diagnoses / Procedures Referred By Nisa t Referred To Contact Radiology Diagnoses Kidney stones Procedures XR abdomen 1 view Lo Delarosa MD [address] [place] [address] Referral ID Status Reason Start Date Expiration Date Visits Requested Visits Authorized [id number] Authorized Perform Procedure 08/05/2023 08/04/2024 1 1 Reason Comments KUB RESULTS Specialty Diagnoses / Procedures Referred By Nisa t Referred To Contact Diagnoses Kidney stone Kidney stone [N20.0] Procedures MT LITHOTRIPSY XTRCORP SHOCK WAVE Lithotripsy Extracorporeal Shock Wave Lo Delarosa MD [address] [place] [address] [address] Referral ID Status Reason Start Date Expiration Date Visits Re quested Visits Authorized [id number] 1 1 Specialty Diagnoses / Procedures Referred By Channingac t Referred To Contact Primary Care Diagnoses Benign hypertension Mixed hyperlipidemia Type 2 diabetes mellitus without complication, without long-term current use of insulin (Multi) Gastroesophageal reflux disease without esophagitis Recurrent major depressive disorder, in partial remission ([facility]) B12 deficiency Hyperlipidemia, unspecified hyperlipidemia type Depression, unspecified depression type Gastroesophageal reflux disease, unspecified whether esophagitis present Procedures Follow Up In Primary Care - Established Tatyana Doll MD [address] [place] [address] Referral ID Status Reason Start Date Expiration Date V isits Requested Visits Authorized [id number] Authorized 08/13/2023 08/12/2024 1 1 Reason Comments Foot Pain Pt has concerns of i nfected big toe on right foot that started x2 days ago. Reason Comments Well Woman Specialty Diagnoses / Procedures Referred By Contac t Referred To Contact Primary Care Diagnoses Benign hypertension Mixed hyperlipidemia Type 2 diabetes mellitus without complication, without long-term current use of insulin (Multi) Gastroesophageal reflux disease without esophagitis Recurrent major depressive disorder, in partial remission ([facility]) B12 deficiency Hyperlipidemia, unspecified hyperlipidemia type Depression, unspecified depression type Gastroesophageal reflux disease, unspecified whether esophagitis present Procedures Follow Up In Primary Care - Established Tatyana Doll MD Phone: tel: fax: Referral ID Status Reason Start Date Expiration Date V isits Requested Visits Authorized [id number] Authorized 02/12/2024 02/11/2025 1 1 Reason Onset Date Comments Results 08/22/2024 Reason Comments Follow Up Reason Comments RT Hand Lesion Specialty Diagnoses / Procedures Referred By Contac t Referred To Contact Primary Care Diagnoses Benign hypertension Mixed hyperlipidemia Type 2 diabetes mellitus without complication, without long-term current use of insulin Gastroesophageal reflux disease without esophagitis Recurrent major depressive disorder, in partial remission B12 deficiency Hyperlipidemia, unspecified hyperlipidemia type Depression, unspecified depression type Gastroesophageal reflux disease, unspecified whether esophagitis present Procedures Follow Up In Primary Care - Established Tatyana Doll MD [address] [place] [address] Phone: tel: fax: Referral ID Status Reason Start Date Expiration Date V isits Requested Visits Authorized [id number] Authorized 08/17/2024 08/17/2025 1 1 Care Teams (unrecognized sec tion and content) Commercial Roofer Relationship Specialty Start Date End Date Sruthi Shelley [address] [place] [address] PCP - General 07/28/03 Commercial Roofer Relationship Specialty Start Date End Date Sruthi Shelley [address] [place] [address] PCP - General 07/28/03 Commercial Roofer Relationship Specialty Start Date End Date Sruthi Shelley [address] [place] [address] PCP - General 07/28/03 Commercial Roofer Relationship Specialty Start Date End Date Sruthi Shelley [address] [place] [address] PCP - General 07/28/03 Commercial Roofer Relationship Specialty Start Date End Date Tatyana Doll MD [address] [place] [address] PCP - General 07/04/19 Commercial Roofer Relationship Specialty Start Date End Date Sruthi Shelley MD [address] [place] [address] PCP - General 07/28/03 Commercial Roofer Relationship Specialty Start Date End Date Sruthi Shelley MD [address] [place] [address] PCP - General 07/28/03 Commercial Roofer Relationship Specialty Start Date End Date Srtuhi Shelley MD [address] [place] [address] PCP - General 07/28/03 Commercial Roofer Relationship Specialty Start Date End Date Tatyana Doll MD [address] [place] [address] PCP - [place] [facility] PCP 11/27/22 Tatyana Doll MD [address] [place] [address] PCP - General Family Medicine 07/08/23 Commercial Roofer Relationship Specialty Start Date End Date Sruthi Shelley MD [address] [place] [address] PCP - General 07/28/03 Commercial Roofer Relationship Specialty Start Date End Date Tatyana Doll MD [address] [place] [address] PCP - [place] [facility] PCP 11/27/22 Tatyana Doll MD [address] [place] [address] PCP - General Family Medicine 07/08/23 Commercial Roofer Relationship Specialty Start Date End Date Tatyana Doll MD [address] [place] [address] PCP - [place] [facility] PCP 11/27/22 Tatyana Doll MD [address] [place] [address] PCP - General Family Medicine 07/08/23 Lo Delarosa MD [address] [place] [address] Surgeon Urology 08/11/23 Commercial Roofer Relationship Specialty Start Date End Date Tatyana Doll MD [address] [place] [address] PCP - [place] [facility] PCP 11/27/22 Tatyana Doll MD [address] [place] [address] PCP - General Family Medicine 07/08/23 Lo Delarosa MD [address] [place] [address] Surgeon Urology 08/11/23 Commercial Roofer Relationship Specialty Start Date End Date Tatyana Doll MD [address] [place] [address] PCP - [place] [facility] PCP 11/27/22 Tatyana Doll MD [address] [place] [address] PCP - General Family Medicine 07/08/23 Lo Delarosa MD [address] [place] [address] Surgeon Urology 08/11/23 Commercial Roofer Relationship Specialty Start Date End Date Tatyana Doll MD [address] [place] [address] PCP - [place] [facility] PCP 11/27/22 Tatyana Doll MD [address] [place] [address] PCP - General Family Medicine 07/08/23 Lo Delarosa MD [address] [place] [address] Surgeon Urology 08/11/23 Commercial Roofer Relationship Specialty Start Date End Date Tatyana Doll MD [address] [place] [address] PCP - [place] [facility] PCP 11/27/22 Tatyana Doll MD [address] [place] [address] PCP - General Family Medicine 07/08/23 Lo Delarosa MD [address] [place] [address] Surgeon Urology 08/11/23 Commercial Roofer Relationship Specialty Start Date End Date Tatyana Doll MD [address] [place] [address] PCP - [place] [facility] PCP 11/27/22 Tatyana Doll MD [address] [place] [address] PCP - General Family Medicine 07/08/23 Lo Delarosa MD [address] [place] [address] Surgeon Urology 08/11/23 Commercial Roofer Relationship Specialty Start Date End Date Tatyana Doll MD [address] [place] [address] PCP - [place] [facility] PCP 11/27/22 Tatyana Doll MD [address] [place] [address] PCP - General Family Medicine 07/08/23 Lo Delarosa MD [address] [place] [address] Surgeon Urology 08/11/23 Commercial Roofer Relationship Specialty Start Date End Date Tatyana Doll MD [address] [place] [address] PCP - General Family Medicine 07/06/24 Commercial Roofer Relationship Specialty Start Date End Date Tatyana Doll MD [address] [place] [id number] PCP - General Family Medicine 07/06/24 Commercial Roofer Relationship Specialty Start Date End Date Sruthi Shelley MD [address] [place] [address] PCP - General 07/28/03 Commercial Roofer Relationship Specialty Start Date End Date Sruthi Shelley MD [address] [place] [id number] PCP - General 07/28/03 Commercial Roofer Relationship Specialty Start Date End Date Tatyana Doll MD [address] [address] PCP - [place] PCP 11/27/22 Tatyana Doll MD [address] [address] PCP - General Family Medicine 07/08/23 Lo Delarosa MD [address] [place] [address] Surgeon Urology 08/11/23 Commercial Roofer Relationship Specialty Start Date End Date Sruthi Shelley MD [address] [place] [address] PCP - General 07/28/03 Commercial Roofer Relationship Specialty Start Date End Date Sruthi Shelley MD [address] [place] [id number] PCP - General 07/28/03 Commercial Roofer Relationship Specialty Start Date End Date Sruthi Shelley MD [address] [place] [address] PCP - General 07/28/03 Commercial Roofer Relationship Specialty Start Date End Date Tatyana Doll MD [address] [address] PCP - [place] [employer] [facility] PCP 11/27/22 Taytana Doll MD [address] [address] PCP - General Family Medicine 07/08/23 Lo Delarosa MD [address] [place] [address] Surgeon Urology 08/11/23 Commercial Roofer Relationship Specialty Start Date End Date Sruthi Shelley MD [address] [place] [address] PCP - General 07/28/03 Commercial Roofer Relationship Specialty Start Date End Date Tatyana Doll MD [address] [address] PCP - [place] [employer] [facility] PCP 11/27/22 Tatyana Doll MD [address] [address] PCP - General Family Medicine 07/08/23 Lo Delarosa MD [address] [place] [address] Surgeon Urology 08/11/23 Commercial Roofer Relationship Specialty Start Date End Date Sruthi Shelley MD [address] [place] [address] PCP - General 07/28/03 Commercial Roofer Relationship Specialty Start Date End Date Tatyana Doll MD [address] [address] PCP - [place] [employer] [facility] PCP 11/27/22 Tatyana Doll MD [address] [address] PCP - General Family Medicine 07/08/23 Lo Delarosa MD [address] [place] [address] Surgeon Urology 08/11/23 Commercial Roofer Relationship Specialty Start Date End Date Tatyana Doll MD [address] [address] PCP - [place] [employer] [facility] PCP 11/27/22 Tatyana Doll MD [address] [address] PCP - General Family Medicine 07/08/23 Lo Delarosa MD [address] [place] [address] Surgeon Urology 08/11/23 Team Status: Active Member Role/Relationship Status Dates Dr. Tramaine Doll MD Primary care physician Active Team Status: Inactive Member Role/Relationship Status Dates Dr. Tramaine Doll MD Primary care physician Active Start: April 19, 2025 End: April 19, 2025 Dr. Tramaine Doll MD Referring Provider Active Start: April 19, 2025 End: April 19, 2025 Dr. Nithya Saucedo MD Attending physician Active Start: April 19, 2025 End: April 19, 2025 Team Status: Active Member Role/Relationship Status Dates Dr. Tramaine Doll MD Primary care physician Active Start: May 05, 2025 Dr. Nithya Saucedo MD Attending physician Active Start: May 05, 2025 Dr. Nithya Saucedo MD Referring Provider Active Start: May 05, 2025 Scheduled Active and Recently Administ ered Medications (unrecognized section and content) Medication Order 10/04/2023 10/05/2023 10/06/2023 ondansetron (Zofran) injection 4 mg (COMPLETED) 4 mg, intravenous, Once, On Thu10/06/23 at 0730, For 1 dose, Preprocedure, When administering via IV Push, administer over 3-5 minutes. 0715 (Given - Provid er: Neli Mccarthy RN) Continuous Medication Order 10/04/2023 10/05/2023 10/06/2023 lactated Ringer's infusion 100 mL/hr, intravenous, Continuous, Starting on Thu10/06/23 at 0730, Preprocedure 0711 (New Bag - Prov ider: Neli Mccarthy RN)0909 (Stopped - Provider: Luciana Fitzgerald RN) PRN Medication Order 10/04/2023 10/05/2023 10/06/2023 midazolam (Versed) injection 2 mg (COMPLETED) 2 mg, intravenous, Once as needed, anxiety, Starting on Thu10/06/23 at 0703, For 1 dose, Preprocedure 0727 (Given - Provid er: Neli Mccarthy RN) Goals (unrecognized section and content) Goals may be documented in a n alternate section FOR RECORDS PERTAINING TO PATIENTS WHO ARE OR HAVE BEEN ENROLLED IN A CHEMICAL DEPENDENCY/SUBSTANCEABUSE PROGRAM, SOME INFORMATION MAY BE OMITTED. This clinical summary was aggregated from multiple sources. Caution should be exercised in using it in the provision of clinical care. This summary normalizes information from multiple sources, and as a consequence, information in this document may materially change the coding, format and clinical context of patient data. In addition, data may be omitted in some cases. CLINICAL DECISIONS SHOULD BE BASED ON THE PRIMARY CLINICAL RECORDS. [facility]. provides no warranty or guarantee of the accuracy or completeness of information in this document.
[2025-06-15] MEDS: Lactated Ringers 1,000 ML 15 ML IV (06:42)
--- NOTE | 2025-06-15 06:42 | PRE.ANES_ITS ---
ASA Classification* ASA Classification ASA Classification: 2 Assessment & Plan Anesthesia* Anesthesia Assessment Anesthesia Assessment: Discussed sedation and/or anesthesia options, risks, benefits, and alternatives with patient/parents/legal guardian/POA. Questions invited. The patient/parents/legal guardian/POA seems to understand and agrees to proceed with anesthesia plan. Reviewed the physical assessment, medical history, allergy history and patient home medications list prior to surgery/procedure/anesthetic and documented any changes. Performed airway and anesthesia risk assessments. Anesthesia Type Anesthesia Type: General History Source History Obtained from:: Patient and Chart Anesthesia Focused Assessment* Temperature: 99.6 F Pulse Rate: 86 Blood Pressure: 134/91 Respiratory Rate: 16 Pulse Ox: 97 Oxygen Delivery Method: Room Air Airway Assessment Mouth opens: >3 cm Mallampati Score: II Teeth Condition: Intact Neck Range of motion (ROM): Full ROM Labs Anesthesia Preop lab: CBC WBC, (4.4-11.0) 9.0 K/mm3 06/08/25, 08:19 RBC, (4.2-5.4) 4.75 M/mm3 06/08/25, 08:19 Hgb, (12.0-15.0) 14.3 g/dL 06/08/25, 08:19 Hct, (37-47) 43.8 % 06/08/25, 08:19 Plt Count, (150-450) 360 K/mm3 06/08/25, 08:19 CHEMISTRY Potassium, (3.3-5.1) 4.3 mmol/L 06/08/25, 08:19 Sodium, (133-145) 138 mmol/L 06/08/25, 08:19 BUN, (4-19) 12 mg/dL 06/08/25, 08:19 Creatinine, (0.70-1.20) 0.76 mg/dL 06/08/25, 08:19 Glucose, (70-99) 183 mg/dL H 06/08/25, 08:19 POC Glucose, (70-110) 96 mg/dL 09/18/17, 13:10 COAG Pre-Assessment Diagnosis/Proposed Procedure Planned Operative Procedure(s): (L) Cysto, Left ureteral stent, Left renal ESWL Anesthesia History 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 When Was Last Pacemaker Check QUESTION #4 FULL TEXT: You/Your Family Experience fever (hyperthermia) with Anesthesia Last Oral Intake Last Oral intake: Last Oral Intake NPO since 06:30 06/15/25 06:17 Meds taken in AM with sips of Yes 06/15/25 06:17 water? Meds patient instructed to take am of surgery PONV PONV - inbound ingredient logistics specialist: PONV - inbound ingredient logistics specialist Female Yes 06/05/25 14:09 HX of Motion Sickness No 06/05/25 14:09 HX of N/V After Surgery Yes 06/05/25 14:09 Non-Smoker No 06/05/25 14:09 Duration of Surgery greater Yes 06/05/25 14:09 than 60 minutes Number of Risk Factors 3 06/05/25 14:09 PONV Score Moderate Risk 06/05/25 14:09 Height & Weight Height & Weight: Anesthesia: Height & Weight Height 5 ft 6 in 06/15/25 06:17 Weight: 87.6 kg 06/15/25 06:17 Body Mass Index (BMI) 31.1 06/15/25 06:17 Respiratory Assessment Respiratory Assessment - inbound ingredient logistics specialist: Respiratory Tract Infection Hx - inbound ingredient logistics specialist Hx Respiratory Tract Infection No 06/05/25 14:09 STOP Sleep Apnea STOP Sleep Apnea - inbound ingredient logistics specialist: STOP Sleep Apnea - inbound ingredient logistics specialist Hx Hypertension Yes: PER PT, CONTROLLED ON 06/05/25 14:09 MEDS Hx Sleep Apnea No 06/05/25 14:09 CPAP No 09/18/17 12:58 BIPAP No 09/14/17 08:14 Do you snore loudly (louder No 06/05/25 14:09 than talking or can be heard Do you often feel tired/ No 06/05/25 14:09 fatigued/ sleepy during daytime? Has anyone observed you stop No 06/05/25 14:09 breathing during sleep? STOP Results Negative 06/05/25 14:09 QUESTION #5 FULL TEXT : Do you snore loudly (louder than talking or can be heard through closed doors)? 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 Specify any problems Hx of Preganancy in last 3 No 06/05/25 14:09 Months Nurse Filling Out Transfusion MGRIFFITH 06/05/25 14:09 & Questions: Date: 06/05/25 06/05/25 14:09 Time: 14:11 06/05/25 14:09 Patient unable to answer at this time (ie. confused, unrespo /Reproduction History /Reproductive History - inbound ingredient logistics specialist: /Reproductive Hx- inbound ingredient logistics specialist Hx Now No 06/05/25 14:09 Gestational Age (in weeks): EDC: Hx Hx Para Hx Section SAB No 06/05/25 14:09 Does the father of the baby or his family experience fever w Father of the baby Malignant Hypertension history comment Active Medications Active Medications: Current Medications Generic Name Dose Route Start Last Admin Trade Name Freq PRN Reason Stop Dose Admin Ciprofloxacin 400 mg in 200 mls @ 200 mls/hr 06/15/25 07:00 Cipro IV 06/15/25 07:59 PREOP ONE Lactated Ringer's 1,000 mls @ 15 mls/hr 06/15/25 06:45 IV .Q48H JULITO PFSH Medical History Wears contact lenses Anxiety Diabetes Fatty liver High cholesterol PONV (postoperative nausea and vomiting) Smoker Hypertension Depression GERD (gastroesophageal reflux disease) Insomnia Type 2 diabetes mellitus Mixed hyperlipidemia Recurrent UTI (urinary tract infection) Home Medications ?Medication ?Instructions ?Recorded ?Last Taken ?Type escitalopram oxalate 10 mg tablet 40 mg PO DAILY 12/16 Unknown History atorvastatin 10 mg tablet 10 mg PO QHS HLD 09/14/17 Un known History losartan 50 mg tablet (Cozaar) 100 mg PO DAILY HTN 06/15/25 05:30 History metformin 1,000 mg tablet 1,000 mg PO BID 09/14/17 Unk nown History pantoprazole 40 mg tablet,delayed 40 mg PO DAILY GERD 09/14/17 06/15/25 05:30 History release nitrofurantoin 100 mg PO BID #14 caps 06/09 Unknown Rx monohydrate/macrocrystals 100 mg capsule (Macrobid) Allergy/AdvReac Type Severity Reaction Status Date / Time amoxicillin Allergy Unknown Verified 06/15/25 06:10 Sulfa (Sulfonamide Allergy Hives Verified 06/15/25 06:10 Antibiotics) Family History Father Diabetes Alcoholism Pancreatic cancer Liver cancer FH: prostate cancer Mother Diabetes Mitral valve anterior leaflet prolapse Sister Infertility Surgical History History of extracorporeal shockwave lithotripsy (ESWL) History of tubal ligation H/O lithotripsy H/O esophagogastroduodenoscopy History of colonoscopy Social History adopted: No household members: spouse leisure activities: exercise Smoking Status: Current every day smoker tobacco type: cigarettes alcohol intake: never substance use type: does not use seatbelt use: always do you feel safe at home: Yes Review of Systems (Anesthesia) ROS Narrative System reviewed and no additional complaints, except as documented.
--- NOTE | 2025-06-15 07:15 | PCM.HP.BLA ---
History and Physical Date of Admission: 06/15/25 Date of Service: 05/16/25 MR#: [id number] Acct: [id number] Name: SHEELA EDWARDS Rep #: [id number] : 1970 Provider: Dr. Nithya Saucedo MD Age/Sex: 54/F Location: [facility] Status: Signed Intake Vital Signs 04/19/2512:05 05/16/2512:08 Height 5 ft 6 in 5 ft 6 in Weight: 185 lb BMI 29.8 BP 120/68 Pulse 64 Intake Visit Reasons: Possible Pre-op/stones Chief Complaint: kidney stone preoperation Hvac Design Engineer Required: No Accompanied by: self Is patient in pain?: No Allergies amoxicillin Allergy (Verified 05/16/25 12:09) Unknown Sulfa (Sulfonamide Antibiotics) Allergy (Verified 05/16/25 12:09) Hives Medications ?Medication ?Instructions ?Recorded ?Confirmed ?Type escitalopram oxalate 10 mg tablet 40 mg PO QHS 12/16/13 05/16/25 History atorvastatin 10 mg tablet 10 mg PO QHS 09/14/17 05/16/25 History losartan 50 mg tablet (Cozaar) 50 mg PO DAILY 09/14/17 05/16/25 History metformin 1,000 mg tablet 1,000 mg PO BID 09/14/17 05/16/25 History pantoprazole 40 mg tablet,delayed 40 mg PO DAILY 09/14/17 05/16/25 History release PFSH Medical History Depression GERD (gastroesophageal reflux disease) Insomnia Type 2 diabetes mellitus Mixed hyperlipidemia Recurrent UTI (urinary tract infection) Surgical History History of extracorporeal shockwave lithotripsy (ESWL) History of tubal ligation H/O lithotripsy H/O esophagogastroduodenoscopy History of colonoscopy Family History Father Diabetes Alcoholism Pancreatic cancer Liver cancer FH: prostate cancer Mother Diabetes Mitral valve anterior leaflet prolapse Sister Infertility Social History adopted: No household members: spouse leisure activities: exercise Smoking Status: Current every day smoker alcohol intake: never substance use type: does not use seatbelt use: always do you feel safe at home: Yes HPI HPI Urology Chief Complaint: kidney stone preoperation Details: SHEELA EDWARDS, is a 54 F. She is here to discuss the results of her CT scan revealing 2 large left lower pole kidney stones. She is feeling better today. No significant flank pain. No nausea, vomiting, fever or chills. We discussed her 2 large left lower pole kidney stones. She has had at least 3 left renal extracorporal shockwave lithotripsy procedures done on the same stones in the recent past. She has never had ureteroscopy with laser lithotripsy done. We discussed that I would prefer to try that rather than to put her through another shockwave lithotripsy that could potentially start to damage the vascularity of the left kidney. She understands and agrees to proceed. ROS Const Constitutional: No chills, fatigue, fever(s), headache(s), night sweats, weakness, weight change, abnormal sleep pattern or change in appetite Eyes Eyes: No change in vision ENT ENT: No headache(s) or dry mouth Resp Respiratory: No cough, chest congestion, shortness of breath or wheezing Cardio Cardiology: Positive for other (No chest pain.); No shortness of breath, irregular heart rhythm or lightheadedness Gastro GI: Positive for other (No nausea.); No abdominal pain, change in bowel habits, constipation, diarrhea or vomiting Musc Musculoskeletal: No abnormal gait Skin Skin: No yellowing of the eye, lesions, itchy eyes, rash or skin ulcer Neuro Neurology: No abnormal gait, confusion, dizziness, weakness, headache(s) or memory loss Psych Psychiatric: No abnormal sleep pattern, No change in appetite, No confusion and No memory loss Endo Endocrine: No fatigue, increased thirst/drinking or weight change Aller/Imm Allergy/Immunologic: No itchy eyes or wheezing Ze/Lymp Hematologic/Lymphatic: No easy bleeding, easy bruising or enlarged lymph nodes Exam Const General: cooperative, healthy appearing, comfortable and no acute distress [facility] Head: normocephalic and atraumatic Ears: hearing grossly normal bilaterally and external ears normal Nose: external nose normal Eyes General: appearance normal, both eyes and all related structures Neck Neck: normal visual inspection and trachea midline Chest Chest palpation & inspection: normal inspection of the chest Resp Effort & Inspection: normal respiratory effort, able to speak in complete sentences and symmetric chest movement Cardio Rate: regular rate GI Inspection: normal to inspection Palpation: soft and nontender General: No CVA tenderness Skin General: no rashes or lesions noted Neuro General: patient alert, patient awake, patient oriented x3 and CN's II-XI intact bilaterally Extrem General: normal to inspection Psych Appearance: grossly normal and well kempt Mental Status: mental status grossly normal Results POC Urinalysis w/Micro Office Urine Color ? Last Edit by Jayashree Ocampo on 05/16/25 12:12 Office Urine Clarity ? Last Edit by Jayashree Ocampo on 05/16/25 12:12 Office Urine Glucose Negative Last Edit by Jayashree Ocampo on 05/16/25 12:12 Office Urine Ketones Negative Last Edit by Jayashree Ocampo on 05/16/25 12:12 Office Urine Bilirubin Small (1+) Last Edit by Jayashree Ocampo on 05/16/25 12:12 Office Urine Urobilinogen 0.2 mg/dL Last Edit by Jayashree Ocampo on 05/16/25 12:12 Off Ur Spec [place] 1.015 Last Edit by Jayashree Ocampo on 05/16/25 12:12 Office Urine pH 6 Last Edit by Jayashree Ocampo on 05/16/25 12:12 Office Urine Protein Trace Last Edit by Jayashree Ocampo on 05/16/25 12:12 Office Urine Blood Small Last Edit by Jayashree Ocampo on 05/16/25 12:12 Office Urine Blood Hemolyzed Negative Last Edit by Jayashree Ocampo on 05/16/25 12:12 Office Urine Nitrate Negative Last Edit by Jayashree Ocampo on 05/16/25 12:12 Off Ur Leukocytes Positive Last Edit by Jayashree Ocampo on 05/16/25 12:12 Off Ur WBC Microscopic ? Last Edit by Jayashree Ocampo on 05/16/25 12:12 Off Ur RBC Microscopic ? Last Edit by Jayashree Ocampo on 05/16/25 12:12 Off Ur Bacteria Microscopic ? Last Edit by Jayashree Ocampo on 05/16/25 12:12 leuks 500 Coding Level of Care Code Off vis,est,level 4 Diagnoses Calculus of left kidney N20.0 Recurrent UTI (urinary tract infection) N39.0 Gross hematuria R31.0 Back pain M54.9 Additional Codes Intake - Is patient in pain?: No (1126F) Assessment and Plan Assessment and Plan (1) Calculus of left kidney: Status: Acute (2) Recurrent UTI (urinary tract infection): Status: Acute (3) Gross hematuria: Status: Acute (4) Back pain: Status: Acute Orders: Orders POC UA Automated w/Microscopy Today Z87.442 - Personal history of urinary calculi Plan Schedule for cystoscopy, left ureteroscopy, thulium laser lithotripsy, stone basket extraction, left ureteral stent insertion. She is 5 foot 6 inches tall. Does not tolerate stents very well. We discussed the specific need for this secondary to ureteroscopy. She understands. The procedure, recovery and expectations were explained. The risks, benefits and alternatives were discussed, including but not limited to, the risks of anesthesia, bleeding, infection, injury, pain and the need for further intervention. A joint decision was made at this time to proceed with the scheduled surgery/procedure as indicated on the consent form Urine culture today, treatment pending results 05/16/25 1332 <Electronically signed by Nithya Saucedo MD> Date Nithya Saucedo MD
--- NOTE | 2025-06-15 07:48 | OP.PCM_ITS ---
Multi Select Codes Urology Urology Charge Forwarding-multi code: [id number] Cysto/Uretero w/Lithotripsy Operative Report (Standard) Operative Information Date of Procedure: 06/15/25 Pre-Operative Diagnosis: Left renal stones Post-Operative Diagnosis: Same Surgery/Procedure Performed: Cystoscopy, left ureteroscopy, laser lithotripsy, stone basket extraction, left ureteral stent insertion diver helper: No Type of Anesthesia: General RN Documented Start/Stop Times: Operation Date: 06/15/25 07:30 Case Time Into Pre-Op 06/15/25 06:16 Out of Pre-Op 06/15/25 07:41 Anesthesia Start 06/15/25 07:47 Into Room 06/15/25 07:47 Procedure Start 06/15/25 08:05 Procedure End 06/15/25 09:21 Anesthesia End 06/15/25 09:31 Out of Room 06/15/25 09:31 Into Recovery 06/15/25 09:34 Out of Recovery 06/15/25 09:54 Into Phase II Recovery 06/15/25 09:55 Procedure Start Time: 08:05 Procedure Stop Time: 09:21 Select all DRAINS/GRAFTS/IMPLANTS that apply: Drains Drain details: 6 Libyan by 26 cm JJ stent Estimated Blood Loss: <10cc Specimen collected: No Description of surgery: The patient is a 55-year-old female with recurring left renal stones who has undergone multiple shockwave lithotripsy's on that side. She now presents with 2 lower pole stones that are causing significant discomfort and recurring positive urine cultures. She is here for laser lithotripsy. Informed consent was obtained. The patient was taken the operating room and placed on the operating room table. Anesthesia monitored the head, neck, airway, IV access and vital signs throughout the case. Once anesthesia was appropriately administered, she was placed into dorsolithotomy position was prepped and draped in usual sterile fashion. The cystoscope was inserted through the urethra under direct visualization into the urinary bladder. Cystoscopy revealed diffuse mild cystitis cystica with no evidence of mass, erythema, ulceration or foreign body. The left ureteral orifice was intubated with 2 separate 0.035 Glidewire's which were advanced into the renal pelvis. The flexible ureteroscope was passed over the Glidewire leaving 1 safety wire. Access to the renal pelvis was obtained and this 2 stones were identified in the lower pole. Using a 200 ?m laser fiber, the stones were dusted with the laser fiber. Due to the positioning of the stones, a stone basket was utilized to extract the stones from the lower pole and reposition them into the renal pelvis for further treatment. This had to be done a few times throughout the case. The stones were then completely pulverized leaving no large fragments visible. The dust was flushed. At the conclusion of the case the renal pelvis and calyces were visualized with no evidence of injury. The entire length of the left ureter was directly visualized finding no evidence of injury, erythema or remaining stone fragment. The cystoscope was then used to place a 6 Libyan by 28 cm JJ stent over the Glidewire with positioning in the renal pelvis and the urinary bladder. The bladder was then emptied and the patient was awakened and taken to the recovery room in good condition. There were no complications during the procedure. Surgical Findings: 2 large stones dusted, no specimen, no complications Complications Complications: No Admit VTE Documentation VTE Present on Admission: Yes VTE Mechan Device Prophylaxis: SCD's VTE Pharm Prophylaxis ordered?: No Reason prophylaxis not ordered: Treatment Not Indicated
--- NOTE | 2025-06-15 07:49 | DCINST_ITS ---
Discharge Instructions Diet Discharge Diet: No restrictions Activity Discharge Activity: Return to Normal Activity May resume sexual activity in: No Restrictions Dressing / Incision Call your doctor if you observe: Fever of 101 or Higher, Inability to urinate and Inability to have a bowel movement Follow Up Care Please Follow Up With: Nithya Saucedo MD Test Results: Test results from this visit will be discussed in further detail at your follow- up appointment, if applicable. Discharge Plan Admission Attending Provider: Nithya Saucedo Primary Care Provider: Tramaine Ch Instructions Print Language: Grenadian Discharge Orders/Prescriptions Prescriptions: New oxycodone-acetaminophen 5-325 mg tablet 1 tab PO Q8H PRN (Reason: pain) 3 Days Qty: 10 0RF ondansetron 4 mg tablet,disintegrating 4 mg PO Q8H PRN (Reason: nausea and vomiting) Qty: 10 0RF phenazopyridine 200 mg tablet 200 mg PO TID PRN (Reason: pain) Qty: 30 3RF Continued escitalopram oxalate 10 MG tablet 40 mg PO DAILY losartan [Cozaar] 50 MG tablet 100 mg PO DAILY atorvastatin 10 MG tablet 10 mg PO QHS pantoprazole 40 MG tablet 40 mg PO DAILY metformin 1,000 MG tablet 1,000 mg PO BID nitrofurantoin monohyd/m-cryst [Macrobid] 100 mg capsule 100 mg PO BID Qty: 14 0RF Rx Instructions: must administer with a meal/food Referrals / Follow Up: Tramaine Ch MD [Primary Care Provider, Family Practice] Disposition Disposition (needs filled in before D/C Order can be placed): Home, Self Care
[2025-06-15] MEDS: Lidocaine 1% (5 ml sdv) 5 ML Vial 10 ML IV (07:53)
[2025-06-15] MEDS: fentaNYL 100 MCG/2 ML Ampul IV (08:46)
--- NOTE | 2025-06-15 10:27 | SUR.PHASEII ---
void in rr
--- NOTE | 2025-06-15 10:50 | PCM.POST.ANE ---
Anesthesia: Postop Eval I Current Vital Signs Temperature: 98.4 F Pulse Rate: 89 Blood Pressure: 147/93 Respiratory Rate: 16 Pulse Ox: 92 Assessment Airway patent: Yes Spontaneous unlabored respirations: Yes nausea: No Vomiting: No Anesthesia Complication: No Fluid Hydration Crystalloid volume administer (ml): 800 Total IV fluid infused: 800 Progress Note Anesthesia document: Postop Eval 1 completed: Yes
--- NOTE | 2025-06-15 11:18 | SUR.PHASEII ---
pain improved from 8/10 to 2/10
--- NOTE | 2025-06-15 12:53 | POSTOPAN2_ITS ---
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 Spontaneous unlabored Yes 06/15/25 10:50 MAIL MACHINE [email or web address].[email or web address] respirations Mental status nausea No 06/15/25 10:50 MAIL MACHINE [email or web address].[email or web address] Vomiting No 06/15/25 10:50 MAIL MACHINE [email or web address].[email or web address] Anesthesia Postop Eval I: Fluid Summary Crystalloid volume administer 800 06/15/25 10:50 MAIL MACHINE [email or web address].[email or web address] (ml) Colloids volume administered ( ml) Blood Product volume administered (ml) Total IV fluid infused 800 06/15/25 10:50 MAIL MACHINE [email or web address].[email or web address] Anesthesia Postop Eval I: Summary Notes Anesthesia Complication No 06/15/25 10:50 MAIL MACHINE [email or web address].[email or web address] Anesthesia Complication Comment: Post-operative progress note Anesthesia: Postop Eval II Evaluation Mental status: Awake and Calm Pain Level: 1 nausea: No Vomiting: No Complications Anesthesia Complication: No
--- NOTE | 2025-06-15 12:53 | PCM.POSTANE2 ---
Anesthesia Postop Eval I Sum Postop Eval Completion status Anesthesia document: Postop Eval 1 completed: Yes Anesthesia Postop Eval I Summary Anesthesia Postop Eval I Summary: Anesthesia Postop Eval I: Assessment Summary Airway patent Yes 06/15/25 10:50 EDGE BURNISHER [email or web address] Spontaneous unlabored Yes 06/15/25 10:50 EDGE BURNISHER [email or web address] respirations Mental status nausea No 06/15/25 10:50 EDGE BURNISHER [email or web address].[email or web address] Vomiting No 06/15/25 10:50 EDGE BURNISHER [email or web address].[email or web address] Anesthesia Postop Eval I: Fluid Summary Crystalloid volume administer 800 06/15/25 10:50 EDGE BURNISHER [email or web address] (ml) Colloids volume administered ( ml) Blood Product volume administered (ml) Total IV fluid infused 800 06/15/25 10:50 EDGE BURNISHER [email or web address].[email or web address] Anesthesia Postop Eval I: Summary Notes Anesthesia Complication No 06/15/25 10:50 EDGE BURNISHER [email or web address].TNES Anesthesia Complication Comment: Post-operative progress note Anesthesia: Postop Eval II Evaluation Mental status: Awake and Calm Pain Level: 1 nausea: No Vomiting: No Complications Anesthesia Complication: No
== END 2025-06-15 11:19 | disposition home or self-care (01) ==
LOC: SDC 05:59 → AC 05:59
PROVIDERS: PCP Family Medicine; Referring Provider Urology; Visit Provider Urology
PROC: 0TJ98ZZ Inspection of Ureter, Via Natural or Artificial Opening Endoscopic (ICD-10-PCS; CPT 52352; principal; 2025-06-15 07:20)
DX: N20.0 Calculus of kidney (principal); E11.9 Type 2 diabetes mellitus without complications; N30.81 Other cystitis with hematuria; I10 Essential (primary) hypertension; E78.2 Mixed hyperlipidemia; F17.210 Nicotine dependence, cigarettes, uncomplicated; Z79.84 Long term (current) use of oral hypoglycemic drugs; Z79.899 Other long term (current) drug therapy; Z87.442 Personal history of urinary calculi
CPT/HCPCS: 52356; 00918; 36415; 76000; 80048; 82962; 85027; C1769; C2617; J0744; J2405